=== PATIENT | female | born 1955 | race Caucasian/White ===

== ENCOUNTER 2016-06-21 11:41 | Emergency (ER) | payer OTHER ==
[~2016-06-21] VITALS: Ht 182.9 cm; Wt 86.2 kg
[~2016-06-21 11:41] MED LIST: ACHD5005 PO; DIPH50CA33 PO; FAMO40TA6 PO; HYDR1TAB66 PO; PNT40TEC PO; PRM25T PO
--- OUTSIDE RECORDS SUMMARY | 2016-06-21 11:49 | XMS REPORT ---
Author Author EASTON EASTMAN eClinical[employer] Address Unknown Phone Unavailable Care Team Providers Care Insurance Loss Control Surveyor Name Role Phone EASTON EASTMAN CP Unavailable Allergies, Adverse Reactions, Alerts Substance Reaction Event Type Sulfamethoxazole Info Not Available Drug Allergy Celebrex Info Not Available Drug Allergy Problems Problem Type Condition Code Onset Dates Condition Status Assessment Dental examination Z01.20 Active Problem Lumbosacral radiculopathy 724.4 Active Medications Medication Code System Code Instructions Start Date End Date Status Dosage Ibuprofen NDC 0 not defined Clindamycin HCl [facility] [id number] 150 MG Orally every 6 hrs Jan 12, 2016 Jan 19, 2016 2 capsules Benadryl Allergy [facility] [id number] not defined Procedures Procedure Coding System Code Date INTRAORL-PERIAPICAL 1 FILM 96157 CPT-4 D0220 Jan 12, 2016 LTD ORAL EVALUATION - PROBLEM FOCUS CPT-4 D0140 Jan 12, 2016 Vital Signs Date/Time: Jan 12, 2016 Blood Pressure Diastolic 93 mmHg Blood Pressure Systolic 131 mmHg Height 72 in Results No Known Results Summary Purpose eClinicalWorks Submission
[2016-06-21] MEDS ORDERED: HYDROcodone/APAP 5 MG/325 MG (LORTAB) TAB PO ONE (12:15)
[2016-06-21] MEDS ORDERED: HYDR-757 PO (12:17)
--- NOTE | 2016-06-21 12:17 | ED Upper Extremity ---
General Chief Complaint: Upper Extremity Stated Complaint: L WRIST INJ, FALL Source: patient Exam Limitations: no limitations History of Present Illness Time seen by provider: 12:14 Initial Comments To ER with reports of a fall at home and try to catch herself on an extended left arm. She now has deformity and swelling to the distal left forearm. She is able to move all of her fingers. No pain in the elbow and no other injuries. Onset: just prior to arrival Severity: moderate Pain/Injury Location: left forearm Method of Injury: fell Modifying Factors: Worse With Movement Allergies and Home Medications Allergies Coded Allergies: Celecoxib (Unverified Allergy, Unknown, 09/23/10) Uncoded Allergies: SULFA (Allergy, Unknown, 09/23/10) Home Medications Hydrocodone/Acetaminophen 1 Each Tablet #30 1 EACH PO Q4H PRN PRN PAIN Prescribed by: LEO ELAM on 06/21/16 1217 Constitutional: see HPI EENTM: see HPI Respiratory: no symptoms reported Cardiovascular: no symptoms reported Genitourinary: no symptoms reported Musculoskeletal: see HPI Skin: no symptoms reported Psychiatric/Neurological: No Symptoms Reported Past Boahfuh-Lqoelx-Qzcibg Hx Patient Social History Alcohol Use: Rarely Uses Recreational Drug Use: No Smoking Status: Current Everyday Smoker Recent Foreign Travel: No Contact w/Someone Who Travel: No Recent Hopitalizations: No Physical Abuse Screen: No Sexual Abuse: No Seasonal Allergies Seasonal Allergies: No Surgeries HX Surgeries: Yes Respiratory Hx Respiratory Disorders: No Cardiovascular Hx Cardiac Disorders: Yes Neurological Hx Neurological Disorders: No Reproductive System Hx Reproductive Disorders: No Genitourinary Hx Genitourinary Disorders: No Gastrointestinal Hx Gastrointestinal Disorders: No Endocrine Hx Endocrine Disorders: No HEENT HX ENT Disorders: No Psychosocial Hx Psychiatric Problems: No Blood Transfusions Hx Blood Disorders: No Physical Exam Vital Signs Vital Sign - Last 12Hours 06/21/16 12:00 Temp 97.4 Pulse 104 Resp 18 B/P 143/85 Pulse Ox 97 Capillary Refill : General Appearance: WD/WN no apparent distress HEENT: PERRL/EOMI normal ENT inspection Neck: non-tender full range of motion Respiratory: no respiratory distress no accessory muscle use Gastrointestinal: non tender soft Shoulder: normal inspection non-tender Elbow/Forearm: Left, pain, soft tissue tenderness Wrist: Yes deformity, Yes limited ROM, Yes pain, Yes soft tissue tenderness, Yes swelling Hand: normal inspection, non-tender, no evidence of injury, Left Neurologic/Psychiatric: alert normal mood/affect oriented x 3 Skin: normal color warm/dry Progress/Results/Core Measures Results/Orders My Orders Orders-LEO ELAM APRN Wrist, Left, 3 Views Or More (06/21/16 12:08) Hydrocodone/Apap 5/325 Tablet (Lortab 5 (06/21/16 12:15) Medications Given in ED Current Medications Medications Dose Ordered Sig/Zain Route Start Time Stop Time Status Last Admin Dose Admin Acetaminophen/ Hydrocodone Bitart 1 tab ONCE ONCE PO 06/21/16 12:15 06/21/16 12:16 DC 06/21/16 12:41 1 TAB Vital Signs/I&O Vital Sign - Last 12Hours 06/21/16 12:00 Temp 97.4 Pulse 104 Resp 18 B/P 143/85 Pulse Ox 97 Diagnostic Imaging Diagonstic Imaging: Xray Comments NAME: IBIS MORRELL [facility] REC#: [id number] PT STATUS: REG ER : 1955 PHYSICIAN: LEO ELAM APRN ADMIT DATE: 06/21/16/ER Draft Date of Exam:06/21/16 WRIST, LEFT, 3 VIEWS OR MORE Exam: 3 views of the left wrist. Indication: Injury. Findings: There is a mildly comminuted impacted fracture of the distal radius with the fracture line extending to the articular surface. There is satisfactory alignment of the radiocarpal joint. There is a nondisplaced transverse fracture through the base of the ulnar styloid, as well. Degenerative changes of the carpometacarpal joint at the base of the thumb is seen. No radiopaque foreign body is noted. Impression: Mildly comminuted and impacted fracture at the distal radius with a fracture line extending to the radiocarpal joint. There is also a nondisplaced fracture through the base of the ulnar styloid. Dictated on workstation # [id number] Dict: 06/21/16 1221 Trans: 06/21/16 1229 [facility] [phone] Interpreted by: ESTELLE NUNEZ MD Electronically signed by: Departure Communication Progress Notes Patient placed in an sugar tong style splint using 3 inch Ortho-Glass and provided with a sling. Impression Impression: Primary Impression: Distal radius fracture, left Qualified Code: S52.502A - Unspecified fracture of the lower end of left radius, initial encounter for closed fracture Disposition: 01 HOME, SELF-CARE Condition: Stable Departure-Patient Inst. Decision time for Depature: 12:16 Referrals: KARIE CLARKE MD [facility] (PCP/Family) Primary Care Physician MARYANNE COOPER,ANNA FOSTER,NEVILLE HERRON,ITALO SPARKS,DUONG GOODWIN,WENDY ELIAS,ABELARDO Hoover MD Patient Instructions: Wrist Fracture (DC) Add. Discharge Instructions: 1. Keep the arm in a splint at all times until you follow up with one of the orthopedic surgeons listed 2. Try to be seen by an orthopedic surgeon within 2 weeks. At that point they will likely re-x-ray this and switch your splint to a cast 4. Keep the hand elevated as much as possible today and tomorrow as this will help with swelling and throbbing. Pain medication as directed All discharge instructions reviewed with patient and/or family. Voiced understanding. Scripts Hydrocodone/Acetaminophen (Barrett 5-325 Tablet)1 Each Tablet1 Each PO Q4H PRN PAIN #30 TAB Prov:LEO ELAM APRN 06/21/16 LEO ELAM APRN Jun 21, 2016 12:17
--- NOTE | 2016-06-21 12:29 | Diagnostic Imaging Report ---
Exam: 3 views of the left wrist. Indication: Injury. Findings: There is a mildly comminuted impacted fracture of the distal radius with the fracture line extending to the articular surface. There is satisfactory alignment of the radiocarpal joint. There is a nondisplaced transverse fracture through the base of the ulnar styloid, as well. Degenerative changes of the carpometacarpal joint at the base of the thumb is seen. No radiopaque foreign body is noted. Impression: Mildly comminuted and impacted fracture at the distal radius with a fracture line extending to the radiocarpal joint. There is also a nondisplaced fracture through the base of the ulnar styloid. Dictated by: Dictated on workstation # [id number]
[2016-06-21 12:50] VITALS: BP 122/84
== END 2016-06-21 12:50 | disposition home or self-care (01) ==
LOC: EDUNIT# 11:41 → ER 11:44
DX: S52.352A Displaced comminuted fracture of shaft of radius, left arm, initial encounter for closed fracture (principal); S52.615A Nondisplaced fracture of left ulna styloid process, initial encounter for closed fracture; F17.210 Nicotine dependence, cigarettes, uncomplicated; W19.XXXA Unspecified fall, initial encounter; Y92.009 Unspecified place in unspecified non-institutional (private) residence as the place of occurrence of the external cause; Y99.8 Other external cause status
CPT/HCPCS: 29125; 73110

== ENCOUNTER 2016-11-12 09:44 | Outpatient (RCR) | payer OTHER ==
[~2016-11-12 09:44] MED LIST changes: +HYDR-757 PO
== END 2016-11-27 15:04 | disposition home or self-care (01) ==
PROVIDERS: ATTEND Orthopaedic Surgery
DX: S52.352D Displaced comminuted fracture of shaft of radius, left arm, subsequent encounter for closed fracture with routine healing (principal); S52.615D Nondisplaced fracture of left ulna styloid process, subsequent encounter for closed fracture with routine healing

== ENCOUNTER 2019-07-21 10:06 | Outpatient (CLI) | payer MEDICARE, OTHER ==
[~2019-07-21] VITALS: Ht 182.9 cm; Wt 89.8 kg
[~2019-07-21 10:06] MED LIST changes: +HYDR-4226 PO; -HYDR-757 PO
[2019-07-21] MEDS ORDERED: TRAM50TA3 PO (10:20)
[2019-07-21 10:30] VITALS: BP 149/86
[2019-07-21 11:03] LABS: BASOPHILS % (AUTO) 0 % (0-10); EOSINOPHILS # (AUTO) 0.2 10^3/uL (0.0-0.3); EOSINOPHILS % (AUTO) 3 % (0-10); HEMATOCRIT 46 % (35-52); HEMOGLOBIN 14.8 G/DL (11.5-16.0); LYMPHOCYTES # (AUTO) 2.1 X 10^3 (1.0-4.0); LYMPHOCYTES % (AUTO) 39 % (12-44); MEAN CORPUSCULAR HEMOGLOBIN 28 PG (25-34); MEAN CORPUSCULAR HGB CONC 33 G/DL (32-36); MEAN CORPUSCULAR VOLUME 87 FL (80-99); MEAN PLATELET VOLUME 9.1 FL (7.4-10.4); MONOCYTES # (AUTO) 0.5 X 10^3 (0.0-1.0); MONOCYTES % (AUTO) 9 % (0-12); NEUTROPHILS # (AUTO) 2.7 X 10^3 (1.8-7.8); NEUTROPHILS % (AUTO) 50 % (42-75); PLATELET COUNT 223 10^3/uL (130-400); RED CELL DISTRIBUTION WIDTH 13.9 % (10.0-14.5); WHITE BLOOD COUNT 5.3 10^3/uL (4.3-11.0)
[2019-07-21 11:10] LABS: BILIRUBIN,URINE NEGATIVE (NEGATIVE); CLARITY,URINE CLEAR; COLOR,URINE YELLOW; GLUCOSE, URINE (UA) NEGATIVE (NEGATIVE); KETONES,URINE NEGATIVE (NEGATIVE); LEUKOCYTE ESTERASE ,URINE NEGATIVE (NEGATIVE); NITRITE,URINE NEGATIVE (NEGATIVE); PROTEIN,URINE NEGATIVE (NEGATIVE)
[2019-07-21 11:19] LABS: INR 0.9 (0.8-1.4); PROTHROMBIN TIME PATIENT 12.5 SEC (12.2-14.7)
[2019-07-21 11:19] LABS: BACTERIA,URINE NEGATIVE /HPF; RBC,URINE RARE /HPF; SQUAMOUS EPITHELIAL CELL,UR 0-2 /HPF; WBC,URINE RARE /HPF
--- NOTE | 2019-07-21 11:19 | Diagnostic Imaging Report ---
INDICATION: Preop screening prior to knee arthroplasty. FINDINGS: The heart size, mediastinal configuration, and pulmonary vascularity are within normal limits. There is no pleural effusion, pneumothorax, or pneumonia. The osseous structures are unremarkable. IMPRESSION: No acute cardiopulmonary abnormality. Dictated by: Dictated on workstation # [id number]
[2019-07-21 11:26] LABS: ALANINE AMINOTRANSFERASE 17 U/L (0-55); ALBUMIN 4.3 GM/DL (3.2-4.5); ALKALINE PHOSPHATASE 82 U/L (40-136); BILIRUBIN,TOTAL 0.4 MG/DL (0.1-1.0); BUN/CREATININE RATIO 28; CALCIUM 9.4 MG/DL (8.5-10.1); CARBON DIOXIDE 25 MMOL/L (21-32); CHLORIDE 105 MMOL/L (98-107); CREATININE SERUM 0.65 MG/DL (0.60-1.30); GFR ESTIMATED > 60; GLUCOSE 96 MG/DL (70-105); POTASSIUM 4.1 MMOL/L (3.6-5.0); SODIUM 138 MMOL/L (135-145); TOTAL PROTEIN 7.5 GM/DL (6.4-8.2)
== END 2019-07-21 11:05 | disposition home or self-care (01) ==
LOC: PREOP 10:06
PROVIDERS: ATTEND Orthopaedic Surgery
DX: Z01.818 Encounter for other preprocedural examination (principal); M17.11 Unilateral primary osteoarthritis, right knee; R53.83 Other fatigue
CPT/HCPCS: 36415; 71046; 80053; 81000; 85025; 85610; 86850; 86900; 86901; 87081

== ENCOUNTER 2019-07-28 07:32 | Inpatient (IN) | payer MEDICARE, OTHER ==
--- NOTE | 2019-07-22 04:17 | HISTORY AND PHYSICAL ---
DATE OF SERVICE: DATE OF ADMISSION: 07/28/2019. This will be for inpatient admission on 07/28/2019 for right total knee arthroplasty. The patient will require regular inpatient admission due to pain management issues, gait abnormalities, need for physical therapy. HISTORY OF PRESENT ILLNESS: The patient is a 64-year-old female with progressively worsening right knee pain. She reports that this has progressed to the point where it is interfering with activities of daily living. She reports progressive loss of function and increasing pain. She reports pain on the medial aspect of her knee. She denies recent injuries. Due to functional impairment and failure to improve with conservative measures, the patient has elected to proceed with surgical intervention. Radiographs reveals severe medial and patellofemoral arthrosis with complete loss of joint spaces. REVIEW OF SYSTEMS: No chest pain, no shortness of breath, no dysuria. PAST MEDICAL HISTORY: Unremarkable. PAST SURGICAL HISTORY: Cholecystectomy, C5/C6 anterior cervical diskectomy and fusion, left carpal tunnel release. FAMILY HISTORY: Noncontributory. PRIMARY CARE PROVIDER: [facility]. MEDICATIONS: None. ALLERGIES: CELEBREX, SULFA, MELOXICAM. SOCIAL HISTORY: The patient is a current every day smoker and drinks alcohol socially. PHYSICAL EXAMINATION: GENERAL: The patient is well-developed, well-nourished, in no acute distress. HEENT: Normocephalic, atraumatic. Pupils are equal, round, reactive to light. Oropharynx is clear. NECK: Supple, no lymphadenopathy. LUNGS: Clear to auscultation bilaterally. HEART: Regular rate and rhythm. ABDOMEN: Soft, nontender, nondistended. EXTREMITIES: Right knee demonstrates marked tenderness along the medial joint line. She has a moderate effusion. Range of motion is 0/0/145 with no varus valgus laxity. Negative anterior and posterior drawer. She has pain with Brown. She ambulates with an antalgic gait. IMPRESSION: Right knee primary osteoarthritis. PLAN: Right total knee arthroplasty. The risks, benefits, options, ramifications and recovery were discussed at length with the patient. She understands and wishes to proceed. Job ID: [id number] DocumentID: [id number] Dictated Date: 07/14/2019 12:25:14 Button Tacker Date: 07/14/2019 13:07:06 Dictated By: ABELARDO DE LA TORRE MD
[~2019-07-28] VITALS: Ht 182.9 cm; Wt 89.8 kg
[2019-07-28] VITALS (11 sets, daily range): BP systolic 122–162; BP diastolic 76–103
[~2019-07-28 07:32] MED LIST changes: +ACETAMINOPHEN 325 MG TABLET PO PRN; +ONDANSETRON 4 MG/2 ML (SDV) Z0FRAN IVP PRN; +TRAM50TA3 PO; +diphenhydrAMINE 50 MG/ML INJ (BENADRYL) IVP PRN
[2019-07-28] MEDS ORDERED: INTRA-ARTICULAR IU ONE ×5 (07:45)
[2019-07-28] MEDS ORDERED: ONDANSETRON 4 MG/2 ML (SDV) Z0FRAN ONE (08:05)
[2019-07-28] MEDS ORDERED: proPOfol 200 MG/20 ML (DIPRIVAN) VIAL IV ONE (08:05)
[2019-07-28] MEDS ORDERED: MIDAZOLAM 2 MG/2 ML (VERSED) VIAL ONE (08:06)
[2019-07-28] MEDS ORDERED: LIDOCAINE PF 2% 5 ML (XYLOCAINE) VIAL ONE (08:06)
[2019-07-28] MEDS ORDERED: SEVOFLURANE (ULTANE) 15 ML INHAL SOLN ONE ×2 (08:06→10:35)
[2019-07-28] MEDS ORDERED: fentaNYL INJECTION 100 MCG/2 ML AMP ONE ×2 (08:06→09:48)
[2019-07-28] MEDS ORDERED: TRANEXAMIC ACID 100 MG/ML 10 ML INJECTION IV ONE (08:12)
[2019-07-28] MEDS ORDERED: BUPIVACAINE 0.5% 30 ML (SENSORCAINE) VIAL ONE (08:12)
[2019-07-28] MEDS: NS IV 1000 ML 1,000 ML IV SCH ×2 (08:15→18:19)
[2019-07-28] MEDS ORDERED: CEFUROXIME 1,500 MG/SWFI 15 ML IV PUSH IV ONE ×2 (08:30)
[2019-07-28] MEDS ORDERED: CATHETER FLUSH 10 ML SYR IV PRN (08:30)
--- NOTE | 2019-07-28 09:19 | Progress Note-Pre Operative ---
Pre-Operative Progress Note H&P Reviewed The H&P was reviewed, patient examined and no changes noted. Date Seen by Provider: Jul 28, 2019 Time Seen by Provider: 09:10 Date H&P Reviewed: Jul 28, 2019 Time H&P Reviewed: 07:12 Pre-Operative Diagnosis: right knee primary osteoarthritis ABELARDO DE LA TORRE MD Jul 28, 2019 09:19
--- NOTE | 2019-07-28 09:21 | Progress Note-Post Operative ---
Post-Operative Progess Note Surgeon (s)/Anesthesiology Tech (s) Surgeon ABELARDO DE LA TORRE MD Anesthesiology Tech: Pedrito Charles Pre-Operative Diagnosis right knee primary osteoarthritis Post-Operative Diagnosis right knee primary osteoarthitis Procedure & Operative Findings Date of Procedure 07/28/19 Procedure Performed/Findings right total knee arthroplasty Anesthesia Type GETA Estimated Blood Loss Estimated blood loss (mL): minimal Specimens/Packing Specimens Removed none Packing: none ABELARDO DE LA TORRE MD Jul 28, 2019 09:21
--- NOTE | 2019-07-28 09:23 | D/C HH Face to Face Order ---
D/C Face to Face Orders Reconcile Patient Problems Problems Reviewed?: Yes Instructions for Patient Via [facility] [place], Patient Instructions/FollowUp: three weeks Physician to follow Patient: three weeks Discharge Diet for Home: Regular Diet Patient Data-Allergies,Ht & Wt Patient Allergies: Coded Allergies: Sulfa (Sulfonamide Antibiotics) (Verified Allergy, Unknown, 07/21/19) celecoxib (Unverified Allergy, Unknown, 09/23/10) meloxicam (Verified Allergy, Unknown, stomach pain, 07/21/19) Height (Feet): 6 Height (Inches): 0 Weight (Pounds): 190 Home Health Need/Face to Face Date of Face to Face: Jul 28, 2019 Clinical Findings: Instability, Muscle weakness, Pain with ambulation, Unsteady gait I have seen Pt ycgu-zp-[id number]: Yes Discharged To: Home Diagnosis/Conditions: right total knee arthroplasty Patient is Homebound due to: Debbie fall risk due to instabilty, Muscle weakness, Pain w/ambulation Homebound Status Due to the above stated illness, injury or surgical procedure (medical condition or diagnosis) and associated clinical findings, the patient is homebound because of his/her inability to leave home except with aid of a supportive device and/or person AND leaving the home requires a considerable and taxing effort or is medically contraindicated. Pt req the following assistanc: Walker Home Health Nursing Orders Home Health Services Order: Physical Therapy-Evaluate & Treat DC right knee kalyn and apply steri strips 08/11/19 Therapy Orders Therapy Orders: Physical Therapy, PT to assess for OT Therapy Specific Orders: Eval assistive deivces, Teach enviro modifications/safety, Gait training, Increase strength/endurance, Provider maintenance therapy, Restore ROM Certify Stmt I certify that this patient is under my care and that I, a nurse practitioner or a physician; a culinary assistant working with me, had a face to face encounter that - meets the physician face to face encounter requirements with this patient as dated. ABELARDO DE LA TORRE MD Jul 28, 2019 09:23
[2019-07-28] MEDS ORDERED: GLYCOPYRROLATE 0.2 MG/ML (ROBINUL) 2 ML VIAL ONE (09:36)
[2019-07-28] MEDS ORDERED: LACTATED RINGERS 1,000 ML IV PRN (10:08)
[2019-07-28] MEDS ORDERED: LABETALOL HCL 20 MG/4 ML VIAL ONE (10:30)
[2019-07-28] MEDS ORDERED: morphine INJ 10 MG/ML 1ML (SYR OR VIAL) ONE (11:02)
[2019-07-28] MEDS ORDERED: HYDROmorphone 2 MG/ML VIAL (DILAUDID) ONE (11:12)
[2019-07-28] MEDS ORDERED: HYDROmorphone 2 MG/ML VIAL (DILAUDID) IV ONE (11:15)
[2019-07-28] MEDS ORDERED: PROMETHAZINE INJ 25 MG/ML (PHENERGAN) AMP IVP ONE (11:15)
[2019-07-28] MEDS ORDERED: MEPERIDINE (DEMEROL) INJ 50 MG/ML IVP ONE (11:15)
[2019-07-28] MEDS ORDERED: ONDANSETRON 4 MG/2 ML (SDV) Z0FRAN IVP PRN (11:15)
[2019-07-28] MEDS ORDERED: morphine INJ 10 MG/ML 1ML (SYR OR VIAL) IVP ONE (11:15)
--- NOTE | 2019-07-28 11:19 | Progress Note ---
Standard Progress Note Progress Notes/Assess & Plan Date Seen by a Provider: Jul 28, 2019 Time Seen by a Provider: 11:17 Progress/Assessment & Plan post op check no complaints radiographs--HW well positioned without fracture RLE--2 plus DP pulse with brisk cap refill, intact DF and PF of toes and ankle. Intact sensation thoroughout s/p RTKA mobilize as able ABELARDO DE LA TORRE MD Jul 28, 2019 11:19
--- NOTE | 2019-07-28 11:19 | Diagnostic Imaging Report ---
INDICATION: Right knee pain. FINDINGS: AP and lateral views of the right knee show postop changes from joint arthroplasty. The prosthetic components appear to be well seated. There is no evidence of loosening or acute fracture. IMPRESSION: Good alignment of the right knee following joint arthroplasty. Dictated by: Dictated on workstation # [id number]
--- NOTE | 2019-07-28 12:00 | NUR ---
RECEIVED FROM RECOVERY, ALERT, DRESSING DRY AND INTACT TO RIGHT KNEE, POLAR ICE PACK ON, CHANO HOSE ON, SCD'S APPLIED, IV SITE WITHOUT REDNESS OR SWELLING, CALL LIGHT WITHIN REACH, O2 ON PER NC AT 2 LITERS
[2019-07-28] MEDS ORDERED: morphine PCA 100 MG/100 ML BAG IV ONE (12:59)
[2019-07-28] MEDS: morphine PCA 100 MG/100 ML BAG IV PRN ×2 (13:23→13:24)
--- NOTE | 2019-07-28 13:23 | NUR ---
MORPHINE PC STARTED IMG EVERY 10 MINUTES WITH LOCKOUT OF 20 IN FOUR HOURS, PATIENT VERBALIZED UNDERSTANDING
--- NOTE | 2019-07-28 14:20 | Physical Therapy Evaluation ---
PT Evaluation-General Medical Diagnosis Admission Date Jul 28, 2019 at 07:32 Medical Diagnosis: Right TKA Onset Date: Jul 28, 2019 Therapy Diagnosis Therapy Diagnosis: impaired mobility, strength, endurance, ROM Height/Weight Height (Feet): 6 Height (Inches): 0 Weight (Pounds): 190 Precautions Precautions/Isolations: Standard Precautions Weight Bear Status Right Lower Extremity: Right Weight Bearing/Tolerated Referral Physician: Melvin Reason for Referral: Evaluation/Treatment Medical History Additional Medical History PAST SURGICAL HISTORY: Cholecystectomy, C5/C6 anterior cervical diskectomy and fusion, left carpal tunnel release. Current History Patient had right TKA morning of 07/28 Reviewed History: Yes Social History Home: Single Level Current Living Status: Spouse Entry Into Home: Level Entry PT Steps Into Home: 0 PT Steps Inside Home: 0 Prior Prior Level of Function SCALE: Activities may be completed with or without assistive devices. 2-Bdiucntpym-vgdojpa completes the activity by him/herself with no assistance from a helper. 5-Set-up or Clean-up Assistance-helper sets up or cleans up; patient completes activity. [place] assists only prior to or following the activity. 4-Supervision or Touching Assistance-helper provides verbal cues and/or touching/steadying and/or contact guard assistance as patient completes activity. Assistance may be provided throughout the activity or intermittently. 3-Partial/Moderate Assistance-helper does LESS THAN HALF the effort. [place] lifts, holds or supports trunk or limbs, but provides less than half the effort. 2-Substantial/Maximal Assistance-helper does MORE THAN HALF the effort. [place] lifts or holds trunk or limbs and provides more than half the effort. 8-Tdaqxncaj-oabtmr does ALL the effort. Patient does none of the effort to complete the activity. Or, the assistance of 2 or more helpers is required for the patient to complete the activity. If activity was not attempted, code reason: 7-Patient Refused. 9-Not Applicable-not attempted and the patient did not perform the activity before the current illness, exacerbation or injury. 10-Not Attempted due to Environmental Limitations-(lack of equipment, weather restraints, etc.). 88-Not Attempted due to Medical Conditions or Safety Concerns. Bed Mobility: 6 Transfers (B,C,W/C): 6 Gait: 6 Stairs: 6 Indoor Mobility (Ambulation): Independent Stairs: Independent Prior Devices Use: None PT Evaluation-Current Subjective Patient agreeable to therapy at this time. Patient reports she is ready to start moving her leg. Pain 4/10 in right knee. Pt/Family Goals to be independent at home Objective Patient Orientation: Person Attachments: SCD's, Oxygen, Polar Pack, IV ROM/Strength ROM Lower Extremities Right knee approximately 80 degrees flexion and lacking 5 degrees extension. Strength Lower Extremities Expected post surgical RLE weakness. Integumentary/Posture Integumentary See nursing notes. 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 Wheelchair Training Does the Pt Use a Wheelchair?: No Balance Sitting Static: Good Sitting Dynamic: Good Standing Static: Fair Standing Dynamic: Fair Treatment RLE exercises x 10 reps: ankle pumps, quad sets, heel slides, SLR, SAQ. AROM all exercises. Assessment/Needs Patient is extremely motivated to accomplish tasks independently, she does not want assistance with bed mobility. Patient tolerates exercises well and is steady during ambulation with cues on proper handling of walker. Patient is in bed with CPM on, set at -2/54. Rehab Potential: Good PT Trailer Technician Goals Snf Goals PT Trailer Technician Goals Time Frame: Aug 04, 2019 Roll Left & Right (QC): 6 Sit to Lying (QC): 6 Lying-Sitting on Side/Bed(QC): 6 Sit to Stand (QC): 6 Chair/Woo-ly-Iugjh Xfer(QC): 6 Toilet Transfer (QC): 6 Does the Patient Walk: Yes Walk 10 feet (QC): 6 Walk 50ft with 2 Turns (QC): 6 Does the Pt use WC or Scooter?: No PT Plan Problem List Problem List: Activity Tolerance, Functional Strength, Safety, Balance, Gait, Transfer, ROM Treatment/Plan Treatment Plan: Continue Plan of Care Treatment Plan: Education, Functional Activity Amor, Functional Strength, Gait, Safety, Therapeutic Exercise, Transfers Treatment Duration: Aug 04, 2019 Frequency: 11 times per week Estimated Hrs Per Day: .5 hour per day Patient and/or Family Agrees t: Yes Safety Risks/Education Patient Education: Gait Training, Transfer Techniques, Correct Positioning, Sa fety Issues Teaching Recipient: Patient Teaching Methods: Demonstration, Discussion Response to Teaching: Reinforcement Needed Discharge Recommendations Plan Patient will receive treatment addressing bed mobility, functional activity tolerance, functional strength, gait, safety, and transfers through strength training, therapeutic exercises, stair training, and education. Therapy Discharge Recommendati: Home & Family Time/GCodes Time In: 1322 Time Out: 1352 Total Billed Treatment Time: 30 Total Billed Treatment 1 visit VIJAYA 30' LUBA PAREKH PT Jul 28, 2019 14:20
--- NOTE | 2019-07-28 15:28 | OPERATIVE REPORT ---
DATE OF SERVICE: 07/28/2019 PREOPERATIVE DIAGNOSIS: Right knee primary osteoarthritis. POSTOPERATIVE DIAGNOSIS: Right knee primary osteoarthritis. PROCEDURE: Right total knee arthroplasty. SURGEON: Maynor Toscano MD SULFURIC [employer] PLANT OPERATOR: Pedrito Charles, who assisted throughout the procedure and closed the incision. ANESTHESIA: General endotracheal by Jad Best CRNA. TOURNIQUET TIME: Approximately 65 minutes at 300 mmHg. ESTIMATED BLOOD LOSS: Minimal. DRAINS: None. COMPLICATIONS: None. POSTOPERATIVE PLAN: Routine protocol. The patient was transferred to the recovery room awake and in stable condition. MATERIALS: MicroPort cemented to size 5 femur, cemented size 5 tibia with 10 mm insert and cemented size 32 patellar button. STATEMENT OF MEDICAL NECESSITY: The patient is a 64-year-old female with progressively worsening right knee pain, catching, locking and swelling. She had complete loss of medial patellofemoral joint spaces. She has tried treatment with injections without relief. Due to functional impairment and failure to improve with conservative measures, the patient elected to proceed with surgical intervention. DESCRIPTION OF PROCEDURE: After risks and benefits of procedure were discussed and questions were answered, informed consent was accomplished on chart, the operative site was confirmed in the preoperative holding area initialed by the surgeon. The patient was then transferred to the operating room and after adequate levels of general endotracheal anesthetic were obtained, a timeout was called, confirming the operative site. The right lower extremity was prepped and draped in the usual sterile fashion with the leg elevated and knee flexed, tourniquet was inflated to 300 mmHg. A standard anterior incision was utilized. Medial parapatellar arthrotomy was performed leaving 1 cm cuff on the patella for later reattachment. A portion of the fat pad was resected. Subperiosteal release was performed proximal medial tibia, being careful stay on the bony surface. The ACL was resected. Intramedullary guide was passed into the femur. The intramedullary guide was placed. Distal cutting block was placed parallel to the epicondylar axis and cuts were made from posterior to anterior. A subperiosteal release was then carefully performed on the posterior distal femur, being careful to stay on the bony surface. Intramedullary guide was passed into the tibia. The drop becky transected the intermalleolar axis and the cut was made. Baseplate was placed. Drop becky transected the intermalleolar axis and this was prepared with the drill and keel punch. The femoral trial was placed and the trochlear cut was made. A 10 mm insert was placed. The patella was prepared by using the freehand technique and resecting 10 mm off the undersurface. 32 button was placed. Knee was taken through range of motion. Full extension was easily obtained, 130 degrees of flexion with gravity was easily obtained. There was no anterior/posterior or medial/lateral laxity in flexion or extension. Trials were removed. Joint was irrigated with pulse lavage. Bone ends were irrigated and dried. Tibial baseplate was cemented into position. Excessive cement was removed. Superior surface was irrigated and dried and the polyethylene insert was placed. Distal femur was irrigated and dried and the femoral prosthesis was cemented in position. Excessive cement was removed. The undersurface of patella was irrigated and dried. The patellar button was cemented into position. Once the cement had cured, the knee was taken through range of motion, full extension easily obtained, 130 of flexion with gravity was easily obtained. The patella tracked well. There was no anterior/posterior or medial/lateral laxity in flexion or extension. The joint was further irrigated with pulse lavage. Arthrotomy was closed with #2 Tevdek in interrupted fashion. Knee was flexed. The repair was stable and the patella tracked well. The subcutaneous tissues were irrigated and dried using a total of 6 liters throughout the procedure. A 0 Vicryl was used to deep subcutaneous tissue, 2-0 Vicryl for the superficial subcutaneous tissue, kalyn used on the skin. A soft dressing was applied. Tourniquet was deflated. The patient was transferred to the recovery room awake and in stable condition. Job ID: [id number] DocumentID: [id number] Dictated Date: 07/28/2019 11:00:44 Tape Librarian Date: 07/28/2019 15:27:35 Dictated By: MAYNOR OTSCANO MD
[2019-07-28] MEDS: SENNA W/DOCUSATE (SENOKOT S) TABLET PO SCH ×2 (17:44→21:19)
[2019-07-28] MEDS: CEFUROXIME INJECTION 750 MG in WATER (STERILE) FOR INJECTION 10 ML IV SCH (17:45)
[2019-07-29 00:40] VITALS: BP 109/55
[2019-07-29] MEDS: CEFUROXIME INJECTION 750 MG in WATER (STERILE) FOR INJECTION 10 ML IV SCH (01:09)
[2019-07-29] MEDS: oxyCODONE/APAP 5/325MG (PERCOCET 5) TABLET PO PRN ×8 (03:40→22:50)
[2019-07-29 04:00] VITALS: BP 127/68
[2019-07-29 06:09] LABS: HEMOGLOBIN 12.1 G/DL (11.5-16.0)
[2019-07-29] MEDS: NS IV 1000 ML 1,000 ML IV SCH ×2 (07:12→17:44)
[2019-07-29] MEDS: SENNA W/DOCUSATE (SENOKOT S) TABLET PO SCH ×2 (07:17→20:44)
[2019-07-29] MEDS: MULTIVIT W/MINERALS TAB (THERAGRAN M) PO SCH (07:17)
[2019-07-29] MEDS: ENOXAPARIN 30 MG/0.3 ML (LOVENOX) SYR SC SCH ×2 (07:17→20:43)
[2019-07-29] MEDS: ASPIRIN E.C. 81 MG (ECOTRIN) TAB PO SCH (07:18)
--- NOTE | 2019-07-29 07:50 | Anesthesia-General Post-Op ---
General Patient Condition Mental Status/LOC: Same as Preop Cardiovascular: Satisfactory Nausea/Vomiting: Absent Respiratory: Satisfactory Pain: Controlled Complications: Absent Post Op Complications Complications None Follow Up Care/Instructions Patient Instructions None needed. Anesthesia/Patient Condition Patient Condition Patient is doing well, no complaints, stable vital signs, no apparent adverse anesthesia problems. No complications reported per nursing. NAM BELL CRNA Jul 29, 2019 07:50
--- NOTE | 2019-07-29 07:57 | Progress Note ---
Standard Progress Note Progress Notes/Assess & Plan Date Seen by a Provider: Jul 29, 2019 Time Seen by a Provider: 07:56 Progress/Assessment & Plan post op check no complaints radiographs--HW well positioned without fracture RLE--2 plus DP pulse with brisk cap refill, intact DF and PF of toes and ankle. Intact sensation thoroughout s/p RTKA mobilize as able Final Diagnosis no complaints Vital Signs Date Time Temp Pulse Resp B/P (MAP) Pulse Ox O2 Delivery O2 Flow Rate FiO2 07/29/19 04:00 36.8 110 22 127/68 (87) 95 Room Air 07/29/19 00:40 36.8 78 16 109/55 (73) 93 Room Air 07/28/19 21:00 Room Air 07/28/19 20:30 37.1 97 20 122/76 (91) 97 Room Air 07/28/19 17:00 Room Air 07/28/19 16:00 36.4 79 20 144/80 (101) 95 Room Air 07/28/19 12:30 100 Room Air 07/28/19 12:18 36.2 77 14 162/94 (116) 100 Nasal Cannula 2.00 07/28/19 11:50 36.1 12 146/79 (101) 100 OxyMask 2 07/28/19 11:50 Nasal Cannula 2 07/28/19 11:48 36.1 07/28/19 11:40 OxyMask 3 07/28/19 11:40 10 152/83 (106) 100 OxyMask 3 07/28/19 11:30 13 154/93 (113) 100 OxyMask 3 07/28/19 11:30 OxyMask 10 07/28/19 11:20 25 158/103 (121) 100 OxyMask 10 07/28/19 11:15 OxyMask 10 07/28/19 11:10 29 139/93 (108) 100 OxyMask 10 07/28/19 11:02 36 15 147/80 (102) 99 OxyMask 10 07/28/19 11:02 OxyMask 10 07/28/19 11:02 36 15 147/80 (102) 99 OxyMask 10 07/28/19 08:00 36.7 80 16 143/78 (99) 99 Room Air 0.00 0.00 I & O 07/29/19 07:00 Intake Total 2815 ml Output Total 100 ml Balance 2715 ml Laboratory Tests Test 07/29/19 05:58 Range/Units Hemoglobin 12.1 11.5-16.0 G/DL Hematocrit 37 35-52 % RLE--dressing intact. NVI distally. no calf tenderness s/p0- RTKA doing well continue PT/OT ABELARDO DE LA TORRE MD Jul 29, 2019 07:57
[2019-07-29 08:00] VITALS: BP 136/72
[2019-07-29 08:44] LABS: HEMOGLOBIN 11.6 G/DL (11.5-16.0); MEAN PLATELET VOLUME 8.4 FL (7.4-10.4); RED CELL DISTRIBUTION WIDTH 13.7 % (10.0-14.5); WHITE BLOOD COUNT 6.8 10^3/uL (4.3-11.0)
[2019-07-29] MEDS: ALPRAZolam 0.5 MG (XANAX) TAB PO PRN ×2 (09:36→15:24)
--- NOTE | 2019-07-29 10:53 | Physical Therapy Daily Note ---
PT Daily Note-Current Subjective Patient is very anxious about doing PT. She states she does not want to do it because it is going to hurt. Patient agrees after encouragement from PT. Pain Numeric Pain Scale: 10-Worst Possible Pain Location: Right Location Body Site: Knee Pain Description: Acute Mental Status Patient Orientation: Normal For Age Attachments: Polar Pack, IV Transfers SCALE: Activities may be completed with or without assistive devices. 1-Klqystviwy-kvvofrk completes the activity by him/herself with no assistance from a helper. 5-Set-up or Clean-up Assistance-helper sets up or cleans up; patient completes activity. [place] assists only prior to or following the activity. 4-Supervision or Touching Assistance-helper provides verbal cues and/or touch ing/steadying and/or contact guard assistance as patient completes activity. Assistance may be provided throughout the activity or intermittently. 3-Partial/Moderate Assistance-helper does LESS THAN HALF the effort. [place] lifts, holds or supports trunk or limbs, but provides less than half the effort. 2-Substantial/Maximal Assistance-helper does MORE THAN HALF the effort. [place] lifts or holds trunk or limbs and provides more than half the effort. 3-Gyjiyhcvo-vmzivv does ALL the effort. Patient does none of the effort to complete the activity. Or, the assistance of 2 or more helpers is required for the patient to complete the activity. If activity was not attempted, code reason: 7-Patient Refused. 9-Not Applicable-not attempted and the patient did not perform the activity before the current illness, exacerbation or injury. 10-Not Attempted due to Environmental Limitations-(lack of equipment, weather restraints, etc.). 88-Not Attempted due to Medical Conditions or Safety Concerns. Roll Left & Right (QC): 4 Sit to Lying (QC): 4 Lying to Sitting/Side of Bed(Q: 4 Sit to Stand (QC): 4 Weight Bearing Right Lower Extremity: Right Weight Bearing/Tolerated Gait Training Does the Patient Walk?: Yes Distance: 150' Walk 10 feet (QC): 4 Walk 50 ft with 2 Turns(QC): 4 Walk 150 ft (QC): 4 Gait Assistive Device: FWW slow, antalgic with step to gait sequence and flat foot right with skilled verbal instruction. Exercises Supine Ex: Ankle pumps, Quad Set, Heel Slides, Straight leg raise Supine Reps: 10 (AAROM) Seated Therapy Exercises: Long arc quads Seated Reps: 10 (AAROM) Treatments CPM 0-70 degrees with polar pack in place Assessment Patient continued to be anxious during treatment, however, did calm after education and with exercise and gait. PT to increase activity as tolerated by patient. PT Half-Way Goals Regional Property Manager Goals PT Half-Way Goals Time Frame: Aug 04, 2019 Roll Left & Right (QC): 6 Sit to Lying (QC): 6 Lying-Sitting on Side/Bed(QC): 6 Sit to Stand (QC): 6 Chair/Frz-za-Fmbkm Xfer(QC): 6 Toilet Transfer (QC): 6 Does the Patient Walk: Yes Walk 10 feet (QC): 6 Walk 50ft with 2 Turns (QC): 6 Does the Pt use WC or Scooter?: No PT Plan Treatment/Plan Treatment Plan: Continue Plan of Care Treatment Plan: Education, Functional Activity Amor, Functional Strength, Gait, Safety, Therapeutic Exercise, Transfers Treatment Duration: Aug 04, 2019 Frequency: 11 times per week Estimated Hrs Per Day: .5 hour per day Patient and/or Family Agrees t: Yes Time/GCodes Time In: 917 Time Out: 946 Total Billed Treatment Time: 29 Total Billed Treatment 1 visit EX 14 min GT 15 min DEANA CAMARGO PT Jul 29, 2019 10:53
[2019-07-29 12:00] VITALS: BP 150/67
--- NOTE | 2019-07-29 14:17 | Physical Therapy Daily Note ---
PT Daily Note-Current Subjective Patient is anxious and hesitant to participate in therapy but states she knows she needs to do therapy so let's get it over with. Pain Numeric Pain Scale: 10-Worst Possible Pain Location: Right Location Body Site: Knee Appearance Patient is in bed with call light and bedside table within reach. CPM on, set 0/70. Mental Status Patient Orientation: Person Transfers SCALE: Activities may be completed with or without assistive devices. 4-Pzpmhhrtjq-xmplfcl completes the activity by him/herself with no assistance from a helper. 5-Set-up or Clean-up Assistance-helper sets up or cleans up; patient completes activity. [place] assists only prior to or following the activity. 4-Supervision or Touching Assistance-helper provides verbal cues and/or touching/steadying and/or contact guard assistance as patient completes activity. Assistance may be provided throughout the activity or intermittently. 3-Partial/Moderate Assistance-helper does LESS THAN HALF the effort. [place] lifts, holds or supports trunk or limbs, but provides less than half the effort. 2-Substantial/Maximal Assistance-helper does MORE THAN HALF the effort. [place] lifts or holds trunk or limbs and provides more than half the effort. 6-Ihwqzpmhd-lsyoiz does ALL the effort. Patient does none of the effort to complete the activity. Or, the assistance of 2 or more helpers is required for the patient to complete the activity. If activity was not attempted, code reason: 7-Patient Refused. 9-Not Applicable-not attempted and the patient did not perform the activity before the current illness, exacerbation or injury. 10-Not Attempted due to Environmental Limitations-(lack of equipment, weather restraints, etc.). 88-Not Attempted due to Medical Conditions or Safety Concerns. Lying to Sitting/Side of Bed(Q: 3 Sit to Stand (QC): 4 Chair/Jft-fm-Xduzm Xfer(QC): 4 Weight Bearing Right Lower Extremity: Right Weight Bearing/Tolerated Gait Training Does the Patient Walk?: Yes Distance: 40' Walk 10 feet (QC): 4 Gait Assistive Device: FWW Patient is unwilling to put much weight through RLE and is hoping with LLE at times in order to avoid putting weight through RLE. Patient is told and informed that putting weight through her RLE will help with her pain but patient states she does not care and that she can not walk anymore. Wheelchair Training Does the Pt Use a Wheelchair?: No Exercises Supine Ex: Ankle pumps, Quad Set, Heel Slides, Short Arc Quads, Straight leg raise Supine Reps: 10 (RLE only. ) Treatments Bed mobility, transfers, RLE exercises, ambulation. Assessment During ambulation patient is unwilling to bear much weight through RLE due to pain. Even when told and encouraged to do so patient will not walk with a flat foot or bear weight on her RLE, she states she can not right now because it hurts too much. Patient is unable to actively perform exercises, she needs assistance on all of them. PT Halfway Goals [place] Goals PT Halfway Goals Time Frame: Aug 04, 2019 Roll Left & Right (QC): 6 Sit to Lying (QC): 6 Lying-Sitting on Side/Bed(QC): 6 Sit to Stand (QC): 6 Chair/Jxr-du-Wqzhk Xfer(QC): 6 Toilet Transfer (QC): 6 Does the Patient Walk: Yes Walk 10 feet (QC): 6 Walk 50ft with 2 Turns (QC): 6 Does the Pt use WC or Scooter?: No PT Plan Problem List Problem List: Activity Tolerance, Functional Strength, Safety, Balance, Gait, Transfer, Bed Mobility, ROM Treatment/Plan Treatment Plan: Continue Plan of Care Treatment Plan: Bed Mobility, Education, Functional Activity Amor, Functional Strength, Gait, Safety, Therapeutic Exercise, Transfers Treatment Duration: Aug 04, 2019 Frequency: 11 times per week Estimated Hrs Per Day: .5 hour per day Patient and/or Family Agrees t: Yes Safety Risks/Education Patient Education: Gait Training, Transfer Techniques Teaching Recipient: Patient Teaching Methods: Discussion Response to Teaching: Reinforcement Needed Time/GCodes Time In: 1300 Time Out: 1332 Total Billed Treatment Time: 32 Total Billed Treatment 1 visit GT 16 EX 16 DEANA CAMARGO PT Jul 29, 2019 14:17
--- NOTE | 2019-07-29 14:30 | NUR ---
IRF Evaluation Order received to evaluate patient for the ARU. It appears patient is ambulating (150ft, RW), transferring and performing bed mobility with supervision. According to SW, patient will be returning home with [facility] services. Thank you for this referral.
--- NOTE | 2019-07-29 14:37 | Occupational Therapy Eval ---
OT Evaluation-General/PLF Medical Diagnosis Admission Date Jul 28, 2019 at 07:32 Medical Diagnosis: Right TKA Onset Date: Jul 28, 2019 Therapy Diagnosis Therapy Diagnosis: Weakness Height/Weight Height (Feet): 6 Height (Inches): 0 Weight (Pounds): 190 Precautions Precautions/Isolations: Standard Precautions Safety Interventions: None Weight Bear Status Weight Bearing Restriction: Weight Bearing/Tolerated Referral Physician: Melvin Referral Reason: Activity Tolerance, Self Care, Evaluation/Treatment, Strengthening/ROM Medical History Additional Medical History Cholecystectomy, C5-C6 ACDF, Left CTR Current History Elective right TKR when conservative measures failed. Reviewed History: Yes Social History Home: Single Level Current Living Status: Spouse Entry Into Home: Stairs With Railing Steps Into Home: 3 Steps Inside Home: 0 ADL-Prior Level of Function SCALE: Activities may be completed with or without assistive devices. 3-Guetzhmakd-pwfswij completes the activity by him/herself with no assistance from a helper. 5-Set-up or Clean-up Assistance-helper sets up or cleans up; patient completes activity. [place] assists only prior to or following the activity. 4-Supervision or Touching Assistance-helper provides verbal cues and/or touching/steadying and/or contact guard assistance as patient completes activity. Assistance may be provided throughout the activity or intermittently. 3-Partial/Moderate Assistance-helper does LESS THAN HALF the effort. [place] lifts, holds or supports trunk or limbs, but provides less than half the effort. 2-Substantial/Maximal Assistance-helper does MORE THAN HALF the effort. [place] lifts or holds trunk or limbs and provides more than half the effort. 9-Crmliqwjv-rraski does ALL the effort. Patient does none of the effort to complete the activity. Or, the assistance of 2 or more helpers is required for the patient to complete the activity. If activity was not attempted, code reason: 7-Patient Refused. 9-Not Applicable-not attempted and the patient did not perform the activity before the current illness, exacerbation or injury. 10-Not Attempted due to Environmental Limitations-(lack of equipment, weather restraints, etc.). 88-Not Attempted due to Medical Conditions or Safety Concerns. ADL PLOF Comments Pt. was independent with daily skills. Pt. lives with spouse who takes care of daughter that lives across the street. Daughter has TBI. Self Care: Independent Functional Cognition: Independent DME/Equipment: Bath Chair, Tub/Shower DME/Equipment Comments Pt. 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 tearful. Reports 10/10 pain in right knee. Pt. on FOOD SERVICES DIRECTOR pump and has just had pain medication in pill form. Appearance Pt. in bed. Reports anxiety and pain. States that she did not sleep well. Required encouragement with tasks. Mental Status/Objective Patient Orientation: Person, Place, Time, Situation Current Upper Extremity ROM WFL ADL-Treatment Eating (QC): 6 On/Off Footwear (QC): 2 Pt. transferred supine-sit with SBA. Stood at side of bed with min assist with walker. Pt. attempts to take steps but states that she hurts too bad. Tra nsfers back to bed with CGA and increased time. Pt. reports not sleeping well. OT educated pt. on AE for LE dressing, and tub/transfer bench. Pt. would like to see a bench, and OT will educate/practice with her tomorrow if she is able and willing. OT applied SCDs and attempted to make right LE comfortable at bed level. PT coming in right after OT. All needs met. Education OT Patient Education: Correct positioning, Modified ADL techniques, Progress toward Goal/Update tx plan, Purpose of tx/functional activities, Reviewed precautions, Rehab process, Transfer techniques Teaching Recipient: Patient Teaching Methods: Demonstration, Discussion Response to Teaching: Verbalize Understanding, Return Demonstration OT Custodial Goals Custodial Goals Time Frame: Aug 05, 2019 Eating (QC): 6 Oral Hygiene (QC): 6 Toileting Hygiene (QC): 5 Shower/Bathe Self (QC): 5 Upper Body Dressing (QC): 5 Lower Body Dressing (QC): 5 On/Off Footwear (QC): 5 Additional Goals: 1-Demonstrate ADL Tasks, 2-Verbalize Understanding, 3- ImproveStrength/Amor 1=Demonstrate adherence to instructed precautions during ADL tasks. 2=Patient will verbalize/demonstrate understanding of assistive devices/modifications for ADL. 3=Patient will improve strength/tolerance for activity to enable patient to perform ADL's. OT Education/Plan Problem List/Assessment Assessment: Dependent Transfers, Impaired Bed Mobility, Impaired Funct Balance, Impaired I ADL's, Impaired Self-Care Skills Discharge Recommendations Plan/Recommendations: Continue POC Therapy Discharge Recommendati: Home & Family, Post Acute OT Equpiment Recommendations-D/C: Extended Bath Bench, Hip Kit Treatment Plan/Plan of Care Treatment,Training & Education: Yes Patient would benefit from OT for education, treatment and training to promote independence in ADL's, mobility, safety and/or upper extremity function for ADL's. Plan of Care: ADL Retraining, Functional Mobility, UE Funct Exercise/Act Treatment Duration: Aug 05, 2019 Frequency: 5 times per week Estimated Hrs Per Day: .5 hour per day Agreement: Yes Rehab Potential: Good Time/GCodes Start Time: 08:25 Stop Time: 09:15 Total Time Billed (hr/min): 50 Billed Treatment Time 1, EVH x 15minutes, ADL x 15minutes, FA x 20minutes FRANKLIN ACUÑA OT Jul 29, 2019 14:37
[2019-07-29 16:00] VITALS: BP 139/69
--- NOTE | 2019-07-29 16:50 | NUR ---
CM/SS for discharge planning. Plan: The patient will return home with home health and FWW. Home Health: The patient was provided a Patient Preference Form and stated she would like a referral to go to [facility]. CM/SS called and faxed medical information for the referral. [facility] stated they will start Friday. DME: The patient already has a front wheeled walker and does not need one. No other needs.
[2019-07-29 20:00] VITALS: BP 142/65
[2019-07-30] VITALS: BP 149/74
[2019-07-30] MEDS: oxyCODONE/APAP 5/325MG (PERCOCET 5) TABLET PO PRN ×5 (01:45→11:38)
--- NOTE | 2019-07-30 02:57 | DISCHARGE SUMMARY ---
DATE OF SERVICE: 07/30/2019 DIAGNOSIS: Right knee primary osteoarthritis. PROCEDURE: Right total knee arthroplasty. SUMMARY: The patient is a 64-year-old female who underwent a right total knee arthroplasty without complications. Postoperatively, she did very well. At time of discharge, her wound was clean and dry. She had no calf tenderness. Negative Homans sign. She was tolerating diet well and tolerating pain with oral pain medication. CONDITION AT DISCHARGE: Good. DISCHARGE DIET: Regular. FOLLOWUP: Followup is in three weeks. Home physical therapy has been arranged. DISCHARGE MEDICATIONS: Home medications, aspirin and Percocet as needed for pain. Job ID: [id number] DocumentID: [id number] Dictated Date: 07/29/2019 16:10:39 Purse Framer Date: 07/30/2019 02:56:42 Dictated By: ABELARDO DE LA TORRE MD
[2019-07-30 04:00] VITALS: BP 172/78
[2019-07-30 05:10] LABS: HEMOGLOBIN 11.9 G/DL (11.5-16.0)
[2019-07-30] MEDS: MULTIVIT W/MINERALS TAB (THERAGRAN M) PO SCH (06:07)
--- NOTE | 2019-07-30 06:29 | Progress Note ---
Standard Progress Note Progress Notes/Assess & Plan Date Seen by a Provider: Jul 30, 2019 Time Seen by a Provider: 06:28 Progress/Assessment & Plan post op check no complaints radiographs--HW well positioned without fracture RLE--2 plus DP pulse with brisk cap refill, intact DF and PF of toes and ankle. Intact sensation thoroughout s/p RTKA mobilize as able Final Diagnosis no new complaints Vital Signs Date Time Temp Pulse Resp B/P (MAP) Pulse Ox O2 Delivery O2 Flow Rate FiO2 07/30/19 06:08 20 07/30/19 04:00 36.8 84 20 172/78 (109) 96 Room Air 07/30/19 00:00 37.7 76 16 149/74 (99) 95 Room Air 07/29/19 21:00 94 Room Air 07/29/19 21:00 18 07/29/19 20:00 37.4 83 18 142/65 (90) 94 Room Air 07/29/19 16:00 37.8 84 20 139/69 (92) 95 Room Air 07/29/19 15:27 16 07/29/19 12:00 36.8 83 18 150/67 (94) 95 Room Air 07/29/19 09:00 Room Air 07/29/19 08:00 37.0 78 16 136/72 (93) 99 Room Air I & O 07/30/19 07:00 Intake Total 1260 ml Balance 1260 ml Laboratory Tests Test 07/29/19 08:35 07/30/19 04:50 Range/Units White Blood Count 6.8 4.3-11.0 10^3/uL Red Blood Count 3.97 L 4.35-5.85 10^6/uL Hemoglobin 11.6 11.9 11.5-16.0 G/DL Hematocrit 35 37 35-52 % Mean Corpuscular Volume 89 80-99 FL Mean Corpuscular Hemoglobin 29 25-34 PG Mean Corpuscular Hemoglobin Concent 33 32-36 G/DL Red Cell Distribution Width 13.7 10.0-14.5 % Platelet Count 198 130-400 10^3/uL Mean Platelet Volume 8.4 7.4-10.4 FL Creatinine 0.62 0.60-1.30 MG/DL RLE--incision clean and dry. No calf tenderness. Neg Santa's s/p RTKA patient hesitant to put weight on RLE. reinforced the need to work with PT DC later today if able ABELARDO DE LA TORRE MD Jul 30, 2019 06:29
[2019-07-30] MEDS ORDERED: morphine INJ 4 MG/ML 1 ML (VIAL/SYRINGE) IVP PRN (06:30)
--- NOTE | 2019-07-30 07:00 | NUR ---
THIS RN ALONG WITH CHETNA JACOME DC'D RIVET TESTER PUMP PER PHYSICIAN ORDERS. 45ML WERE WASTED FROM BAG AT THIS TIME.
[2019-07-30 08:00] VITALS: BP 168/91
[2019-07-30] MEDS: ENOXAPARIN 30 MG/0.3 ML (LOVENOX) SYR SC SCH (09:04)
[2019-07-30] MEDS: ASPIRIN E.C. 81 MG (ECOTRIN) TAB PO SCH (09:07)
[2019-07-30] MEDS: SENNA W/DOCUSATE (SENOKOT S) TABLET PO SCH (09:07)
[2019-07-30] MEDS ORDERED: ASPI-983 PO (09:09)
--- NOTE | 2019-07-30 09:59 | Physical Therapy Daily Note ---
PT Daily Note-Current Subjective Patient does not want to participate and therapy but she knows that she needs to do it and states "let's just get it over with". Patient moans and complains with every movement she makes. Pain Numeric Pain Scale: 10-Worst Possible Pain Location: Right Location Body Site: Knee Appearance Patient in recliner legs elevated, call light and bedside table within reach. Mental Status Patient Orientation: Person, Place, Time, Situation Transfers SCALE: Activities may be completed with or without assistive devices. 0-Ylkavrplgo-jxxrirp completes the activity by him/herself with no assistance from a helper. 5-Set-up or Clean-up Assistance-helper sets up or cleans up; patient completes activity. [place] assists only prior to or following the activity. 4-Supervision or Touching Assistance-helper provides verbal cues and/or touching/steadying and/or contact guard assistance as patient completes activity. Assistance may be provided throughout the activity or intermittently. 3-Partial/Moderate Assistance-helper does LESS THAN HALF the effort. [place] lifts, holds or supports trunk or limbs, but provides less than half the effort. 2-Substantial/Maximal Assistance-helper does MORE THAN HALF the effort. [place] lifts or holds trunk or limbs and provides more than half the effort. 5-Sjcuztlmy-kbnkva does ALL the effort. Patient does none of the effort to complete the activity. Or, the assistance of 2 or more helpers is required for the patient to complete the activity. If activity was not attempted, code reason: 7-Patient Refused. 9-Not Applicable-not attempted and the patient did not perform the activity before the current illness, exacerbation or injury. 10-Not Attempted due to Environmental Limitations-(lack of equipment, weather restraints, etc.). 88-Not Attempted due to Medical Conditions or Safety Concerns. Roll Left & Right (QC): 6 Lying to Sitting/Side of Bed(Q: 6 Sit to Stand (QC): 4 Chair/Bsi-he-Vfmfl Xfer(QC): 4 Toilet Transfer (QC): 4 Weight Bearing Right Lower Extremity: Right Weight Bearing/Tolerated Gait Training Does the Patient Walk?: Yes Distance: 150' Walk 10 feet (QC): 4 Walk 50 ft with 2 Turns(QC): 4 Walk 150 ft (QC): 5 Gait Assistive Device: FWW CGA for safety. Patient R knee externally rotated while sitting and ambulating and knee bent. Patient constantly instructed to make foot straight, straighten knee, and bear weight on RLE during ambulation. Patient walks at decreased speed and takes frequent rest breaks. Patient does not listen to cues and continues to bear minimal weight on RLE and instead walk with more of a hop. Wheelchair Training Does the Pt Use a Wheelchair?: No Exercises Seated Therapy Exercises: Long arc quads (15 RLE only, AAROM) Standing: Heel/toe raises (20 RLE), Marching (10 RLE) Treatments Ambulation, transfers, bed mobility, exercises. Assessment Current Status: Poor Progress Patient does not tolerate exercises well. She does not want to perform them actively and keeps trying to use her LLE and hands to aide. When instructed not to patient gets agitated. Patient moans in pain with any movement during exercises. Patient walk at a decreased speed with frequent rest breaks. Patient R knee externally rotated while sitting and ambulating and knee bent. Patient constantly instructed to make foot straight, straighten knee, and bear weight weight on RLE during ambulation. Patient walks at decreased speed and takes frequent rest breaks. Patient does not listen to cues and continues to bear minimal weight on RLE and instead walk with more of a hop. Minimal to no right quad activation due to pain and patient's inability to tolerate exercise program. Patient educated on HEP issued by physician in preop and to perform these 3x/day daily, however, patient becomes very emotional and makes excuses as to not perform them. Patient also report earlier this week she "fell", however, she demonstrated the exact task as the "fall". Instead of lowering herself to bed or recliner, she throws herself back to avoid flexing her knees due to pain. This was demonstrated during PT session with patient transferring to recliner after toileting. Patient educated on proper technique of lowering herself down to seated position for safety for her. Patient became highly agitated with this direction. Patient also educated on importance of improving mobility independently to have successful recovery and to prevent possible negative side effects. PT Long-Term Goals Long-Term Goals PT Tugboat Mate Goals Time Frame: Aug 04, 2019 Roll Left & Right (QC): 6 Sit to Lying (QC): 6 Lying-Sitting on Side/Bed(QC): 6 Sit to Stand (QC): 6 Chair/Luc-qt-Sunyw Xfer(QC): 6 Toilet Transfer (QC): 6 Does the Patient Walk: Yes Walk 10 feet (QC): 6 Walk 50ft with 2 Turns (QC): 6 Does the Pt use WC or Scooter?: No PT Plan Problem List Problem List: Activity Tolerance, Functional Strength, Safety, Balance, Gait, Transfer, Bed Mobility, ROM Treatment/Plan Treatment Plan: Continue Plan of Care Treatment Plan: Bed Mobility, Education, Functional Activity Amor, Functional Strength, Gait, Safety, Therapeutic Exercise, Transfers Treatment Duration: Aug 04, 2019 Frequency: 11 times per week Estimated Hrs Per Day: .5 hour per day Patient and/or Family Agrees t: Yes Safety Risks/Education Patient Education: Gait Training, Transfer Techniques Teaching Recipient: Patient Teaching Methods: Discussion Response to Teaching: Reinforcement Needed Time/GCodes Time In: 802 Time Out: 855 Total Billed Treatment Time: 53 Total Billed Treatment 1 visit GT x 2 (28) EX x 2 (25) DEANA CAMARGO PT Jul 30, 2019 09:59
--- NOTE | 2019-07-30 11:51 | NUR ---
CM/SS follow up with patient prior to discharge. CM/SS visited with the patient who stated she had a question about when the Home Health agency would be starting PT. CM/SS informed her that the orders from Dr. Toscano stated that home health can start on Friday. The patient called [facility] to make sure of the date they were coming to her home. Patient was satisfied. No other needs at this time.
--- NOTE | 2019-07-30 11:58 | Occ Therapy Progress Note ---
Therapy Progress Note Pt seen for 5 min within room. Pt sits EOB, states she is leaving today. Pt dressed with items packed on cart. Pt questioned how dressing went today, pt states she was unable to get socks on and had difficulty with pants. Pt educated on use of AE (sock aide, dressing stick, crap game box person). Pt given examples for each item and use of dressing. Pt states she is intelligent enough to look items up online. Pt left with with all needs met, call light within reach, pt on EOB with walker. VIVIANA PADRON OTR Jul 30, 2019 11:58
[2019-07-30 12:00] VITALS: BP 168/91
--- NOTE | 2019-07-30 12:00 | NUR ---
IBIS MORRELL demonstrates understanding of discharge instructions and accurately returns instructions upon questioning. Copy of Post-Discharge Instructions given to PT. IBIS MORRELL is able to manage continuing needs after discharge. Patients belongings returned to PT. Patient discharged from 431-1 on 07/30/19 at 1200. IBIS MORRELL left floor via W/C, accompanied by STAFF AND PER AUTO.
== END 2019-07-30 12:00 | disposition home health service (06) | DRG 470 ==
LOC: 4TH 07:32 → SURG 07:33 → 4TH 12:00
PROVIDERS: ADMIT Orthopaedic Surgery; ATTEND Orthopaedic Surgery
PROC: 0SRC0J9 Replacement of Right Knee Joint with Synthetic Substitute, Cemented, Open Approach (ICD-10-PCS; principal; 2019-07-28 09:47)
DX: M17.11 Unilateral primary osteoarthritis, right knee (principal); F17.210 Nicotine dependence, cigarettes, uncomplicated; Z98.1 Arthrodesis status
CPT/HCPCS: 36415; 73560; 82565; 85014; 85018; 85027; 86850; 86900; 86901; 94664

== ENCOUNTER 2019-08-04 11:53 | Inpatient (IN) | payer MEDICARE, OTHER ==
[~2019-08-04] VITALS: Ht 182.8 cm; Wt 87.3 kg
[~2019-08-04 11:53] MED LIST changes: -ACETAMINOPHEN 325 MG TABLET PO PRN; +ASPI-983 PO; -ONDANSETRON 4 MG/2 ML (SDV) Z0FRAN IVP PRN; -diphenhydrAMINE 50 MG/ML INJ (BENADRYL) IVP PRN
[2019-08-04] MEDS ORDERED: FLEET ENEMA ADULT 1 EA BTL PR PRN (12:30)
[2019-08-04] MEDS ORDERED: guaiFENesin/CODEINE (ROBITUSSIN AC) 10ML UDC PO PRN (12:30)
[2019-08-04] MEDS ORDERED: HYDROcodone/APAP 5 MG/325 MG (LORTAB) TAB PO PRN (12:30)
[2019-08-04] MEDS ORDERED: CALCIUM CARBONATE 500 MG (TUMS) TAB.CHEW PO PRN (12:30)
[2019-08-04] MEDS ORDERED: ACETAMINOPHEN 500 MG TAB (TYLENOL) PO PRN ×2 (12:30→14:00)
[2019-08-04] MEDS ORDERED: LOPERAMIDE 2 MG (IMODIUM) TABLET PO PRN (12:30)
[2019-08-04] MEDS ORDERED: LACTULOSE SYRUP 10GM/15ML (ENULOSE) 30ML UDC PO PRN (12:30)
[2019-08-04] MEDS ORDERED: DOCUSATE SODIUM 100 MG (COLACE) CAP PO PRN (12:30)
[2019-08-04] MEDS ORDERED: ONDANSETRON 4 MG (ZOFRAN) ORAL DISSOLVE TAB PO PRN (12:30)
[2019-08-04] MEDS ORDERED: BISACODYL 10 MG SUPP (DULCOLAX) PR PRN (12:30)
[2019-08-04] MEDS ORDERED: diphenhydrAMINE 25 MG TAB (BENADRYL) PO PRN (12:30)
--- NOTE | 2019-08-04 12:45 | NUR ---
Winsome Omer admitted to room 231-1, with an admitting diagnosis of Right Total Knee Repair, on 08/04/19 from Home via wheelchair, accompanied by staff and family. WINSOME OMER introduced to surroundings, call light, bed controls, phone, TV, temperature control, lights, meal times, smoking policy, visitor policy, side rail policy, bathrooms and showers. Patient Rights given to patient in the handbook. WINSOME OMER verbalizes understanding that [facility] is not responsible for the loss or damage to any personal effects or valuables that are kept in the patients possession during their hospitalization. The following Patient Care Plans were discussed with the Patient and family: Discharge Planning, Knee Replacement, Impaired Mobility, Potential for falls. WINSOME OMER verbalizes understanding of Interdisciplinary Patient Education. Patient and/or family were informed about the Rapid Response Team and its purpose. Patient received Patient Rights Booklet, which includes Privacy Act Statement and Data Collection Information Summary.
[2019-08-04 13:42] VITALS: BP 133/84
[2019-08-04 13:42] LABS: BASOPHILS % (AUTO) 0 % (0-10); EOSINOPHILS # (AUTO) 0.3 10^3/uL (0.0-0.3); EOSINOPHILS % (AUTO) 4 % (0-10); HEMATOCRIT 36 % (35-52); HEMOGLOBIN 11.8 G/DL (11.5-16.0); LYMPHOCYTES # (AUTO) 1.8 X 10^3 (1.0-4.0); LYMPHOCYTES % (AUTO) 26 % (12-44); MEAN CORPUSCULAR HEMOGLOBIN 29 PG (25-34); MEAN CORPUSCULAR HGB CONC 33 G/DL (32-36); MEAN CORPUSCULAR VOLUME 89 FL (80-99); MEAN PLATELET VOLUME 8.7 FL (7.4-10.4); MONOCYTES # (AUTO) 0.6 X 10^3 (0.0-1.0); MONOCYTES % (AUTO) 9 % (0-12); NEUTROPHILS # (AUTO) 4.1 X 10^3 (1.8-7.8); NEUTROPHILS % (AUTO) 60 % (42-75); PLATELET COUNT 353 10^3/uL (130-400); RED CELL DISTRIBUTION WIDTH 13.5 % (10.0-14.5); WHITE BLOOD COUNT 6.7 10^3/uL (4.3-11.0)
[2019-08-04 13:55] LABS: ALANINE AMINOTRANSFERASE 75 U/L (0-55); ALBUMIN 3.8 GM/DL (3.2-4.5); ALKALINE PHOSPHATASE 82 U/L (40-136); BILIRUBIN,TOTAL 0.5 MG/DL (0.1-1.0); BUN/CREATININE RATIO 37; CALCIUM 9.6 MG/DL (8.5-10.1); CARBON DIOXIDE 28 MMOL/L (21-32); CHLORIDE 104 MMOL/L (98-107); CREATININE SERUM 0.65 MG/DL (0.60-1.30); GFR ESTIMATED > 60; GLUCOSE 105 MG/DL (70-105); POTASSIUM 3.5 MMOL/L (3.6-5.0); SODIUM 142 MMOL/L (135-145); TOTAL PROTEIN 7.1 GM/DL (6.4-8.2)
--- NOTE | 2019-08-04 13:55 | PM&R Post Admission Assessment ---
PM&R HP Date of Visit: Aug 04, 2019 Time of Visit: 14:00 History of Present Illness CC: Debility following right TKA by Dr. Pelaez HPI: This is a 64yoWF clinic Pt of Dr. Wills, who left last week after undergoing an uncomplicated right total knee replacement by Dr. Pelaez. She felt like she was ready to go home, declined inpatient rehab at that point but reported to Dr. Wills today, was unable to manage at home due to being in too much pain and felt like she couldn't take care of herself. She was therefore admitted into inpatient rehab, Dr. Toscano and Dr. Wills updated. Her bowels are moving well but has required Oxycodone, two at a time to keep the pain under control. She does need a Nicotine patch for smoking cessation. Past Agmsdoo-Aptjme-Gyxmkf Hx Past Med/Social Hx: Reviewed Nursing Past Med/Soc Hx, Reviewed and Corrections made Patient Social History Marrital Status: Employed/Student: employed ([employer]) Alcohol Use: Occasionally Uses Smoking Status: Current Everyday Smoker Type Used: Cigarettes Recent Foreign Travel: No Contact w/other who traveled: No Recent Hopitalizations: No Recent Infectious Disease Expo: No Immunizations Up To Date Date of Influenza Vaccine: Mar 27, 2019 Seasonal Allergies Seasonal Allergies: Yes Past Medical History Surgeries: Orthopedic Currently Using CPAP: No Currently Using BIPAP: No Reproductive: No Musculoskeletal: Arthritis History of Blood Disorders: No Family History Alzheimer's disease 19 MOTHER FH: Crohn's disease G8 SISTER 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 PM&R Allergy/Meds/Data Review Allergies Coded Allergies: Sulfa (Sulfonamide Antibiotics) (Verified Allergy, Unknown, 07/21/19) celecoxib (Unverified Allergy, Unknown, 09/23/10) meloxicam (Verified Allergy, Unknown, stomach pain, 07/21/19) Home Medications Scheduled Aspirin (Aspirin EC), 81 MG PO DAILY Scheduled PRN Tramadol HCl (Tramadol HCl), 50 MG PO TID PRN for PAIN-MODERATE (5-7), (Reported) Current Medications Current Medications Reviewed Laboratory Data Laboratory Tests 08/04/19 13:20: White Blood Count 6.7, Red Blood Count 4.08L, Hemoglobin 11.8, Hematocrit 36, Mean Corpuscular Volume 89, Mean Corpuscular Hemoglobin 29, Mean Corpuscular Hemoglobin Concent 33, Red Cell Distribution Width 13.5, Platelet Count 353, Mean Platelet Volume 8.7, Neutrophils (%) (Auto) 60, Lymphocytes (%) (Auto) 26, Monocytes (%) (Auto) 9, Eosinophils (%) (Auto) 4, Basophils (%) (Auto) 0, Neutrophils # (Auto) 4.1, Lymphocytes # (Auto) 1.8, Monocytes # (Auto) 0.6, Eosinophils # (Auto) 0.3, Basophils # (Auto) 0.0 Review of Systems Constitutional: see HPI, malaise, weakness Musculoskeletal: joint pain Psychiatric/Neurological: Depressed Physical Exam Physical Exam Vital Signs Vital Signs - First Documented 08/04/19 13:42 Temp 36.0 Pulse 88 Resp 18 B/P (MAP) 133/84 Pulse Ox 95 O2 Delivery Room Air Capillary Refill : Height, Weight, BMI Height: 6'0" Weight: 190lbs. oz. [id number]; 26.78 BMI Method:Stated General Appearance: No Apparent Distress, WD/WN Eyes: Bilateral Eye Normal Inspection, Bilateral Eye PERRL HEENT: PERRL/EOMI, Normal ENT Inspection, Pharynx Normal Neck: Full Range of Motion, Normal Inspection, Non Tender, Supple, Carotid Bruit Respiratory: Chest Non Tender, Lungs Clear, Normal Breath Sounds, No Accessory Muscle Use, No Respiratory Distress Cardiovascular: Regular Rate, Rhythm, No Edema, No Gallop, No JVD, No Murmur, Normal Peripheral Pulses Gastrointestinal: Normal Bowel Sounds, No Organomegaly, No Pulsatile Mass, Non Tender, Soft Back: Normal Inspection, No CVA Tenderness, No Vertebral Tenderness Extremity: Normal Capillary Refill, Normal Inspection, Normal Range of Motion (except right post op lower extremity), Non Tender, No Calf Tenderness, No Pedal Edema Neurologic/Psychiatric: Alert, Oriented x3, No Motor/Sensory Deficits, Normal Mood/Affect Skin: Normal Color, Warm/Dry Lymphatic: No Adenopathy PM&R Medical Assessment & Plan REHAB/MEDICAL ASSESSMENT AND PLAN: REHAB IMPAIRMENT GROUP: Right TKA with slow recovery ETIOLOGIC DIAGNOSIS: Right TKA with slow recovery The comorbidities that impact the patients function and/or functional outcome by: depression, smoking REHAB PLAN: The patient is being admitted to our comprehensive inpatient rehabilitation facility and can tolerate the intensity of service consisting of at least: 180 minutes of therapy a day, 5 out of 7 days a week Rehab treatment will consist of: PT OT will focus on increasing confidence and fall prevention and pain management The patient/family has a good understanding of our discharge process and will benefit from an interdisciplinary inpatient rehabilitation program. The patient has potential to make improvement and is in need of at least two of the following multidisciplinary therapies including but not limited to physical, occupational, speech, and prosthetics and orthotics. Additionally the patient will need services from respiratory, nutritional services, wound care, psychology, etc. (Customize this to each patient). Given the patients complex condition and risk of further medical complications, rehabilitation services cannot be safely or effectively provided at a lower level of care such as a snf facility. BARRIERS TO DISCHARGE: Depression ESTIMATED LOS: 7 days DISPOSITION: Home with HH and RELEVANT CHANGES SINCE PREADMISSION SCREENING: I have compared the patients medical and functional status at the time of the preadmission screening and there are: no changes PROGNOSIS: Good REHABILITATION GOALS: 1. PT OT will focus on increasing confidence and fall prevention and pain management All the above goals were reviewed with the patient and he/she is in agreement. By signing this document, I acknowledge that I have personally performed a full physical examination on this patient within 24 hours of admission to this inpatient rehabilitation facility and have determined the patient to be able to tolerate the above course of treatment at an intensive level for a reasonable period of time. I will be completing a detailed individualized Plan of Care for this patient by day #4 of the patients stay based upon the Preadmission Screen, the Post-Admission Evaluation, and the therapy evaluations. Admission Dx/Comorbidities: (1) Status post total right knee replacement ICD Codes: Z96.651 - Presence of right artificial knee joint (2) Smoker ICD Codes: F17.200 - Nicotine dependence, unspecified, uncomplicated (3) Depression ICD Codes: F32.9 - Major depressive disorder, single episode, unspecified KENIA DE LUNA DO Aug 04, 2019 13:55
[2019-08-04] MEDS ORDERED: KCL 10 MEQ TAB (MICRO K) PO NR (14:15)
[2019-08-04] MEDS: oxyCODONE/APAP 5/325MG (PERCOCET 5) TABLET PO PRN ×2 (14:19→18:31)
--- NOTE | 2019-08-04 14:22 | Physical Therapy Evaluation ---
PT Evaluation-General Medical Diagnosis Admission Date Aug 04, 2019 at 13:30 Medical Diagnosis: Right TKA Onset Date: Jul 28, 2019 Therapy Diagnosis Therapy Diagnosis: Muslce weakness, loss of ROM Height/Weight Height (Feet): 6 Height (Inches): 0 Weight (Pounds): 190 Precautions Precautions/Isolations: Standard Precautions Weight Bear Status Right Lower Extremity: Right Weight Bearing/Tolerated Referral Physician: Guillermo Reason for Referral: Evaluation/Treatment Medical History Pertinent Medical History: Arthritis Current History Patient had TKA 07/28/19 Reviewed History: Yes Social History Home: Single Level Current Living Status: Spouse Entry Into Home: Stairs With Railing PT Steps Into Home: 3 Prior Prior Level of Function SCALE: Activities may be completed with or without assistive devices. 6-Lhblvqztnl-pilvere completes the activity by him/herself with no assistance from a helper. 5-Set-up or Clean-up Assistance-helper sets up or cleans up; patient completes activity. [place] assists only prior to or following the activity. 4-Supervision or Touching Assistance-helper provides verbal cues and/or touching/steadying and/or contact guard assistance as patient completes activity. Assistance may be provided throughout the activity or intermittently. 3-Partial/Moderate Assistance-helper does LESS THAN HALF the effort. [place] lifts, holds or supports trunk or limbs, but provides less than half the effort. 2-Substantial/Maximal Assistance-helper does MORE THAN HALF the effort. [place] lifts or holds trunk or limbs and provides more than half the effort. 0-[place]-rpihqy does ALL the effort. Patient does none of the effort to complete the activity. Or, the assistance of 2 or more helpers is required for the patient to complete the activity. If activity was not attempted, code reason: 7-Patient Refused. 9-Not Applicable-not attempted and the patient did not perform the activity before the current illness, exacerbation or injury. 10-Not Attempted due to Environmental Limitations-(lack of equipment, weather restraints, etc.). 88-Not Attempted due to Medical Conditions or Safety Concerns. Bed Mobility: 6 Transfers (B,C,W/C): 6 Gait: 6 Stairs: 6 Indoor Mobility (Ambulation): Independent Stairs: Independent Prior Devices Use: None PT Evaluation-Current Subjective Patient is agreeable to therapy at this time. Pain Numeric Pain Scale: 8 Location: Right Location Body Site: Knee Pt/Family Goals Get stronger and be independent. Objective Patient Orientation: Person, Place, Time, Situation ROM/Strength ROM Lower Extremities Right knee 20-80 degrees Strength Lower Extremities RLE weakness. Integumentary/Posture Integumentary See nursing notes. Sensory Vision: Wears Glasses Hearing: Functional Sensation Right Lower Extremit: Intact Sensation Left Lower Extremity: Intact Transfers Roll Left to Right (QC): 6 Sit to Lying (QC): 3 Lying to Sitting/Side of Bed(Q: 3 Sit to Stand (QC): 4 Chair/Ned-lh-Yipvv Xfer(QC): 4 Toilet Transfer: 4 Car Transfer (QC): 3 Patient performs bed mobility with independence, supine <-> sit min assist, sit <-> stand CGA, transfers CGA, car transfer min assist. Cues for hand placement and positioning. Gait Does the Patient Walk?: Yes Mode of Locomotion: Walk Anticipated Mode of Locomotion: Walk Walk 10 feet (QC): 4 Walk 50 ft with 2 Turns(QC): 4 Walk 150 ft (QC): 4 Walking 10ft/uneven surface-QC: 4 Distance: 150' Gait Assistive Device: FWW Comments/Gait Description Patient can ambulate 150' with a rolling walker with CGA (including 50' with at least 2 turns of 90 degrees and 10' over an uneven surface). Patient is steady during ambulation but fatigues quickly. Patient relies heavily on BUE for support. Poor heel strike, ambulates with flexed right knee. Wheelchair Training Does the Pt Use a Wheelchair?: No Stairs #of Steps: 1 1 Step (curb) (QC): 4 4 Steps (QC): 88 12 Steps (QC): 88 Walking Assistive Device: Walker Patient can go up and down 1 step using a rolling walker with CGA and cues for foot placement. Balance Sitting Static: Good Sitting Dynamic: Good Standing Static: Fair Standing Dynamic: Fair Picking up an Object (QC): 88 Assessment/Needs Patient has limited ROM and when patient attempted to push into further flexion she screamed in pain. Patient is stable during walking but appears to be relying heavily on her BUE for support. Patient in recliner with call light and bedside table within reach. Rehab Potential: Fair PT Short Term Goals Short Term Goals Time Frame: Aug 11, 2019 Roll Left & Right: 6 Sit to lyin Lying to sitting on side of be: 4 Sit to stand: 5 Chair/agd-nn-tejfd transfer: 5 Toilet transfer: 5 Walk 10 feet: 5 Walk 50 feet with two turns: 5 Walk 150 feet: 5 PT Associate Editor Goals Associate Editor Goals PT Fpc Goals Time Frame: Aug 25, 2019 Roll Left & Right (QC): 6 Sit to Lying (QC): 6 Lying-Sitting on Side/Bed(QC): 6 Sit to Stand (QC): 6 Chair/Kfb-do-Tlxnv Xfer(QC): 6 Toilet Transfer (QC): 6 Car Transfer (QC): 6 Does the Patient Walk: Yes Walk 10 feet (QC): 6 Walk 50ft with 2 Turns (QC): 6 Walk 150 ft (QC): 6 Walking 10ft on Uneven Surface: 6 1 Step (curb) (QC): 6 4 Steps (QC): 6 PT Plan Problem List Problem List: Activity Tolerance, Functional Strength, Safety, Balance, Gait, Transfer, Bed Mobility, ROM Treatment/Plan Treatment Plan: Continue Plan of Care Treatment Plan: Bed Mobility, Education, Functional Activity Amor, Functional Strength, Group Therapy, Gait, Safety, Therapeutic Exercise, Transfers Treatment Duration: Aug 25, 2019 Frequency: At least 5 of 7 days/Wk (IRF) Estimated Hrs Per Day: 1.5 hours per day Patient and/or Family Agrees t: Yes Safety Risks/Education Patient Education: Gait Training, Transfer Techniques, Steps, Correct Positioni ng, Safety Issues Teaching Recipient: Patient Teaching Methods: Demonstration, Discussion Response to Teaching: Reinforcement Needed Discharge Recommendations Plan Patient will perform bed mobility training, strength and endurance training, balance training, stair training, transfer training and gait training. Therapy Discharge Recommendati: Home & Family Time/GCodes Time In: 1250 Time Out: 1315 Total Billed Treatment Time: 25 Total Billed Treatment 1 visit EVL 10 FA 15 LUBA PAREKH PT Aug 04, 2019 14:22
--- NOTE | 2019-08-04 14:35 | Physical Therapy Daily Note ---
PT Daily Note-Current Subjective Pt. agrees to Rx, c/o pain in right knee at 8/10 and requests pain meds, nursing present and shares they will bring them in. Pt. shares she knows she is behind in expected rehab goals and hopes to make good progress here on ARU Pain Numeric Pain Scale: 8 Location: Right Location Body Site: Knee Pain Description: Stabbing Appearance some edema noted RLE, polar pack and CPM to be delivered soon, [place] were donned by this ACCOUNTANT ASSISTANT and OT . Co Rx for coordination of U&L balance and stability as pts pain in TRFs and gait and stance contributed to her instability as well as knee flexion in stance at gait at approx 12degrees flexion. Mental Status Patient Orientation: Normal For Age CPM and polar pack to begin Transfers SCALE: Activities may be completed with or without assistive devices. 2-Vemewhqzaz-coefspp completes the activity by him/herself with no assistance fr om a helper. 5-Set-up or Clean-up Assistance-helper sets up or cleans up; patient completes activity. [place] assists only prior to or following the activity. 4-Supervision or Touching Assistance-helper provides verbal cues and/or touching/steadying and/or contact guard assistance as patient completes activity. Assistance may be provided throughout the activity or intermittently. 3-Partial/Moderate Assistance-helper does LESS THAN HALF the effort. [place] lifts, holds or supports trunk or limbs, but provides less than half the effort. 2-Substantial/Maximal Assistance-helper does MORE THAN HALF the effort. [place] lifts or holds trunk or limbs and provides more than half the effort. 8-Ckfvjzstn-wlkzqh does ALL the effort. Patient does none of the effort to complete the activity. Or, the assistance of 2 or more helpers is required for the patient to complete the activity. If activity was not attempted, code reason: 7-Patient Refused. 9-Not Applicable-not attempted and the patient did not perform the activity before the current illness, exacerbation or injury. 10-Not Attempted due to Environmental Limitations-(lack of equipment, weather restraints, etc.). 88-Not Attempted due to Medical Conditions or Safety Concerns. Roll Left & Right (QC): 6 Sit to Lying (QC): 4 Lying to Sitting/Side of Bed(Q: 4 Sit to Stand (QC): 4 Chair/Xwi-sm-Pyiah Xfer(QC): 4 Toilet Transfer (QC): 4 pt. needs assist to lift RLE in to bed and out, seat heights raised for ease as pt. is over 6 ft tall Weight Bearing Right Lower Extremity: Right Weight Bearing/Tolerated Gait Training Does the Patient Walk?: Yes Walk 10 feet (QC): 4 Walk 50 ft with 2 Turns(QC): 4 Walk 150 ft (QC): 4 Gait Persons Needed: 1 Gait Assistive Device: FWW emphasized heel strike and knee extension during gait and more equal step length as well as safety with use of FWW. Pt. did fatigue with gait but progressed with pattern and heel strike. Exercises Supine Ex: Ankle pumps (HC stretches 45 x 20 right), Quad Set, Heel Slides (assisted), Short Arc Quads (assisted right), Straight leg raise (assisted right) Supine Reps: 20 Seated Therapy Exercises: Ankle pumps, Sit to stand, Long arc quads Seated Reps: 20 Treatments BSC over toilet with toilet TRFs practiced with greater comfort as pt is 6ft plus. cushion also applied to recliner seat for same sit to stand ease. Gait , TRFs and exercise completed. Assessment Current Status: Good Progress pt. needs encouraged that she will meet her goals if she puts forth good effort . Pt. instructed this date in "toe pointing to ceiling" for better stretch for knee extension etc. PT Orthopedic Cast Specialist Goals Prison Goals PT Orthopedic Cast Specialist Goals Time Frame: Aug 13, 2019 Roll Left & Right (QC): 6 Sit to Lying (QC): 6 Lying-Sitting on Side/Bed(QC): 6 Sit to Stand (QC): 6 Chair/Wga-ib-Swmjs Xfer(QC): 6 Toilet Transfer (QC): 6 Car Transfer (QC): 6 Does the Patient Walk: Yes Walk 10 feet (QC): 6 Walk 50ft with 2 Turns (QC): 6 Walk 150 ft (QC): 6 Walking 10ft on Uneven Surface: 6 1 Step (curb) (QC): 6 4 Steps (QC): 6 PT Plan Treatment/Plan Treatment Plan: Continue Plan of Care Treatment Plan: Bed Mobility, Education, Functional Activity Amor, Functional Strength, Group Therapy, Gait, Safety, Therapeutic Exercise, Transfers Treatment Duration: Aug 13, 2019 Frequency: At least 5 of 7 days/Wk (IRF) Estimated Hrs Per Day: 1.5 hours per day Safety Risks/Education Patient Education: Gait Training, Transfer Techniques, Correct Positioning, Disease Process, Safety Issues Teaching Recipient: Patient Teaching Methods: Demonstration, Discussion Response to Teaching: Verbalize Understanding, Return Demonstration, Reinforcement Needed Time/GCodes Time In: 1325 Time Out: 1430 Total Billed Treatment Time: 65 Total Billed Treatment 1,GT15m,EX30m,FA20m BAM RIBEIRO ACCOUNTANT ASSISTANT Aug 04, 2019 14:35
--- NOTE | 2019-08-04 15:05 | Occupational Therapy Eval ---
OT Evaluation-General/PLF Medical Diagnosis Admission Date Aug 04, 2019 at 13:30 Medical Diagnosis: Right TKA Onset Date: Jul 28, 2019 Therapy Diagnosis Therapy Diagnosis: impaired ADLs/functional mobility Height/Weight Height (Feet): 6 Height (Inches): 0 Weight (Pounds): 190 Precautions Precautions/Isolations: Standard Precautions Referral Physician: Guillermo Etienne Reason: Activity Tolerance, Self Care, Evaluation/Treatment, Strengthening/ROM Medical History Pertinent Medical History: Arthritis Additional Medical History cholecystectomy, C5/C6 anterior cervical diskectomy and fusion, L carpal tunnel release Current History Pt underwent R TKA on 07/28/2019, she was admitted on the acute floor post surgery, discharging home on 07/30/2019. She has had 1 home health visit while at home. She felt like she needed more intensive skilled therapies in order to increase independence with ADLs/functional activities at home. Reviewed History: Yes Social History Home: Single Level Current Living Status: Spouse Entry Into Home: Stairs With Railing Steps Into Home: 3 ADL-Prior Level of Function SCALE: Activities may be completed with or without assistive devices. 9-Cojgoqznrr-gfqdqbm completes the activity by him/herself with no assistance from a helper. 5-Set-up or Clean-up Assistance-helper sets up or cleans up; patient completes activity. [place] assists only prior to or following the activity. 4-Supervision or Touching Assistance-helper provides verbal cues and/or touching/steadying and/or contact guard assistance as patient completes activity. Assistance may be provided throughout the activity or intermittently. 3-Partial/Moderate Assistance-helper does LESS THAN HALF the effort. [place] lifts, holds or supports trunk or limbs, but provides less than half the effort. 2-Substantial/Maximal Assistance-helper does MORE THAN HALF the effort. [place] lifts or holds trunk or limbs and provides more than half the effort. 7-Ihrdgczhg-eptnwh does ALL the effort. Patient does none of the effort to complete the activity. Or, the assistance of 2 or more helpers is required for the patient to complete the activity. If activity was not attempted, code reason: 7-Patient Refused. 9-Not Applicable-not attempted and the patient did not perform the activity before the current illness, exacerbation or injury. 10-Not Attempted due to Environmental Limitations-(lack of equipment, weather restraints, etc.). 88-Not Attempted due to Medical Conditions or Safety Concerns. ADL PLOF Comments Pt reports being independent with bathing and dressing prior to surgery, but her had to help with cooking and cleaning due to her knee pain. She denied using AD for functional mobility but has had difficulties due to pain. Self Care: Independent Functional Cognition: Independent DME/Equipment: Bath Chair, Grab Bars, Tub/Shower Occupation: prior healthcare receptionist Leisure Interests: gardening, quilting OT Current Status Subjective Pt finishing with PT evaluation, agreeable to OT evaluation this afternoon. She requested pain medicine, nurse notified. Pain 01/16 R knee. Mental Status/Objective Patient Orientation: Person, Place, Time, Situation Current Glasses/Contacts: Yes Hearing Aids: No Dentures/Partials: No Hand Dominance: Right Upper Extremity ROM WFL. BUE shoulder flexion to approx 165 degrees, she can touch back of her head with arms. Upper Extremity Coordination WFL Upper Extremity Sensation pt reports constant tingling/numbness in R pinky and ring finger. She believes it is from using the walker incorrectly over the weekend. Upper Extremity Strength LUE 4+/5 RUE 4-/5 ADL-Treatment Eating (QC): 7 Oral Hygiene (QC): 7 Shower/Bathe Self (QC): 7 Upper Body Dressing (QC): 7 Lower Body Dressing (QC): 7 On/Off Footwear (QC): 2 (Pt able to don/doff shoes without assistance. Dependent to don compression stockings.) Toileting Hygiene (QC): 4 (BSC over toilet - CGA during clothing management standing at FWW, pt able to complete all parts of task. ) Other Treatments Pt upright in recliner at start of OT evaluation, present. Pt and provided information about PLOF and home set up. OT/PT then co-treated 13:25-14:30 secondary to increased medical complexity and pain requiring the skills of 2 disciplines which a rehab aid could not perform. OT focused on UE placement, cues for sequencing and safety, while PT focused on overall gross movements. Pt transferred to restroom with CGA and FWW, she transferred to/from a BSC over toilet with CGA. She then washed her hands at the sink, leaning towards her left side in order to take weight off of her right foot. A cushion was provided for pt's recliner due to pt being 6 foot tall. Pt transferred to the recliner stating she felt like it was a better height. Pt educated on rehab process and expectations of the rehab unit, she verbalized understanding. Pt then transferred from recliner to bed where she doffed shoes, then transferred supine for various exercises. OT educated pt on diaphragmatic breathing for pain relief. Pt completed diaphragmatic breathing with mod cues for correct technique throughout session as needed. As pt was supine, OT and SUPERANNUATION CLERK donned compression stockings for pt, with cues for diaphragmatic breathing due to increased pain. Pt sat EOB in order to don shoes. She ambulated to therapy gym with skilled cues from OT for hand placement during transfers and sequencing of tasks. OT/PT co- treat ended and OT continued with tx. Pt completed x13 mins on arm bike in order to increase functional endurance, noted slow pace with min resistance. Pt required a couple rest breaks with task. Pt then returned to her room where she asked to sit upright in recliner. Post OT session, pt seated upright, call light in reach and all needs met at this time. CPM and polar pack to begin later. Education OT Patient Education: Correct positioning, Energy conservation, Exercise program, Modified ADL techniques, Progress toward Goal/Update tx plan, Purpose of tx/functional activities, Rehab process, Transfer techniques Teaching Recipient: Patient Teaching Methods: Discussion Response to Teaching: Verbalize Understanding OT Short Term Goals Short Term Goals Time Frame: Aug 13, 2019 Shower/bathe self: 4 Lower body dressin OT Fdc Goals Information Consultant Goals Time Frame: Aug 25, 2019 Eating (QC): 6 Oral Hygiene (QC): 6 Toileting Hygiene (QC): 6 Shower/Bathe Self (QC): 6 Upper Body Dressing (QC): 6 Lower Body Dressing (QC): 6 On/Off Footwear (QC): 6 Additional Goals: 1-Demonstrate ADL Tasks, 2-Verbalize Understanding, 3-ImproveStrength/Amor 1=Demonstrate adherence to instructed precautions during ADL tasks. 2=Patient will verbalize/demonstrate understanding of assistive devices/modifications for ADL. 3=Patient will improve strength/tolerance for activity to enable patient to perform ADL's. OT Education/Plan Problem List/Assessment Assessment: Decreased Activ Tolerance, Decreased UE Strength, Impaired Bed Mobility, Impaired Funct Balance, Impaired I ADL's, Impaired Self-Care Skills Discharge Recommendations Plan/Recommendations: Continue POC Therapy Discharge Recommendati: Home & Family Treatment Plan/Plan of Care Treatment,Training & Education: Yes Patient would benefit from OT for education, treatment and training to promote independence in ADL's, mobility, safety and/or upper extremity function for ADL's. Plan of Care: ADL Retraining, Caregiver Training, Functional Mobility, Group Exercise/Act as Ind, UE Funct Exercise/Act Treatment Duration: Aug 25, 2019 Frequency: At least 5 of 7 days/Wk (IRF) Estimated Hrs Per Day: 1.5 hours per day Agreement: Yes Rehab Potential: Fair Time/GCodes Start Time: 13:15 Stop Time: 14:45 Total Time Billed (hr/min): 90 Billed Treatment Time 3641-7630 OT evaluation [id number] OT/PT co-treat [id number] OT tx. 1, EVM (10'), EX (20'), FA 4 (60') LINDA VELIZ OT Aug 04, 2019 15:05
[2019-08-04] MEDS: NICOTINE 21 MG (NICODERM) PATCH TD SCH (15:25)
[2019-08-04] MEDS: ENOXAPARIN 40 MG/0.4 ML (LOVENOX) SYR SC SCH (15:25)
[2019-08-04 18:31] VITALS: BP 131/79
[2019-08-04] MEDS: polyethylene glycoL POWDER 17 GM (MIRALAX) PACK PO SCH (20:00)
[2019-08-04] MEDS: DOCUSATE SODIUM 100 MG (COLACE) CAP PO SCH (20:02)
[2019-08-04] MEDS: SENNA W/DOCUSATE (SENOKOT S) TABLET PO SCH (20:02)
--- NOTE | 2019-08-04 22:15 | NUR ---
Patient c/o bed not being comfortable. Swapped beds. Patient states the new bed is better.
[2019-08-05] MEDS: oxyCODONE/APAP 5/325MG (PERCOCET 5) TABLET PO PRN ×6 (00:13→21:22)
[2019-08-05 05:42] LABS: BASOPHILS % (AUTO) 0 % (0-10); EOSINOPHILS # (AUTO) 0.4 10^3/uL (0.0-0.3); EOSINOPHILS % (AUTO) 6 % (0-10); HEMATOCRIT 33 % (35-52); HEMOGLOBIN 10.7 G/DL (11.5-16.0); LYMPHOCYTES # (AUTO) 1.7 X 10^3 (1.0-4.0); LYMPHOCYTES % (AUTO) 30 % (12-44); MEAN CORPUSCULAR HEMOGLOBIN 29 PG (25-34); MEAN CORPUSCULAR HGB CONC 33 G/DL (32-36); MEAN CORPUSCULAR VOLUME 89 FL (80-99); MEAN PLATELET VOLUME 8.7 FL (7.4-10.4); MONOCYTES # (AUTO) 0.6 X 10^3 (0.0-1.0); MONOCYTES % (AUTO) 10 % (0-12); NEUTROPHILS # (AUTO) 3.1 X 10^3 (1.8-7.8); NEUTROPHILS % (AUTO) 53 % (42-75); PLATELET COUNT 319 10^3/uL (130-400); RED CELL DISTRIBUTION WIDTH 13.3 % (10.0-14.5); WHITE BLOOD COUNT 5.8 10^3/uL (4.3-11.0)
[2019-08-05 05:59] LABS: ALANINE AMINOTRANSFERASE 55 U/L (0-55); ALBUMIN 3.4 GM/DL (3.2-4.5); ALKALINE PHOSPHATASE 70 U/L (40-136); BILIRUBIN,TOTAL 0.6 MG/DL (0.1-1.0); BUN/CREATININE RATIO 31; CALCIUM 8.7 MG/DL (8.5-10.1); CARBON DIOXIDE 28 MMOL/L (21-32); CHLORIDE 104 MMOL/L (98-107); CREATININE SERUM 0.59 MG/DL (0.60-1.30); GFR ESTIMATED > 60; GLUCOSE 105 MG/DL (70-105); POTASSIUM 3.8 MMOL/L (3.6-5.0); SODIUM 138 MMOL/L (135-145); TOTAL PROTEIN 6.1 GM/DL (6.4-8.2)
[2019-08-05 06:11] VITALS: BP 151/82
[2019-08-05] MEDS: KCL 10 MEQ TAB (MICRO K) PO SCH (06:41)
--- NOTE | 2019-08-05 08:03 | Progress Note ---
Standard Progress Note Progress Notes/Assess & Plan Date Seen by a Provider: Aug 05, 2019 Time Seen by a Provider: 08:02 Progress/Assessment & Plan no complaints RLE-incision clean and dry. SLR with assistance. No calf tenderness s/p RTKA mobilize had a discussion with patient re expectations and need for cooperation and that we are all here to help her get better ABELARDO DE LA TORRE MD Aug 05, 2019 08:03
--- NOTE | 2019-08-05 09:08 | Occupational Ther Daily Note ---
OT Current Status-Daily Note Subjective Pt reports she did not sleep well last night, and she felt like her knee was pretty stiff this AM. She agreed to OT tx with focus on ADLs. Pain Numeric Pain Scale: 7 Location: Right Location Body Site: Knee Mental Status/Objective Attachments: Polar Pack ADL-Treatment Therapy Code Descriptions/Definitions Functional [place] Measure: 0=Not Assessed/NA 4=Minimal Assistance 1=Total Assistance 5=Supervision or Setup 2=Maximal Assistance 6=Modified [place] 3=Moderate Assistance 7=Complete IndependenceSCALE: Activities may be completed with or without assistive devices. 3-Niqbsticaj-scrfeul completes the activity by him/herself with no assistance from a helper. 5-Set-up or Clean-up Assistance-helper sets up or cleans up; patient completes activity. [place] assists only prior to or following the activity. 4-Supervision or Touching Assistance-helper provides verbal cues and/or touching/steadying and/or contact guard assistance as patient completes activity. Assistance may be provided throughout the activity or intermittently. 3-Partial/Moderate Assistance-helper does LESS THAN HALF the effort. [place] lifts, holds or supports trunk or limbs, but provides less than half the effort. 2-Substantial/Maximal Assistance-helper does MORE THAN HALF the effort. [place] lifts or holds trunk or limbs and provides more than half the effort. 9-Yfegpuqrr-ceibwl does ALL the effort. Patient does none of the effort to complete the activity. Or, the assistance of 2 or more helpers is required for the patient to complete the activity. If activity was not attempted, code reason: 7-Patient Refused. 9-Not Applicable-not attempted and the patient did not perform the activity before the current illness, exacerbation or injury. 10-Not Attempted due to Environmental Limitations-(lack of equipment, weather restraints, etc.). 88-Not Attempted due to Medical Conditions or Safety Concerns. Eating (QC): 6 (per pt report, pt was able to open all containers with breakfast and able to eat without assistance.) Oral Hygiene (QC): 4 (CGA standing at sink with FWW.) Shower/Bathe Self (QC): 4 (CGA while standing at GB, she was able to wash all parts) Upper Body Dressing (QC): 5 (set up assist) Lower Body Dressing (QC): 4 (CGA during stand at FWW. Pt able to thread BLEs into pants/underwear and manage pants up.) On/Off Footwear: 3 (Pt able to doff BLE socks, and RLE TEDhose, required assistance dofing LLE TEDhose. She required assistance donning BLE TEDhose, but was able to don gripper socks.) Toileting Hygiene (QC): 7 Toilet Transfer (QC): 7 Other Treatment Pt laying in bed at start of session, OT gathered supplies for ADL session. Pt transferred supine to sit EOB with SBA, then transferred to shower chair with CGA using FWW. She completed showering and dressing, then used FWW to stand at sink for oral hygiene. Pt transferred to recliner with FWW and CGA. Pt brushed her hair while seated. Pt then stated she was uncomfortable in the chair and would like to return to bed. Pt transferred to bed with CGA, then sit to supine with SBA. She was able to bring RLE into the bed using her LLE to assist. She reported she felt better laying down. Nursing present to give pt meds and change pt's dressing. OT then dependently donned TEDhose for pt. Pt transferred supine to sit, then donned pants. She again transferred sit to supine with SBA. OT educated pt on rehab process and her schedule for the day, pt verbalized understanding. Post OT session, pt laying in bed, call light in reach and all needs met. Education OT Patient Education: Energy conservation, Modified ADL techniques, Progress toward Goal/Update tx plan, Purpose of tx/functional activities, Transfer techniques Teaching Recipient: Patient Teaching Methods: Discussion Response to Teaching: Verbalize Understanding OT Short Term Goals Short Term Goals Time Frame: Aug 13, 2019 Shower/bathe self: 4 Lower body dressin OT Fpc Goals Fpc Goals Time Frame: Aug 25, 2019 Eating (QC): 6 Oral Hygiene (QC): 6 Toileting Hygiene (QC): 6 Shower/Bathe Self (QC): 6 Upper Body Dressing (QC): 6 Lower Body Dressing (QC): 6 On/Off Footwear (QC): 6 Additional Goals: 1-Demonstrate ADL Tasks, 2-Verbalize Understanding, 3- ImproveStrength/Amor 1=Demonstrate adherence to instructed precautions during ADL tasks. 2=Patient will verbalize/demonstrate understanding of assistive devices/modifications for ADL. 3=Patient will improve strength/tolerance for activity to enable patient to perform ADL's. OT Education/Plan Problem List/Assessment Assessment: Decreased Activ Tolerance, Decreased UE Strength, Impaired I ADL's, Impaired Self-Care Skills Discharge Recommendations Plan/Recommendations: Continue POC Treatment Plan/Plan of Care Treatment,Training & Education: Yes Patient would benefit from OT for education, treatment and training to promote independence in ADL's, mobility, safety and/or upper extremity function for ADL's. Plan of Care: ADL Retraining, Caregiver Training, Functional Mobility, Group Exercise/Act as Ind, UE Funct Exercise/Act Treatment Duration: Aug 25, 2019 Frequency: At least 5 of 7 days/Wk (IRF) Estimated Hrs Per Day: 1.5 hours per day Agreement: Yes Rehab Potential: Fair Time/GCodes Start Time: 08:00 Stop Time: 09:30 Total Time Billed (hr/min): 90 Billed Treatment Time 1, ADL 6 LINDA VELIZ OT Aug 05, 2019 09:08
[2019-08-05] MEDS: DOCUSATE SODIUM 100 MG (COLACE) CAP PO SCH ×2 (09:10→21:22)
[2019-08-05] MEDS: SENNA W/DOCUSATE (SENOKOT S) TABLET PO SCH ×2 (09:12→21:22)
[2019-08-05] MEDS: NICOTINE 21 MG (NICODERM) PATCH TD SCH (09:12)
[2019-08-05] MEDS: NICOTINE PATCH REMOVAL TP SCH (09:20)
[2019-08-05] MEDS: polyethylene glycoL POWDER 17 GM (MIRALAX) PACK PO SCH ×2 (09:25→21:32)
[2019-08-05] MEDS ORDERED: OXYC1TAB87 PO (11:00)
[2019-08-05] MEDS ORDERED: IBUP-2473 PO (11:00)
[2019-08-05] MEDS ORDERED: DIPH25TA65 PO (11:00)
[2019-08-05] MEDS ORDERED: ACET325T38 PO (11:00)
--- NOTE | 2019-08-05 11:01 | ST Cognitive Linguistic Eval ---
Speech Evaluation-General Medical Diagnosis Right TKA Onset Date: Jul 28, 2019 Therapy Diagnosis Therapy Diagnosis: Cognitive-communication Referral Referring Physician: Dr. Li Reason for Referral: Evaluation/Treatment Medical History Pertinent Medical History: Arthritis Reviewed History: Yes Social History Current Living Status: Spouse Speech PLF-Current Status Prior Level of Function Patient independently handles all finances, medication, and scheduling. Subjective Patient was alert, pleasant, and cooperative for all evaluation tasks. Patient reported that she was feeling very well today. Patient sat upright in her bed for the duration of the evaluation. Language Eval: Auditory Comprehends Simple Yes/No Ques: Functional Indent/Objects Multiple [place]: Functional Ident/Pics in [place]: Functional Follows 1-Step Commands: Functional Follows Complex Directions: Functional Follows General Conversations: Functional Language Eval: Verbal Language Completes Spontaneous Greeting: Functional Produces Auto, Serial Info: Functional Imitates Simple Words/Phrases: Functional Word Finding: Functional Requests Basic Needs: Functional States Basic Personal Info: Functional Expresses Complex Ideas: Functional Objective Cognitive Domain Attention: WNL Memory: WNL Problem Solving: Functional Executive Functions: WNL Visuospatial Skills: WNL Composite Severity Rating: WNL Clock Drawing Severity Rating: WNL Objective Formal/Standardized Tests [facility] Mental Status (UMS) Examination was administered. Results The patient was administered the SLUMS and scored 29/30 which falls within normal limits of cognitive function. Oral Motor/Speech Production Within functional limits Impression The patient is a 64-year-old woman who was admitted to the SDU s/p knee surgery. Patient was administered the SLUMS and scored 29/30 which falls within normal limits of cognitive functions. Patient does not require skilled ST therapy at this time. Speech Patient Assess Expression of Ideas/Wants: Expression (4) Understanding Verbal Content: Understands (4) Brief Interview-Mental Status: Yes Repetition of Three Words: Three (3) Temporal Orientation: Year: Correct (3) Temporal Orientation: Month: Accurate within 5 days(2) Temporal Orientation: Day: Correct (1) Recall : Wear to say "Sock": Yes, no cue required (2) Recall : Color: Yes, no cue required (2) Recall : Bed: Yes,after cueing (1) Memory/Recall Ability: Current season, Location of own room, That he or she is in a hsp/hsp unit Speech-Plan Patient/Family Goals Patient/Family Goals: Patient reported that she wishes to return home to prior level of independence and mobility. Treatment Plan Speech Therapy Treatment Plan: Discontinue ST Treatment Duration: Aug 05, 2019 Frequency: 1 time per week Estimated Hrs Per Day: .25 hour per day Rehab Potential: Good Barriers to Learning: None identified Pt/Family Agrees to Plan: Yes Safety Risks/Education Teaching Recipient: Patient Teaching Methods: Demonstration, Discussion Response to Teaching: Verbalize Understanding Education Topics Provided: Evaluation tasks and areas of cognition tested Time Speech Therapy Time In: 09:30 Speech Therapy Time Out: 09:45 Total Billed Time: 15 Billed Treatment Time 1, [place] Mondragon Aug 05, 2019 11:01
[2019-08-05] MEDS ORDERED: MULT1TAB69 PO (11:11)
--- NOTE | 2019-08-05 11:19 | NUR ---
SPOKE WITH THE PT WELL GOING THRU THE EXT MED HISTORY AND CALLING [facility] AND [facility] TO COMPLETE THE MED REC. PT STATES SHE HAS ONLY BEEN ON THE TRAMADOL AND PERCOCET SHORT TERM AND ITS DUE TO HER SURGERY. IT WAS LEFT ON THE MED REC IF IT NEEDS TO BE CONTINUED AFTER HER STAY. 07-13-2019 TRAMADOL 50MG #42/14DS 07-30-2019 PERCOCET 5/325 #40/6DS 08-03-2019 PERCOCET 5/325 #30/5 DS OTC MEDS: TYLENOL IBUPROFEN BENADRYL [employer]
--- NOTE | 2019-08-05 11:49 | Individualized Plan of Care ---
Individualized Plan of Care Rehab Nursing IPOC Order Admission Date Aug 04, 2019 at 13:30 Current Orders Orders Admission Order(Inpt,Obs,Sdc) (08/04/19 12:21) Vital Signs: Per Unit Policy ( 08,16,00 (08/04/19 12:21) Line Driver-Inpt Rehab Con (08/04/19 12:21) Rehab Nursing Orders-Ipoc (08/04/19 12:21) Physical Therapy Rehab Orders (08/04/19 12:21) Occupational Therapy Rehab Ord (08/04/19 12:21) Speech Therapy Rehab Orders (08/04/19 12:21) Cbc With Automated Diff (08/05/19 06:00) Comprehensive Metabolic Panel (08/05/19 06:00) General/Regular (08/04/19 Dinner) Intake & Output 06,14,22 (08/04/19 12:21) Precautions (Aru) (08/04/19 12:21) Weekly Weight WEEK (08/04/19 12:21) Rehab-Intensity Of Therapy (08/04/19 12:21) Initiate Admission Nursing Pro .admission (08/04/19 12:21) Acetaminophen Tablet (Tylenol Tablet) (08/04/19 12:30) Alprazolam Tablet (Xanax Tablet) (08/04/19 12:30) Calcium Carbonate Chew Tablet (Antacid C (08/04/19 12:30) Diphenhydramine Tablet (Benadryl Tablet) (08/04/19 12:30) Docusate Sodium Capsule (Colace Capsule) (08/04/19 21:00) Docusate Sodium Capsule (Colace Capsule) (08/04/19 12:30) Bisacodyl Suppository (Dulcolax Supposit (08/04/19 12:30) Lactulose Oral Solution (Enulose Oral So (08/04/19 12:30) Na Phos/Na Biphos Enema (Fleet Enema Jai (08/04/19 12:30) Guaifenesin/Codeine Syrup (Robitussin Ac (08/04/19 12:30) Hydrocodone/Apap 5/325 Tablet (Lortab 5 (08/04/19 12:30) Loperamide Tablet (Imodium Tablet) (08/04/19 12:30) Enoxaparin Injection (Lovenox Injection) (08/04/19 14:00) Melatonin Tablet (Melatonin Tablet) (08/04/19 12:30) Polyethylene Glycol Powder Pkt (Miralax (08/04/19 21:00) Ondansetron Oral Dissolve Tab (Zofran (08/04/19 12:30) Senna S Tablet (Senokot S Tablet) (08/04/19 21:00) Initiate Admission Nursing Pro .admission (08/04/19 12:21) Cbc With Automated Diff (08/04/19 14:00) Comprehensive Metabolic Panel (08/04/19 14:00) Iron Test (Fe) (08/04/19 14:00) Request Pt Additional Orders (08/04/19 13:39) Acetaminophen Tablet (Tylenol Tablet) (08/04/19 14:00) Oxycodone/Apap 5/325mg Tablet (Percocet (08/04/19 14:00) Tramadol Tablet (Ultram Tablet) (08/04/19 14:00) Nicotine Patch (Nicoderm Patch) (08/04/19 14:00) Potassium Chloride (Tablet) (Klor Con Ta (08/04/19 14:15) Potassium Chloride (Tablet) (Klor Con Ta (08/05/19 07:00) Patch Removal (Patch Removal) (08/05/19 08:59) Patient Visit (08/04/19 ) Pt Eval Low Complexity (08/04/19 ) Functional Activities, Ea 15 (08/04/19 ) Patient Visit (08/04/19 ) Exercise Therap, Ea 15 Min (08/04/19 ) Gait Training, Ea 15 Min (08/04/19 ) Functional Activities, Ea 15 (08/04/19 ) Patient Visit (08/04/19 ) Cpm: Initial Session (08/04/19 ) Cpm Pads (08/04/19 ) Patient Visit (08/05/19 ) Speech Sound Lang Comp (08/05/19 ) Patient Visit (08/05/19 ) Gait Training, Ea 15 Min (08/05/19 ) Exercise Therap, Ea 15 Min (08/05/19 ) Rehab Nursing Orders: Ongoing Assess. of Cognitive Status, Ongoing Assess. of Function Status, Bladder Management, Bladder Scan, Bladder Training, Bowel Management, Bowel Training, Disease Management & Educaiton, DVT Prophylaxis, Fall Prevention, Fluid/Electrolyte/Nutrition Mgmt, Infection Prevention, Medication Management & Education, Management of Risks & Complications, Management of Skin Intergrity, Nutrition Management, Pain Management, Patient/Family Support, Safety Management Intensity of Therapy to be met Patient to be seen: Min.3h per day/5 of 7d PT IPOC Problem List: Activity Tolerance, Functional Strength, Safety, Balance, Gait, Transfer, Bed Mobility, ROM Treatment Plan: Continue Plan of Care Bed Mobility, Education, Functional Activity Amor, Functional Strength, Group Therapy, Gait, Safety, Therapeutic Exercise, Transfers Treatment Duration: Aug 25, 2019 Frequency: At least 5 of 7 days/Wk (IRF) Estimated Hrs Per Day: 1.5 hours per day OT IPOC Problems: Decreased Activ Tolerance, Decreased UE Strength, Impaired I ADL's, Impaired Self-Care Skills OT Treatment, Training and Edu: Yes Plan of Care: ADL Retraining, Caregiver Training, Functional Mobility, Group Exercise/Act as Ind, UE Funct Exercise/Act Treatment Duration: Aug 25, 2019 Frequency: At least 5 of 7 days/Wk (IRF) Estimated Hrs Per Day: 1.[address] IPOC Speech Therapy Treatment Plan: Discontinue ST Treatment Duration: Aug 05, 2019 Frequency: 1 time per week Estimated Hrs Per Day: .25 hour per day Line Driver/Case Mgmt Line Driver/Case Managemen: Discharge Planning Dietitian/Client Partner Dietitian/Client Partner to monitor nutritional status and make changes and/or recommendations as needed and work with speech pathology on dietary upgrades as the occur. Physician IPOC Medical Issues being managed closely and that require the 24 hour availability of a physician: Recent surgery with slow recovery and recent smoking cessation high risk for decompensation Medical Issues: Bowel/Bladder Function, DVT Prophylaxis, Falls Precautions, Fluid/Electrolyte/Nutrition Balance, Infection Protection, Pain Management Brief Synthesis of Preadmission Screen, Post-Admission Evaluation, and Therapy Evaluations: PT OT will focus on ambulation and manage pain to safely return home. Medical Prognosis: Good Anticipated Length of Stay: 7 days KENIA DE LUNA DO Aug 05, 2019 11:49
--- NOTE | 2019-08-05 11:49 | PM&R Progress Note ---
Subjective HPI/CC On Admission Date Seen by Provider: Aug 05, 2019 Time Seen by Provider: 10:30 Subjective/Events-last exam Pt had a BM Tramadol and Percocet working well for her Dr. Toscano saw her Ice is being helpful with the pain Smoking cessation counseled Conferred with RN Reviewed therapy notes Checked meds and labs Review of Systems General: Fatigue Musculoskeletal: leg pain Objective Exam Vital Signs Vital Signs Date Time Temp Pulse Resp B/P (MAP) Pulse Ox O2 Delivery O2 Flow Rate FiO2 08/05/19 18:00 36.4 81 20 134/70 (91) 99 Room Air Capillary Refill : Less Than 3 Seconds General Appearance: No Apparent Distress, WD/WN HEENT: PERRL/EOMI, Normal ENT Inspection, Pharynx Normal Neck: Full Range of Motion, Normal Inspection, Non Tender, Supple, Carotid Bruit Respiratory: Chest Non Tender, Lungs Clear, Normal Breath Sounds, No Accessory Muscle Use, No Respiratory Distress Cardiovascular: Regular Rate, Rhythm, No Edema, No Gallop, No JVD, No Murmur, Normal Peripheral Pulses Gastrointestinal: Normal Bowel Sounds, No Organomegaly, No Pulsatile Mass, Non Tender, Soft Back: Normal Inspection, No CVA Tenderness, No Vertebral Tenderness Extremity: Normal Capillary Refill, Normal Inspection, Normal Range of Motion (except right post op lower extremity), Non Tender, No Calf Tenderness, No Pedal Edema Neurologic/Psychiatric: Alert, Oriented x3, No Motor/Sensory Deficits, Normal Mood/Affect Skin: Normal Color, Warm/Dry Lymphatic: No Adenopathy Results/Procedures Lab Laboratory Tests 08/05/19 05:30 Patient resulted labs reviewed. FIM Transfers Therapy Code Descriptions/Definitions Functional [place] Measure: 0=Not Assessed/NA 4=Minimal Assistance 1=Total Assistance 5=Supervision or Setup 2=Maximal Assistance 6=Modified [place] 3=Moderate Assistance 7=Complete IndependenceSCALE: Activities may be completed with or without assistive devices. 4-Juiumrqiku-zfqridx completes the activity by him/herself with no assistance from a helper. 5-Set-up or Clean-up Assistance-helper sets up or cleans up; patient completes activity. [place] assists only prior to or following the activity. 4-Supervision or Touching Assistance-helper provides verbal cues and/or touching/steadying and/or contact guard assistance as patient completes activity. Assistance may be provided throughout the activity or intermittently. 3-Partial/Moderate Assistance-helper does LESS THAN HALF the effort. [place] lifts, holds or supports trunk or limbs, but provides less than half the effort. 2-Substantial/Maximal Assistance-helper does MORE THAN HALF the effort. [place] lifts or holds trunk or limbs and provides more than half the effort. 1-Vcwbpiqzw-awgoue does ALL the effort. Patient does none of the effort to complete the activity. Or, the assistance of 2 or more helpers is required for the patient to complete the activity. If activity was not attempted, code reason: 7-Patient Refused. 9-Not Applicable-not attempted and the patient did not perform the activity before the current illness, exacerbation or injury. 10-Not Attempted due to Environmental Limitations-(lack of equipment, weather restraints, etc.). 88-Not Attempted due to Medical Conditions or Safety Concerns. Roll Left to Right (QC): 6 Sit to Lying (QC): 4 Sit to Stand (QC): 4 Chair/Rtm-su-Bqgtc Xfer(QC): 4 Car Transfer (QC): 3 Gait Training Does the Patient Walk?: Yes Walk 10 feet (QC): 4 Walk 50 ft with 2 Turns(QC): 4 Walk 150 ft (QC): 4 Walking 10ft/uneven surface-QC: 4 Gait Persons Needed: 1 Gait Assistive Device: FWW Wheelchair Training Does the Pt Use a Wheelchair?: No Stair Training #of Steps: 1 1 Step (curb) (QC): 4 4 Steps (QC): 88 12 Steps (QC): 88 Balance Picking up an Object (QC): 88 ADL-Treatment Eating (QC): 6 (per pt report, pt was able to open all containers with breakfast and able to eat without assistance.) Oral Hygiene (QC): 4 (CGA standing at sink with FWW.) Shower/Bathe Self (QC): 4 (CGA while standing at GB, she was able to wash all parts) Upper Body Dressing (QC): 5 (set up assist) Lower Body Dressing (QC): 4 (CGA during stand at FWW. Pt able to thread BLEs into pants/underwear and manage pants up.) On/Off Footwear (QC): 3 (Pt able to doff BLE socks, and RLE TEDhose, required assistance dofing LLE TEDhose. She required assistance donning BLE TEDhose, but was able to don gripper socks.) Toileting Hygiene (QC): 7 Toilet Transfer (QC): 7 Assessment/Plan Assessment and Plan Assess & Plan/Chief Complaint Assessment: Right TKA Smoker Anemia Plan: Pain control IRF (1) Status post total right knee replacement (2) Smoker (3) Depression KENIA DE LUNA DO Aug 05, 2019 11:49
--- NOTE | 2019-08-05 11:58 | Physical Therapy Daily Note ---
PT Daily Note-Current Subjective Patient in bed pre tx, agrees to PT, has 8/10 pain in right knee with activity. Appearance Patient in bed post tx with nurse call, phone, tray, [facility] on. Mental Status Patient Orientation: Normal For Age Transfers SCALE: Activities may be completed with or without assistive devices. 9-Zgchjvvgqz-drfcsre completes the activity by him/herself with no assistance from a helper. 5-Set-up or Clean-up Assistance-helper sets up or cleans up; patient completes activity. [place] assists only prior to or following the activity. 4-Supervision or Touching Assistance-helper provides verbal cues and/or touchin g/steadying and/or contact guard assistance as patient completes activity. Assistance may be provided throughout the activity or intermittently. 3-Partial/Moderate Assistance-helper does LESS THAN HALF the effort. [place] lifts, holds or supports trunk or limbs, but provides less than half the effort. 2-Substantial/Maximal Assistance-helper does MORE THAN HALF the effort. [place] lifts or holds trunk or limbs and provides more than half the effort. 7-Qsfrlqdpa-lgmutj does ALL the effort. Patient does none of the effort to complete the activity. Or, the assistance of 2 or more helpers is required for the patient to complete the activity. If activity was not attempted, code reason: 7-Patient Refused. 9-Not Applicable-not attempted and the patient did not perform the activity before the current illness, exacerbation or injury. 10-Not Attempted due to Environmental Limitations-(lack of equipment, weather restraints, etc.). 88-Not Attempted due to Medical Conditions or Safety Concerns. Roll Left & Right (QC): 6 Sit to Lying (QC): 6 Lying to Sitting/Side of Bed(Q: 6 Sit to Stand (QC): 4 Chair/Keh-ub-Zormy Xfer(QC): 4 Occasional cues for hand positioning and safety during transfers. Weight Bearing Right Lower Extremity: Right Weight Bearing/Tolerated Gait Training Distance: 150', 120' Walk 10 feet (QC): 4 Walk 50 ft with 2 Turns(QC): 4 Walk 150 ft (QC): 4 Gait Assistive Device: FWW Slow, poor step through on left side, flexed right knee, antalgic Exercises Supine Ex: Ankle pumps, Quad Set, Heel Slides, Short Arc Quads, Straight leg raise Supine Reps: 20 LAQ right side for 5 min NuStep Minutes: 10 NuStep Workload: 3 Treatments bed mobility and transfers, ambulation, ROM, functional strengthening Assessment Current Status: Fair Progress improved ambulation but needs to improve step through PT Short Term Goals Short Term Goals Time Frame: Aug 11, 2019 Roll Left & Right: 6 Sit to lyin Lying to sitting on side of be: 4 Sit to stand: 5 Chair/jlp-cd-lxcnt transfer: 5 Toilet transfer: 5 Walk 10 feet: 5 Walk 50 feet with two turns: 5 Walk 150 feet: 5 PT Hot Roller Goals Hot Roller Goals PT Hot Roller Goals Time Frame: Aug 25, 2019 Roll Left & Right (QC): 6 Sit to Lying (QC): 6 Lying-Sitting on Side/Bed(QC): 6 Sit to Stand (QC): 6 Chair/Eqn-cx-Eqynn Xfer(QC): 6 Toilet Transfer (QC): 6 Car Transfer (QC): 6 Does the Patient Walk: Yes Walk 10 feet (QC): 6 Walk 50ft with 2 Turns (QC): 6 Walk 150 ft (QC): 6 Walking 10ft on Uneven Surface: 6 1 Step (curb) (QC): 6 4 Steps (QC): 6 PT Plan Problem List Problem List: Activity Tolerance, Functional Strength, Safety, Balance, Gait, Transfer, Bed Mobility, ROM Treatment/Plan Treatment Plan: Continue Plan of Care Treatment Plan: Bed Mobility, Education, Functional Activity Amor, Functional Strength, Group Therapy, Gait, Safety, Therapeutic Exercise, Transfers Treatment Duration: Aug 25, 2019 Frequency: At least 5 of 7 days/Wk (IRF) Estimated Hrs Per Day: 1.5 hours per day Patient and/or Family Agrees t: Yes Safety Risks/Education Patient Education: Gait Training, Transfer Techniques, Correct Positioning, Safety Issues Teaching Recipient: Patient Teaching Methods: Demonstration, Discussion Response to Teaching: Reinforcement Needed Time/GCodes Time In: 1100 Time Out: 1200 Total Billed Treatment Time: 60 Total Billed Treatment 1 visit GT 15' EX 45' LUBA PAREKH PT Aug 05, 2019 11:58
--- NOTE | 2019-08-05 13:04 | NUR ---
CM/SS ADMISSION Patient was admitted to ARU 08/04/19 from home status post Right TKR. She had been inpatient with [facility] 07/28-07/30/19 and declined ARU transition, instead going home with [facility]. Patient indicates she had difficulty with pain management and ability to perform all recommended exercises, she is pleased to have been accepted to our program. Prior to the knee surgery patient was IADL, at home with her spouse of 40 years, Daniel Omer. She will return home when discharged. 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 DME: Has FWW and bath tub bench. Monitor for therapy team recommendations for alternate DME. PCP: PIERO Wills MD, [place] INSURANCE: Medicare, [employer] PH[facility]ACY: [facility] CONTACTS: In addition to her spouse, patient has 3 daughters, she has provided contact information for one of them: Daniel Omer, spouse [phone] Carmen Nobles, Daughter [phone] [place] [address] Patient verbalized understanding of the process and purpose of the weekly team conference. Her ELOS is 7 days, she understands this is subject to her progress and overall LOF as it pertains to qualification for continued stay.
--- NOTE | 2019-08-05 14:59 | Physical Therapy Daily Note ---
PT Daily Note-Current Subjective Patient sitting EOB pre tx, agrees to PT, has 7/10 pain in right knee. Appearance Patient in bed post tx with nurse call, phone, tray,all needs met, [facility] on. Mental Status Patient Orientation: Normal For Age Attachments: [facility] Transfers SCALE: Activities may be completed with or without assistive devices. 1-Iklvabhsfa-rxyiobn completes the activity by him/herself with no assistance from a helper. 5-Set-up or Clean-up Assistance-helper sets up or cleans up; patient completes activity. [place] assists only prior to or following the activity. 4-Supervision or Touching Assistance-helper provides verbal cues and/or touching/steadying and/or contact guard assistance as patient completes activity. Assistance may be provided throughout the activity or intermittently. 3-Partial/Moderate Assistance-helper does LESS THAN HALF the effort. [place] lifts, holds or supports trunk or limbs, but provides less than half the effort. 2-Substantial/Maximal Assistance-helper does MORE THAN HALF the effort. [place] lifts or holds trunk or limbs and provides more than half the effort. 2-Bmiygwgfo-wvzgfw does ALL the effort. Patient does none of the effort to complete the activity. Or, the assistance of 2 or more helpers is required for the patient to complete the activity. If activity was not attempted, code reason: 7-Patient Refused. 9-Not Applicable-not attempted and the patient did not perform the activity before the current illness, exacerbation or injury. 10-Not Attempted due to Environmental Limitations-(lack of equipment, weather restraints, etc.). 88-Not Attempted due to Medical Conditions or Safety Concerns. Roll Left & Right (QC): 6 Sit to Lying (QC): 6 Lying to Sitting/Side of Bed(Q: 6 Sit to Stand (QC): 4 Chair/Mlt-sa-Letre Xfer(QC): 4 Weight Bearing Right Lower Extremity: Right Weight Bearing/Tolerated Gait Training Distance: 150'x2 Walk 10 feet (QC): 4 Walk 50 ft with 2 Turns(QC): 4 Walk 150 ft (QC): 4 Gait Assistive Device: FWW slow, antalgic, better step through with direction Exercises Standing: Hip Abduction, Hamstring curls, Heel/toe raises, Mini squats Standing Reps: 20 Treatments bed mobility and transfers, ambulation, functional strengthening and ROM Assessment Current Status: Fair Progress frequent rest breaks due to pain and fatigue PT Short Term Goals Short Term Goals Time Frame: Aug 11, 2019 Roll Left & Right: 6 Sit to lyin Lying to sitting on side of be: 4 Sit to stand: 5 Chair/sgl-rw-zurkj transfer: 5 Toilet transfer: 5 Walk 10 feet: 5 Walk 50 feet with two turns: 5 Walk 150 feet: 5 PT Hair Salon Manager Goals Intermediate Goals PT Hair Salon Manager Goals Time Frame: Aug 25, 2019 Roll Left & Right (QC): 6 Sit to Lying (QC): 6 Lying-Sitting on Side/Bed(QC): 6 Sit to Stand (QC): 6 Chair/Yci-mk-Jgtqz Xfer(QC): 6 Toilet Transfer (QC): 6 Car Transfer (QC): 6 Does the Patient Walk: Yes Walk 10 feet (QC): 6 Walk 50ft with 2 Turns (QC): 6 Walk 150 ft (QC): 6 Walking 10ft on Uneven Surface: 6 1 Step (curb) (QC): 6 4 Steps (QC): 6 PT Plan Problem List Problem List: Activity Tolerance, Functional Strength, Safety, Balance, Gait, Transfer, Bed Mobility, ROM Treatment/Plan Treatment Plan: Continue Plan of Care Treatment Plan: Bed Mobility, Education, Functional Activity Amor, Functional Strength, Group Therapy, Gait, Safety, Therapeutic Exercise, Transfers Treatment Duration: Aug 25, 2019 Frequency: At least 5 of 7 days/Wk (IRF) Estimated Hrs Per Day: 1.5 hours per day Patient and/or Family Agrees t: Yes Safety Risks/Education Patient Education: Gait Training, Transfer Techniques, Correct Positioning, Safety Issues Teaching Recipient: Patient Teaching Methods: Demonstration, Discussion Response to Teaching: Reinforcement Needed Time/GCodes Time In: 1430 Time Out: 1500 Total Billed Treatment Time: 30 Total Billed Treatment 1 visit EX 20' GT 10' LUBA PAREKH PT Aug 05, 2019 14:59
[2019-08-05] MEDS: ENOXAPARIN 40 MG/0.4 ML (LOVENOX) SYR SC SCH (15:10)
[2019-08-05 18:00] VITALS: BP 134/70
[2019-08-06] MEDS: oxyCODONE/APAP 5/325MG (PERCOCET 5) TABLET PO PRN ×5 (02:47→20:49)
[2019-08-06 06:02] VITALS: BP 153/80
[2019-08-06] MEDS: KCL 10 MEQ TAB (MICRO K) PO SCH (06:48)
--- NOTE | 2019-08-06 06:53 | Progress Note ---
Standard Progress Note Progress Notes/Assess & Plan Date Seen by a Provider: Aug 06, 2019 Time Seen by a Provider: 06:53 Progress/Assessment & Plan no complaints RLE-incision clean and dry. SLR with assistance. No calf tenderness s/p RTKA mobilize had a discussion with patient re expectations and need for cooperation and that we are all here to help her get better Final Diagnosis feeling better R LE dressing intact. No calf tenderness s/p RTKA continue PT/OT ABELARDO DE LA TORRE MD Aug 06, 2019 06:53
[2019-08-06] MEDS: NICOTINE PATCH REMOVAL TP SCH (08:12)
[2019-08-06] MEDS: SENNA W/DOCUSATE (SENOKOT S) TABLET PO SCH ×2 (08:13→20:54)
[2019-08-06] MEDS: DOCUSATE SODIUM 100 MG (COLACE) CAP PO SCH ×2 (08:13→20:54)
[2019-08-06] MEDS: NICOTINE 21 MG (NICODERM) PATCH TD SCH (08:14)
[2019-08-06] MEDS: polyethylene glycoL POWDER 17 GM (MIRALAX) PACK PO SCH ×2 (09:00→20:54)
--- NOTE | 2019-08-06 10:06 | Occupational Ther Daily Note ---
OT Current Status-Daily Note Subjective Pt alert and in bed upon therapist arrival. Pain Numeric Pain Scale: 5-Moderate Pain Location: Right Location Body Site: Knee Pain Description: Pressure, Stabbing, Throbbing, Burning ADL-Treatment Therapy Code Descriptions/Definitions Functional [place] Measure: 0=Not Assessed/NA 4=Minimal Assistance 1=Total Assistance 5=Supervision or Setup 2=Maximal Assistance 6=Modified [place] 3=Moderate Assistance 7=Complete IndependenceSCALE: Activities may be completed with or without assistive devices. 5-Gnpxzdvyco-gdyxbkq completes the activity by him/herself with no assistance f rom a helper. 5-Set-up or Clean-up Assistance-helper sets up or cleans up; patient completes activity. [place] assists only prior to or following the activity. 4-Supervision or Touching Assistance-helper provides verbal cues and/or touching/steadying and/or contact guard assistance as patient completes activity. Assistance may be provided throughout the activity or intermittently. 3-Partial/Moderate Assistance-helper does LESS THAN HALF the effort. [place] lifts, holds or supports trunk or limbs, but provides less than half the effort. 2-Substantial/Maximal Assistance-helper does MORE THAN HALF the effort. [place] lifts or holds trunk or limbs and provides more than half the effort. 7-Ppmbmhqea-lpvoml does ALL the effort. Patient does none of the effort to complete the activity. Or, the assistance of 2 or more helpers is required for the patient to complete the activity. If activity was not attempted, code reason: 7-Patient Refused. 9-Not Applicable-not attempted and the patient did not perform the activity before the current illness, exacerbation or injury. 10-Not Attempted due to Environmental Limitations-(lack of equipment, weather restraints, etc.). 88-Not Attempted due to Medical Conditions or Safety Concerns. Oral Hygiene (QC): 5 (SBA while standing at sink with FWW. ) Shower/Bathe Self (QC): 5 (SBA for bathing tasks. ) Upper Body Dressing (QC): 5 (SBA) Lower Body Dressing (QC): 5 (SBA) On/Off Footwear: 3 (Bladimir to nita compression hose. ) Toileting Hygiene (QC): 5 (SBA) Toilet Transfer (QC): 5 (SBA) Pt required SBA for ambulation throughout her bedroom/bathroom with use of FWW. OT Short Term Goals Short Term Goals Time Frame: Aug 13, 2019 Shower/bathe self: 4 Lower body dressin OT Halfway Goals Halfway Goals Time Frame: Aug 25, 2019 Eating (QC): 6 Oral Hygiene (QC): 6 Toileting Hygiene (QC): 6 Shower/Bathe Self (QC): 6 Upper Body Dressing (QC): 6 Lower Body Dressing (QC): 6 On/Off Footwear (QC): 6 Additional Goals: 1-Demonstrate ADL Tasks, 2-Verbalize Understanding, 3- ImproveStrength/Amor 1=Demonstrate adherence to instructed precautions during ADL tasks. 2=Patient will verbalize/demonstrate understanding of assistive devices/modifications for ADL. 3=Patient will improve strength/tolerance for activity to enable patient to perform ADL's. OT Education/Plan Discharge Recommendations Plan/Recommendations: Continue POC Treatment Plan/Plan of Care Patient would benefit from OT for education, treatment and training to promote independence in ADL's, mobility, safety and/or upper extremity function for ADL's. Plan of Care: ADL Retraining, Caregiver Training, Functional Mobility, Group Exercise/Act as Ind, UE Funct Exercise/Act Treatment Duration: Aug 25, 2019 Frequency: At least 5 of 7 days/Wk (IRF) Estimated Hrs Per Day: 1.5 hours per day Agreement: Yes Rehab Potential: Good Time/GCodes Start Time: 09:00 Stop Time: 10:00 Total Time Billed (hr/min): 60 Billed Treatment Time 1, ADL4 DAMIÁN CAMPBELL OT Aug 06, 2019 10:06
--- NOTE | 2019-08-06 12:10 | PM&R Progress Note ---
Subjective HPI/CC On Admission Date Seen by Provider: Aug 06, 2019 Time Seen by Provider: 06:00 Subjective/Events-last exam Pt had a BM every day since admit Tramadol and Percocet working well for her Dr. Toscano seeing her Ice is being helpful with the pain Smoking cessation counseled Continuous discussion about pain issues Very difficulty coping it appears Conferred with RN Reviewed therapy notes Checked meds and labs Review of Systems General: Fatigue Musculoskeletal: leg pain Objective Exam Vital Signs Vital Signs Date Time Temp Pulse Resp B/P (MAP) Pulse Ox O2 Delivery O2 Flow Rate FiO2 08/06/19 09:00 Room Air 08/06/19 06:02 37.0 74 22 153/80 (104) 96 Capillary Refill : Less Than 3 Seconds General Appearance: No Apparent Distress, WD/WN HEENT: PERRL/EOMI, Normal ENT Inspection, Pharynx Normal Neck: Full Range of Motion, Normal Inspection, Non Tender, Supple, Carotid Bruit Respiratory: Chest Non Tender, Lungs Clear, Normal Breath Sounds, No Accessory Muscle Use, No Respiratory Distress Cardiovascular: Regular Rate, Rhythm, No Edema, No Gallop, No JVD, No Murmur, Normal Peripheral Pulses Gastrointestinal: Normal Bowel Sounds, No Organomegaly, No Pulsatile Mass, Non Tender, Soft Back: Normal Inspection, No CVA Tenderness, No Vertebral Tenderness Extremity: Normal Capillary Refill, Normal Inspection, Normal Range of Motion (except right post op lower extremity), Non Tender, No Calf Tenderness, No Pedal Edema Neurologic/Psychiatric: Alert, Oriented x3, No Motor/Sensory Deficits, Normal Mood/Affect Skin: Normal Color, Warm/Dry Lymphatic: No Adenopathy Results/Procedures Lab Patient resulted labs reviewed. FIM Transfers Therapy Code Descriptions/Definitions Functional [facility] Measure: 0=Not Assessed/NA 4=Minimal Assistance 1=Total Assistance 5=Supervision or Setup 2=Maximal Assistance 6=Modified [facility] 3=Moderate Assistance 7=Complete IndependenceSCALE: Activities may be completed with or without assistive devices. 4-Gmfdlwonzy-cqxolxe completes the activity by him/herself with no assistance from a helper. 5-Set-up or Clean-up Assistance-helper sets up or cleans up; patient completes activity. [place] assists only prior to or following the activity. 4-Supervision or Touching Assistance-helper provides verbal cues and/or touching/steadying and/or contact guard assistance as patient completes activity. Assistance may be provided throughout the activity or intermittently. 3-Partial/Moderate Assistance-helper does LESS THAN HALF the effort. [place] lifts, holds or supports trunk or limbs, but provides less than half the effort. 2-Substantial/Maximal Assistance-helper does MORE THAN HALF the effort. [place] lifts or holds trunk or limbs and provides more than half the effort. 4-Hundzgkgu-bskmny does ALL the effort. Patient does none of the effort to complete the activity. Or, the assistance of 2 or more helpers is required for the patient to complete the activity. If activity was not attempted, code reason: 7-Patient Refused. 9-Not Applicable-not attempted and the patient did not perform the activity before the current illness, exacerbation or injury. 10-Not Attempted due to Environmental Limitations-(lack of equipment, weather restraints, etc.). 88-Not Attempted due to Medical Conditions or Safety Concerns. Roll Left to Right (QC): 6 Sit to Lying (QC): 6 Sit to Stand (QC): 4 Chair/Awz-iy-Fdtye Xfer(QC): 4 Car Transfer (QC): 3 Gait Training Does the Patient Walk?: Yes Distance: 150'x2 Walk 10 feet (QC): 4 Walk 50 ft with 2 Turns(QC): 4 Walk 150 ft (QC): 4 Walking 10ft/uneven surface-QC: 4 Gait Persons Needed: 1 Gait Assistive Device: FWW Wheelchair Training Does the Pt Use a Wheelchair?: No Stair Training #of Steps: 1 1 Step (curb) (QC): 4 4 Steps (QC): 88 12 Steps (QC): 88 Balance Picking up an Object (QC): 88 ADL-Treatment Eating (QC): 6 (per pt report, pt was able to open all containers with breakfast and able to eat without assistance.) Oral Hygiene (QC): 5 (SBA while standing at sink with FWW. ) Shower/Bathe Self (QC): 5 (SBA for bathing tasks. ) Upper Body Dressing (QC): 5 (SBA) Lower Body Dressing (QC): 5 (SBA) On/Off Footwear (QC): 3 (Bladimir to nita compression hose. ) Toileting Hygiene (QC): 5 (SBA) Toilet Transfer (QC): 5 (SBA) Assessment/Plan Assessment and Plan Assess & Plan/Chief Complaint Assessment: Right TKA Smoker Anemia Plan: Pain control IRF Pain management (1) Status post total right knee replacement (2) Smoker (3) Depression KENIA DE LUNA DO Aug 06, 2019 12:09
--- NOTE | 2019-08-06 12:11 | Physical Therapy Daily Note ---
PT Daily Note-Current Subjective Reluctantly agrees to Rx, states she is in pain marco with movement and touch. 6/10 right knee. Pain Numeric Pain Scale: 6 Location: Right Location Body Site: Knee Pain Description: Stabbing Mental Status Patient Orientation: Normal For Age pt. speaks negatively of her life and this knee and all things related today ie, her insurance, the food here, the "meds are a joke" etc etc. Transfers SCALE: Activities may be completed with or without assistive devices. 6-Etcdaatdrn-fslssla completes the activity by him/herself with no assistance from a helper. 5-Set-up or Clean-up Assistance-helper sets up or cleans up; patient completes activity. [place] assists only prior to or following the activity. 4-Supervision or Touching Assistance-helper provides verbal cues and/or touching/steadying and/or contact guard assistance as patient completes activity. Assistance may be provided throughout the activity or intermittently. 3-Partial/Moderate Assistance-helper does LESS THAN HALF the effort. [place] lifts, holds or supports trunk or limbs, but provides less than half the effort. 2-Substantial/Maximal Assistance-helper does MORE THAN HALF the effort. [place] lifts or holds trunk or limbs and provides more than half the effort. 2-Tdurhqqvx-nqszmo does ALL the effort. Patient does none of the effort to complete the activity. Or, the assistance of 2 or more helpers is required for the patient to complete the activity. If activity was not attempted, code reason: 7-Patient Refused. 9-Not Applicable-not attempted and the patient did not perform the activity before the current illness, exacerbation or injury. 10-Not Attempted due to Environmental Limitations-(lack of equipment, weather restraints, etc.). 88-Not Attempted due to Medical Conditions or Safety Concerns. Roll Left & Right (QC): 6 Sit to Lying (QC): 6 Lying to Sitting/Side of Bed(Q: 6 Sit to Stand (QC): 5 Chair/Qnp-kt-Ubjiq Xfer(QC): 5 Weight Bearing Right Lower Extremity: Right Weight Bearing/Tolerated Gait Training Does the Patient Walk?: Yes Walk 10 feet (QC): 5 Walk 50 ft with 2 Turns(QC): 5 Walk 150 ft (QC): 5 Gait Persons Needed: 1 Gait Assistive Device: FWW much work on and emphasis on extension of right knee, equal step length, smoother gait , sequence etc Exercises Supine Ex: Ankle pumps, Quad Set, Heel Slides, Short Arc Quads, Scooting, Straight leg raise (x5 indep with lag right) Supine Reps: 20 Seated Therapy Exercises: Ankle pumps, Sit to stand, Long arc quads Seated Reps: 20 NuStep Minutes: 10 NuStep Workload: 3 Treatments nustep utilized so pt. can control flexion stretch R TKR and extension was emp hasized as well with 3 sec hold. seat moved closer to increase knee flexion after she had stretched a bit Assessment Current Status: Good Progress needs near constant encouragement to think positive and concentrate on task and give full effort. educated in pointing toe straight up in supine to reduce pt. rolling out in to hip knee flexion . instructed pt. to put roll nest to lateral part of knee with bed rail for support and extend knee as far as possible and hold as long as possible watching clock in room to improve ext PT Short Term Goals Short Term Goals Time Frame: Aug 11, 2019 Roll Left & Right: 6 Sit to lyin Lying to sitting on side of be: 4 Sit to stand: 5 Chair/fuy-zm-xzmig transfer: 5 Toilet transfer: 5 Walk 10 feet: 5 Walk 50 feet with two turns: 5 Walk 150 feet: 5 PT Detention Goals Detention Goals PT Flame Brazing Machine Operator Goals Time Frame: Aug 25, 2019 Roll Left & Right (QC): 6 Sit to Lying (QC): 6 Lying-Sitting on Side/Bed(QC): 6 Sit to Stand (QC): 6 Chair/Cwg-va-Agwnp Xfer(QC): 6 Toilet Transfer (QC): 6 Car Transfer (QC): 6 Does the Patient Walk: Yes Walk 10 feet (QC): 6 Walk 50ft with 2 Turns (QC): 6 Walk 150 ft (QC): 6 Walking 10ft on Uneven Surface: 6 1 Step (curb) (QC): 6 4 Steps (QC): 6 PT Plan Treatment/Plan Treatment Plan: Continue Plan of Care Treatment Plan: Bed Mobility, Education, Functional Activity Amor, Functional Strength, Group Therapy, Gait, Safety, Therapeutic Exercise, Transfers Treatment Duration: Aug 25, 2019 Frequency: At least 5 of 7 days/Wk (IRF) Estimated Hrs Per Day: 1.5 hours per day Patient and/or Family Agrees t: Yes Safety Risks/Education Patient Education: Gait Training, Transfer Techniques, Correct Positioning, Disease Process, Safety Issues Teaching Recipient: Patient Teaching Methods: Demonstration, Discussion Response to Teaching: Verbalize Understanding, Return Demonstration, Reinforcement Needed Time/GCodes Time In: 1100 Time Out: 1200 Total Billed Treatment Time: 60 Total Billed Treatment 1,EX30m,GT30m BAM RIBEIRO ATTACHER Aug 06, 2019 12:11
[2019-08-06] MEDS: ENOXAPARIN 40 MG/0.4 ML (LOVENOX) SYR SC SCH (14:34)
--- NOTE | 2019-08-06 14:37 | Therapy Group Daily Note ---
Therapy Daily Group Note Patient Education Topic Home Safety (and exercises), Exercises, Other List Below (wasy to exercise creatively at home) Exercises LE Seated Exercise, UE Exercise Session Ratio (pt:therapist): 4:1 Goal of Session: Education on ARU Expectations, UE/LE Strengthing, Other (list) (safety and exercise at home) Goal Met for this Session: Yes Pt Benefit of Group: F/U Use of Strategies @Home, Increased Functional Strength, Socialization Other/Notes Pt. participated in group PT OT session. Pt. came and went ambulating with FWW and assist. Pt. was social, introducing herself and sharing a bit about her career. Pts were educated in ARU practices and expectations . Pts all participated in seated U&L extremity exercises using for instance a can of vegetables, a rubber band and sponges for resistance. Standing Exercise at counter top was demonstrated as well. Pt to room after Rx with assist to bed , lujan at hand. Start Time: 13:00 Stop Time: 14:10 Total Billed Treatment Time: 70 Total Billed Treatment 1,GRP BAM RIBEIRO SENIOR CYTOTECHNOLOGIST Aug 06, 2019 14:37
[2019-08-06 17:47] VITALS: BP 136/72
[2019-08-06 18:00] VITALS: BP 143/75
[2019-08-06] MEDS: MELATONIN 3 MG TABLET PO PRN (20:49)
[2019-08-07] MEDS: oxyCODONE/APAP 5/325MG (PERCOCET 5) TABLET PO PRN ×4 (03:59→21:14)
[2019-08-07] MEDS: KCL 10 MEQ TAB (MICRO K) PO SCH (06:05)
[2019-08-07 06:14] VITALS: BP 158/82
[2019-08-07] MEDS: polyethylene glycoL POWDER 17 GM (MIRALAX) PACK PO SCH ×2 (08:09→21:14)
[2019-08-07] MEDS: NICOTINE PATCH REMOVAL TP SCH (08:09)
[2019-08-07] MEDS: SENNA W/DOCUSATE (SENOKOT S) TABLET PO SCH ×2 (08:10→21:14)
[2019-08-07] MEDS: NICOTINE 21 MG (NICODERM) PATCH TD SCH (08:10)
[2019-08-07] MEDS: DOCUSATE SODIUM 100 MG (COLACE) CAP PO SCH ×2 (08:10→21:14)
[2019-08-07] MEDS: ALPRAZolam 0.25 MG (XANAX) TAB PO PRN ×2 (10:52→23:12)
--- NOTE | 2019-08-07 12:12 | Physical Therapy Daily Note ---
PT Daily Note-Current Subjective Agreeable to PT. Post treatment, reports she felt her knee was feeling better. Pt did not rate knee pain at onset of treatment. Mental Status Patient Orientation: Person, Place, Time, Situation Transfers SCALE: Activities may be completed with or without assistive devices. 5-Ewzoklarkn-wthomdu completes the activity by him/herself with no assistance from a helper. 5-Set-up or Clean-up Assistance-helper sets up or cleans up; patient completes activity. [place] assists only prior to or following the activity. 4-Supervision or Touching Assistance-helper provides verbal cues and/or touching/steadying and/or contact guard assistance as patient completes activity. Assistance may be provided throughout the activity or intermittently. 3-Partial/Moderate Assistance-helper does LESS THAN HALF the effort. [place] lifts, holds or supports trunk or limbs, but provides less than half the effort. 2-Substantial/Maximal Assistance-helper does MORE THAN HALF the effort. [place] lifts or holds trunk or limbs and provides more than half the effort. 5-Dvcemyjlf-byntex does ALL the effort. Patient does none of the effort to complete the activity. Or, the assistance of 2 or more helpers is required for the patient to complete the activity. If activity was not attempted, code reason: 7-Patient Refused. 9-Not Applicable-not attempted and the patient did not perform the activity before the current illness, exacerbation or injury. 10-Not Attempted due to Environmental Limitations-(lack of equipment, weather restraints, etc.). 88-Not Attempted due to Medical Conditions or Safety Concerns. Lying to Sitting/Side of Bed(Q: 6 Sit to Stand (QC): 4 (SBA for safety) Weight Bearing Right Lower Extremity: Right Weight Bearing/Tolerated Gait Training Does the Patient Walk?: Yes Walk 150 ft (QC): 4 Gait Assistive Device: FWW Functional gait training with focus on heel strike and toe off with knee flexion during swing; in addition, step through gait. Pt ambulated >200 ft x 3 reps. SBA with gait with skilled cues for sequencing. Exercises NuStep Minutes: 15 (To enhance ROM and to decrease stiffness in knee, pt completed with good results.) Assessment Current Status: Good Progress Progressing. Pt tends to focus on gait pattern and actually focusing too much makes it awkward, when told to walk "normal" her pattern improves. Pt is compliant and follows cues. Gait pattern and ROM improved post treatment. PT Short Term Goals Short Term Goals Time Frame: Aug 11, 2019 Roll Left & Right: 6 Sit to lyin Lying to sitting on side of be: 4 Sit to stand: 5 Chair/hil-ej-qewkx transfer: 5 Toilet transfer: 5 Walk 10 feet: 5 Walk 50 feet with two turns: 5 Walk 150 feet: 5 PT Ultimate Hoops Trainer Goals Ultimate Hoops Trainer Goals PT Intermediate Goals Time Frame: Aug 25, 2019 Roll Left & Right (QC): 6 Sit to Lying (QC): 6 Lying-Sitting on Side/Bed(QC): 6 Sit to Stand (QC): 6 Chair/Wuf-tr-Levyz Xfer(QC): 6 Toilet Transfer (QC): 6 Car Transfer (QC): 6 Does the Patient Walk: Yes Walk 10 feet (QC): 6 Walk 50ft with 2 Turns (QC): 6 Walk 150 ft (QC): 6 Walking 10ft on Uneven Surface: 6 1 Step (curb) (QC): 6 4 Steps (QC): 6 PT Plan Problem List Problem List: Activity Tolerance, Functional Strength, Safety, Balance, Gait, Transfer, Bed Mobility, ROM Treatment/Plan Treatment Plan: Continue Plan of Care Treatment Plan: Bed Mobility, Education, Functional Activity Amor, Functional Strength, Group Therapy, Gait, Safety, Therapeutic Exercise, Transfers Treatment Duration: Aug 25, 2019 Frequency: At least 5 of 7 days/Wk (IRF) Estimated Hrs Per Day: 1.5 hours per day Patient and/or Family Agrees t: Yes Safety Risks/Education Patient Education: Gait Training Teaching Recipient: Patient Teaching Methods: Demonstration, Discussion Response to Teaching: Return Demonstration, Reinforcement Needed Time/GCodes Time In: 1050 Time Out: 1128 Total Billed Treatment Time: 38 Total Billed Treatment visit EX 15 GT 23 LINA GRIMM PT Aug 07, 2019 12:11
--- NOTE | 2019-08-07 14:05 | PM&R Progress Note ---
Subjective HPI/CC On Admission Date Seen by Provider: Aug 07, 2019 Time Seen by Provider: 06:00 Subjective/Events-last exam No constipation issues Tramadol and Percocet working well for her Dr. Toscano will approve or refuse ibuprofen to be restarted since she is asking and I want him to make that decision Ice is being helpful with the pain Smoking cessation counseled Continuous discussion about pain issues and she appears to not cope with changes well and trying to be supportive Conferred with RN Reviewed therapy notes Checked meds and labs Review of Systems General: Fatigue Musculoskeletal: leg pain Objective Exam Vital Signs Vital Signs Date Time Temp Pulse Resp B/P (MAP) Pulse Ox O2 Delivery O2 Flow Rate FiO2 08/07/19 08:15 Room Air 08/07/19 06:14 36.6 73 20 158/82 (107) 97 Capillary Refill : Less Than 3 Seconds General Appearance: No Apparent Distress, WD/WN HEENT: PERRL/EOMI, Normal ENT Inspection, Pharynx Normal Neck: Full Range of Motion, Normal Inspection, Non Tender, Supple, Carotid Bruit Respiratory: Chest Non Tender, Lungs Clear, Normal Breath Sounds, No Accessory Muscle Use, No Respiratory Distress Cardiovascular: Regular Rate, Rhythm, No Edema, No Gallop, No JVD, No Murmur, Normal Peripheral Pulses Gastrointestinal: Normal Bowel Sounds, No Organomegaly, No Pulsatile Mass, Non Tender, Soft Back: Normal Inspection, No CVA Tenderness, No Vertebral Tenderness Extremity: Normal Capillary Refill, Normal Inspection, Normal Range of Motion (except right post op lower extremity), Non Tender, No Calf Tenderness, No Pedal Edema Neurologic/Psychiatric: Alert, Oriented x3, No Motor/Sensory Deficits, Normal Mood/Affect Skin: Normal Color, Warm/Dry Lymphatic: No Adenopathy Results/Procedures Lab Patient resulted labs reviewed. FIM Transfers Therapy Code Descriptions/Definitions Functional [place] Measure: 0=Not Assessed/NA 4=Minimal Assistance 1=Total Assistance 5=Supervision or Setup 2=Maximal Assistance 6=Modified [place] 3=Moderate Assistance 7=Complete IndependenceSCALE: Activities may be completed with or without assistive devices. 4-Vnykpykxby-fcyjphn completes the activity by him/herself with no assistance from a helper. 5-Set-up or Clean-up Assistance-helper sets up or cleans up; patient completes activity. [place] assists only prior to or following the activity. 4-Supervision or Touching Assistance-helper provides verbal cues and/or touching/steadying and/or contact guard assistance as patient completes activity. Assistance may be provided throughout the activity or intermittently. 3-Partial/Moderate Assistance-helper does LESS THAN HALF the effort. [place] lifts, holds or supports trunk or limbs, but provides less than half the effort. 2-Substantial/Maximal Assistance-helper does MORE THAN HALF the effort. [place] lifts or holds trunk or limbs and provides more than half the effort. 9-Oflhrsncy-awkklv does ALL the effort. Patient does none of the effort to complete the activity. Or, the assistance of 2 or more helpers is required for the patient to complete the activity. If activity was not attempted, code reason: 7-Patient Refused. 9-Not Applicable-not attempted and the patient did not perform the activity before the current illness, exacerbation or injury. 10-Not Attempted due to Environmental Limitations-(lack of equipment, weather restraints, etc.). 88-Not Attempted due to Medical Conditions or Safety Concerns. Roll Left to Right (QC): 6 Sit to Lying (QC): 6 Sit to Stand (QC): 4 (SBA for safety) Chair/Pmd-ie-Xnnol Xfer(QC): 5 Car Transfer (QC): 3 Gait Training Does the Patient Walk?: Yes Distance: 150'x2 Walk 10 feet (QC): 5 Walk 50 ft with 2 Turns(QC): 5 Walk 150 ft (QC): 4 Walking 10ft/uneven surface-QC: 4 Gait Persons Needed: 1 Gait Assistive Device: FWW Wheelchair Training Does the Pt Use a Wheelchair?: No Stair Training #of Steps: 1 1 Step (curb) (QC): 4 4 Steps (QC): 88 12 Steps (QC): 88 Balance Picking up an Object (QC): 88 ADL-Treatment Eating (QC): 6 (per pt report, pt was able to open all containers with breakfast and able to eat without assistance.) Oral Hygiene (QC): 5 (SBA while standing at sink with FWW. ) Shower/Bathe Self (QC): 5 (SBA for bathing tasks. ) Upper Body Dressing (QC): 5 (SBA) Lower Body Dressing (QC): 5 (SBA) On/Off Footwear (QC): 3 (Bladimir to nita compression hose. ) Toileting Hygiene (QC): 5 (SBA) Toilet Transfer (QC): 5 (SBA) Assessment/Plan Assessment and Plan Assess & Plan/Chief Complaint Assessment: Right TKA Smoker Anemia Slow recovery Difficulty coping Plan: Pain control IRF Pain management Ibuprofen decision per Dr Toscano (1) Status post total right knee replacement (2) Smoker (3) Depression KENIA DE LUNA DO Aug 07, 2019 14:05
[2019-08-07] MEDS: ENOXAPARIN 40 MG/0.4 ML (LOVENOX) SYR SC SCH (14:36)
[2019-08-07 17:00] VITALS: BP 127/68
[2019-08-08] MEDS: oxyCODONE/APAP 5/325MG (PERCOCET 5) TABLET PO PRN ×4 (02:41→21:52)
[2019-08-08] MEDS: KCL 10 MEQ TAB (MICRO K) PO SCH (06:02)
[2019-08-08 06:17] VITALS: BP 138/85
[2019-08-08] MEDS: NICOTINE 21 MG (NICODERM) PATCH TD SCH (08:22)
[2019-08-08] MEDS: SENNA W/DOCUSATE (SENOKOT S) TABLET PO SCH ×2 (08:23→20:10)
[2019-08-08] MEDS: NICOTINE PATCH REMOVAL TP SCH (08:24)
[2019-08-08] MEDS: polyethylene glycoL POWDER 17 GM (MIRALAX) PACK PO SCH ×2 (08:24→20:10)
[2019-08-08] MEDS: DOCUSATE SODIUM 100 MG (COLACE) CAP PO SCH ×2 (08:24→20:10)
[2019-08-08] MEDS: ENOXAPARIN 40 MG/0.4 ML (LOVENOX) SYR SC SCH (14:13)
[2019-08-08 18:40] VITALS: BP 135/78
--- NOTE | 2019-08-08 18:59 | PM&R Progress Note ---
Subjective HPI/CC On Admission Date Seen by Provider: Aug 08, 2019 Time Seen by Provider: 12:30 Subjective/Events-last exam BM+ Patient still very concerned about things that are not usually concerning like her potassium level and how she will have to take potassium at DC when likely the check tomorrow will allow me to DC it altogether and talking about very vague issues on her right knee and leg and feels like she is not making progress Continuous discussion about pain issues and she appears to not cope with changes well and trying to be supportive Patient appears to have some OCD tendencies that are not based on organic dysfunction so will check lab levels and continue close monitoring Conferred with RN Reviewed therapy notes Checked meds and labs Review of Systems Musculoskeletal: leg pain Objective Exam Vital Signs Vital Signs Date Time Temp Pulse Resp B/P (MAP) Pulse Ox O2 Delivery O2 Flow Rate FiO2 08/08/19 18:40 36.8 72 18 135/78 (97) 97 Room Air Capillary Refill : Less Than 3 Seconds General Appearance: No Apparent Distress, WD/WN HEENT: PERRL/EOMI, Normal ENT Inspection, Pharynx Normal Neck: Full Range of Motion, Normal Inspection, Non Tender, Supple, Carotid Bruit Respiratory: Chest Non Tender, Lungs Clear, Normal Breath Sounds, No Accessory Muscle Use, No Respiratory Distress Cardiovascular: Regular Rate, Rhythm, No Edema, No Gallop, No JVD, No Murmur, Normal Peripheral Pulses Gastrointestinal: Normal Bowel Sounds, No Organomegaly, No Pulsatile Mass, Non Tender, Soft Back: Normal Inspection, No CVA Tenderness, No Vertebral Tenderness Extremity: Normal Capillary Refill, Normal Inspection, Normal Range of Motion (except right post op lower extremity), Non Tender, No Calf Tenderness, No Pedal Edema Neurologic/Psychiatric: Alert, Oriented x3, No Motor/Sensory Deficits, Normal Mood/Affect Skin: Normal Color, Warm/Dry Lymphatic: No Adenopathy Results/Procedures Lab Patient resulted labs reviewed. FIM Transfers Therapy Code Descriptions/Definitions Functional [place] Measure: 0=Not Assessed/NA 4=Minimal Assistance 1=Total Assistance 5=Supervision or Setup 2=Maximal Assistance 6=Modified [place] 3=Moderate Assistance 7=Complete IndependenceSCALE: Activities may be completed with or without assistive devices. 3-Uojvfagupg-jqhxgou completes the activity by him/herself with no assistance from a helper. 5-Set-up or Clean-up Assistance-helper sets up or cleans up; patient completes activity. [place] assists only prior to or following the activity. 4-Supervision or Touching Assistance-helper provides verbal cues and/or touching/steadying and/or contact guard assistance as patient completes activity. Assistance may be provided throughout the activity or intermittently. 3-Partial/Moderate Assistance-helper does LESS THAN HALF the effort. [place] lifts, holds or supports trunk or limbs, but provides less than half the effort. 2-Substantial/Maximal Assistance-helper does MORE THAN HALF the effort. [place] lifts or holds trunk or limbs and provides more than half the effort. 5-Luvmuwddq-jbwebn does ALL the effort. Patient does none of the effort to compl ete the activity. Or, the assistance of 2 or more helpers is required for the patient to complete the activity. If activity was not attempted, code reason: 7-Patient Refused. 9-Not Applicable-not attempted and the patient did not perform the activity before the current illness, exacerbation or injury. 10-Not Attempted due to Environmental Limitations-(lack of equipment, weather restraints, etc.). 88-Not Attempted due to Medical Conditions or Safety Concerns. Roll Left to Right (QC): 6 Sit to Lying (QC): 6 Sit to Stand (QC): 4 (SBA for safety) Chair/Klr-kf-Znrfd Xfer(QC): 5 Car Transfer (QC): 3 Gait Training Does the Patient Walk?: Yes Distance: 150'x2 Walk 10 feet (QC): 5 Walk 50 ft with 2 Turns(QC): 5 Walk 150 ft (QC): 4 Walking 10ft/uneven surface-QC: 4 Gait Persons Needed: 1 Gait Assistive Device: FWW Wheelchair Training Does the Pt Use a Wheelchair?: No Stair Training #of Steps: 1 1 Step (curb) (QC): 4 4 Steps (QC): 88 12 Steps (QC): 88 Balance Picking up an Object (QC): 88 ADL-Treatment Eating (QC): 6 (per pt report, pt was able to open all containers with breakfast and able to eat without assistance.) Oral Hygiene (QC): 5 (SBA while standing at sink with FWW. ) Shower/Bathe Self (QC): 5 (SBA for bathing tasks. ) Upper Body Dressing (QC): 5 (SBA) Lower Body Dressing (QC): 5 (SBA) On/Off Footwear (QC): 3 (Bladimir to nita compression hose. ) Toileting Hygiene (QC): 5 (SBA) Toilet Transfer (QC): 5 (SBA) Assessment/Plan Assessment and Plan Assess & Plan/Chief Complaint Assessment: Right TKA Smoker Anemia Slow recovery Difficulty coping Somatic complaints OCD tendencies Plan: Pain control IRF Pain management Patient may benefit from psych treatment (1) Status post total right knee replacement (2) Smoker (3) Depression KENIA DE LUNA DO Aug 08, 2019 18:59
[2019-08-09] MEDS: MELATONIN 3 MG TABLET PO PRN (00:52)
[2019-08-09] MEDS: oxyCODONE/APAP 5/325MG (PERCOCET 5) TABLET PO PRN ×4 (03:21→20:20)
[2019-08-09] MEDS: KCL 10 MEQ TAB (MICRO K) PO SCH (04:59)
[2019-08-09 05:28] VITALS: BP 145/76
[2019-08-09 05:43] LABS: BASOPHILS % (AUTO) 0 % (0-10); EOSINOPHILS # (AUTO) 0.3 10^3/uL (0.0-0.3); EOSINOPHILS % (AUTO) 5 % (0-10); HEMATOCRIT 36 % (35-52); HEMOGLOBIN 11.7 G/DL (11.5-16.0); LYMPHOCYTES # (AUTO) 1.6 X 10^3 (1.0-4.0); LYMPHOCYTES % (AUTO) 28 % (12-44); MEAN CORPUSCULAR HEMOGLOBIN 29 PG (25-34); MEAN CORPUSCULAR HGB CONC 32 G/DL (32-36); MEAN CORPUSCULAR VOLUME 89 FL (80-99); MEAN PLATELET VOLUME 8.9 FL (7.4-10.4); MONOCYTES # (AUTO) 0.6 X 10^3 (0.0-1.0); MONOCYTES % (AUTO) 10 % (0-12); NEUTROPHILS # (AUTO) 3.2 X 10^3 (1.8-7.8); NEUTROPHILS % (AUTO) 56 % (42-75); PLATELET COUNT 405 10^3/uL (130-400); RED CELL DISTRIBUTION WIDTH 13.1 % (10.0-14.5); WHITE BLOOD COUNT 5.7 10^3/uL (4.3-11.0)
[2019-08-09 06:08] LABS: ALANINE AMINOTRANSFERASE 96 U/L (0-55); ALBUMIN 3.6 GM/DL (3.2-4.5); ALKALINE PHOSPHATASE 83 U/L (40-136); BILIRUBIN,TOTAL 0.4 MG/DL (0.1-1.0); BUN/CREATININE RATIO 26; CALCIUM 9.4 MG/DL (8.5-10.1); CARBON DIOXIDE 28 MMOL/L (21-32); CHLORIDE 103 MMOL/L (98-107); CREATININE SERUM 0.69 MG/DL (0.60-1.30); GFR ESTIMATED > 60; GLUCOSE 105 MG/DL (70-105); POTASSIUM 4.4 MMOL/L (3.6-5.0); SODIUM 139 MMOL/L (135-145); TOTAL PROTEIN 6.8 GM/DL (6.4-8.2)
[2019-08-09] MEDS: NICOTINE PATCH REMOVAL TP SCH (09:05)
[2019-08-09] MEDS: DOCUSATE SODIUM 100 MG (COLACE) CAP PO SCH ×2 (09:07→20:20)
[2019-08-09] MEDS: NICOTINE 21 MG (NICODERM) PATCH TD SCH (09:08)
[2019-08-09] MEDS: polyethylene glycoL POWDER 17 GM (MIRALAX) PACK PO SCH ×2 (09:08→20:21)
[2019-08-09] MEDS: SENNA W/DOCUSATE (SENOKOT S) TABLET PO SCH ×2 (09:08→20:20)
--- NOTE | 2019-08-09 09:16 | Occupational Ther Daily Note ---
OT Current Status-Daily Note Subjective Pt laying in bed at start of session, agreeable to OT tx with focus on ADLs. She declined a shower at this time stating she just had one yesterday. Pain Numeric Pain Scale: 6 Location: Right Location Body Site: Knee Mental Status/Objective Attachments: Polar Pack ADL-Treatment Therapy Code Descriptions/Definitions Functional [place] Measure: 0=Not Assessed/NA 4=Minimal Assistance 1=Total Assistance 5=Supervision or Setup 2=Maximal Assistance 6=Modified [place] 3=Moderate Assistance 7=Complete IndependenceSCALE: Activities may be completed with or without assistive devices. 3-Olrkjoonmh-bcsvnwj completes the activity by him/herself with no assistance from a helper. 5-Set-up or Clean-up Assistance-helper sets up or cleans up; patient completes activity. [place] assists only prior to or following the activity. 4-Supervision or Touching Assistance-helper provides verbal cues and/or touching/steadying and/or contact guard assistance as patient completes activity. Assistance may be provided throughout the activity or intermittently. 3-Partial/Moderate Assistance-helper does LESS THAN HALF the effort. [place] lifts, holds or supports trunk or limbs, but provides less than half the effort. 2-Substantial/Maximal Assistance-helper does MORE THAN HALF the effort. [place] lifts or holds trunk or limbs and provides more than half the effort. 4-[place] does ALL the effort. Patient does none of the effort to complete the activity. Or, the assistance of 2 or more helpers is required for the patient to complete the activity. If activity was not attempted, code reason: 7-Patient Refused. 9-Not Applicable-not attempted and the patient did not perform the activity before the current illness, exacerbation or injury. 10-Not Attempted due to Environmental Limitations-(lack of equipment, weather restraints, etc.). 88-Not Attempted due to Medical Conditions or Safety Concerns. Eating (QC): 6 (Pt independent with eating fruit, opening/eating banana, and opening milk container) Oral Hygiene (QC): 4 (SBA standing at sink with FWW) Upper Body Dressing (QC): 5 (set up assist) Lower Body Dressing (QC): 4 (SBA during stand at FWW for doffing/donning pants.) On/Off Footwear: 3 (Pt able to don/doff BLE socks. She required assistance donning TEDhose. OT educated pt on using small plastic bag over her foot in order to pull stockings on easier, pt verbalized understanding stating she would have to try this next time.) Toileting Hygiene (QC): 4 (SBA during stand at FWW/GBs. Pt completed task with BSC over toilet.) Toilet Transfer (QC): 4 (SBA on/off of toilet.) Other Treatment Pt laying in bed at start of session, stating she did not sleep well last night and had quite a bit of pain in her knee. Pt expressed concerns about being anxious to stand on her right leg due to the pain she had last night. Pt transferred supine to sit EOB with SBA, she then unhooked polar pack, and ambulated to bathroom using FWW with SBA. She completed toileting, then stood at sink to wash her hands, wash her face, and brush her teeth with SBA. Pt then went to recliner where she was requesting her nurse before she would do anything else. OT attempted to find pt's nurse but nurse was in with another pt. OT told pt that her nurse was currently with someone, pt then proceeded with session, completing dressing at recliner with SBA during stands. OT asked pt if she would like to return to bed or stay in recliner, pt stated she would like to stay where she was. She started taking her socks off in order to don TEDhose, asking to be educated on the plastic bag trick she had heard about. OT obtained a bag then returned to room. Pt stated she could not stand to be in the recliner any longer, OT told pt she needed to have a non-skid surface on her feet during transfer, asking if she would like to put chano hose and socks on prior to transfer, pt refused, and donned her socks again in order to transfer to EOB with FWW and SBA. Pt then doffed socks, OT educated pt on how to don CHANO hose using plastic bag. Pt verbalized understanding, stating she would like to try this technique by herself next time. Nurse present to give pt meds at this time. At end of session, pt laying in bed, call light in reach and all needs met. nurse present. Education OT Patient Education: Correct positioning, Energy conservation, Exercise program, Modified ADL techniques, Progress toward Goal/Update tx plan, Purpose of tx/functional activities, Safety issues, Transfer techniques Teaching Recipient: Patient Teaching Methods: Discussion Response to Teaching: Verbalize Understanding OT Short Term Goals Short Term Goals Time Frame: Aug 13, 2019 Shower/bathe self: 4 Lower body dressin OT Senior Ui Software Engineer Goals Jail Goals Time Frame: Aug 25, 2019 Eating (QC): 6 Oral Hygiene (QC): 6 Toileting Hygiene (QC): 6 Shower/Bathe Self (QC): 6 Upper Body Dressing (QC): 6 Lower Body Dressing (QC): 6 On/Off Footwear (QC): 6 Additional Goals: 1-Demonstrate ADL Tasks, 2-Verbalize Understanding, 3- ImproveStrength/Amor 1=Demonstrate adherence to instructed precautions during ADL tasks. 2=Patient will verbalize/demonstrate understanding of assistive devices/modifications for ADL. 3=Patient will improve strength/tolerance for activity to enable patient to perform ADL's. OT Education/Plan Problem List/Assessment Assessment: Decreased Activ Tolerance, Decreased UE Strength, Impaired I ADL's, Impaired Self-Care Skills Discharge Recommendations Plan/Recommendations: Continue POC Treatment Plan/Plan of Care Patient would benefit from OT for education, treatment and training to promote independence in ADL's, mobility, safety and/or upper extremity function for ADL's. Plan of Care: ADL Retraining, Caregiver Training, Functional Mobility, Group Exercise/Act as Ind, UE Funct Exercise/Act Treatment Duration: Aug 25, 2019 Frequency: At least 5 of 7 days/Wk (IRF) Estimated Hrs Per Day: 1.5 hours per day Agreement: Yes Rehab Potential: Good Time/GCodes Start Time: 08:10 Stop Time: 09:10 Total Time Billed (hr/min): 60 Billed Treatment Time 1, ADL 4 LINDA VELIZ OT Aug 09, 2019 09:16
--- NOTE | 2019-08-09 09:35 | PM&R Progress Note ---
Subjective HPI/CC On Admission Date Seen by Provider: Aug 09, 2019 Time Seen by Provider: 09:15 Subjective/Events-last exam Pt doesn't think she is doing well but there is nothing to suggest that she is not on a regular timeline for her replacement of the right knee. Pt exhibiting symptoms of psychiatric issues. We discontinued the potassium since her potassium is 4.4 today. Overall doing very well, bowels are moving. Conferred with RN Reviewed therapy notes Checked meds and labs Review of Systems Musculoskeletal: leg pain Objective Exam Vital Signs Vital Signs Date Time Temp Pulse Resp B/P (MAP) Pulse Ox O2 Delivery O2 Flow Rate FiO2 08/09/19 16:00 36.9 87 16 100/68 (79) 98 Room Air Capillary Refill : Less Than 3 Seconds General Appearance: No Apparent Distress, WD/WN HEENT: PERRL/EOMI, Normal ENT Inspection, Pharynx Normal Neck: Full Range of Motion, Normal Inspection, Non Tender, Supple, Carotid Bruit Respiratory: Chest Non Tender, Lungs Clear, Normal Breath Sounds, No Accessory Muscle Use, No Respiratory Distress Cardiovascular: Regular Rate, Rhythm, No Edema, No Gallop, No JVD, No Murmur, Normal Peripheral Pulses Gastrointestinal: Normal Bowel Sounds, No Organomegaly, No Pulsatile Mass, Non Tender, Soft Back: Normal Inspection, No CVA Tenderness, No Vertebral Tenderness Extremity: Normal Capillary Refill, Normal Inspection, Normal Range of Motion (except right post op lower extremity), Non Tender, No Calf Tenderness, No Pedal Edema Neurologic/Psychiatric: Alert, Oriented x3, No Motor/Sensory Deficits, Normal Mood/Affect Skin: Normal Color, Warm/Dry Lymphatic: No Adenopathy Results/Procedures Lab Laboratory Tests 08/09/19 04:50 Patient resulted labs reviewed. FIM Transfers Therapy Code Descriptions/Definitions Functional [place] Measure: 0=Not Assessed/NA 4=Minimal Assistance 1=Total Assistance 5=Supervision or Setup 2=Maximal Assistance 6=Modified [place] 3=Moderate Assistance 7=Complete IndependenceSCALE: Activities may be completed with or without assistive devices. 9-Gznsedlpmx-fpsjacg completes the activity by him/herself with no assistance from a helper. 5-Set-up or Clean-up Assistance-helper sets up or cleans up; patient completes activity. [place] assists only prior to or following the activity. 4-Supervision or Touching Assistance-helper provides verbal cues and/or touching/steadying and/or contact guard assistance as patient completes a ctivity. Assistance may be provided throughout the activity or intermittently. 3-Partial/Moderate Assistance-helper does LESS THAN HALF the effort. [place] lifts, holds or supports trunk or limbs, but provides less than half the effort. 2-Substantial/Maximal Assistance-helper does MORE THAN HALF the effort. [place] lifts or holds trunk or limbs and provides more than half the effort. 9-Ukeqemkiw-lpfxbn does ALL the effort. Patient does none of the effort to complete the activity. Or, the assistance of 2 or more helpers is required for the patient to complete the activity. If activity was not attempted, code reason: 7-Patient Refused. 9-Not Applicable-not attempted and the patient did not perform the activity before the current illness, exacerbation or injury. 10-Not Attempted due to Environmental Limitations-(lack of equipment, weather restraints, etc.). 88-Not Attempted due to Medical Conditions or Safety Concerns. Roll Left to Right (QC): 6 Sit to Lying (QC): 6 Sit to Stand (QC): 4 (SBA for safety) Chair/Hwz-ox-Etayw Xfer(QC): 5 Car Transfer (QC): 3 Gait Training Does the Patient Walk?: Yes Distance: 150'x2 Walk 10 feet (QC): 5 Walk 50 ft with 2 Turns(QC): 5 Walk 150 ft (QC): 4 Walking 10ft/uneven surface-QC: 4 Gait Persons Needed: 1 Gait Assistive Device: FWW Wheelchair Training Does the Pt Use a Wheelchair?: No Stair Training #of Steps: 1 1 Step (curb) (QC): 4 4 Steps (QC): 88 12 Steps (QC): 88 Balance Picking up an Object (QC): 88 ADL-Treatment Eating (QC): 6 (Pt independent with eating fruit, opening/eating banana, and opening milk container) Oral Hygiene (QC): 4 (SBA standing at sink with FWW) Shower/Bathe Self (QC): 5 (SBA for bathing tasks. ) Upper Body Dressing (QC): 5 (set up assist) Lower Body Dressing (QC): 4 (SBA during stand at FWW for doffing/donning pant s.) On/Off Footwear (QC): 3 (Pt able to don/doff BLE socks. She required assistance donning TEDhose. OT educated pt on using small plastic bag over her foot in order to pull stockings on easier, pt verbalized understanding stating she would have to try this next time.) Toileting Hygiene (QC): 4 (SBA during stand at FWW/GBs. Pt completed task with BSC over toilet.) Toilet Transfer (QC): 4 (SBA on/off of toilet.) Assessment/Plan Assessment and Plan Assess & Plan/Chief Complaint Assessment: Right TKA Smoker Anemia Slow recovery Difficulty coping Somatic complaints OCD tendencies Plan: Pain control IRF Pain management Patient may benefit from psych treatment (1) Status post total right knee replacement (2) Smoker (3) Depression KENIA DE LUNA DO Aug 09, 2019 09:35
--- NOTE | 2019-08-09 11:10 | Progress Note ---
MARYANNE VARGAS,MED STUDENT 08/09/19 1110: Progress Note Patient woke up last night with sharp pain in her knee, and has been anxious about it since. States she feels like the oxycodone and Tramadol are working some because she notices when they wear off, but they are not completely controlling her pain. She continues to work with PT and OT and is able to eat on her own, but still requires at least SBA with ADL's such as dressing, donning socks and shoes, and getting up and out of bed, and requires a FWW with ambulating. She would benefit from 2-3 more days of PT and OT for ambulating and dressing herself. Her potassium is 4.4 today so she will no longer need supplementation. Plan for her to work with home health after DC, and she will need a walker at home to ambulate. NABILA DE LUNA DO 08/09/192111: Supervisory-Addendum Brief Verification & Attestation Participated in pt care: history, MDM, physical Personally performed: exam, history, MDM, supervision of care Care discussed with: Medical Student Procedures: n/a Results interpretation: Verified all documentation Verification and Attestation of Medical Student E/M Service A medical student performed and documented this service in my presence. I reviewed and verified all information documented by the medical student and made modifications to such information, when appropriate. I personally performed the physical exam and medical decision making. Nabila De Luna, Aug 09, 2019,21:12 MARYANNE VARGAS,MED STUDENT Aug 09, 2019 11:10 NABILA DE LUNA DO Aug 09, 2019 21:12
--- NOTE | 2019-08-09 11:59 | Physical Therapy Daily Note ---
PT Daily Note-Current Subjective Pt. states she had pain in the night and worried she had done something to her knee but it feels better now. Discussed at length again that pt. could improve extension by keeping toe pointed to ceiling and no pillow under knee, with bed flat. This INSTRUMENT MECHANIC noted that foot of bed was up very far and pillow was under pts k narciso. Pain Numeric Pain Scale: 4 Location: Right Location Body Site: Knee Pain Description: Ache Mental Status Patient Orientation: Normal For Age Transfers SCALE: Activities may be completed with or without assistive devices. 2-Kbyhkhkdvt-kqvfgfb completes the activity by him/herself with no assistance from a helper. 5-Set-up or Clean-up Assistance-helper sets up or cleans up; patient completes activity. [place] assists only prior to or following the activity. 4-Supervision or Touching Assistance-helper provides verbal cues and/or touching/steadying and/or contact guard assistance as patient completes activity. Assistance may be provided throughout the activity or intermittently. 3-Partial/Moderate Assistance-helper does LESS THAN HALF the effort. [place] lifts, holds or supports trunk or limbs, but provides less than half the effort. 2-Substantial/Maximal Assistance-helper does MORE THAN HALF the effort. [place] lifts or holds trunk or limbs and provides more than half the effort. 8-Xbolctrkz-oyizzy does ALL the effort. Patient does none of the effort to complete the activity. Or, the assistance of 2 or more helpers is required for the patient to complete the activity. If activity was not attempted, code reason: 7-Patient Refused. 9-Not Applicable-not attempted and the patient did not perform the activity b efore the current illness, exacerbation or injury. 10-Not Attempted due to Environmental Limitations-(lack of equipment, weather restraints, etc.). 88-Not Attempted due to Medical Conditions or Safety Concerns. Roll Left & Right (QC): 6 Sit to Lying (QC): 6 Lying to Sitting/Side of Bed(Q: 6 Sit to Stand (QC): 6 Chair/Ivr-fs-Scmqa Xfer(QC): 6 Toilet Transfer (QC): 6 Weight Bearing Right Lower Extremity: Right Weight Bearing/Tolerated Gait Training Does the Patient Walk?: Yes Walk 10 feet (QC): 5 Walk 50 ft with 2 Turns(QC): 5 Walk 150 ft (QC): 5 Gait Persons Needed: 1 Gait Assistive Device: FWW much work and emphasis on equal step length and heel strike on right with extended knee on right, this improved by end of RX with better pattern noted Exercises Supine Ex: Ankle pumps, Quad Set, Rolling, Glut sets, Heel Slides, Short Arc Quads, Scooting, Straight leg raise (indep x 5) Supine Reps: 15 Seated Therapy Exercises: Ankle pumps, Sit to stand, Long arc quads, Hip flexion Seated Reps: 12 NuStep Minutes: 10 NuStep Workload: 3 Neuromuscular emphasis on knee extension and flexion using hands/arms to push herself Treatments gait, exercise TKR, and instructed in use of gait belt to stretch HC and HS indep in room as well as reminders for position of right knee/foot for extension Assessment Current Status: Good Progress AROM 0-15-70 PT Short Term Goals Short Term Goals Time Frame: Aug 11, 2019 Roll Left & Right: 6 Sit to lyin Lying to sitting on side of be: 4 Sit to stand: 5 Chair/qez-tj-qvwvg transfer: 5 Toilet transfer: 5 Walk 10 feet: 5 Walk 50 feet with two turns: 5 Walk 150 feet: 5 PT Research Biostatistician Goals Research Biostatistician Goals PT Research Biostatistician Goals Time Frame: Aug 25, 2019 Roll Left & Right (QC): 6 Sit to Lying (QC): 6 Lying-Sitting on Side/Bed(QC): 6 Sit to Stand (QC): 6 Chair/Ctg-tn-Mzqsm Xfer(QC): 6 Toilet Transfer (QC): 6 Car Transfer (QC): 6 Does the Patient Walk: Yes Walk 10 feet (QC): 6 Walk 50ft with 2 Turns (QC): 6 Walk 150 ft (QC): 6 Walking 10ft on Uneven Surface: 6 1 Step (curb) (QC): 6 4 Steps (QC): 6 PT Plan Treatment/Plan Treatment Plan: Continue Plan of Care Treatment Plan: Bed Mobility, Education, Functional Activity Amor, Functional Strength, Group Therapy, Gait, Safety, Therapeutic Exercise, Transfers Treatment Duration: Aug 25, 2019 Frequency: At least 5 of 7 days/Wk (IRF) Estimated Hrs Per Day: 1.5 hours per day Patient and/or Family Agrees t: Yes Safety Risks/Education Patient Education: Gait Training, Transfer Techniques, Correct Positioning, Disease Process, Safety Issues Teaching Recipient: Patient Teaching Methods: Demonstration, Discussion Response to Teaching: Verbalize Understanding, Return Demonstration, Reinforcement Needed Time/GCodes Time In: 1100 Time Out: 1200 Total Billed Treatment Time: 60 Total Billed Treatment 1,GT25m,EX35m BAM RIBEIRO INSTRUMENT MECHANIC Aug 09, 2019 11:59
--- NOTE | 2019-08-09 14:42 | Therapy Group Daily Note ---
Therapy Daily Group Note Patient Education Topic Other List Below (memory, cognition, strategies to maintain and boost, nutrition etc) Exercises LE Seated Exercise Session Ratio (pt:therapist): 4:1 Goal of Session: Memory Strategies, Other (list) (increaed knowledge regarding memory and cognition, ways to maintain and boost, grounding techniques) Goal Met for this Session: Yes Pt Benefit of Group: F/U Use of Strategies @Home, Increased Functional Safety, Improved Cognition, Socialization Other/Notes Pt. participated in group PT OT session this date. Pt. ambulated to and from group with FWW. Pts. were interactive and social and shared their favorite memory. Pts. were educated in the importance of memory and maintaining it as we age as well as strategies to boost memory through nutrition and exercise and use of games and cognitive challenges. Pts participated in memory challenge game by matching images as well as a recall game from last Friday group time. Seated breathing exercises, grounding techniques and LE exercises were completed. Pt. to room after group with assist, lujan at hand, CPM and polar pack insitu as well as call lujan Start Time: 13:00 Stop Time: 14:15 Total Billed Treatment Time: 75 Total Billed Treatment 1,GRP BAM RIBEIRO ADMISSIONS DEAN Aug 09, 2019 14:42
[2019-08-09] MEDS: ENOXAPARIN 40 MG/0.4 ML (LOVENOX) SYR SC SCH (14:46)
--- NOTE | 2019-08-09 15:22 | NUR ---
"RD ASSESSMENT PMHx: no sig PMHx; s/p R TKA PT INTERACTION: Pt was awake and pleasant during nutrition assessment. Pt states current appetite is okay. Note avg PO intake of 73% x5d, per chart review. Pt states following a regular diet but avoids processed foods and fried foods, and has no issues with chewing/swallowing food. Pt states no recent issues with n/v/c/d. Note last BM was 08/07 and pt currently on bowel regimen of colace BID; senna BID; and miralax BID, per chart review. Pt states recent wt gain, but unsure of amount/timeframe. Note unable to determine recent wt hx, per chart review. ABNORMAL NUTRITION-RELATED LAB VALUES LOW: HIGH: AST 53; ALT 96 Est. kcal needs: 5758-3193 kcal | 20-25 kcal/kg Est. Pro needs: 90-108 g Pro | 1.0-1.2 g Pro/kg PES STATEMENT: Given PO intake, no nutrition diagnosis at this time (NO-1.1) INTERVENTION: Continue with current diet order of Regular diet. Pt may benefit from nutrition supplementation if PO intake declines. Will continue to follow and reassess as pt needs, intake, and status change. MONITOR/EVALUATE: PO Intake; Plan of Care; Hydration Status; Weight Status; Lab Values Pa Ahn, MS, RD, LD"
[2019-08-09 16:00] VITALS: BP 100/68
[2019-08-10] MEDS: oxyCODONE/APAP 5/325MG (PERCOCET 5) TABLET PO PRN ×6 (00:20→21:08)
[2019-08-10 05:14] VITALS: BP 128/79
[2019-08-10] MEDS: DOCUSATE SODIUM 100 MG (COLACE) CAP PO SCH ×2 (08:51→21:10)
[2019-08-10] MEDS: polyethylene glycoL POWDER 17 GM (MIRALAX) PACK PO SCH ×2 (08:51→21:12)
[2019-08-10] MEDS: SENNA W/DOCUSATE (SENOKOT S) TABLET PO SCH ×2 (08:51→21:10)
[2019-08-10] MEDS: NICOTINE PATCH REMOVAL TP SCH (08:52)
[2019-08-10] MEDS: NICOTINE 21 MG (NICODERM) PATCH TD SCH (08:52)
--- NOTE | 2019-08-10 09:17 | PM&R Progress Note ---
Subjective HPI/CC On Admission Date Seen by Provider: Aug 10, 2019 Time Seen by Provider: 09:00 Subjective/Events-last exam Pt doing very well No major issues Needs to have a BM so multiple meds were given Wondering why she still has pain but a total knee replacement takes months to recover from Slept pretty well last night Conferred with RN Reviewed therapy notes Checked meds and labs Review of Systems General: Fatigue Musculoskeletal: leg pain Objective Exam Vital Signs Vital Signs Date Time Temp Pulse Resp B/P (MAP) Pulse Ox O2 Delivery O2 Flow Rate FiO2 08/10/19 16:41 36.4 90 16 121/74 (90) 96 Room Air Capillary Refill : Less Than 3 Seconds General Appearance: No Apparent Distress, WD/WN HEENT: PERRL/EOMI, Normal ENT Inspection, Pharynx Normal Neck: Full Range of Motion, Normal Inspection, Non Tender, Supple, Carotid Bruit Respiratory: Chest Non Tender, Lungs Clear, Normal Breath Sounds, No Accessory Muscle Use, No Respiratory Distress Cardiovascular: Regular Rate, Rhythm, No Edema, No Gallop, No JVD, No Murmur, Normal Peripheral Pulses Gastrointestinal: Normal Bowel Sounds, No Organomegaly, No Pulsatile Mass, Non Tender, Soft Back: Normal Inspection, No CVA Tenderness, No Vertebral Tenderness Extremity: Normal Capillary Refill, Normal Inspection, Normal Range of Motion (except right post op lower extremity), Non Tender, No Calf Tenderness, No Pedal Edema Neurologic/Psychiatric: Alert, Oriented x3, No Motor/Sensory Deficits, Normal Mood/Affect Skin: Normal Color, Warm/Dry Lymphatic: No Adenopathy Results/Procedures Lab Patient resulted labs reviewed. FIM Transfers Therapy Code Descriptions/Definitions Functional [place] Measure: 0=Not Assessed/NA 4=Minimal Assistance 1=Total Assistance 5=Supervision or Setup 2=Maximal Assistance 6=Modified [place] 3=Moderate Assistance 7=Complete IndependenceSCALE: Activities may be completed with or without assistive devices. 6-Syhfnenciu-xaajkeo completes the activity by him/herself with no assistance from a helper. 5-Set-up or Clean-up Assistance-helper sets up or cleans up; patient completes activity. [place] assists only prior to or following the activity. 4-Supervision or Touching Assistance-helper provides verbal cues and/or touching/steadying and/or contact guard assistance as patient completes activity. Assistance may be provided throughout the activity or intermittently. 3-Partial/Moderate Assistance-helper does LESS THAN HALF the effort. [place] lifts, holds or supports trunk or limbs, but provides less than half the effort. 2-Substantial/Maximal Assistance-helper does MORE THAN HALF the effort. [place] lifts or holds trunk or limbs and provides more than half the effort. 4-Rjihxcuys-ohtpqy does ALL the effort. Patient does none of the effort to complete the activity. Or, the assistance of 2 or more helpers is required for the patient to complete the activity. If activity was not attempted, code reason: 7-Patient Refused. 9-Not Applicable-not attempted and the patient did not perform the activity before the current illness, exacerbation or injury. 10-Not Attempted due to Environmental Limitations-(lack of equipment, weather restraints, etc.). 88-Not Attempted due to Medical Conditions or Safety Concerns. Roll Left to Right (QC): 6 Sit to Lying (QC): 6 Sit to Stand (QC): 6 Chair/Hyx-yy-Tjdfg Xfer(QC): 6 Car Transfer (QC): 3 Gait Training Does the Patient Walk?: Yes Distance: 150'x2 Walk 10 feet (QC): 5 Walk 50 ft with 2 Turns(QC): 5 Walk 150 ft (QC): 5 Walking 10ft/uneven surface-QC: 4 Gait Persons Needed: 1 Gait Assistive Device: FWW Wheelchair Training Does the Pt Use a Wheelchair?: No Stair Training #of Steps: 1 1 Step (curb) (QC): 4 4 Steps (QC): 88 12 Steps (QC): 88 Balance Picking up an Object (QC): 88 ADL-Treatment Eating (QC): 6 (Pt independent with eating fruit, opening/eating banana, and opening milk container) Oral Hygiene (QC): 4 (SBA standing at sink with FWW) Shower/Bathe Self (QC): 5 (SBA for bathing tasks. ) Upper Body Dressing (QC): 5 (set up assist) Lower Body Dressing (QC): 4 (SBA during stand at FWW for doffing/donning pants.) On/Off Footwear (QC): 3 (Pt able to don/doff BLE socks. She required assistance donning TEDhose. OT educated pt on using small plastic bag over her foot in order to pull stockings on easier, pt verbalized understanding stating she would have to try this next time.) Toileting Hygiene (QC): 4 (SBA during stand at FWW/GBs. Pt completed task with BSC over toilet.) Toilet Transfer (QC): 4 (SBA on/off of toilet.) Assessment/Plan Assessment and Plan Assess & Plan/Chief Complaint Assessment: Right TKA Smoker Anemia Slow recovery Difficulty coping Somatic complaints OCD tendencies Plan: Pain control IRF Pain management Patient may benefit from psych treatment (1) Status post total right knee replacement (2) Smoker (3) Depression KENIA DE LUNA DO Aug 10, 2019 09:17
--- NOTE | 2019-08-10 09:58 | Physical Therapy Daily Note ---
PT Daily Note-Current Subjective Patient in bed pre tx, agrees to PT, has 5/10 pain in right knee. Appearance Patient BTB post tx with nurse call, phone, tray, all needs met, polar care on. Mental Status Patient Orientation: Person, Place, Situation Transfers SCALE: Activities may be completed with or without assistive devices. 3-Ecfviaehpr-ywhhrcq completes the activity by him/herself with no assistance from a helper. 5-Set-up or Clean-up Assistance-helper sets up or cleans up; patient completes activity. [place] assists only prior to or following the activity. 4-Supervision or Touching Assistance-helper provides verbal cues and/or touching/steadying and/or contact guard assistance as patient completes activity. Assistance may be provided throughout the activity or intermittently. 3-Partial/Moderate Assistance-helper does LESS THAN HALF the effort. [place] lifts, holds or supports trunk or limbs, but provides less than half the effort. 2-Substantial/Maximal Assistance-helper does MORE THAN HALF the effort. [place] lifts or holds trunk or limbs and provides more than half the effort. 5-Bwlvyugyz-miukjy does ALL the effort. Patient does none of the effort to complete the activity. Or, the assistance of 2 or more helpers is required for the patient to complete the activity. If activity was not attempted, code reason: 7-Patient Refused. 9-Not Applicable-not attempted and the patient did not perform the activity before the current illness, exacerbation or injury. 10-Not Attempted due to Environmental Limitations-(lack of equipment, weather restraints, etc.). 88-Not Attempted due to Medical Conditions or Safety Concerns. Roll Left & Right (QC): 6 Sit to Lying (QC): 6 Lying to Sitting/Side of Bed(Q: 6 Sit to Stand (QC): 4 Chair/Rtg-kf-Qpnvz Xfer(QC): 4 Weight Bearing Right Lower Extremity: Right Weight Bearing/Tolerated Gait Training Distance: 150'x2 Walk 10 feet (QC): 4 Walk 50 ft with 2 Turns(QC): 4 Walk 150 ft (QC): 4 Gait Assistive Device: FWW SBA, antalgic, flexed right knee, better step through Exercises Supine Ex: Ankle pumps, Quad Set, Glut sets, Heel Slides, Straight leg raise Supine Reps: 20 LAQ right side for 5 min NuStep Minutes: 15 NuStep Workload: 1 (for ROM) Treatments ROM/stretching, LE TKA exercises, bed mobility and transfers, ambulation Assessment Current Status: Fair Progress improving ambulation but patient is abnormally anxious PT Short Term Goals Short Term Goals Time Frame: Aug 11, 2019 Roll Left & Right: 6 Sit to lyin Lying to sitting on side of be: 4 Sit to stand: 5 Chair/qsj-ge-bistv transfer: 5 Toilet transfer: 5 Walk 10 feet: 5 Walk 50 feet with two turns: 5 Walk 150 feet: 5 PT Production Floater Goals Production Floater Goals PT Skilled Nursing Goals Time Frame: Aug 25, 2019 Roll Left & Right (QC): 6 Sit to Lying (QC): 6 Lying-Sitting on Side/Bed(QC): 6 Sit to Stand (QC): 6 Chair/Ubr-fn-Qqihp Xfer(QC): 6 Toilet Transfer (QC): 6 Car Transfer (QC): 6 Does the Patient Walk: Yes Walk 10 feet (QC): 6 Walk 50ft with 2 Turns (QC): 6 Walk 150 ft (QC): 6 Walking 10ft on Uneven Surface: 6 1 Step (curb) (QC): 6 4 Steps (QC): 6 PT Plan Problem List Problem List: Activity Tolerance, Functional Strength, Safety, Balance, Gait, Transfer Treatment/Plan Treatment Plan: Continue Plan of Care Treatment Plan: Bed Mobility, Education, Functional Activity Amor, Functional Strength, Group Therapy, Gait, Safety, Therapeutic Exercise, Transfers Treatment Duration: Aug 25, 2019 Frequency: At least 5 of 7 days/Wk (IRF) Estimated Hrs Per Day: 1.5 hours per day Patient and/or Family Agrees t: Yes Safety Risks/Education Patient Education: Gait Training, Transfer Techniques, Correct Positioning, Safety Issues Teaching Recipient: Patient Teaching Methods: Demonstration, Discussion Response to Teaching: Reinforcement Needed Time/GCodes Time In: 0900 Time Out: 1000 Total Billed Treatment Time: 60 Total Billed Treatment 1 visit GT 20' EX 40' LUBA PAREKH PT Aug 10, 2019 09:58
--- NOTE | 2019-08-10 10:15 | NUR ---
Pastoral care visit.
--- NOTE | 2019-08-10 11:02 | Occupational Ther Daily Note ---
OT Current Status-Daily Note Subjective GARNER/L took over care from OTR/L. Pt alert, sitting on toilet. Pt states that she only wants to help her with transfers, that she only trusts him due to her 200lb wt. GARNER educated pt on OT role and ability to assist pt safely, pt continues to refuse. Did allow GARNER to observe to be able to assess how pt is progressing. Pt does not want a BSC over toilet when she is having a BM, stating that she needs her knees higher up than the higher surface will allow. BSC was taken off toilet for pt then replaced. Pt then went on to explain that she is 64 years old and if she does not want something she has the right to refuse. Mental Status/Objective Patient Orientation: Person, Place, Time, Situation ADL-Treatment Pt transferred onto/off of toilet using FWW and grabbar by self. Pt complete own toilet hygiene and clothing manipulation by self using grabbar and FWW. Pt stood at sink to wash hands and don bra by self. GARNER alerted pt that there was food on pt's shorts. Pt ambulated back to EOB retrieved more shorts and was able to don/doff mod I. After session, pt sitting EOB with call light/phone in reach. All needs met in room. Therapy Code Descriptions/Definitions Functional [place] Measure: 0=Not Assessed/NA 4=Minimal Assistance 1=Total Assistance 5=Supervision or Setup 2=Maximal Assistance 6=Modified [place] 3=Moderate Assistance 7=Complete IndependenceSCALE: Activities may be completed with or without assistive devices. 8-Joaaoyzrch-kcwjcqp completes the activity by him/herself with no assistance from a helper. 5-Set-up or Clean-up Assistance-helper sets up or cleans up; patient completes activity. [place] assists only prior to or following the activity. 4-Supervision or Touching Assistance-helper provides verbal cues and/or touching/steadying and/or contact guard assistance as patient completes activity. Assistance may be provided throughout the activity or intermittently. 3-Partial/Moderate Assistance-helper does LESS THAN HALF the effort. [place] lifts, holds or supports trunk or limbs, but provides less than half the effort. 2-Substantial/Maximal Assistance-helper does MORE THAN HALF the effort. [place] lifts or holds trunk or limbs and provides more than half the effort. 3-Pcpucusyr-zqzetj does ALL the effort. Patient does none of the effort to complete the activity. Or, the assistance of 2 or more helpers is required for the patient to complete the activity. If activity was not attempted, code reason: 7-Patient Refused. 9-Not Applicable-not attempted and the patient did not perform the activity before the current illness, exacerbation or injury. 10-Not Attempted due to Environmental Limitations-(lack of equipment, weather restraints, etc.). 88-Not Attempted due to Medical Conditions or Safety Concerns. Lower Body Dressing (QC): 6 Toileting Hygiene (QC): 6 Toilet Transfer (QC): 6 OT Short Term Goals Short Term Goals Time Frame: Aug 13, 2019 Shower/bathe self: 4 Lower body dressin OT Electron Beam Welder Setter Goals Nursing Home Goals Time Frame: Aug 25, 2019 Eating (QC): 6 Oral Hygiene (QC): 6 Toileting Hygiene (QC): 6 Shower/Bathe Self (QC): 6 Upper Body Dressing (QC): 6 Lower Body Dressing (QC): 6 On/Off Footwear (QC): 6 Additional Goals: 1-Demonstrate ADL Tasks, 2-Verbalize Understanding, 3- ImproveStrength/Amor 1=Demonstrate adherence to instructed precautions during ADL tasks. 2=Patient will verbalize/demonstrate understanding of assistive devices/modifications for ADL. 3=Patient will improve strength/tolerance for activity to enable patient to perform ADL's. OT Education/Plan Discharge Recommendations Plan/Recommendations: Continue POC Treatment Plan/Plan of Care Patient would benefit from OT for education, treatment and training to promote independence in ADL's, mobility, safety and/or upper extremity function for ADL's. Plan of Care: ADL Retraining, Caregiver Training, Functional Mobility, Group E xercise/Act as Ind, UE Funct Exercise/Act Treatment Duration: Aug 25, 2019 Frequency: At least 5 of 7 days/Wk (IRF) Estimated Hrs Per Day: 1.5 hours per day Agreement: Yes Rehab Potential: Good Time/GCodes Start Time: 08:45 Stop Time: 09:15 Total Time Billed (hr/min): 15 Billed Treatment Time 1 visit-ADL 1 (15 min) LINA MORRIS Aug 10, 2019 11:02
--- NOTE | 2019-08-10 13:18 | Occupational Ther Daily Note ---
OT Current Status-Daily Note Subjective Pt laying in bed at start of session, agreeable to ADL session this AM. She did not verbalize pain rating during tx. Mental Status/Objective Attachments: [place] ADL-Treatment Therapy Code Descriptions/Definitions Functional [place] Measure: 0=Not Assessed/NA 4=Minimal Assistance 1=Total Assistance 5=Supervision or Setup 2=Maximal Assistance 6=Modified [place] 3=Moderate Assistance 7=Complete IndependenceSCALE: Activities may be completed with or without assistive devices. 1-Ljstzykxky-rtcgrjh completes the activity by him/herself with no assistance from a helper. 5-Set-up or Clean-up Assistance-helper sets up or cleans up; patient completes activity. [place] assists only prior to or following the activity. 4-Supervision or Touching Assistance-helper provides verbal cues and/or touching/steadying and/or contact guard assistance as patient completes activity. Assistance may be provided throughout the activity or intermittently. 3-Partial/Moderate Assistance-helper does LESS THAN HALF the effort. [place] lifts, holds or supports trunk or limbs, but provides less than half the effort. 2-Substantial/Maximal Assistance-helper does MORE THAN HALF the effort. [place] lifts or holds trunk or limbs and provides more than half the effort. 7-Nsfficgmm-[place] does ALL the effort. Patient does none of the effort to complete the activity. Or, the assistance of 2 or more helpers is required for the patient to complete the activity. If activity was not attempted, code reason: 7-Patient Refused. 9-Not Applicable-not attempted and the patient did not perform the activity before the current illness, exacerbation or injury. 10-Not Attempted due to Environmental Limitations-(lack of equipment, weather restraints, etc.). 88-Not Attempted due to Medical Conditions or Safety Concerns. Oral Hygiene (QC): 6 (mod I at sink with FWW. Noted pt put most of her weight through her LLE during task.) Shower/Bathe Self (QC): 7 (Pt agreeable to showering, when OT told pt that nurse wanted the dressing covered while showering, pt refused to take shower. Pt stated she did not need to cover her dressing any longer and it is fine to get wet. OT educated pt on nurse's request to cover, pt adamently refused to cover in order to shower. ) Upper Body Dressing (QC): 4 (SBA as pt ambulated with FWW. Pt able to use walker to gather clothes from closet, then doffed/donned shirt seated EOB) Lower Body Dressing (QC): 4 (SBA during stand/ambulation at FWW. Pt able to gather clothes out of closet using FWW. She then donned/doffed clothes seated EOB, SBA during stand at FWW during clothing management.) On/Off Footwear: 3 (Pt able to doff slipper socks. She then donned TEDhose on left foot using plastic bag technique she was educated on in previous session. Pt declined attempting to put TEDhose on right leg, stating she feels like it would hurt too much. OT dependently donned valerie hose on RLE. Pt then able to don shoes on both feet.) Other Treatment Pt laying in bed at start of session, agreeable to ADL session. OT informed pt of nurse's request to cover dressing on her knee during shower. Pt then refused showering because she did not want to cover her dressing, stating she is now allowed to get her dressing wet. Pt used FWW with SBA to gather her clothes out of the closet, then changed her clothes seated EOB. Pt them ambulated to the restroom where she brushed her teeth at the sink. Pt requested to go to the bathroom, but wanted to get on standard toilet in hopes to have a BM easier. OT removed BSC from over toilet. Pt then requested help from to get on the toilet. OT educated pt that OT could help her as part of the session, but pt refused OT assistance stating she did not feel like OT could safely get her on/off the lower toilet. Pt's assisted pt with lowering to the toilet as OT observed for safety. Post OT session, pt seated on toilet, present. Pt instructed to pull red cord when she was finished with toileting in order for staff to come in to assist her. Education OT Patient Education: Correct positioning, Energy conservation, Modified ADL techniques, Progress toward Goal/Update tx plan, Purpose of tx/functional activities, Safety issues, Transfer techniques, Use of adapted equipment Teaching Recipient: Patient Teaching Methods: Demonstration, Discussion Response to Teaching: Verbalize Understanding, Return Demonstration OT Short Term Goals Short Term Goals Time Frame: Aug 13, 2019 Shower/bathe self: 4 Lower body dressin OT Curing Bin Operator Goals Half-Way Goals Time Frame: Aug 25, 2019 Eating (QC): 6 Oral Hygiene (QC): 6 Toileting Hygiene (QC): 6 Shower/Bathe Self (QC): 6 Upper Body Dressing (QC): 6 Lower Body Dressing (QC): 6 On/Off Footwear (QC): 6 Additional Goals: 1-Demonstrate ADL Tasks, 2-Verbalize Understanding, 3- ImproveStrength/Amor 1=Demonstrate adherence to instructed precautions during ADL tasks. 2=Patient will verbalize/demonstrate understanding of assistive devices/modifications for ADL. 3=Patient will improve strength/tolerance for activity to enable patient to perform ADL's. OT Education/Plan Problem List/Assessment Assessment: Decreased Activ Tolerance, Impaired I ADL's, Impaired Self-Care S kills Discharge Recommendations Plan/Recommendations: Continue POC Treatment Plan/Plan of Care Patient would benefit from OT for education, treatment and training to promote independence in ADL's, mobility, safety and/or upper extremity function for ADL's. Plan of Care: ADL Retraining, Caregiver Training, Functional Mobility, Group Exercise/Act as Ind, UE Funct Exercise/Act Treatment Duration: Aug 25, 2019 Frequency: At least 5 of 7 days/Wk (IRF) Estimated Hrs Per Day: 1.5 hours per day Agreement: Yes Rehab Potential: Good Time/GCodes Start Time: 08:00 Stop Time: 08:40 Total Time Billed (hr/min): 40 Billed Treatment Time 1, ADL LINDA VELIZ OT Aug 10, 2019 13:17
--- NOTE | 2019-08-10 13:55 | Occupational Ther Daily Note ---
OT Current Status-Daily Note Subjective Pt alert, sitting EOB. Pt agrees to therapy. No c/o pain sitting EOB, pain with movement. Mental Status/Objective Patient Orientation: Person, Place, Time, Situation ADL-Treatment Therapy Code Descriptions/Definitions Functional [place] Measure: 0=Not Assessed/NA 4=Minimal Assistance 1=Total Assistance 5=Supervision or Setup 2=Maximal Assistance 6=Modified [place] 3=Moderate Assistance 7=Complete IndependenceSCALE: Activities may be completed with or without assistive devices. 6-Zyelbhsabu-llqsvxc completes the activity by him/herself with no assistance from a helper. 5-Set-up or Clean-up Assistance-helper sets up or cleans up; patient completes activity. [place] assists only prior to or following the activity. 4-Supervision or Touching Assistance-helper provides verbal cues and/or touching/steadying and/or contact guard assistance as patient completes activity. Assistance may be provided throughout the activity or intermittently. 3-Partial/Moderate Assistance-helper does LESS THAN HALF the effort. [place] lifts, holds or supports trunk or limbs, but provides less than half the effort. 2-Substantial/Maximal Assistance-helper does MORE THAN HALF the effort. [place] lifts or holds trunk or limbs and provides more than half the effort. 9-Xuhdjcviq-osmaxn does ALL the effort. Patient does none of the effort to complete the activity. Or, the assistance of 2 or more helpers is required for the patient to complete the activity. If activity was not attempted, code reason: 7-Patient Refused. 9-Not Applicable-not attempted and the patient did not perform the activity before the current illness, exacerbation or injury. 10-Not Attempted due to Environmental Limitations-(lack of equipment, weather restraints, etc.). 88-Not Attempted due to Medical Conditions or Safety Concerns. Other Treatment Pt educated on kitchen mobility with and without FWW. Pt able to open/close and retrieved items from refrigerator with SBA using FWW. Pt then used counter to stabilize while reaching, grasping and retrieving alvarez bags out of doors/drawers in kitchen area with SBA. Pt was able to make coffee with SBA. FWW basket placed on FWW for use while in hospital. After session, pt lying in bed with call light/phone in reach. OT Short Term Goals Short Term Goals Time Frame: Aug 13, 2019 Shower/bathe self: 4 Lower body dressin OT Cut Out And Marking Machine Operator Goals [facility] Goals Time Frame: Aug 25, 2019 Eating (QC): 6 Oral Hygiene (QC): 6 Toileting Hygiene (QC): 6 Shower/Bathe Self (QC): 6 Upper Body Dressing (QC): 6 Lower Body Dressing (QC): 6 On/Off Footwear (QC): 6 Additional Goals: 1-Demonstrate ADL Tasks, 2-Verbalize Understanding, 3- ImproveStrength/Amor 1=Demonstrate adherence to instructed precautions during ADL tasks. 2=Patient will verbalize/demonstrate understanding of assistive devices/modifications for ADL. 3=Patient will improve strength/tolerance for activity to enable patient to perform ADL's. OT Education/Plan Discharge Recommendations Plan/Recommendations: Continue POC Treatment Plan/Plan of Care Patient would benefit from OT for education, treatment and training to promote independence in ADL's, mobility, safety and/or upper extremity function for ADL's. Plan of Care: ADL Retraining, Caregiver Training, Functional Mobility, Group Exercise/Act as Ind, UE Funct Exercise/Act Treatment Duration: Aug 25, 2019 Frequency: At least 5 of 7 days/Wk (IRF) Estimated Hrs Per Day: 1.5 hours per day Agreement: Yes Rehab Potential: Good Time/GCodes Start Time: 12:55 Stop Time: 13:30 Total Time Billed (hr/min): 35 Billed Treatment Time 1 visit-FA 2 (35 min) LINA MORRIS Aug 10, 2019 13:55
[2019-08-10] MEDS: ENOXAPARIN 40 MG/0.4 ML (LOVENOX) SYR SC SCH (14:05)
--- NOTE | 2019-08-10 14:27 | Physical Therapy Daily Note ---
PT Daily Note-Current Subjective Patient sitting EOB pre tx, agrees to PT, has 5/10 pain in right knee. Appearance Patient in bed post tx with nurse call, phone, tray, all needs met. [place] care on. Mental Status Patient Orientation: Person, Place, Situation Transfers SCALE: Activities may be completed with or without assistive devices. 1-Dambyilqbd-dejidcn completes the activity by him/herself with no assistance from a helper. 5-Set-up or Clean-up Assistance-helper sets up or cleans up; patient completes activity. [place] assists only prior to or following the activity. 4-Supervision or Touching Assistance-helper provides verbal cues and/or touching/steadying and/or contact guard assistance as patient completes activity. Assistance may be provided throughout the activity or intermittently. 3-Partial/Moderate Assistance-helper does LESS THAN HALF the effort. [place] lifts, holds or supports trunk or limbs, but provides less than half the effort. 2-Substantial/Maximal Assistance-helper does MORE THAN HALF the effort. [place] lifts or holds trunk or limbs and provides more than half the effort. 7-Ndaqhlmto-ptjatg does ALL the effort. Patient does none of the effort to complete the activity. Or, the assistance of 2 or more helpers is required for the patient to complete the activity. If activity was not attempted, code reason: 7-Patient Refused. 9-Not Applicable-not attempted and the patient did not perform the activity before the current illness, exacerbation or injury. 10-Not Attempted due to Environmental Limitations-(lack of equipment, weather restraints, etc.). 88-Not Attempted due to Medical Conditions or Safety Concerns. Roll Left & Right (QC): 6 Sit to Lying (QC): 6 Sit to Stand (QC): 4 Chair/Wkb-jq-Vexwm Xfer(QC): 4 Weight Bearing Right Lower Extremity: Right Weight Bearing/Tolerated Gait Training Distance: 150'x2 Walk 10 feet (QC): 4 Walk 50 ft with 2 Turns(QC): 4 Walk 150 ft (QC): 4 Gait Persons Needed: 1 Gait Assistive Device: FWW SBA, more brisk ambulation, flexed right knee, good step through Stair Training Stair Training: Handrails/: 1 handrail #of Steps: 4 1 Step (curb) (QC): 4 4 Steps (QC): 4 Stairs: Pattern: Step to Patient went up and down 4 steps using 1 handrail (used same side as at home) with CGA, cues for step placement and safety Treatments bed mobility and transfers, ambulation, stair training Assessment Current Status: Fair Progress improving ambulation and stairs PT Short Term Goals Short Term Goals Time Frame: Aug 11, 2019 Roll Left & Right: 6 Sit to lyin Lying to sitting on side of be: 4 Sit to stand: 5 Chair/xlp-az-enimd transfer: 5 Toilet transfer: 5 Walk 10 feet: 5 Walk 50 feet with two turns: 5 Walk 150 feet: 5 PT Industrial Security Analyst Goals Alf Goals PT Industrial Security Analyst Goals Time Frame: Aug 25, 2019 Roll Left & Right (QC): 6 Sit to Lying (QC): 6 Lying-Sitting on Side/Bed(QC): 6 Sit to Stand (QC): 6 Chair/Ziy-pr-Jpuwu Xfer(QC): 6 Toilet Transfer (QC): 6 Car Transfer (QC): 6 Does the Patient Walk: Yes Walk 10 feet (QC): 6 Walk 50ft with 2 Turns (QC): 6 Walk 150 ft (QC): 6 Walking 10ft on Uneven Surface: 6 1 Step (curb) (QC): 6 4 Steps (QC): 6 PT Plan Problem List Problem List: Activity Tolerance, Functional Strength, Safety, Balance, Gait, Transfer, ROM Treatment/Plan Treatment Plan: Continue Plan of Care Treatment Plan: Bed Mobility, Education, Functional Activity Amor, Functional Strength, Group Therapy, Gait, Safety, Therapeutic Exercise, Transfers Treatment Duration: Aug 25, 2019 Frequency: At least 5 of 7 days/Wk (IRF) Estimated Hrs Per Day: 1.5 hours per day Patient and/or Family Agrees t: Yes Safety Risks/Education Patient Education: Gait Training, Transfer Techniques, Steps, Correct Positioning, Safety Issues Teaching Recipient: Patient Teaching Methods: Demonstration, Discussion Response to Teaching: Reinforcement Needed Time/GCodes Time In: 1400 Time Out: 1430 Total Billed Treatment Time: 30 Total Billed Treatment 1 visit GT 30' LUBA PAREKH PT Aug 10, 2019 14:27
--- NOTE | 2019-08-10 15:13 | NUR ---
CM/SS DISCHARGE PLANNING Met with patient to review her perspective of her progress as it relates to returning home with her spouse. Patient continues to verbalize anxiety about not being at full capacity, encouraged patient that she will have a healing/recuperation time period of several weeks and will not be at prior level of functioning when leaving our unit. Patient was pleased to practice in the kitchen area today with OT using FWW while accessing refrigerator. She identified wanting to practice steps because of those at her home, stating this would help her stress level about being home alone periodically and knowing she had a strategy to leave the home safely in case of emergency. Patient and her spouse have their daughter living across the street from them, she has multiple comorbidities and requires their ongoing and lifelong support and assistance. Spouse is able to provide for daughter, patient wishes to be as independent as possible to reduce caregiver burden once home. HHC: Patient desires [facility] [facility] upon discharge, recommend PT and OT, RN if medical needs appropriate. Patient would like to graduate eventually to OP therapy at [facility], her PCP is Dr. Wills at [facility] and could arrange when ready. DME: Patient has FWW and bath tub bench. Patient is comfortable with discharge as long as therapy approves, potentially or Friday. Assist with post hospital care as appropriate. Addendum: 08/10/19 at 1529 by DAVID HATCH Patient and spouse remodeled their bathroom a few years ago when their daughter resided with them. It is fully handicap accessible, higher toilet, grab bars, tub/shower.
[2019-08-10 16:41] VITALS: BP 121/74
--- NOTE | 2019-08-10 21:12 | NUR ---
/patient refuse miralax c/o stomach cramps with medication. rates pain 7/10 in right knee. denies any other c/o or needs. cont to monitor.
[2019-08-11] MEDS: oxyCODONE/APAP 5/325MG (PERCOCET 5) TABLET PO PRN ×5 (01:56→21:10)
[2019-08-11 06:00] VITALS: BP 129/82
--- NOTE | 2019-08-11 08:14 | PM&R Progress Note ---
Subjective HPI/CC On Admission Date Seen by Provider: Aug 11, 2019 Time Seen by Provider: 08:30 Subjective/Events-last exam Pt doing pretty well but has multiple somatic issues. Flexeril 5 Mg TID will be given. Bowels are moving. Overall dong pretty well but she doesn't think she is. Wants to stay a full two week but her target discharge day is Friday, so we will initiate home health and set that up for Friday discharge, will update Pt. Conferred with RN Reviewed therapy notes Checked meds and labs Review of Systems General: Fatigue Musculoskeletal: leg pain Objective Exam Vital Signs Vital Signs Date Time Temp Pulse Resp B/P (MAP) Pulse Ox O2 Delivery O2 Flow Rate FiO2 08/11/19 20:20 Room Air 08/11/19 16:00 37.4 80 14 118/76 (90) 99 Capillary Refill : Less Than 3 SecondsLess Than 3 Seconds General Appearance: No Apparent Distress, WD/WN HEENT: PERRL/EOMI, Normal ENT Inspection, Pharynx Normal Neck: Full Range of Motion, Normal Inspection, Non Tender, Supple, Carotid Bruit Respiratory: Chest Non Tender, Lungs Clear, Normal Breath Sounds, No Accessory Muscle Use, No Respiratory Distress Cardiovascular: Regular Rate, Rhythm, No Edema, No Gallop, No JVD, No Murmur, Normal Peripheral Pulses Gastrointestinal: Normal Bowel Sounds, No Organomegaly, No Pulsatile Mass, Non Tender, Soft Back: Normal Inspection, No CVA Tenderness, No Vertebral Tenderness Extremity: Normal Capillary Refill, Normal Inspection, Normal Range of Motion (except right post op lower extremity), Non Tender, No Calf Tenderness, No Pedal Edema Neurologic/Psychiatric: Alert, Oriented x3, No Motor/Sensory Deficits, Normal Mood/Affect Skin: Normal Color, Warm/Dry Lymphatic: No Adenopathy Results/Procedures Lab Patient resulted labs reviewed. FIM Transfers Therapy Code Descriptions/Definitions Functional [place] Measure: 0=Not Assessed/NA 4=Minimal Assistance 1=Total Assistance 5=Supervision or Setup 2=Maximal Assistance 6=Modified [place] 3=Moderate Assistance 7=Complete IndependenceSCALE: Activities may be completed with or without assistive devices. 6-Rcimqcywkf-iaoaouj completes the activity by him/herself with no assistance from a helper. 5-Set-up or Clean-up Assistance-helper sets up or cleans up; patient completes activity. [place] assists only prior to or following the activity. 4-Supervision or Touching Assistance-helper provides verbal cues and/or touching/steadying and/or contact guard assistance as patient completes ac tivity. Assistance may be provided throughout the activity or intermittently. 3-Partial/Moderate Assistance-helper does LESS THAN HALF the effort. [place] lifts, holds or supports trunk or limbs, but provides less than half the effort. 2-Substantial/Maximal Assistance-helper does MORE THAN HALF the effort. [place] lifts or holds trunk or limbs and provides more than half the effort. 6-Aorkmazov-dhuhrm does ALL the effort. Patient does none of the effort to complete the activity. Or, the assistance of 2 or more helpers is required for the patient to complete the activity. If activity was not attempted, code reason: 7-Patient Refused. 9-Not Applicable-not attempted and the patient did not perform the activity before the current illness, exacerbation or injury. 10-Not Attempted due to Environmental Limitations-(lack of equipment, weather restraints, etc.). 88-Not Attempted due to Medical Conditions or Safety Concerns. Roll Left to Right (QC): 6 Sit to Lying (QC): 6 Sit to Stand (QC): 4 Chair/Jjx-jn-Mknue Xfer(QC): 4 Car Transfer (QC): 3 Gait Training Does the Patient Walk?: Yes Distance: 150'x2 Walk 10 feet (QC): 4 Walk 50 ft with 2 Turns(QC): 4 Walk 150 ft (QC): 4 Walking 10ft/uneven surface-QC: 4 Gait Persons Needed: 1 Gait Assistive Device: FWW Wheelchair Training Does the Pt Use a Wheelchair?: No Stair Training Stair Training: Handrails/: 1 handrail #of Steps: 4 1 Step (curb) (QC): 4 4 Steps (QC): 4 12 Steps (QC): 88 Stairs: Pattern: Step to Balance Picking up an Object (QC): 88 ADL-Treatment Eating (QC): 6 (Pt independent with eating fruit, opening/eating banana, and opening milk container) Oral Hygiene (QC): 6 (mod I at sink with FWW. Noted pt put most of her weight through her LLE during task.) Shower/Bathe Self (QC): 7 (Pt agreeable to showering, when OT told pt that nurse wanted the dressing covered while showering, pt refused to take shower. Pt stated she did not need to cover her dressing any longer and it is fine to get wet. OT educated pt on nurse's request to cover, pt adamently refused to cover in order to shower. ) Upper Body Dressing (QC): 4 (SBA as pt ambulated with FWW. Pt able to use walker to gather clothes from closet, then doffed/donned shirt seated EOB) Lower Body Dressing (QC): 4 (SBA during stand/ambulation at FWW. Pt able to gather clothes out of closet using FWW. She then donned/doffed clothes seated EOB, SBA during stand at FWW during clothing management.) On/Off Footwear (QC): 3 (Pt able to doff slipper socks. She then donned TEDhose on left foot using plastic bag technique she was educated on in previous session. Pt declined attempting to put TEDhose on right leg, stating she feels like it would hurt too much. OT dependently donned valerie hose on RLE. Pt then able to don shoes on both feet.) Toileting Hygiene (QC): 6 Toilet Transfer (QC): 6 Assessment/Plan Assessment and Plan Assess & Plan/Chief Complaint Assessment: Right TKA Smoker Anemia Slow recovery Difficulty coping Somatic complaints OCD tendencies Plan: Pain control IRF Pain management Patient may benefit from psych treatment DC Sat on HH (1) Status post total right knee replacement (2) Smoker (3) Depression KENIA DE LUNA DO Aug 11, 2019 08:14
[2019-08-11] MEDS: SENNA W/DOCUSATE (SENOKOT S) TABLET PO SCH ×2 (08:39→20:44)
[2019-08-11] MEDS: NICOTINE PATCH REMOVAL TP SCH (08:39)
[2019-08-11] MEDS: NICOTINE 21 MG (NICODERM) PATCH TD SCH (08:39)
[2019-08-11] MEDS: DOCUSATE SODIUM 100 MG (COLACE) CAP PO SCH ×2 (08:39→20:44)
--- NOTE | 2019-08-11 08:41 | Occupational Ther Daily Note ---
OT Current Status-Daily Note Subjective Pt alert, sitting EOB. Pt agrees to therapy. Pt c/o pain in R knee and up to buttocks (5/10 pain), nrsg brought pain meds. Mental Status/Objective Patient Orientation: Person, Place, Time, Situation ADL-Treatment Pt agrees to shower. Pt retrieved clothing from closet with FWW and brought to bathroom using walker basket. Pt has demonstrated ability to complete toilet transfer and hygiene with mod I using FWW and grabbars. Pt states that she has grabbars, elevated toilet, tub transfer bench for home use. Pt transferred into shower using FWW, shower bench and grabbars mod I. Mod I for bathing. Mod I for upper/lower body dressing. Set up for footwear due to assist donning/doffing CHANO hose. Pt stood at sink to complete oral hygiene and grooming using counter to stabilize, independent. Pt complete tub transfer after education, mod I. Pt then demonstrated ability to open and retrieve items from bottom countersinker refrigerator. Pt then ambulated back to room and sat in chair after session. Call light/phone in reach. Nrsg present in room. Therapy Code Descriptions/Definitions Functional [place] Measure: 0=Not Assessed/NA 4=Minimal Assistance 1=Total Assistance 5=Supervision or Setup 2=Maximal Assistance 6=Modified [place] 3=Moderate Assistance 7=Complete IndependenceSCALE: Activities may be completed with or without assistive devices. 6-Ybobttkmuh-tortprl completes the activity by him/herself with no assistance from a helper. 5-Set-up or Clean-up Assistance-helper sets up or cleans up; patient completes activity. [place] assists only prior to or following the activity. 4-Supervision or Touching Assistance-helper provides verbal cues and/or allison solitario/steadying and/or contact guard assistance as patient completes activity. Assistance may be provided throughout the activity or intermittently. 3-Partial/Moderate Assistance-helper does LESS THAN HALF the effort. [place] lifts, holds or supports trunk or limbs, but provides less than half the effort. 2-Substantial/Maximal Assistance-helper does MORE THAN HALF the effort. [place] lifts or holds trunk or limbs and provides more than half the effort. 8-Dbayqiiuv-gglcnn does ALL the effort. Patient does none of the effort to complete the activity. Or, the assistance of 2 or more helpers is required for the patient to complete the activity. If activity was not attempted, code reason: 7-Patient Refused. 9-Not Applicable-not attempted and the patient did not perform the activity before the current illness, exacerbation or injury. 10-Not Attempted due to Environmental Limitations-(lack of equipment, weather restraints, etc.). 88-Not Attempted due to Medical Conditions or Safety Concerns. Eating (QC): 6 (Pt demonstrates ability to complete own meal set up and use regular utensils to eat.) Oral Hygiene (QC): 6 Shower/Bathe Self (QC): 6 Upper Body Dressing (QC): 6 Lower Body Dressing (QC): 6 On/Off Footwear: 5 Toileting Hygiene (QC): 6 Toilet Transfer (QC): 6 Pt states concerns about kitchen mobility, side stepping back and forth sta bilizing with counter. Education OT Patient Education: Transfer techniques Teaching Recipient: Patient Teaching Methods: Demonstration, Discussion Response to Teaching: Verbalize Understanding, Return Demonstration OT Short Term Goals Short Term Goals Time Frame: Aug 13, 2019 Shower/bathe self: 4 Lower body dressin OT Skilled Nursing Goals Cold Storage Supervisor Goals Time Frame: Aug 25, 2019 Eating (QC): 6 (met) Oral Hygiene (QC): 6 (met) Toileting Hygiene (QC): 6 (met) Shower/Bathe Self (QC): 6 (met) Upper Body Dressing (QC): 6 (met) Lower Body Dressing (QC): 6 (met) On/Off Footwear (QC): 6 Additional Goals: 1-Demonstrate ADL Tasks, 2-Verbalize Understanding, 3- ImproveStrength/Amor 1=Demonstrate adherence to instructed precautions during ADL tasks. 2=Patient will verbalize/demonstrate understanding of assistive devices/modifications for ADL. 3=Patient will improve strength/tolerance for activity to enable patient to perform ADL's. OT Education/Plan Discharge Recommendations Plan/Recommendations: Continue POC Treatment Plan/Plan of Care Patient would benefit from OT for education, treatment and training to promote independence in ADL's, mobility, safety and/or upper extremity function for ADL's. Plan of Care: ADL Retraining, Caregiver Training, Functional Mobility, Group Exercise/Act as Ind, UE Funct Exercise/Act Treatment Duration: Aug 25, 2019 Frequency: At least 5 of 7 days/Wk (IRF) Estimated Hrs Per Day: 1.5 hours per day Agreement: Yes Rehab Potential: Good Time/GCodes Start Time: 07:15 Stop Time: 08:45 Total Time Billed (hr/min): 90 Billed Treatment Time 1 visit-ADL 5 (70 min) FA 1 (20 min) LINA MORRIS Aug 11, 2019 08:41
--- NOTE | 2019-08-11 08:54 | Physician Query Clarification ---
PQ-Intro New Diagnosis Admission/Discharge Admission Date: Aug 04, 2019 at 13:30 Discharge Date: The medical record reflects the following clinical scenario: History/Risk Factors: S/P RT TKR Clinical Findings: S/P RT TKR Treatment: REHAB Question: What condition best reflects the above clinical scenario? Please document a response in the Progress Noter or Discharge Summary. 1. Osteoarthritis rt. knee 2. s/p rt TKR causitive condition unknown 3. Other, with explanation of the clinical findings. 4. Clinically undetermined, no explanation for the clinical findings. PHYSICIAN RESPONSE What condition reflects above: 1 Please remember a lack of response to the above will prompt a phone page by CDI/Coding staff. In responding to this query, please exercise your independent professional judgment. The purpose of this communication is to more accurately reflect the complexity of your patients condition. The fact that a question is asked does not imply that any particular answer is desired or expected. Thank you for your timely response to this clarification. Requestors name: Rl THIS PHYSICIAN QUERY FORM IS A PERMANENT PART OF THE MEDICAL RECORD RL RODRIGES Aug 11, 2019 08:54 KENIA DE LUNA DO Aug 11, 2019 10:57
[2019-08-11] MEDS: polyethylene glycoL POWDER 17 GM (MIRALAX) PACK PO SCH ×2 (09:00→20:46)
--- NOTE | 2019-08-11 10:01 | Physical Therapy Daily Note ---
PT Daily Note-Current Subjective Pt. agrees to Rx. States she had trouble with narcotics and hopes to be switched to flexoril for pain. This BIOLOGIST shared with pt. she was being "QCd " today and when she anticipated DC and pt. adamantly states she is "not leaving until I have been here 2 weeks like I was told" Pain Numeric Pain Scale: 4 Location: Right Location Body Site: Knee Pain Description: Pressure Mental Status Patient Orientation: Normal For Age Attachments: Polar Pack, Other-See Comments (CPM after Rx) Transfers SCALE: Activities may be completed with or without assistive devices. 0-Crihrgiwed-xnbmrxi completes the activity by him/herself with no assistance from a helper. 5-Set-up or Clean-up Assistance-helper sets up or cleans up; patient completes activity. [place] assists only prior to or following the activity. 4-Supervision or Touching Assistance-helper provides verbal cues and/or touching/steadying and/or contact guard assistance as patient completes activity. Assistance may be provided throughout the activity or intermittently. 3-Partial/Moderate Assistance-helper does LESS THAN HALF the effort. [place] lifts, holds or supports trunk or limbs, but provides less than half the effort. 2-Substantial/Maximal Assistance-helper does MORE THAN HALF the effort. [place] lifts or holds trunk or limbs and provides more than half the effort. 7-Klzusfiwi-xctpfr does ALL the effort. Patient does none of the effort to complete the activity. Or, the assistance of 2 or more helpers is required for the patient to complete the activity. If activity was not attempted, code reason: 7-Patient Refused. 9-Not Applicable-not attempted and the patient did not perform the activity before the current illness, exacerbation or injury. 10-Not Attempted due to Environmental Limitations-(lack of equipment, weather restraints, etc.). 88-Not Attempted due to Medical Conditions or Safety Concerns. Roll Left & Right (QC): 6 Sit to Lying (QC): 6 Lying to Sitting/Side of Bed(Q: 6 Sit to Stand (QC): 6 Chair/Ehy-vc-Ielvw Xfer(QC): 6 Toilet Transfer (QC): 6 Car Transfer (QC): 6 Weight Bearing Right Lower Extremity: Right Weight Bearing/Tolerated Gait Training Does the Patient Walk?: Yes Walk 10 feet (QC): 5 Walk 50 ft with 2 Turns(QC): 5 Walk 150 ft (QC): 5 Walking 10ft/uneven surface-QC: 5 Gait Persons Needed: 1 Gait Assistive Device: FWW pt. explains her terrain in out of house is rough, Stair Training Stair Training: Handrails/: 1 handrail #of Steps: 12 1 Step (curb) (QC): 5 4 Steps (QC): 5 12 Steps (QC): 5 Stairs: Pattern: Step to needs reminded of sequence, but states she feels much more confident about stairs after this session Balance Picking up an Object (QC): 5 Special Test Comments opened washer and dryer and moved clothing from one to another, also reached to bottom drawer of [facility] to retrieve her cheese all SBA Exercises Supine Ex: Ankle pumps, Quad Set, Rolling, Heel Slides, Short Arc Quads, Straight leg raise (indep x 10), Hip abd/add Supine Reps: 15 Seated Therapy Exercises: Ankle pumps, Sit to stand, Long arc quads, Hip flexion Seated Reps: 15 NuStep Minutes: 10 NuStep Workload: 4 Treatments concentrated on gait with equal step length and pattern Assessment Current Status: Good Progress AROM 0-8-74 PT Short Term Goals Short Term Goals Time Frame: Aug 11, 2019 Roll Left & Right: 6 Sit to lyin Lying to sitting on side of be: 4 Sit to stand: 5 Chair/jtf-jw-nuxcl transfer: 5 Toilet transfer: 5 Walk 10 feet: 5 Walk 50 feet with two turns: 5 Walk 150 feet: 5 PT Evaluator Goals Evaluator Goals PT Fpc Goals Time Frame: Aug 25, 2019 Roll Left & Right (QC): 6 Sit to Lying (QC): 6 Lying-Sitting on Side/Bed(QC): 6 Sit to Stand (QC): 6 Chair/Chd-ke-Aanig Xfer(QC): 6 Toilet Transfer (QC): 6 Car Transfer (QC): 6 Does the Patient Walk: Yes Walk 10 feet (QC): 6 Walk 50ft with 2 Turns (QC): 6 Walk 150 ft (QC): 6 Walking 10ft on Uneven Surface: 6 1 Step (curb) (QC): 6 4 Steps (QC): 6 PT Plan Treatment/Plan Treatment Plan: Continue Plan of Care Treatment Plan: Bed Mobility, Education, Functional Activity Amor, Functional Strength, Group Therapy, Gait, Safety, Therapeutic Exercise, Transfers Treatment Duration: Aug 25, 2019 Frequency: At least 5 of 7 days/Wk (IRF) Estimated Hrs Per Day: 1.5 hours per day Patient and/or Family Agrees t: Yes Safety Risks/Education Patient Education: Gait Training, Transfer Techniques, Steps, Correct Positioning, Disease Process, Safety Issues Teaching Recipient: Patient Teaching Methods: Demonstration, Discussion Response to Teaching: Verbalize Understanding, Return Demonstration, Reinforcement Needed Time/GCodes Time In: 900 Time Out: 1000 Total Billed Treatment Time: 60 Total Billed Treatment 1,GT25m,FA20m,EX15m BAM RIBEIRO PTA Aug 11, 2019 10:01
[2019-08-11] MEDS: CYCLOBENZAPRINE 10 MG (FLEXERIL) TAB PO PRN (11:30)
--- NOTE | 2019-08-11 12:23 | Progress Note ---
Standard Progress Note Progress Notes/Assess & Plan Date Seen by a Provider: Aug 11, 2019 Time Seen by a Provider: 12:22 Progress/Assessment & Plan no complaints RLE-incision clean and dry. SLR with assistance. No calf tenderness s/p RTKA mobilize had a discussion with patient re expectations and need for cooperation and that we are all here to help her get better Final Diagnosis feeling better R knee incision clean and dry. no calf tenderness s/p RTKA DC kalyn FU with me in three weeks ABELARDO DE LA TORRE MD Aug 11, 2019 12:23
[2019-08-11] MEDS ORDERED: TRAM50TA3 PO (13:48)
[2019-08-11] MEDS ORDERED: SENN-20 PO (13:48)
[2019-08-11] MEDS ORDERED: NICO1PAT34 TD (13:48)
[2019-08-11] MEDS ORDERED: CYCL10TA9 PO (13:48)
[2019-08-11] MEDS ORDERED: OXYC1TAB87 PO (13:48)
--- NOTE | 2019-08-11 13:51 | D/C HH Face to Face Order ---
D/C Face to Face Orders Reconcile Patient Problems Problems Reviewed?: Yes Instructions for Patient [facility] Patient Instructions/FollowUp: [facility] [address] Elma Toscano Physician to follow Patient: [facility] Discharge Diet for Home: No Restrictions Patient Problems: Right knee replacement Patient Data-Allergies,Ht & Wt Patient Allergies: Coded Allergies: Sulfa (Sulfonamide Antibiotics) (Verified Allergy, Unknown, 07/21/19) celecoxib (Unverified Allergy, Unknown, 09/23/10) meloxicam (Verified Allergy, Unknown, stomach pain, 07/21/19) Height (Feet): 6 Height (Inches): 0 Weight (Pounds): 190 Home Health Need/Face to Face Date of Face to Face: Aug 14, 2019 Clinical Findings: Generalized weakness and fatigue, Immune-compromised, Instability, Muscle weakness, Pain with ambulation, Unsteady gait I have seen Pt dxob-oq-lkgo: Yes Discharged To: Home Diagnosis/Conditions: right knee replacement Patient is Homebound due to: CognItive deficits, Muscle weakness, Pain w/ambulation Homebound Status Due to the above stated illness, injury or surgical procedure (medical condition or diagnosis) and associated clinical findings, the patient is homebound because of his/her inability to leave home except with aid of a supportive device and/or person AND leaving the home requires a considerable and taxing effort or is medically contraindicated. Pt req the following assistanc: Walker Home Health Nursing Orders Home Health Services Order: Nursing Services, Fire Captain Marine-Evaluate & Treat, Physical Therapy-Evaluate & Treat Certify Stmt I certify that this patient is under my care and that I, a nurse practitioner or a physician; a fitness assistant working with me, had a face to face encounter that - meets the physician face to face encounter requirements with this patient as dated. KENIA DE LUNA DO Aug 11, 2019 13:50
[2019-08-11] MEDS: ENOXAPARIN 40 MG/0.4 ML (LOVENOX) SYR SC SCH (14:32)
--- NOTE | 2019-08-11 14:37 | Therapy Group Daily Note ---
Therapy Daily Group Note Patient Education Topic Exercises, Other List Below (handwashing, ARU description) Exercises LE Seated Exercise, UE Exercise Session Ratio (pt:therapist): 4:1 Goal of Session: Education on ARU Expectations, UE/LE Strengthing Goal Met for this Session: Yes Pt Benefit of Group: Contributions to Others, Increased Functional Strength, Improved Cognition, Recognition of Peers, Socialization Other/Notes Pt ambulated to [facility] area for OT/PT group. Group consisted of introductions (name, place living, what did you want to grow up to be), socialization, pt lead UE/LE seated exercises, education on benefits of exercise and handwashing. Pt introduced self appropriately and actively listened to peers. Pt able to lead one exercise for group and tolerated completing other exercises. Pt acknowledge understanding of exercises by verbalizing understanding and given own personal strategies to complete. After session, pt lying in bed with call light/phone in reach. All needs met in room. Start Time: 13:00 Stop Time: 14:00 Total Billed Treatment Time: 60 Total Billed Treatment 1-GRP LINA MORRIS Aug 11, 2019 14:37
--- NOTE | 2019-08-11 14:53 | NUR ---
Kalyn to Right Knee removed per order. Area cleansed , steri strips applied. No redness, warmth, or swelling noted. Patient very jumpy, even to touch of tool to skin, with guidance of procedure. Patient encouraged to try to hold knee still as she was jumping and creating larger staple exit sites. Distraction technique provided. Patient calmer during removal of last half of removal. Addendum: 08/11/19 at 1457 by NIKKIE WIN RN 21 kalyn removed.
--- NOTE | 2019-08-11 15:24 | NUR ---
CM/SS REHAB TEAM CONFERENCE SUMMARY and DISCHARGE PLANNING Patient personally read Summary and engaged in discussion about discharge and post hospital care plan. Patient verbalized her agreement to proposed discharge Friday, August 14, 2019, with continued stay and therapy until then. HHC: Patient has made clear her preference for [facility], RN and PT will be ordered, Medicare Compare [facility] information provided. DME: FWW will be needed during recuperation; however, patient has a walker at home she will have her spouse bring for therapy to assess. If her current walker is not appropriate or safe, we will order a FWW covered by her Medicare benefits. Patient is looking forward to returning home. She indicates her spouse said she should stay as long as she could here because he does not feel he has the time to assist her. Encouraged patient to stay the course on her weeks of recuperation, to remember that she continues to heal over an extended period and will slowly return to independence. Described ARU as a bridge to the next level, home with [facility] in-home supports. Finalize for Friday when orders available.
[2019-08-11 16:00] VITALS: BP 118/76
[2019-08-12] MEDS: oxyCODONE/APAP 5/325MG (PERCOCET 5) TABLET PO PRN ×4 (01:47→18:43)
[2019-08-12 06:00] VITALS: BP 127/75
--- NOTE | 2019-08-12 08:07 | Occupational Ther Daily Note ---
OT Current Status-Daily Note Subjective Pt alert, lying in bed eating breakfast. Pt agrees to therapy. No c/o pain at this time. Mental Status/Objective Patient Orientation: Person, Place, Time, Situation ADL-Treatment Pt declined shower, agrees to sponge bath. Pt retrieved clothing using FWW and basket then transported to bathroom. Pt completed sponge bath and oral care standing at sink, mod I. Pt transferred to toilet and completed toileting, mod I. Medical student in to make rounds. Pt donned upper/lower body clothing, mod I. Pt c/o pain with R knee, introduced sock aide and long handle sponge. Pt able to use sock aide to don socks and CHANO hose. Pt doffed socks by self. Therapy Code Descriptions/Definitions Functional [place] Measure: 0=Not Assessed/NA 4=Minimal Assistance 1=Total Assistance 5=Supervision or Setup 2=Maximal Assistance 6=Modified [place] 3=Moderate Assistance 7=Complete IndependenceSCALE: Activities may be completed with or without assistive devices. 8-Wagrbtxxju-kfzevgn completes the activity by him/herself with no assistance from a helper. 5-Set-up or Clean-up Assistance-helper sets up or cleans up; patient completes activity. [place] assists only prior to or following the activity. 4-Supervision or Touching Assistance-helper provides verbal cues and/or touching/steadying and/or contact guard assistance as patient completes activity. Assistance may be provided throughout the activity or intermittently. 3-Partial/Moderate Assistance-helper does LESS THAN HALF the effort. [place] lifts, holds or supports trunk or limbs, but provides less than half the effort. 2-Substantial/Maximal Assistance-helper does MORE THAN HALF the effort. [place] lifts or holds trunk or limbs and provides more than half the effort. 3-Znvbxdiac-myfawa does ALL the effort. Patient does none of the effort to complete the activity. Or, the assistance of 2 or more helpers is required for the patient to complete the activity. If activity was not attempted, code reason: 7-Patient Refused. 9-Not Applicable-not attempted and the patient did not perform the activity before the current illness, exacerbation or injury. 10-Not Attempted due to Environmental Limitations-(lack of equipment, weather restraints, etc.). 88-Not Attempted due to Medical Conditions or Safety Concerns. Eating (QC): 6 (Pt able to set self up and use regular utensils.) Oral Hygiene (QC): 6 Shower/Bathe Self (QC): 6 Upper Body Dressing (QC): 6 Lower Body Dressing (QC): 6 On/Off Footwear: 5 Toileting Hygiene (QC): 6 Toilet Transfer (QC): 6 Other Treatment Pt worked on tub transfer with transfer bench, mod I. Pt worked on side stepping and kitchen mobility in the [facility] kitchen area, mod I. Pt ambulated using FWW around [facility] commons area then back to room. Pt completed own bed m obility and donning ice on knee. After session, pt lying in bed with call light/phone in reach. All needs met in room. OT Short Term Goals Short Term Goals Time Frame: Aug 13, 2019 Shower/bathe self: 4 Lower body dressin OT [facility] Goals Dumpling Machine Operator Goals Time Frame: Aug 25, 2019 Eating (QC): 6 (met) Oral Hygiene (QC): 6 (met) Toileting Hygiene (QC): 6 (met) Shower/Bathe Self (QC): 6 (met) Upper Body Dressing (QC): 6 (met) Lower Body Dressing (QC): 6 (met) On/Off Footwear (QC): 6 Additional Goals: 1-Demonstrate ADL Tasks, 2-Verbalize Understanding, 3- ImproveStrength/Amor 1=Demonstrate adherence to instructed precautions during ADL tasks. 2=Patient will verbalize/demonstrate understanding of assistive devices/modifications for ADL. 3=Patient will improve strength/tolerance for activity to enable patient to perform ADL's. OT Education/Plan Problem List/Assessment Assessment: Decreased Activ Tolerance, Decreased UE Strength, Impaired Self- Care Skills Discharge Recommendations Plan/Recommendations: Continue POC Treatment Plan/Plan of Care Patient would benefit from OT for education, treatment and training to promote independence in ADL's, mobility, safety and/or upper extremity function for ADL's. Plan of Care: ADL Retraining, Caregiver Training, Functional Mobility, Group Exercise/Act as Ind, UE Funct Exercise/Act Treatment Duration: Aug 25, 2019 Frequency: At least 5 of 7 days/Wk (IRF) Estimated Hrs Per Day: 1.5 hours per day Agreement: Yes Rehab Potential: Good Time/GCodes Start Time: 07:15 Stop Time: 08:45 Total Time Billed (hr/min): 90 Billed Treatment Time 1 visit-ADL 5 (70 min) FA 1 (20 min) LINA MORRIS Aug 12, 2019 08:07
[2019-08-12] MEDS: NICOTINE 21 MG (NICODERM) PATCH TD SCH (08:40)
[2019-08-12] MEDS: SENNA W/DOCUSATE (SENOKOT S) TABLET PO SCH ×2 (08:41→20:42)
[2019-08-12] MEDS: CYCLOBENZAPRINE 10 MG (FLEXERIL) TAB PO PRN (08:41)
[2019-08-12] MEDS: DOCUSATE SODIUM 100 MG (COLACE) CAP PO SCH ×2 (08:41→20:42)
--- NOTE | 2019-08-12 09:04 | PM&R Progress Note ---
Subjective HPI/CC On Admission Date Seen by Provider: Aug 12, 2019 Time Seen by Provider: 09:00 Subjective/Events-last exam Feels really good about going home on Friday [facility] will be maintained Initiated Ibuprofen since Dr. Toscano approved it so will do 400mg with meals Narcotic and Flexeril and Tramadol are required for her pain Denies any significant other issues Conferred with RN Reviewed therapy notes Checked meds and labs Review of Systems General: Fatigue Musculoskeletal: leg pain Objective Exam Vital Signs Vital Signs Date Time Temp Pulse Resp B/P (MAP) Pulse Ox O2 Delivery O2 Flow Rate FiO2 08/13/19 17:18 36.4 74 20 142/86 (104) 98 Room Air Capillary Refill : Less Than 3 SecondsLess Than 3 Seconds General Appearance: No Apparent Distress, WD/WN HEENT: PERRL/EOMI, Normal ENT Inspection, Pharynx Normal Neck: Full Range of Motion, Normal Inspection, Non Tender, Supple, Carotid Bruit Respiratory: Chest Non Tender, Lungs Clear, Normal Breath Sounds, No Accessory Muscle Use, No Respiratory Distress Cardiovascular: Regular Rate, Rhythm, No Edema, No Gallop, No JVD, No Murmur, Normal Peripheral Pulses Gastrointestinal: Normal Bowel Sounds, No Organomegaly, No Pulsatile Mass, Non Tender, Soft Back: Normal Inspection, No CVA Tenderness, No Vertebral Tenderness Extremity: Normal Capillary Refill, Normal Inspection, Normal Range of Motion (except right post op lower extremity), Non Tender, No Calf Tenderness, No Pedal Edema Neurologic/Psychiatric: Alert, Oriented x3, No Motor/Sensory Deficits, Normal Mood/Affect Skin: Normal Color, Warm/Dry Lymphatic: No Adenopathy Results/Procedures Lab Patient resulted labs reviewed. FIM Transfers Therapy Code Descriptions/Definitions Functional [place] Measure: 0=Not Assessed/NA 4=Minimal Assistance 1=Total Assistance 5=Supervision or Setup 2=Maximal Assistance 6=Modified [place] 3=Moderate Assistance 7=Complete IndependenceSCALE: Activities may be completed with or without assistive devices. 5-Znfwljmfwi-kxcgeak completes the activity by him/herself with no assistance from a helper. 5-Set-up or Clean-up Assistance-helper sets up or cleans up; patient completes activity. [place] assists only prior to or following the activity. 4-Supervision or Touching Assistance-helper provides verbal cues and/or touching/steadying and/or contact guard assistance as patient completes activity. Assistance may be provided throughout the activity or intermittently. 3-Partial/Moderate Assistance-helper does LESS THAN HALF the effort. [place] lifts, holds or supports trunk or limbs, but provides less than half the effort. 2-Substantial/Maximal Assistance-helper does MORE THAN HALF the effort. [place] lifts or holds trunk or limbs and provides more than half the effort. 1-Otythuqpg-tiskjj does ALL the effort. Patient does none of the effort to co mplete the activity. Or, the assistance of 2 or more helpers is required for the patient to complete the activity. If activity was not attempted, code reason: 7-Patient Refused. 9-Not Applicable-not attempted and the patient did not perform the activity before the current illness, exacerbation or injury. 10-Not Attempted due to Environmental Limitations-(lack of equipment, weather restraints, etc.). 88-Not Attempted due to Medical Conditions or Safety Concerns. Roll Left to Right (QC): 6 Sit to Lying (QC): 6 Sit to Stand (QC): 6 Chair/Nbh-eq-Kbqze Xfer(QC): 6 Car Transfer (QC): 6 Gait Training Does the Patient Walk?: Yes Distance: 150'x2 Walk 10 feet (QC): 5 Walk 50 ft with 2 Turns(QC): 5 Walk 150 ft (QC): 5 Walking 10ft/uneven surface-QC: 5 Gait Persons Needed: 1 Gait Assistive Device: FWW Wheelchair Training Does the Pt Use a Wheelchair?: No Stair Training Stair Training: Handrails/: 1 handrail #of Steps: 12 1 Step (curb) (QC): 5 4 Steps (QC): 5 12 Steps (QC): 5 Stairs: Pattern: Step to Balance Picking up an Object (QC): 5 ADL-Treatment Eating (QC): 6 (Pt able to set self up and use regular utensils.) Oral Hygiene (QC): 6 Shower/Bathe Self (QC): 6 Upper Body Dressing (QC): 6 Lower Body Dressing (QC): 6 On/Off Footwear (QC): 5 Toileting Hygiene (QC): 6 Toilet Transfer (QC): 6 Assessment/Plan Assessment and Plan Assess & Plan/Chief Complaint Assessment: Right TKA Smoker Anemia Slow recovery Difficulty coping Somatic complaints OCD tendencies Plan: Pain control IRF Pain management Patient may benefit from psych treatment DC Sat on Ibuprofen per Dr Toscano (1) Status post total right knee replacement (2) Smoker (3) Depression KENIA DE LUNA DO Aug 12, 2019 09:04
[2019-08-12] MEDS: NICOTINE PATCH REMOVAL TP SCH (09:25)
[2019-08-12] MEDS: polyethylene glycoL POWDER 17 GM (MIRALAX) PACK PO SCH ×2 (09:25→21:20)
--- NOTE | 2019-08-12 09:56 | Physical Therapy Daily Note ---
PT Daily Note-Current Subjective Patient in bed pre tx, agrees to PT, has 5/10 pain in right knee. Appearance Patient BTB post tx with nurse call, phone, tray, all needs met. Mental Status Patient Orientation: Normal For Age Transfers SCALE: Activities may be completed with or without assistive devices. 6-Yjntqgaiuy-uzcdsry completes the activity by him/herself with no assistance from a helper. 5-Set-up or Clean-up Assistance-helper sets up or cleans up; patient completes activity. [place] assists only prior to or following the activity. 4-Supervision or Touching Assistance-helper provides verbal cues and/or touching/steadying and/or contact guard assistance as patient completes activity. Assistance may be provided throughout the activity or intermittently. 3-Partial/Moderate Assistance-helper does LESS THAN HALF the effort. [place] lifts, holds or supports trunk or limbs, but provides less than half the effort. 2-Substantial/Maximal Assistance-helper does MORE THAN HALF the effort. [place] lifts or holds trunk or limbs and provides more than half the effort. 2-Jrzrwlzzl-eurxay does ALL the effort. Patient does none of the effort to complete the activity. Or, the assistance of 2 or more helpers is required for the patient to complete the activity. If activity was not attempted, code reason: 7-Patient Refused. 9-Not Applicable-not attempted and the patient did not perform the activity before the current illness, exacerbation or injury. 10-Not Attempted due to Environmental Limitations-(lack of equipment, weather restraints, etc.). 88-Not Attempted due to Medical Conditions or Safety Concerns. Roll Left & Right (QC): 6 Sit to Lying (QC): 6 Lying to Sitting/Side of Bed(Q: 6 Sit to Stand (QC): 6 Chair/Deb-qx-Fgreo Xfer(QC): 5 Weight Bearing Right Lower Extremity: Right Weight Bearing/Tolerated Gait Training Distance: 200'x2 Walk 10 feet (QC): 5 Walk 50 ft with 2 Turns(QC): 5 Walk 150 ft (QC): 5 Gait Persons Needed: 1 Gait Assistive Device: FWW Patient has slow, antalgic ambulation, flexed right knee, good step through though. Exercises Standing: Heel/toe raises, Mini squats Standing Reps: 20 seated knee flexion stretch 30 sec x2, QS 2 sets of 20 NuStep Minutes: 15 NuStep Workload: 4 Treatments bed mobility and transfers, ambulation, ROM/stretching, functional strengthening Assessment Current Status: Fair Progress patient has poor knee extension PT Short Term Goals Short Term Goals Time Frame: Aug 11, 2019 Roll Left & Right: 6 Sit to lyin Lying to sitting on side of be: 4 Sit to stand: 5 Chair/xwj-lo-eafwe transfer: 5 Toilet transfer: 5 Walk 10 feet: 5 Walk 50 feet with two turns: 5 Walk 150 feet: 5 PT Manager Beauty Goals Intermediate Goals PT Manager Beauty Goals Time Frame: Aug 25, 2019 Roll Left & Right (QC): 6 Sit to Lying (QC): 6 Lying-Sitting on Side/Bed(QC): 6 Sit to Stand (QC): 6 Chair/Xwj-ts-Qdeyd Xfer(QC): 6 Toilet Transfer (QC): 6 Car Transfer (QC): 6 Does the Patient Walk: Yes Walk 10 feet (QC): 6 Walk 50ft with 2 Turns (QC): 6 Walk 150 ft (QC): 6 Walking 10ft on Uneven Surface: 6 1 Step (curb) (QC): 6 4 Steps (QC): 6 PT Plan Problem List Problem List: Activity Tolerance, Functional Strength, Safety, Balance, Gait, Transfer, ROM Treatment/Plan Treatment Plan: Continue Plan of Care Treatment Plan: Bed Mobility, Education, Functional Activity Amor, Functional Strength, Group Therapy, Gait, Safety, Therapeutic Exercise, Transfers Treatment Duration: Aug 25, 2019 Frequency: At least 5 of 7 days/Wk (IRF) Estimated Hrs Per Day: 1.5 hours per day Patient and/or Family Agrees t: Yes Safety Risks/Education Patient Education: Gait Training, Transfer Techniques, Correct Positioning, Safety Issues Teaching Recipient: Patient Teaching Methods: Demonstration, Discussion Response to Teaching: Reinforcement Needed Time/GCodes Time In: 0900 Time Out: 1000 Total Billed Treatment Time: 60 Total Billed Treatment 1 visit GT 20' EX 40' LUBA PAREKH PT Aug 12, 2019 09:56
[2019-08-12] MEDS: ENOXAPARIN 40 MG/0.4 ML (LOVENOX) SYR SC SCH (13:09)
[2019-08-12] MEDS: IBUPROFEN TABLET 200 MG TAB PO PRN (13:09)
--- NOTE | 2019-08-12 14:06 | Physical Therapy Daily Note ---
PT Daily Note-Current Subjective Pt agreeable to PT session. States the NuStep helps her a lot Pain Numeric Pain Scale: 0-No Pain Comment: constant numbness/ache R knee at rest Appearance Upon arrival, pt in bed awake and alert. At end of session, pt in bed, call light, phone, bedside table within reach, polar pack on R knee Mental Status Patient Orientation: Person, Place, Time, Eyes Open, Situation Attachments: Polar Pack Transfers SCALE: Activities may be completed with or without assistive devices. 1-Hcvjlqsjck-paowxkd completes the activity by him/herself with no assistance from a helper. 5-Set-up or Clean-up Assistance-helper sets up or cleans up; patient completes activity. Hollis assists only prior to or following the activity. 4-Supervision or Touching Assistance-helper provides verbal cues and/or touching/steadying and/or contact guard assistance as patient completes activity. Assistance may be provided throughout the activity or intermittently. 3-Partial/Moderate Assistance-helper does LESS THAN HALF the effort. Hollis lif ts, holds or supports trunk or limbs, but provides less than half the effort. 2-Substantial/Maximal Assistance-helper does MORE THAN HALF the effort. Hollis lifts or holds trunk or limbs and provides more than half the effort. 5-Hjkmgfvgc-gadjdu does ALL the effort. Patient does none of the effort to complete the activity. Or, the assistance of 2 or more helpers is required for the patient to complete the activity. If activity was not attempted, code reason: 7-Patient Refused. 9-Not Applicable-not attempted and the patient did not perform the activity before the current illness, exacerbation or injury. 10-Not Attempted due to Environmental Limitations-(lack of equipment, weather restraints, etc.). 88-Not Attempted due to Medical Conditions or Safety Concerns. Roll Left & Right (QC): 6 Sit to Lying (QC): 6 Lying to Sitting/Side of Bed(Q: 6 Sit to Stand (QC): 6 pt demo safe techniques Weight Bearing Right Lower Extremity: Right Weight Bearing/Tolerated Gait Training Does the Patient Walk?: Yes Distance: 150 x2 Walk 10 feet (QC): 4 Walk 50 ft with 2 Turns(QC): 4 Walk 150 ft (QC): 4 Gait Persons Needed: 1 Gait Assistive Device: FWW slow antalgic gait, decreased WB RLE, maintained R knee flexion, limited extension, beginning with step to pattern improving with distance to step through, able to follow instruction to increase WB RLE and decrease UE support on walker Stair Training Stair Training: Handrails/: 1 handrail (R ascending, L descending as it will be at home) #of Steps: 8 4 Steps (QC): 4 Stairs: Pattern: Step to skilled verb inst for sequencing and technique Exercises Standing: Mini squats (x15 light to no UE support) Standing Reps: 3 (laps up and down in // bars without UE support, occasional light fingertip for balance) Treatments education, safety, bed mobility, transfers, gait, strength, balance, stairs, functional mobility, activity tolerance Assessment Current Status: Good Progress PT Short Term Goals Short Term Goals Time Frame: Aug 11, 2019 Roll Left & Right: 6 Sit to lyin Lying to sitting on side of be: 4 Sit to stand: 5 Chair/xrr-jh-qmwub transfer: 5 Toilet transfer: 5 Walk 10 feet: 5 Walk 50 feet with two turns: 5 Walk 150 feet: 5 PT Hoisting Engineer Pile Driving Goals Senior Care Goals PT Hoisting Engineer Pile Driving Goals Time Frame: Aug 25, 2019 Roll Left & Right (QC): 6 Sit to Lying (QC): 6 Lying-Sitting on Side/Bed(QC): 6 Sit to Stand (QC): 6 Chair/Zov-ix-Rqowr Xfer(QC): 6 Toilet Transfer (QC): 6 Car Transfer (QC): 6 Does the Patient Walk: Yes Walk 10 feet (QC): 6 Walk 50ft with 2 Turns (QC): 6 Walk 150 ft (QC): 6 Walking 10ft on Uneven Surface: 6 1 Step (curb) (QC): 6 4 Steps (QC): 6 PT Plan Treatment/Plan Treatment Plan: Continue Plan of Care Treatment Plan: Bed Mobility, Education, Functional Activity Amor, Functional Strength, Group Therapy, Gait, Safety, Therapeutic Exercise, Transfers Treatment Duration: Aug 25, 2019 Frequency: At least 5 of 7 days/Wk (IRF) Estimated Hrs Per Day: 1.5 hours per day Patient and/or Family Agrees t: Yes Safety Risks/Education Patient Education: Gait Training, Transfer Techniques, Safety Issues Teaching Recipient: Patient Teaching Methods: Demonstration, Discussion Response to Teaching: Verbalize Understanding, Return Demonstration Time/GCodes Time In: 1400 Time Out: 1430 Total Billed Treatment Time: 30 Total Billed Treatment 1 visit, GT x30 min ARMIN ORTIZ PTA Aug 12, 2019 14:06
[2019-08-12 18:00] VITALS: BP 120/68
[2019-08-13] MEDS: oxyCODONE/APAP 5/325MG (PERCOCET 5) TABLET PO PRN ×4 (00:05→20:32)
[2019-08-13 06:24] VITALS: BP 154/82
--- NOTE | 2019-08-13 08:28 | Occupational Ther Daily Note ---
OT Current Status-Daily Note Subjective Pt alert, lying in bed. Pt agrees to therapy. No c/o pain at this time. Mental Status/Objective Patient Orientation: Person, Place, Time, Situation ADL-Treatment Pt agrees to shower. Pt retrieves own clothing and transports using FWW and basket. Therapy Code Descriptions/Definitions Functional [place] Measure: 0=Not Assessed/NA 4=Minimal Assistance 1=Total Assistance 5=Supervision or Setup 2=Maximal Assistance 6=Modified [place] 3=Moderate Assistance 7=Complete IndependenceSCALE: Activities may be completed with or without assistive devices. 6-Jbxyhjhbdz-swdolob completes the activity by him/herself with no assistance from a helper. 5-Set-up or Clean-up Assistance-helper sets up or cleans up; patient completes activity. Success assists only prior to or following the activity. 4-Supervision or Touching Assistance-helper provides verbal cues and/or touching/steadying and/or contact guard assistance as patient completes activity. Assistance may be provided throughout the activity or intermittently. 3-Partial/Moderate Assistance-helper does LESS THAN HALF the effort. Success lifts, holds or supports trunk or limbs, but provides less than half the effort. 2-Substantial/Maximal Assistance-helper does MORE THAN HALF the effort. Success lifts or holds trunk or limbs and provides more than half the effort. 1-Ccqdinpyw-euyhwq does ALL the effort. Patient does none of the effort to complete the activity. Or, the assistance of 2 or more helpers is required for the patient to complete the activity. If activity was not attempted, code reason: 7-Patient Refused. 9-Not Applicable-not attempted and the patient did not perform the activity before the current illness, exacerbation or injury. 10-Not Attempted due to Environmental Limitations-(lack of equipment, weather restraints, etc.). 88-Not Attempted due to Medical Conditions or Safety Concerns. Eating (QC): 6 (Completes own meal set up and uses regular utensils.) Oral Hygiene (QC): 6 (Stands at sink to stabilize self and completes i ndependently.) Shower/Bathe Self (QC): 6 (Using grabbars, hand held shower and shower bench pt completes by self.) Upper Body Dressing (QC): 6 (Retrieves clothing and dresses self.) Lower Body Dressing (QC): 6 (Retrieves clothing and dresses self.) On/Off Footwear: 6 (Pt has demonstrated ability to don/doff footwear without AE though has been educated and has demonstrated proficiency if pt wants AE.) Toileting Hygiene (QC): 6 (Completes mod I. Is ordering grabbars for home use.) Toilet Transfer (QC): 6 (Completes mod I. Is ordering grabbars for home use.) Pt has ordered grabbars and walker basket for home use. Pt has tub transfer bench and walker at home. Other Treatment Pt given medium resistance theraband and HEP. Pt also given HEP for hand weights. Pt demonstrated understanding of each exercises with the different items. After session, pt lying in bed with call light/phone in reach. All needs met in room. Education OT Patient Education: Home exercise program Teaching Recipient: Patient Teaching Methods: Demonstration, Handout, Discussion Response to Teaching: Verbalize Understanding, Return Demonstration OT Short Term Goals Short Term Goals Time Frame: Aug 13, 2019 Shower/bathe self: 4 Lower body dressin OT Pharmacy Care Coordinator Goals [facility] Goals Time Frame: Aug 25, 2019 Eating (QC): 6 (met) Oral Hygiene (QC): 6 (met) Toileting Hygiene (QC): 6 (met) Shower/Bathe Self (QC): 6 (met) Upper Body Dressing (QC): 6 (met) Lower Body Dressing (QC): 6 (met) On/Off Footwear (QC): 6 (met) Additional Goals: 1-Demonstrate ADL Tasks, 2-Verbalize Understanding, 3- ImproveStrength/Amor 1=Demonstrate adherence to instructed precautions during ADL tasks. 2=Patient will verbalize/demonstrate understanding of assistive device s/modifications for ADL. 3=Patient will improve strength/tolerance for activity to enable patient to perform ADL's. OT Education/Plan Discharge Recommendations Plan/Recommendations: Continue POC Treatment Plan/Plan of Care Patient would benefit from OT for education, treatment and training to promote independence in ADL's, mobility, safety and/or upper extremity function for ADL's. Plan of Care: ADL Retraining, Caregiver Training, Functional Mobility, Group Exercise/Act as Ind, UE Funct Exercise/Act Treatment Duration: Aug 25, 2019 Frequency: At least 5 of 7 days/Wk (IRF) Estimated Hrs Per Day: 1.5 hours per day Agreement: Yes Rehab Potential: Good Time/GCodes Start Time: 07:30 Stop Time: 09:00 Total Time Billed (hr/min): 90 Billed Treatment Time 1 visit-ADL 5 (75 min) EX 1 (15 min) LINA MORRIS Aug 13, 2019 08:09
[2019-08-13] MEDS: SENNA W/DOCUSATE (SENOKOT S) TABLET PO SCH ×2 (08:37→20:32)
[2019-08-13] MEDS: NICOTINE 21 MG (NICODERM) PATCH TD SCH (08:37)
[2019-08-13] MEDS: IBUPROFEN TABLET 200 MG TAB PO PRN ×2 (08:38→16:49)
[2019-08-13] MEDS: DOCUSATE SODIUM 100 MG (COLACE) CAP PO SCH ×2 (08:38→20:32)
[2019-08-13] MEDS: NICOTINE PATCH REMOVAL TP SCH (09:00)
[2019-08-13] MEDS: polyethylene glycoL POWDER 17 GM (MIRALAX) PACK PO SCH ×2 (09:00→20:33)
--- NOTE | 2019-08-13 09:53 | PM&R Progress Note ---
Subjective HPI/CC On Admission Date Seen by Provider: Aug 13, 2019 Time Seen by Provider: 10:00 Subjective/Events-last exam Patient had made a dramatic improvement since ibuprofen started Wants to go home tomorrow and looking forward to it Bowels are moving No pain is reported otherwise Conferred with RN Reviewed therapy notes Checked meds and labs Review of Systems General: Fatigue Musculoskeletal: leg pain Objective Exam Vital Signs Vital Signs Date Time Temp Pulse Resp B/P (MAP) Pulse Ox O2 Delivery O2 Flow Rate FiO2 08/13/19 17:18 36.4 74 20 142/86 (104) 98 Room Air Capillary Refill : Less Than 3 SecondsLess Than 3 Seconds General Appearance: No Apparent Distress, WD/WN HEENT: PERRL/EOMI, Normal ENT Inspection, Pharynx Normal Neck: Full Range of Motion, Normal Inspection, Non Tender, Supple, Carotid Bruit Respiratory: Chest Non Tender, Lungs Clear, Normal Breath Sounds, No Accessory Muscle Use, No Respiratory Distress Cardiovascular: Regular Rate, Rhythm, No Edema, No Gallop, No JVD, No Murmur, Normal Peripheral Pulses Gastrointestinal: Normal Bowel Sounds, No Organomegaly, No Pulsatile Mass, Non Tender, Soft Back: Normal Inspection, No CVA Tenderness, No Vertebral Tenderness Extremity: Normal Capillary Refill, Normal Inspection, Normal Range of Motion (except right post op lower extremity), Non Tender, No Calf Tenderness, No Pedal Edema Neurologic/Psychiatric: Alert, Oriented x3, No Motor/Sensory Deficits, Normal Mood/Affect Skin: Normal Color, Warm/Dry Lymphatic: No Adenopathy Results/Procedures Lab Patient resulted labs reviewed. FIM Transfers Therapy Code Descriptions/Definitions Functional [place] Measure: 0=Not Assessed/NA 4=Minimal Assistance 1=Total Assistance 5=Supervision or Setup 2=Maximal Assistance 6=Modified [place] 3=Moderate Assistance 7=Complete IndependenceSCALE: Activities may be completed with or without assistive devices. 9-Nchdojulke-aiuftou completes the activity by him/herself with no assistance from a helper. 5-Set-up or Clean-up Assistance-helper sets up or cleans up; patient completes activity. Dickens assists only prior to or following the activity. 4-Supervision or Touching Assistance-helper provides verbal cues and/or touching/steadying and/or contact guard assistance as patient completes activity. Assistance may be provided throughout the activity or intermittently. 3-Partial/Moderate Assistance-helper does LESS THAN HALF the effort. Dickens lifts, holds or supports trunk or limbs, but provides less than half the effort. 2-Substantial/Maximal Assistance-helper does MORE THAN HALF the effort. Dickens lifts or holds trunk or limbs and provides more than half the effort. 1-Bmzxmtwux-iryjik does ALL the effort. Patient does none of the effort to complete the activity. Or, the assistance of 2 or more helpers is required for the patient to complete the activity. If activity was not attempted, code reason: 7-Patient Refused. 9-Not Applicable-not attempted and the patient did not perform the activity before the current illness, exacerbation or injury. 10-Not Attempted due to Environmental Limitations-(lack of equipment, weather restraints, etc.). 88-Not Attempted due to Medical Conditions or Safety Concerns. Roll Left to Right (QC): 6 Sit to Lying (QC): 6 Sit to Stand (QC): 6 Chair/Mcr-iu-Ytijb Xfer(QC): 5 Car Transfer (QC): 6 Gait Training Does the Patient Walk?: Yes Distance: 150 x2 Walk 10 feet (QC): 4 Walk 50 ft with 2 Turns(QC): 4 Walk 150 ft (QC): 4 Walking 10ft/uneven surface-QC: 5 Gait Persons Needed: 1 Gait Assistive Device: FWW Wheelchair Training Does the Pt Use a Wheelchair?: No Stair Training Stair Training: Handrails/: 1 handrail (R ascending, L descending as it will be at home) #of Steps: 8 1 Step (curb) (QC): 5 4 Steps (QC): 4 12 Steps (QC): 5 Stairs: Pattern: Step to Balance Picking up an Object (QC): 5 ADL-Treatment Eating (QC): 6 (Completes own meal set up and uses regular utensils.) Oral Hygiene (QC): 6 (Stands at sink to stabilize self and completes independently.) Shower/Bathe Self (QC): 6 (Using grabbars, hand held shower and shower bench pt completes by self.) Upper Body Dressing (QC): 6 (Retrieves clothing and dresses self.) Lower Body Dressing (QC): 6 (Retrieves clothing and dresses self.) On/Off Footwear (QC): 6 (Pt has demonstrated ability to don/doff footwear without AE though has been educated and has demonstrated proficiency if pt wants AE.) Toileting Hygiene (QC): 6 (Completes mod I. Is ordering grabbars for home use.) Toilet Transfer (QC): 6 (Completes mod I. Is ordering grabbars for home use.) Assessment/Plan Assessment and Plan Assess & Plan/Chief Complaint Assessment: Right TKA Smoker Anemia Slow recovery Difficulty coping Somatic complaints OCD tendencies Plan: Pain control IRF Pain management Patient may benefit from psych treatment DC Sat on DC home (1) Status post total right knee replacement (2) Smoker (3) Depression KENIA DE LUNA DO Aug 13, 2019 09:53
--- NOTE | 2019-08-13 10:07 | Physical Therapy Daily Note ---
PT Daily Note-Current Subjective Pt agreeable to both PT sessions. States she will be ready to go home tomorrow and have HH physical therapy. Pain Numeric Pain Scale: 3 Comment: mild but constant, had meds earlier Appearance upon arrival both sessions, pt in bed awake and alert. At end of session, pt in bed with call light, phone and bedside table within reach. Mental Status Patient Orientation: Person, Place, Time, Eyes Open, Situation Transfers SCALE: Activities may be completed with or without assistive devices. 5-Oustrakkzi-feqkhsu completes the activity by him/herself with no assistance from a helper. 5-Set-up or Clean-up Assistance-helper sets up or cleans up; patient completes activity. Alfred assists only prior to or following the activity. 4-Supervision or Touching Assistance-helper provides verbal cues and/or touching/steadying and/or contact guard assistance as patient completes activity. Assistance may be provided throughout the activity or intermittently. 3-Partial/Moderate Assistance-helper does LESS THAN HALF the effort. Alfred lifts, holds or supports trunk or limbs, but provides less than half the effort. 2-Substantial/Maximal Assistance-helper does MORE THAN HALF the effort. Alfred lifts or holds trunk or limbs and provides more than half the effort. 8-Psqhadfkd-kthxlt does ALL the effort. Patient does none of the effort to complete the activity. Or, the assistance of 2 or more helpers is required for the patient to complete the activity. If activity was not attempted, code reason: 7-Patient Refused. 9-Not Applicable-not attempted and the patient did not perform the activity before the current illness, exacerbation or injury. 10-Not Attempted due to Environmental Limitations-(lack of equipment, weather restraints, etc.). 88-Not Attempted due to Medical Conditions or Safety Concerns. Roll Left & Right (QC): 6 (bedrail) Sit to Lying (QC): 6 Lying to Sitting/Side of Bed(Q: 6 Sit to Stand (QC): 6 Chair/Zth-ui-Dtaij Xfer(QC): 6 Toilet Transfer (QC): 6 (grab bars) Car Transfer (QC): 6 Pt demo safe techniques with all transitions Weight Bearing Right Lower Extremity: Right Weight Bearing/Tolerated Gait Training Does the Patient Walk?: Yes Distance: >350, 150, 120 x2 Walk 10 feet (QC): 6 Walk 50 ft with 2 Turns(QC): 6 Walk 150 ft (QC): 6 Walking 10ft/uneven surface-QC: 6 Gait Persons Needed: 0 Gait Assistive Device: FWW antalgic gait pattern with decreased WB RLE, able to correct with inst, no LOB or unsteadiness Wheelchair Training Does the Pt Use a Wheelchair?: No Stair Training Stair Training: Handrails/: 1 handrail #of Steps: 12 1 Step (curb) (QC): 6 4 Steps (QC): 6 12 Steps (QC): 6 Stairs: Pattern: Step to No LOB Balance Picking up an Object (QC): 6 Exercises Supine Reps: 3 (knee ext stretch with 3 sec holds) Seated Reps: 3 (R knee flex stretch wtih 30 sec holds) Pt provided with and reviewed TKR handouts for HEP NuStep Minutes: 15 NuStep Workload: 4 (seat and arms 12) Treatments R knee: flex AROM 88 deg, ext -9 deg. R Knee: flex PROM 93 deg, ext -5 deg. Education, safety, bed mobility, toileting, transfers, balance, gait, stairs, activity tolerance, ROM, strength, functional mobility Assessment Current Status: Good Progress Pt is ready for discharge home with family tomorrow and physical therapy PT Short Term Goals Short Term Goals Time Frame: Aug 11, 2019 Roll Left & Right: 6 Sit to lyin Lying to sitting on side of be: 4 Sit to stand: 5 Chair/ndf-fu-xxasp transfer: 5 Toilet transfer: 5 Walk 10 feet: 5 Walk 50 feet with two turns: 5 Walk 150 feet: 5 PT Dietitian Teaching Goals Dietitian Teaching Goals PT Mcfp Goals Time Frame: Aug 25, 2019 Roll Left & Right (QC): 6 Sit to Lying (QC): 6 Lying-Sitting on Side/Bed(QC): 6 Sit to Stand (QC): 6 Chair/Ism-in-Vxsmd Xfer(QC): 6 Toilet Transfer (QC): 6 Car Transfer (QC): 6 Does the Patient Walk: Yes Walk 10 feet (QC): 6 Walk 50ft with 2 Turns (QC): 6 Walk 150 ft (QC): 6 Walking 10ft on Uneven Surface: 6 1 Step (curb) (QC): 6 4 Steps (QC): 6 PT Plan Treatment/Plan Treatment Plan: Continue Plan of Care, Discontinue PT, goals met Treatment Plan: Bed Mobility, Education, Functional Activity Amor, Functional Strength, Group Therapy, Gait, Safety, Therapeutic Exercise, Transfers Treatment Duration: Aug 25, 2019 Frequency: At least 5 of 7 days/Wk (IRF) Estimated Hrs Per Day: 1.5 hours per day Patient and/or Family Agrees t: Yes Safety Risks/Education Patient Education: Gait Training, Transfer Techniques, Issued Written HEP (Phase 1 TKR), Reviewed Use of Ice, Safety Issues Teaching Recipient: Patient Teaching Methods: Discussion Response to Teaching: Verbalize Understanding Discharge Recommendations Therapy Discharge Recommendati: Home & Family (HH physical therapy) Time/GCodes Time In: 1000 (2nd session: 1330) Time Out: 1100 (2nd session: 1400) Total Billed Treatment Time: 60 (2nd session: 30) Total Billed Treatment 1 visit, GT x35 min, Ex x10 min, FA x15 min. 2nd session: 1 visit, EX x20 min, GT x10 min ARMIN ORTIZ PTA Aug 13, 2019 10:06
[2019-08-13] MEDS ORDERED: IBUP-2473 PO (10:23)
--- NOTE | 2019-08-13 12:33 | NUR ---
CM/SS DISCHARGE Patient will discharge home 08/14/19, as planned. IMM2 and Message both presented, signed, charted. Discharge has been planned over several days, no intention to appeal verbalized. Patient stated she is ready and excited to return home. HH: Coordinated with patient choice agency, [facility]. Confirmed referral receipt with agency staff, they will have initial visit Friday. Patient updated. DME: Patient does not need any new DME. Her spouse brought in the FWW she has, patient indicates therapy assessed it and approved. Appears like new without notable use/wear. She has requested to leave early a.m. tomorrow, contract technical writer updated Unit RN to pass forward in report to oncoming RN.
[2019-08-13] MEDS: ENOXAPARIN 40 MG/0.4 ML (LOVENOX) SYR SC SCH (13:10)
[2019-08-13 17:18] VITALS: BP 142/86
[2019-08-13] MEDS: MELATONIN 3 MG TABLET PO PRN (21:07)
[2019-08-14] MEDS: oxyCODONE/APAP 5/325MG (PERCOCET 5) TABLET PO PRN ×2 (00:59→05:00)
[2019-08-14] MEDS: NICOTINE PATCH REMOVAL TP SCH (05:00)
--- NOTE | 2019-08-14 05:27 | NUR ---
THIS RN DISCUSSED D/C PAPERWORK WITH PT. PT SIGNED D/C PAPERWORK AT THIS TIME. PT WAITING FOR SPOUSE TO ARRIVE FOR PICKUP.
[2019-08-14 06:00] VITALS: BP 150/77
[2019-08-14 06:35] VITALS: BP 150/77
--- NOTE | 2019-08-14 06:40 | NUR ---
IBIS MORRELL demonstrates understanding of discharge instructions and accurately returns instructions upon questioning. Copy of Post-Discharge Instructions given to . IBIS MORRELL is able to manage continuing needs after discharge. Patients belongings returned to PT AND PT'S . Patient discharged from 231[facility] on 08/14/19 at 0640. IBIS MORRELL left floor via WHEELCHAIR, accompanied by PT'S AND THIS RN.
--- NOTE | 2019-08-14 11:22 | Discharge Summary ---
Diagnosis/Chief Complaint Date of Admission Aug 04, 2019 at 13:30 Date of Discharge Aug 14, 2019 at 06:40 Discharge Date: Aug 14, 2019 Discharge Diagnosis Assessment: Right TKA Smoker Anemia Slow recovery Difficulty coping Somatic complaints OCD tendencies Plan: Pain control IRF Pain management Patient may benefit from psych treatment DC Sat on HH DC home (1) Status post total right knee replacement (2) Smoker (3) Depression Discharge Summary Discharge Physical Examination Allergies: Coded Allergies: Sulfa (Sulfonamide Antibiotics) (Verified Allergy, Unknown, 07/21/19) celecoxib (Unverified Allergy, Unknown, 09/23/10) meloxicam (Verified Allergy, Unknown, stomach pain, 07/21/19) Vitals & I&Os Vital Signs Date Time Temp Pulse Resp B/P (MAP) Pulse Ox O2 Delivery O2 Flow Rate FiO2 08/14/19 06:35 36.6 62 18 150/77 99 Room Air General Appearance: Alert, Oriented X3, Cooperative Respiratory: Clear to Auscultation Cardiovascular: Regular Rate Neuro: Normal Gait Hospital Course Was the Problem List Reviewed?: Yes Patient had an uncomplicated 10 days course in IRF following a right total knee replacement but had slow recovery and failed at home with HH. Patient did very well in rehab and participated in all therapies. Pain control was difficult and Dr Toscano provided reassurance. Ibuprofen maintained the last 3 days and that was the most helpful. Bowel regimen maintained and patient overall had a good result from rehab and was DC home on HH. Labs (last 24 hrs) Laboratory Tests 08/04/19 13:20: White Blood Count 6.7, Red Blood Count 4.08L, Hemoglobin 11.8, Hematocrit 36, Mean Corpuscular Volume 89, Mean Corpuscular Hemoglobin 29, Mean Corpuscular Hemoglobin Concent 33, Red Cell Distribution Width 13.5, Platelet Count 353, Mean Platelet Volume 8.7, Neutrophils (%) (Auto) 60, Lymphocytes (%) (Auto) 26, Monocytes (%) (Auto) 9, Eosinophils (%) (Auto) 4, Basophils (%) (Auto) 0, Neutrophils # (Auto) 4.1, Lymphocytes # (Auto) 1.8, Monocytes # (Auto) 0.6, Eosinophils # (Auto) 0.3, Basophils # (Auto) 0.0, Sodium Level 142, Potassium Level 3.5L, Chloride Level 104, Carbon Dioxide Level 28, Anion Gap 10, Blood Urea Nitrogen 24H, Creatinine 0.65, Estimat Glomerular Filtration Rate > 60, BUN/Creatinine Ratio 37, Glucose Level 105, Calcium Level 9.6, Corrected Calcium 9.8, Iron Level 32L, Total Bilirubin 0.5, Aspartate Amino Transf (AST/SGOT) 44H, Alanine Aminotransferase (ALT/SGPT) 75H, Alkaline Phosphatase 82, Total Protein 7.1, Albumin 3.8 08/05/19 05:30: White Blood Count 5.8, Red Blood Count 3.69L, Hemoglobin 10.7L, Hematocrit 33L, Mean Corpuscular Volume 89, Mean Corpuscular Hemoglobin 29, Mean Corpuscular Hemoglobin Concent 33, Red Cell Distribution Width 13.3, Platelet Count 319, Mean Platelet Volume 8.7, Neutrophils (%) (Auto) 53, Lymphocytes (%) (Auto) 30, Monocytes (%) (Auto) 10, Eosinophils (%) (Auto) 6, Basophils (%) (Auto) 0, Neutrophils # (Auto) 3.1, Lymphocytes # (Auto) 1.7, Monocytes # (Auto) 0.6, Eosinophils # (Auto) 0.4H, Basophils # (Auto) 0.0, Sodium Level 138, Potassium Level 3.8, Chloride Level 104, Carbon Dioxide Level 28, Anion Gap 6, Blood Urea Nitrogen 18, Creatinine 0.59L, Estimat Glomerular Filtration Rate > 60, BUN/Creatinine Ratio 31, Glucose Level 105, Calcium Level 8.7, Corrected Calcium 9.2, Total Bilirubin 0.6, Aspartate Amino Transf (AST/SGOT) 33, Alanine Aminotransferase (ALT/SGPT) 55, Alkaline Phosphatase 70, Total Protein 6.1L, Albumin 3.4 08/09/19 04:50: White Blood Count 5.7, Red Blood Count 4.11L, Hemoglobin 11.7, Hematocrit 36, Mean Corpuscular Volume 89, Mean Corpuscular Hemoglobin 29, Mean Corpuscular Hemoglobin Concent 32, Red Cell Distribution Width 13.1, Platelet Count 405H, Mean Platelet Volume 8.9, Neutrophils (%) (Auto) 56, Lymphocytes (%) (Auto) 28, Monocytes (%) (Auto) 10, Eosinophils (%) (Auto) 5, Basophils (%) (Auto) 0, Neutrophils # (Auto) 3.2, Lymphocytes # (Auto) 1.6, Monocytes # (Auto) 0.6, Eosinophils # (Auto) 0.3, Basophils # (Auto) 0.0, Sodium Level 139, Potassium Level 4.4, Chloride Level 103, Carbon Dioxide Level 28, Anion Gap 8, Blood Urea Nitrogen 18, Creatinine 0.69, Estimat Glomerular Filtration Rate > 60, BUN/Creatinine Ratio 26, Glucose Level 105, Calcium Level 9.4, Corrected Calcium 9.7, Total Bilirubin 0.4, Aspartate Amino Transf (AST/SGOT) 53H, Alanine Aminotransferase (ALT/SGPT) 96H, Alkaline Phosphatase 83, Total Protein 6.8, Albumin 3.6 Pending Labs Laboratory Tests 08/04/19 13:20: White Blood Count 6.7, Red Blood Count 4.08, Hemoglobin 11.8, Hematocrit 36, Mean Corpuscular Volume 89, Mean Corpuscular Hemoglobin 29, Mean Corpuscular Hemoglobin Concent 33, Red Cell Distribution Width 13.5, Platelet Count 353, Mean Platelet Volume 8.7, Neutrophils (%) (Auto) 60, Lymphocytes (%) (Auto) 26, Monocytes (%) (Auto) 9, Eosinophils (%) (Auto) 4, Basophils (%) (Auto) 0, Neutrophils # (Auto) 4.1, Lymphocytes # (Auto) 1.8, Monocytes # (Auto) 0.6, Eosinophils # (Auto) 0.3, Basophils # (Auto) 0.0, Sodium Level 142, Potassium Level 3.5, Chloride Level 104, Carbon Dioxide Level 28, Anion Gap 10, Blood Urea Nitrogen 24, Creatinine 0.65, Estimat Glomerular Filtration Rate > 60, BUN/Creatinine Ratio 37, Glucose Level 105, Calcium Level 9.6, Corrected Calcium 9.8, Iron Level 32, Total Bilirubin 0.5, Aspartate Amino Transf (AST/SGOT) 44, Alanine Aminotransferase (ALT/SGPT) 75, Alkaline Phosphatase 82, Total Protein 7.1, Albumin 3.8 08/05/19 05:30: White Blood Count 5.8, Red Blood Count 3.69, Hemoglobin 10.7, Hematocrit 33, Mean Corpuscular Volume 89, Mean Corpuscular Hemoglobin 29, Mean Corpuscular Hemoglobin Concent 33, Red Cell Distribution Width 13.3, Platelet Count 319, Mean Platelet Volume 8.7, Neutrophils (%) (Auto) 53, Lymphocytes (%) (Auto) 30, Monocytes (%) (Auto) 10, Eosinophils (%) (Auto) 6, Basophils (%) (Auto) 0, Neutrophils # (Auto) 3.1, Lymphocytes # (Auto) 1.7, Monocytes # (Auto) 0.6, Eosinophils # (Auto) 0.4, Basophils # (Auto) 0.0, Sodium Level 138, Potassium Level 3.8, Chloride Level 104, Carbon Dioxide Level 28, Anion Gap 6, Blood Urea Nitrogen 18, Creatinine 0.59, Estimat Glomerular Filtration Rate > 60, BUN/Creatinine Ratio 31, Glucose Level 105, Calcium Level 8.7, Corrected Calcium 9.2, Total Bilirubin 0.6, Aspartate Amino Transf (AST/SGOT) 33, Alanine Aminotransferase (ALT/SGPT) 55, Alkaline Phosphatase 70, Total Protein 6.1, Albumin 3.4 08/09/19 04:50: White Blood Count 5.7, Red Blood Count 4.11, Hemoglobin 11.7, Hematocrit 36, Mean Corpuscular Volume 89, Mean Corpuscular Hemoglobin 29, Mean Corpuscular Hemoglobin Concent 32, Red Cell Distribution Width 13.1, Platelet Count 405, Mean Platelet Volume 8.9, Neutrophils (%) (Auto) 56, Lymphocytes (%) (Auto) 28, Monocytes (%) (Auto) 10, Eosinophils (%) (Auto) 5, Basophils (%) (Auto) 0, Neutrophils # (Auto) 3.2, Lymphocytes # (Auto) 1.6, Monocytes # (Auto) 0.6, Eosinophils # (Auto) 0.3, Basophils # (Auto) 0.0, Sodium Level 139, Potassium Level 4.4, Chloride Level 103, Carbon Dioxide Level 28, Anion Gap 8, Blood Urea Nitrogen 18, Creatinine 0.69, Estimat Glomerular Filtration Rate > 60, BUN/Creatinine Ratio 26, Glucose Level 105, Calcium Level 9.4, Corrected Calcium 9.7, Total Bilirubin 0.4, Aspartate Amino Transf (AST/SGOT) 53, Alanine Aminotransferase (ALT/SGPT) 96, Alkaline Phosphatase 83, Total Protein 6.8, Albumin 3.6 Discharge Home Medications: Active Scripts Active Ibuprofen 200 Mg Tablet 400 Mg PO TIDWM PRN Senna-Time S Tablet (Sennosides/Docusate Sodium) 1 Each Tablet 1 Ea PO BID Percocet 5-325 mg Tablet (Oxycodone HCl/Acetaminophen) 1 Each Tablet 2 Tab PO Q4H PRN Nicoderm Cq (Nicotine) 1 Each Patch.td24 21 Mg TD DAILY@0900 Cyclobenzaprine HCl 10 Mg Tablet 5 Mg PO TID PRN Tramadol HCl 50 Mg Tablet 50 Mg PO TID PRN Aspirin EC (Aspirin) 81 Mg Tablet.dr 81 Mg PO DAILY 30 Days Reported Multivitamins (Multivitamin) 1 Each Tablet 1 Each PO TIDWM Benadryl Allergy (Diphenhydramine HCl) 25 Mg Tablet 25 Mg PO Q4 -6H PRN Tylenol (Acetaminophen) 325 Mg Tablet 650 Mg PO Q8H PRN Instructions to patient/family Please see electronic discharge instructions given to patient. Diagnosis/Problems Diagnosis/Problems (1) Status post total right knee replacement (2) Smoker (3) Depression KENIA DE LUNA DO Aug 14, 2019 11:22
--- NOTE | 2019-08-16 09:07 | Therapy Team Discharge Summary ---
Therapy Discharge Summary Discharge Recommendations Date of Discharge Aug 14, 2019 at 06:40 Occupational Therapy At admission to ARU, pt was independent with eating, required SBA with oral hy giene, SBA shower, set up UBD, SBA LBD, max assist footwear, and SBA with toileting/toilet transfers. OT treatments focused on increasing pt's independence and safety with ADLs/functional mobility and education on AE. At discharge, pt was independent with all ADLs. Pt owns a tub transfer bench and a walker, and she has ordered grab bars and a walker basket, no further AE recommended at this time. Pt discharged home, discharge from OT at this time. Decreased Activ Tolerance, Decreased UE Strength, Impaired Self-Care Skills PT Snap Attacher Goals Snap Attacher Goals PT Detention Goals Time Frame: Aug 25, 2019 Roll Left to Right (QC): 6 Sit to Lying (QC): 6 Lying-Sitting on Side/Bed(QC): 6 Sit to Stand (QC): 6 Chair/Hle-oi-Hnhbk Xfer(QC): 6 Car Transfer (QC): 6 Does the Patient Walk: Yes Walk 10 feet (QC): 6 Walk 10ft-Uneven Surface(QC): 6 Walk 50ft with 2 Turns (QC): 6 Walk 150 ft (QC): 6 1 Step (curb) (QC): 6 4 Steps (QC): 6 OT Snap Attacher Goals Snap Attacher Goals Time Frame: Aug 25, 2019 Eating (QC): 6 (met) Oral Hygiene (QC): 6 (met) Shower/Bathe Self (QC): 6 (met) Upper Body Dressing (QC): 6 (met) Lower Body Dressing (QC): 6 (met) On/Off Footwear (QC): 6 (met) Toileting Hygiene (QC): 6 (met) Toilet/Commode Transfer (QC): 6 (met) Additional Goals: 1-Demonstrate ADL Tasks, 2-Verbalize Understanding, 3- ImproveStrength/Amor 1=Demonstrate adherence to instructed precautions during ADL tasks. 2=Patient will verbalize/demonstrate understanding of assistive devices/ modifications for ADL. 3=Patient will improve strength/tolerance for activity to enable patient to perform ADL's. LINDA VELIZ OT Aug 16, 2019 09:07
--- NOTE | 2019-08-16 09:43 | Therapy Team Discharge Summary ---
Therapy Discharge Summary Discharge Recommendations Date of Discharge Aug 14, 2019 at 06:40 Therapy D/C Recommendations: Physical Therapy Home Care Physical Therapy This patient admitted to ARU from home after her [facility] nurse and physician reporting inability to manage at home post elective TKR. Upon admission to ARU, pt required min assist (gnerally) with bed mobility and transfers, CGA with gait with heavy cues for gait pattern and sequencing and up/down a step with assist. Treatment focused on functional strength and ROM to normalize her ability to transfer / bed mobility as well as gait progression. Ther ex performed to increase ROM and quad strength. In addition, training on safety and gait was provided. At last visit, pt was mod indep with bed mobility and transfers and able to walk within the facility at a mod indep level. She was also able to go up/down steps. She did make functional progress and has achieved all goals set at evaluation. Pt to discharge to home. Recommend F/U PT for continued strength, ROM and normalized mobility in a home and community setting. Occupational Therapy Decreased Activ Tolerance, Decreased UE Strength, Impaired Self-Care Skills PT Rod Piler Goals Rod Piler Goals PT Rod Piler Goals Time Frame: Aug 25, 2019 Roll Left to Right (QC): 6 (met) Sit to Lying (QC): 6 (met) Lying-Sitting on Side/Bed(QC): 6 (met) Sit to Stand (QC): 6 (met) Chair/Vhp-cd-Iksup Xfer(QC): 6 (met) Car Transfer (QC): 6 (metmet) Does the Patient Walk: Yes Walk 10 feet (QC): 6 (met) Walk 10ft-Uneven Surface(QC): 6 (met) Walk 50ft with 2 Turns (QC): 6 (met) Walk 150 ft (QC): 6 (met) 1 Step (curb) (QC): 6 (met) 4 Steps (QC): 6 (met) OT [facility] Goals [facility] Goals Time Frame: Aug 25, 2019 Eating (QC): 6 (met) Oral Hygiene (QC): 6 (met) Shower/Bathe Self (QC): 6 (met) Upper Body Dressing (QC): 6 (met) Lower Body Dressing (QC): 6 (met) On/Off Footwear (QC): 6 (met) Toileting Hygiene (QC): 6 (met) Toilet/Commode Transfer (QC): 6 (met) Additional Goals: 1-Demonstrate ADL Tasks, 2-Verbalize Understanding, 3- ImproveStrength/Amor 1=Demonstrate adherence to instructed precautions during ADL tasks. 2=Patient will verbalize/demonstrate understanding of assistive devices/modifications for ADL. 3=Patient will improve strength/tolerance for activity to enable patient to perform ADL's. LINA GRIMM PT Aug 16, 2019 09:43
== END 2019-08-14 06:40 | disposition home health service (06) | DRG 561 ==
PROVIDERS: ADMIT Internal Medicine; ATTEND Internal Medicine
DX: Z47.1 Aftercare following joint replacement surgery (principal); Z96.651 Presence of right artificial knee joint; M19.91 Primary osteoarthritis, unspecified site; D64.9 Anemia, unspecified; F32.9 Major depressive disorder, single episode, unspecified; F42.9 Obsessive-compulsive disorder, unspecified; F45.9 Somatoform disorder, unspecified; F17.210 Nicotine dependence, cigarettes, uncomplicated
CPT/HCPCS: 36415; 80053; 83540; 85025

== ENCOUNTER → 2019-09-02 | Outpatient (CLI) | payer MEDICARE, OTHER ==
[~2019-09-02] MED LIST changes: +ACET325T38 PO; +CYCL10TA9 PO; +DIPH25TA65 PO; +IBUP-2473 PO; +MULT1TAB69 PO; +NICO1PAT34 TD; +OXYC1TAB87 PO; +SENN-20 PO
--- NOTE | 2019-09-02 10:52 | Diagnostic Imaging Report ---
INDICATION: Neck pain. TIME OF EXAM: 10:36 AM 3 views of the cervical spine were obtained. FINDINGS: There is some straightening of the normal cervical lordotic curvature. Minimal retrolisthesis of C3 on C4 is noted. There is minimal anterolisthesis of C4 on C5. Multilevel degenerative disc disease is seen with variable disc space narrowing and marginal spurring, most severe at the C5-C6 level where there is significant disc space narrowing and marginal osteophyte formation. There is multilevel facet arthropathy. Odontoid is intact. Prevertebral tissues are normal. IMPRESSION: Cervical spondylosis. No acute bony abnormality is detected. Dictated by: Dictated on workstation # [id number]
--- NOTE | 2019-09-02 10:52 | Diagnostic Imaging Report ---
INDICATION: Neck pain and low back pain. TIME OF EXAM: 10:39 AM Frontal and lateral views of the lumbar spine was obtained. Curvature and alignment is normal. Vertebral body heights are maintained. No acute compression fracture is seen. Generalized lumbar spondylosis is noted with variable disc space narrowing and marginal spurring. There is multilevel facet arthropathy. Aorta is partially calcified. IMPRESSION: Lumbar spondylosis. No acute bony abnormality is detected. Dictated by: Dictated on workstation # [id number]
== END ==
LOC: RAD 10:19
PROVIDERS: ATTEND Chiropractor
DX: M47.816 Spondylosis without myelopathy or radiculopathy, lumbar region (principal); M47.812 Spondylosis without myelopathy or radiculopathy, cervical region
CPT/HCPCS: 72040; 72100

== ENCOUNTER 2021-05-24 19:10 | Inpatient (IN) | payer MEDICARE, OTHER ==
[~2021-05-24] VITALS: Ht 182.9 cm; Wt 89.8 kg
[~2021-05-24 19:10] MED LIST changes: +ASPI-1238 PO; -ASPI-983 PO; +CYCL10TA25 PO; -CYCL10TA9 PO; +MULT-567 PO; -MULT1TAB69 PO
--- NOTE | 2021-05-24 19:23 | ED Lower Extremity ---
General Stated Complaint: FALL/LEFT KNEE PAIN Source: patient Exam Limitations: no limitations History of Present Illness Date Seen by Provider: May 24, 2021 Time Seen by Provider: 19:20 Initial Comments To ER with reports of a fall. She got some new bifocals today and was walking up an incline this evening landing on her left knee and right elbow. She has an abrasion to the dorsal right elbow. Did not hit her head. Has pain and deformity to the left knee. EMS started an IV and gave 50 mcg of fentanyl in route. Tdap is up to date. Onset: just prior to arrival Severity: moderate Pain/Injury Location: left knee Method of Injury: fell Modifying Factors: Worse With Movement Allergies and Home Medications Allergies Coded Allergies: Sulfa (Sulfonamide Antibiotics) (Verified Allergy, Unknown, 07/21/19) celecoxib (Unverified Allergy, Unknown, 09/23/10) meloxicam (Verified Allergy, Unknown, stomach pain, 07/21/19) Patient Home Medication List Home Medication List Reviewed: Yes Acetaminophen (Tylenol) 325 Mg Tablet, 650 MG PO Q8H PRN for PAIN-MILD (1-4), (Reported) Entered as Reported by: HARRY PACK on 08/05/19 1100 Aspirin (Aspirin EC) 81 Mg Tablet.dr, 81 MG PO DAILY Prescribed by: MEREDITH GARCIA on 07/30/19 0909 Cyclobenzaprine HCl (Cyclobenzaprine HCl) 10 Mg Tablet, 5 MG PO TID PRN for MUSCLE SPASMS Prescribed by: KENIA DE LUNA on 08/11/19 1348 Diphenhydramine HCl (Benadryl Allergy) 25 Mg Tablet, 25 MG PO Q4 -6H PRN for ALLERFY SYMPTOMS, (Reported) Entered as Reported by: HARRY PACK on 08/05/19 1100 Ibuprofen (Ibuprofen) 200 Mg Tablet, 400 MG PO TIDWM PRN for PAIN-MILD (1-4) Prescribed by: KENIA DE LUNA on 08/13/19 1023 Multivitamin (Multivitamins) 1 Each Tablet, 1 EACH PO TIDWM, (Reported) Entered as Reported by: HARRY PACK on 08/05/19 1111 Nicotine (Nicoderm Cq) 1 Each Patch.td24, 21 MG TD DAILY@0900 Prescribed by: KENIA DE LUNA on 08/11/19 1348 Oxycodone HCl/Acetaminophen (Percocet 5-325 mg Tablet) 1 Each Tablet, 2 TAB PO Q4H PRN for PAIN-SEVERE (8-10) Prescribed by: KENIA DE LUNA on 08/11/19 1348 Sennosides/Docusate Sodium (Senna-Time S Tablet) 1 Each Tablet, 1 EA PO BID Prescribed by: KENIA DE LUNA on 08/11/19 1348 Tramadol HCl (Tramadol HCl) 50 Mg Tablet, 50 MG PO TID PRN for PAIN-MODERATE (5- 7) Prescribed by: KENIA DE LUNA on 08/11/19 1348 Review of Systems Constitutional: see HPI EENTM: see HPI Respiratory: no symptoms reported Cardiovascular: no symptoms reported Genitourinary: no symptoms reported Musculoskeletal: see HPI Skin: no symptoms reported Psychiatric/Neurological: No Symptoms Reported Past Eychjlq-Brlknp-Ugehxw Hx Immunizations Up To Date PED Vaccines UTD: Yes Seasonal Allergies Seasonal Allergies: Yes Past Medical History Surgeries: Yes Orthopedic Respiratory: No Currently Using CPAP: No Currently Using BIPAP: No Cardiac: No Neurological: No Reproductive Disorders: No Genitourinary: No Gastrointestinal: No Musculoskeletal: No Arthritis Endocrine: No HEENT: No Cancer: No Psychosocial: No Integumentary: No Blood Disorders: No Family Medical History Alzheimer's disease 19 MOTHER FH: Crohn's disease G8 SISTER Physical Exam Vital Signs Vital Signs - First Documented 05/24/21 19:15 Temp 35.9 Pulse 90 Resp 18 B/P (MAP) 166/92 (116) Pulse Ox 97 O2 Delivery Room Air Capillary Refill : Height, Weight, BMI Height: 6'0" Weight: 190lbs. oz. 86.704366ej; 26.78 BMI Method:Stated General Appearance: WD/WN, no apparent distress Neck: non-tender, full range of motion Respiratory: no respiratory distress, no accessory muscle use Hips: bilateral hip non-tender, bilateral hip normal inspection, bilateral hip normal range of motion Legs: bilateral leg non-tender, bilateral leg normal inspection, bilateral leg normal range of motion Knees: right knee non-tender, right knee normal inspection, right knee normal range of motion; left knee deformity, left knee pain, left knee soft tissue ten derness, left knee swelling Ankles: bilateral ankle non-tender, bilateral ankle normal inspection, bilater al ankle normal range of motion Feet: bilateral foot non-tender, bilateral foot normal inspection, bilateral foot normal range of motion Neurologic/Psychiatric: alert, normal mood/affect, oriented x 3 Skin: normal color, warm/dry 1 cm laceration posterior right elbow. She has full supination and pronation of the right forearm, full flexion and extension of the arm at the elbow without significant pain. Progress/Results/Core Measures Results/Orders Lab Results My Orders Orders - LEO ELAM APRN Knee, Left, 3 Views (05/24/21 19:17) Tibia/Fibula, Left, 2 Views (05/24/21 19:17) Cbc With Automated Diff (05/24/21 19:17) Comprehensive Metabolic Panel (05/24/21 19:17) Protime With Inr (05/24/21 19:17) Ed Iv/Invasive Line Start (05/24/21 19:17) Hydromorphone Injection (Dilaudid Inject (05/24/21 19:30) Medications Given in ED Current Medications Medications Dose Ordered Sig/Zain Route Start Time Stop Time Status Last Admin Dose Admin Hydromorphone HCl 0.5 mg ONCE ONCE IV 05/24/21 19:30 05/24/21 19:31 DC 05/24/21 19:40 0.5 MG Vital Signs/I&O 05/24/21 19:15 Temp 35.9 Pulse 90 Resp 18 B/P (MAP) 166/92 (116) Pulse Ox 97 O2 Delivery Room Air Departure Communication (Admissions) 2037-I spoke with Dr. Toscano, will place her in a knee immobilizer, nothing by mouth after midnight, pain control nausea control, consult primary care, plan for surgery tomorrow. Impression Primary Impression: Fracture of distal end of femur Disposition: ADMITTED INPATIENT Condition: Stable Admissions Decision to Admit Reason: Admit from ER (Trauma) Decision to Admit/Date: May 24, 2021 Time/Decision to Admit Time: 20:38 Departure-Patient Inst. Referrals: [facility] (PCP/Family) Primary Care Physician LEO ELAM APRN May 24, 2021 19:23
[2021-05-24] MEDS ORDERED: HYDROmorphone 2 MG/ML VIAL (DILAUDID) IV ONE ×3 (19:30→22:15)
--- NOTE | 2021-05-24 19:56 | Diagnostic Imaging Report ---
INDICATION: Fall with left leg pain. AP and lateral views of the left tibia and fibula are obtained. No fracture or acute bony abnormality is seen. IMPRESSION: Negative left tibia and fibula. Dictated by: Dictated on workstation # [id number]
--- NOTE | 2021-05-24 19:56 | Diagnostic Imaging Report ---
INDICATION: Fall with left leg pain. AP, oblique, lateral views of the left knee are obtained. There is acute fracture of the distal femur involving the superior condylar region, with apparent extension into the intercondylar notch. There is a joint effusion present. There is no apparent fractures of the patella or proximal tibia and fibula. IMPRESSION: Acute fracture of distal femur from the supracondylar region extending down through the intercondylar notch, with evidence of joint effusion. Dictated by: Dictated on workstation # [id number]
[2021-05-24 20:57] LABS: BASOPHILS % (AUTO) 0 % (0-10); EOSINOPHILS # (AUTO) 0.1 10^3/uL (0.0-0.3); EOSINOPHILS % (AUTO) 2 % (0-10); HEMATOCRIT 46 % (35-52); LYMPHOCYTES # (AUTO) 1.6 10^3/uL (1.0-4.0); LYMPHOCYTES % (AUTO) 27 % (12-44); MEAN CORPUSCULAR HEMOGLOBIN 29 pg (25-34); MEAN CORPUSCULAR HGB CONC 33 g/dL (32-36); MEAN CORPUSCULAR VOLUME 90 fL (80-99); MEAN PLATELET VOLUME 8.9 fL (9.0-12.2); MONOCYTES # (AUTO) 0.4 10^3/uL (0.0-1.0); MONOCYTES % (AUTO) 7 % (0-12); NEUTROPHILS # (AUTO) 3.7 10^3/uL (1.8-7.8); NEUTROPHILS % (AUTO) 64 % (42-75); PLATELET COUNT 230 10^3/uL (130-400); WHITE BLOOD COUNT 5.8 10^3/uL (4.3-11.0)
[2021-05-24 21:14] LABS: ALBUMIN 3.9 GM/DL (3.2-4.5); BILIRUBIN,TOTAL 0.3 MG/DL (0.1-1.0); CALCIUM 8.8 MG/DL (8.5-10.1); CREATININE SERUM 0.67 MG/DL (0.60-1.30); POTASSIUM 3.9 MMOL/L (3.6-5.0); TOTAL PROTEIN 7.1 GM/DL (6.4-8.2)
--- NOTE | 2021-05-24 21:43 | Diagnostic Imaging Report ---
Indication: Right elbow pain post fall. AP, oblique, and lateral views of the right elbow are obtained. No fracture or acute bony abnormality seen. There is mild separation of the humeral epicondyles. Impression: Mild chronic changes with no acute abnormality of the right elbow. Dictated by: Dictated on workstation # [id number]
[2021-05-24] MEDS ORDERED: HYDROmorphone 2 MG/ML VIAL (DILAUDID) IV PRN (22:00)
[2021-05-24] MEDS ORDERED: ONDANSETRON 4 MG/2 ML (SDV) Z0FRAN IV PRN (22:00)
[2021-05-24 22:25] VITALS: BP 149/88
[2021-05-24] MEDS: LACTATED RINGERS 1,000 ML IV SCH (23:33)
[2021-05-25] VITALS (14 sets, daily range): BP systolic 118–180; BP diastolic 68–99
[2021-05-25] MEDS: HYDROmorphone 2 MG/ML VIAL (DILAUDID) IV PRN ×6 (02:58→12:26)
--- NOTE | 2021-05-25 06:09 | HISTORY AND PHYSICAL ---
DATE OF SERVICE: REASON FOR ADMISSION: Left femur intraarticular lateral condyle fracture, closed, displaced. HISTORY OF PRESENT ILLNESS: The patient is a 66-year-old female who fell last evening while walking up an incline. She landed on her left knee and was found to have a displaced left distal femur lateral condyle fracture. She was admitted for pain management with plan for operative intervention today. REVIEW OF SYSTEMS: No recent chest pain, shortness of breath or dysuria. ALLERGIES: SULFA, CELEBREX, MELOXICAM. HOME MEDICATIONS: Acetaminophen, aspirin, cyclobenzaprine, diphenhydramine, ibuprofen, multivitamin, Nicoderm, tramadol. PAST SURGICAL HISTORY: Right total knee arthroplasty. PAST MEDICAL HISTORY: Significant for arthrosis, seasonal rhinitis. FAMILY HISTORY: Significant for Crohn's disease and Alzheimer disease. PHYSICAL EXAMINATION: GENERAL: The patient is well-developed, well-nourished, in no acute distress. HEENT: Normocephalic, atraumatic. Pupils are equal, round and reactive to light. Oropharynx is clear. NECK: Supple, with no lymphadenopathy. LUNGS: Clear to auscultation bilaterally. HEART: Regular rate and rhythm. ABDOMEN: Soft, nontender, nondistended. EXTREMITIES: The left knee demonstrates a valgus alignment. She is tender over the distal femur. There is moderate edema noted. She has intact dorsiflexion and plantarflexion of the toes with symmetric pulses and intact sensation throughout distally. IMPRESSION: Closed displaced left femur intraarticular lateral femoral condyle fracture. PLAN: Open reduction and internal fixation of the left distal femur. The risks, benefits, options, ramifications and recovery were discussed at length with the patient. She understands and wishes to proceed. Job ID: [id number] DocumentID: [id number] Dictated Date: 05/25/2021 05:33:02 Quality Assurance Supervisor Trim Date: 05/25/2021 06:08:23 Dictated By: ABELARDO DE LA TORRE MD
[2021-05-25] MEDS: LACTATED RINGERS 1,000 ML IV SCH ×3 (07:23→23:50)
--- NOTE | 2021-05-25 09:58 | Consultation ---
HPI History of Present Illness: Yesterday thought she saw something funny and went to look, has a sloping driveway and fell down, just got new bifocals and thinks her vision was off related to that. She thought she was on the edge of the driveway and wasn't quite and fell. She called a neighbor and they helped her get onto her rear, because her leg hurt so badly, she didn't even feel the scrape on her elbow due to leg pain. She has no history of problems with falls, and denies chest pain, palpitations, dizziness or syncope. History mildly limited as she recently had dilaudid for pain. Source: patient Date seen by provider: May 25, 2021 Time Seen by Provider: 10:00 Attending Physician Maynor Toscano MD [facility] [place],[facility] Consult Date of Admission May 24, 2021 at 20:00 Home Medications Home Medications Reviewed patient Home Medication Reconciliation performed by pharmacy medication reconciliations aircraft maintenance technician and/or nursing. Patients Allergies have been reviewed. Allergies Coded Allergies: Sulfa (Sulfonamide Antibiotics) (Verified Allergy, Unknown, 07/21/19) celecoxib (Unverified Allergy, Unknown, 09/23/10) meloxicam (Verified Allergy, Unknown, stomach pain, 07/21/19) YRJ-Mfbocx-Aqchwj Hx Patient Social History Smoking Status: Current Everyday Smoker (10 cigarettes per day, trying to quit) Recent Hopitalizations: Yes (TKR0) Alcohol Use?: No Tobacco type used: Cigarettes Have you traveled recently?: No Immunizations Up To Date Influenza Vaccine Up-to-Date: Yes; Up-to-Date First/Initial COVID19 Vaccinat: yes Second COVID19 Vaccination [place]: yes Third COVID19 Vaccination Date: yes COVID19 Vaccine Cook Helper Pastry: Moderna Past Medical History PMHx: Chronic low back pain SurgHx: Cholecystectomy Right knee replacement Cervical spine surgery for DJD Bilateral cataract surgery Family Medical History Family History: Alzheimer's disease 19 MOTHER FH: Crohn's disease G8 SISTER Review of Systems ([facility]) Constitutional: No fever EENTM: No nose congestion, No throat pain Respiratory: No cough, No short of breath Cardiovascular: No chest pain Gastrointestinal: No abdominal pain, No constipation; diarrhea (intermittent since GB removed); No nausea, No vomiting Genitourinary: No dysuria Musculoskeletal: joint pain, muscle pain Skin: No rash Reviewed Test Results Reviewed Test Results Lab Laboratory Tests Test 05/24/21 20:47 Range/Units White Blood Count 5.8 4.3-11.0 10^3/uL Red Blood Count 5.13 H 3.80-5.11 10^6/uL Hemoglobin 15.0 11.5-16.0 g/dL Hematocrit 46 35-52 % Mean Corpuscular Volume 90 80-99 fL Mean Corpuscular Hemoglobin 29 25-34 pg Mean Corpuscular Hemoglobin Concent 33 32-36 g/dL Red Cell Distribution Width 13.5 10.0-14.5 % Platelet Count 230 130-400 10^3/uL Mean Platelet Volume 8.9 L 9.0-12.2 fL Immature Granulocyte % (Auto) 0 % Neutrophils (%) (Auto) 64 42-75 % Lymphocytes (%) (Auto) 27 12-44 % Monocytes (%) (Auto) 7 0-12 % Eosinophils (%) (Auto) 2 0-10 % Basophils (%) (Auto) 0 0-10 % Neutrophils # (Auto) 3.7 1.8-7.8 10^3/uL Lymphocytes # (Auto) 1.6 1.0-4.0 10^3/uL Monocytes # (Auto) 0.4 0.0-1.0 10^3/uL Eosinophils # (Auto) 0.1 0.0-0.3 10^3/uL Basophils # (Auto) 0.0 0.0-0.1 10^3/uL Immature Granulocyte # (Auto) 0.0 0.0-0.1 10^3/uL Sodium Level 138 135-145 MMOL/L Potassium Level 3.9 3.6-5.0 MMOL/L Chloride Level 103 98-107 MMOL/L Carbon Dioxide Level 20 L 21-32 MMOL/L Anion Gap 15 H 5-14 MMOL/L Blood Urea Nitrogen 18 7-18 MG/DL Creatinine 0.67 0.60-1.30 MG/DL Estimat Glomerular Filtration Rate 88 BUN/Creatinine Ratio 27 Glucose Level 94 70-105 MG/DL Calcium Level 8.8 8.5-10.1 MG/DL Corrected Calcium 8.9 8.5-10.1 MG/DL Total Bilirubin 0.3 0.1-1.0 MG/DL Aspartate Amino Transf (AST/SGOT) 20 5-34 U/L Alanine Aminotransferase (ALT/SGPT) 20 0-55 U/L Alkaline Phosphatase 78 40-136 U/L Total Protein 7.1 6.4-8.2 GM/DL Albumin 3.9 3.2-4.5 GM/DL Radiology Left knee x-ray 05/25/21 IMPRESSION: Acute fracture of distal femur from the supracondylar region extending down through the intercondylar notch, with evidence of joint effusion. Physical Exam-([facility]) Physical Exam Vital Signs VS - Last 72 Hours, by Label 05/24/21 05/24/21 05/24/21 05/25/21 19:15 22:25 22:30 03:35 Temp 35.9 36.1 36.0 Pulse 90 88 92 Resp 18 21 B/P (MAP) 166/92 (116) 149/88 (108) 159/95 (116) Pulse Ox 97 95 95 95 O2 Delivery Room Air Room Air Room Air Room Air 05/25/21 05/25/21 08:00 12:00 Temp 36.6 36.8 Pulse 84 95 Resp 20 20 B/P (MAP) 167/92 (117) 158/94 (115) Pulse Ox 95 98 O2 Delivery Room Air Room Air Capillary Refill : Less Than 3 Seconds General Appearance: WD/WN, no apparent distress Respiratory: lungs clear, normal breath sounds Cardiovascular: regular rate, rhythm, no murmur Gastrointestinal: normal bowel sounds, non tender, soft Extremities: no pedal edema Neurologic/Psychiatric: alert, normal mood/affect Skin: normal color, warm/dry Assessment/Plan Assessment/Plan (1) Fracture of distal end of femur Status: Acute Assessment & Plan: Management per Orthopedic Surgery. BP elevated but suspect due to pain, monitor closely post-op. Qualifiers: (2) Vitamin D deficiency Status: Chronic Assessment & Plan: Pt notes she asked to have check recently due to history of deficiency but hasn't heard back. Reviewed clinic chart, checked on 05/10, was 21, will restart vitamin D supplementation. JEFFREY SARABIA MD May 25, 2021 09:58
[2021-05-25] MEDS ORDERED: ZINC220T3 PO (11:06)
[2021-05-25] MEDS ORDERED: ARNICARE PO (11:06)
[2021-05-25] MEDS ORDERED: IBUP-2185 PO (11:06)
[2021-05-25] MEDS ORDERED: SEVOFLURANE (ULTANE) 15 ML INHAL SOLN ONE ×2 (12:34→14:46)
[2021-05-25] MEDS ORDERED: MIDAZOLAM 2 MG/2 ML (VERSED) VIAL ONE (12:34)
[2021-05-25] MEDS ORDERED: fentaNYL INJ 100 MCG/2 ML AMP ONE (12:34)
[2021-05-25] MEDS ORDERED: proPOfol 200 MG/20 ML (DIPRIVAN) VIAL IV ONE (12:34)
[2021-05-25] MEDS ORDERED: LIDOCAINE PF 2% 5 ML (XYLOCAINE) VIAL ONE (12:34)
--- NOTE | 2021-05-25 12:48 | Progress Note-Pre Operative ---
Pre-Operative Progress Note H&P Reviewed The H&P was reviewed, patient examined and no changes noted. Date Seen by Provider: May 25, 2021 Time Seen by Provider: 12:47 Date H&P Reviewed: May 25, 2021 Time H&P Reviewed: 07:00 Pre-Operative Diagnosis: left distal femur fracture closed, displaced ABELARDO DE LA TORRE MD May 25, 2021 12:48
--- NOTE | 2021-05-25 12:49 | Progress Note-Post Operative ---
Post-Operative Progess Note Surgeon (s)/Tax Staff Accountant (s) Surgeon ABELARDO DE LA TORRE MD Tax Staff Accountant: Pedrito Charles Pre-Operative Diagnosis left distal femur fracture closed, displaced Post-Operative Diagnosis left distal femur fracture closed, displaced Procedure & Operative Findings Date of Procedure 05/25/21 Procedure Performed/Findings ORIF left distal femur Anesthesia Type GETA Estimated Blood Loss Estimated blood loss (mL): 100ml Specimens/Packing Specimens Removed none Packing: none ABELARDO DE LA TORRE MD May 25, 2021 12:49
[2021-05-25] MEDS ORDERED: HYDROmorphone 2 MG/ML VIAL (DILAUDID) IV PRN (13:00)
[2021-05-25] MEDS ORDERED: NALOXONE 0.4 MG/ML 1 ML (NARCAN) VIAL IV PRN (13:00)
[2021-05-25] MEDS ORDERED: ONDANSETRON 4 MG/2 ML (SDV) Z0FRAN IVP PRN ×2 (13:00→15:00)
[2021-05-25] MEDS ORDERED: LACTATED RINGERS 1,000 ML IV PRN (13:30)
[2021-05-25] MEDS ORDERED: BUPIVACAINE 0.5% 30 ML (SENSORCAINE) VIAL ONE (13:50)
[2021-05-25] MEDS ORDERED: ONDANSETRON 4 MG/2 ML (SDV) Z0FRAN ONE (13:55)
[2021-05-25] MEDS ORDERED: ROPIVACAINE 5MG/ML 30ML VIAL ONE (14:28)
--- NOTE | 2021-05-25 14:36 | Diagnostic Imaging Report ---
INDICATION: Proximal tibial fracture. COMPARISON: 05/24/2021 TOTAL FLUOROSCOPY TIME: 22 seconds TOTAL NUMBER OF FLUOROSCOPIC IMAGES SAVED: 4 FINDINGS: Multiple intraoperative images with 5 views of the left knee were obtained during ORIF. Images provided show placement of orthopedic side plate and screws about the distal femur. Fracture fragments appear appropriately aligned. Please note, interpreting radiologist was not present during the procedure. IMPRESSION: 1. Fluoroscopic guidance provided during ORIF. Dictated by: Dictated on workstation # [id number]
[2021-05-25] MEDS ORDERED: diphenhydrAMINE 25 MG TAB (BENADRYL) PO PRN (14:45)
[2021-05-25] MEDS ORDERED: ceFAZolin 2 GM IV Premixed 50 ML IV NR (14:45)
--- NOTE | 2021-05-25 14:50 | Anesthesia-General Post-Op ---
General Patient Condition Mental Status/LOC: Same as Preop Cardiovascular: Satisfactory Nausea/Vomiting: Absent Respiratory: Satisfactory Pain: Controlled Complications: Absent Post Op Complications Complications None Follow Up Care/Instructions Patient Instructions None needed. Anesthesia/Patient Condition Patient Condition Patient is doing well, no complaints, stable vital signs, no apparent adverse anesthesia problems. No complications reported per nursing. NAM BELL CRNA May 25, 2021 14:50
[2021-05-25] MEDS ORDERED: MEPERIDINE (DEMEROL) INJ 50 MG/ML IVP ONE (15:00)
[2021-05-25] MEDS ORDERED: morphine INJ 10 MG/ML 1ML (SYR OR VIAL) IVP ONE (15:00)
--- NOTE | 2021-05-25 19:42 | OPERATIVE REPORT ---
DATE OF SERVICE: 05/25/2021 PREOPERATIVE DIAGNOSIS: Closed displaced left distal femur fracture (intra-articular). POSTOPERATIVE DIAGNOSIS: Closed displaced left distal femur fracture (intra-articular). PROCEDURE: Open reduction and internal fixation of the left distal femur. SURGEON: Maynor De La Torre MD ENERGY TECHNICIAN: Pedrito Charles, who assisted throughout the procedure and closed the incision. ANESTHESIA: General endotracheal by Fan Emerson CRNA. TOURNIQUET TIME: 43 minutes at 300 mmHg. ESTIMATED BLOOD LOSS: 100 mL. DRAINS: None. COMPLICATIONS: None. POSTOPERATIVE PLAN: Toe touch weightbearing with 0 to 90 degrees range of motion. MATERIALS: Synthes periarticular femur plate. STATEMENT OF MEDICAL NECESSITY: The patient is a 66-year-old female who fell last evening and was found to have a closed displaced left distal femur fracture, which extended intraarticularly. This involved the lateral femoral condyle and extended to the metaphysis. Due to the displaced nature of the fracture, it was recommended that the patient undergo operative fixation. DESCRIPTION OF PROCEDURE: After risks and benefits of procedure were discussed and questions were answered, an informed consent was signed and placed on the chart. The operative site was confirmed in the preoperative holding area and initialed by the surgeon. The patient was then transported to the operating room and after adequate levels of general endotracheal anesthetic were obtained, a timeout was called confirming the operative site. Left lower extremity was prepped and draped in the usual sterile fashion with the leg elevated, tourniquet was inflated to 300 mmHg. A lateral approach was utilized. The iliotibial band was incised in line with the incision to the distal femur. The vastus lateralis was elevated off of the lateral aspect of the femur exposing the fracture site. The fracture was reduced anatomically and a Synthes distal femur plate was placed, 5 locking screws were placed distally, all with excellent purchase, proximal to the fracture four 4.5 screws were placed, all with good purchase. Fluoroscopy in AP, lateral and oblique planes revealed anatomic reduction of the fracture with well-placed hardware. The knee was taken through range of motion with full motion noted. No varus or valgus laxity was noted. The wound was copiously irrigated. The iliotibial band was closed in a running fashion with #1 Vicryl. The wound was further irrigated, 0 Vicryl was used for the deep subcutaneous tissue, 2-0 Vicryl for the superficial subcutaneous tissue, kalyn used on the skin. The tourniquet was deflated. A soft dressing was applied after infiltrating the incision with plain Marcaine and after dressing application and brace application, the patient was transferred to the recovery room awake and in stable condition. Job ID: [id number] DocumentID: [id number] Dictated Date: 05/25/2021 14:24:16 [employer] Professional Date: 05/25/2021 19:41:39 Dictated By: MAYNOR DE LA TORRE MD
[2021-05-25] MEDS: ceFAZolin 2 GM IV Premixed 50 ML IV SCH (21:16)
[2021-05-25] MEDS: oxyCODONE/APAP 5/325MG (PERCOCET 5) TABLET PO PRN (21:16)
[2021-05-26] MEDS: oxyCODONE/APAP 5/325MG (PERCOCET 5) TABLET PO PRN ×6 (04:36→23:39)
[2021-05-26 04:43] VITALS: BP 160/89
[2021-05-26] MEDS: ceFAZolin 2 GM IV Premixed 50 ML IV SCH (05:44)
[2021-05-26 06:21] LABS: HEMOGLOBIN 13.3 g/dL (11.5-16.0)
[2021-05-26] MEDS: VITAMIN D3 10 MCG (400 UNITS) TABLET PO SCH (07:55)
[2021-05-26 08:00] VITALS: BP 149/65
[2021-05-26] MEDS: MULTIVIT W/MINERALS TAB (THERAGRAN M) PO SCH (08:02)
[2021-05-26] MEDS: ZINC SULFATE 220 MG CAPSULE PO SCH (08:02)
[2021-05-26] MEDS: LACTATED RINGERS 1,000 ML IV SCH (08:02)
--- NOTE | 2021-05-26 09:15 | Physical Therapy Evaluation ---
PT Evaluation-General Medical Diagnosis Admission Date May 24, 2021 at 20:00 Medical Diagnosis: Left distal femur fracture Onset Date: May 24, 2021 Therapy Diagnosis Therapy Diagnosis: Gait deficit, strength deficit Height/Weight Height (Feet): 6 Height (Inches): 0 Weight (Pounds): 190 Precautions Precautions/Isolations: Fall Prevention, Standard Precautions Weight Bear Status Right Lower Extremity: Right Full Weight Bearing Left Lower Extremity: Left Touch Toe Bearing Referral Physician: Dr. Toscano Reason for Referral: Evaluation/Treatment Medical History Pertinent Medical History: Arthritis Social History Home: Single Level Current Living Status: Spouse Entry Into Home: Ramp Prior Prior Level of Function SCALE: Activities may be completed with or without assistive devices. 6-Kjgslpyijb-fcgeinr completes the activity by him/herself with no assistance from a helper. 5-Set-up or Clean-up Assistance-helper sets up or cleans up; patient completes activity. [place] assists only prior to or following the activity. 4-Supervision or Touching Assistance-helper provides verbal cues and/or touching/steadying and/or contact guard assistance as patient completes activity. Assistance may be provided throughout the activity or intermittently. 3-Partial/Moderate Assistance-helper does LESS THAN HALF the effort. [place] lifts, holds or supports trunk or limbs, but provides less than half the effort. 2-Substantial/Maximal Assistance-helper does MORE THAN HALF the effort. [place] lifts or holds trunk or limbs and provides more than half the effort. 0-Byuclgmow-ktdmfw does ALL the effort. Patient does none of the effort to complete the activity. Or, the assistance of 2 or more helpers is required for the patient to complete the activity. If activity was not attempted, code reason: 7-Patient Refused. 9-Not Applicable-not attempted and the patient did not perform the activity before the current illness, exacerbation or injury. 10-Not Attempted due to Environmental Limitations-(lack of equipment, weather restraints, etc.). 88-Not Attempted due to Medical Conditions or Safety Concerns. Bed Mobility: 6 Transfers (B,C,W/C): 6 Gait: 6 Stairs: 6 Indoor Mobility (Ambulation): Independent Stairs: Independent Patient reports she has a FWW, Crutches and w/c at home and is having her look for them. PT Evaluation-Current Subjective Patient rates pain at 5-6/10 currently. Reports she is very anxious and upset about getting up. States "I don't even have any clothes, they had to cut them off of me when I came in." Objective Patient Orientation: Person, Place, Time, Situation Attachments: Knee Immobilizer, Koch Catheter, IV ROM/Strength ROM Lower Extremities Left LE N/A due to pain and surgery. Right LE WFLs all available planes Strength Lower Extremities Left LE N/A due to pain and surgery. Right LE 5/5 all available planes Sensory Vision: Functional Hearing: Functional Sensation Right Lower Extremit: Intact Sensation Left Lower Extremity: Intact Transfers Roll Left to Right (QC): 3 Sit to Lying (QC): 3 Lying to Sitting/Side of Bed(Q: 3 Sit to Stand (QC): 2 Chair/Qed-gu-Trvuc Xfer(QC): 3 Gait Does the Patient Walk?: Yes Mode of Locomotion: Walk Anticipated Mode of Locomotion: Walk Walk 10 feet (QC): 88 Distance: 3 feet Gait Assistive Device: FWW Balance Sitting Static: Fair Sitting Dynamic: Fair Standing Static: Poor Standing Dynamic: Poor Assessment/Needs Patient lying supine in bed upon PT arrival, agreeable to treatment but notes she is very afraid and doesn't know how to move her left LE. Patient was educated on the use of her right LE to lift up her left LE to assist with its motion. Patient became very excited that she was able to move her left LE now. Patient performs all observed bed mobility and transfers with mod/max A. Patient required extra assistance and extra time to lower left LE to the ground. Patient was educated on TTWB left LE and verbalized understanding. Patient was able to ambulate to the chair with mod A, with FWW, with hop to gait on right LE. She required mod A for stand to sit to the chair. Patient in chair post treatment with all needs met, nursing notified, call light in reach. Rehab Potential: Fair PT Short Term Goals Short Term Goals Time Frame: Jun 02, 2021 Roll Left & Right: 4 Sit to lyin Lying to sitting on side of be: 4 Sit to stand: 4 Chair/qdd-eh-jippb transfer: 4 Toilet transfer: 4 Walk 10 feet: 4 Walk 50 feet with two turns: 4 Walk 150 feet: 3 PT Nursing Home Goals Nursing Home Goals PT Nursing Home Goals Time Frame: Jun 08, 2021 Roll Left & Right (QC): 6 Sit to Lying (QC): 6 Lying-Sitting on Side/Bed(QC): 6 Sit to Stand (QC): 6 Chair/Vjl-jm-Axpoc Xfer(QC): 6 Toilet Transfer (QC): 6 Car Transfer (QC): 6 Does the Patient Walk: Yes Walk 10 feet (QC): 5 Walk 50ft with 2 Turns (QC): 5 Walk 150 ft (QC): 5 PT Plan Problem List Problem List: Activity Tolerance, Functional Strength, Safety, Balance, Gait, Transfer, Bed Mobility, ROM Treatment/Plan Treatment Plan: Continue Plan of Care Treatment Plan: Bed Mobility, Education, Functional Activity Amor, Functional Strength, Group Therapy, Gait, Safety, Therapeutic Exercise, Transfers Treatment Duration: Jul 07, 2021 Frequency: 11 times per week Estimated Hrs Per Day: .25 hour per day Patient and/or Family Agrees t: Yes Safety Risks/Education Patient Education: Gait Training, Reviewed Precautions, Safety Issues Teaching Recipient: Patient Teaching Methods: Demonstration, Discussion Response to Teaching: Verbalize Understanding, Return Demonstration Discharge Recommendations Target Placement Post acute placement recommended Time/GCodes Time In: 830 Time Out: 912 Total Billed Treatment Time: 42 Total Billed Treatment Visit, [facility] [place] (2) DUONG TRINIDAD PT May 26, 2021 09:15
[2021-05-26] MEDS: ENOXAPARIN 30 MG/0.3 ML (LOVENOX) SYR SC SCH ×2 (09:36→19:56)
--- NOTE | 2021-05-26 10:42 | Progress Note ---
Standard Progress Note Progress Notes/Assess & Plan Date Seen by a Provider: May 26, 2021 Time Seen by a Provider: 10:40 Progress/Assessment & Plan complaints of sleep being interupted and of having to sit in chair Vital Signs Date Time Temp Pulse Resp B/P (MAP) Pulse Ox O2 Delivery O2 Flow Rate FiO2 05/26/21 09:54 Room Air 05/26/21 08:07 Room Air 05/26/21 08:00 37.2 109 20 149/65 (93) 97 Room Air 05/26/21 04:43 36.6 97 18 160/89 (112) 93 Room Air 05/25/21 23:50 36.2 97 18 118/68 (85) 93 Room Air 05/25/21 21:46 35.8 05/25/21 21:20 97 Nasal Cannula 2.00 05/25/21 21:10 35.8 102 20 157/84 (108) 96 Nasal Cannula 2.00 05/25/21 20:00 35.8 102 20 157/84 (108) 96 Nasal Cannula 2.00 05/25/21 16:52 36.4 102 22 175/83 (113) 97 Nasal Cannula 2.00 05/25/21 15:35 Nasal Cannula 2 05/25/21 15:24 36.7 12 180/95 (123) 94 Nasal Cannula 2 05/25/21 15:20 16 173/96 (121) 95 Room Air 05/25/21 15:10 14 171/97 (121) 97 OxyMask 10 05/25/21 15:05 OxyMask 10 05/25/21 15:00 14 167/94 (118) 98 OxyMask 10 05/25/21 14:50 14 174/99 (124) 98 OxyMask 10 05/25/21 14:41 16 173/96 (121) 99 OxyMask 10 05/25/21 14:36 OxyMask 10 05/25/21 14:36 36.4 16 135/80 (98) 99 OxyMask 10 05/25/21 12:00 36.8 95 20 158/94 (115) 98 Room Air I & O 05/26/21 07:00 Intake Total 1558 ml Output Total 3375 ml Balance -1817 ml Laboratory Tests Test 05/26/21 05:39 Range/Units Hemoglobin 13.3 11.5-16.0 g/dL Hematocrit 40 35-52 % LLE--In tact df and PF of toes and ankle. Sensation intact throughout LLE 2 plus DP pulse with brisk cap refill s/p ORIF L femur TTWB ?IRU answered patients questions for the third time re prognosis, surgery, type of fracture and time to healing ABELARDO DE LA TORRE MD May 26, 2021 10:42
[2021-05-26 12:00] VITALS: BP 124/81
[2021-05-26 16:14] VITALS: BP 152/91
[2021-05-26] MEDS: MUPIROCIN 2% OINT 22 GM (BACTROBAN) TUBE NSEACH SCH (19:57)
[2021-05-26 20:18] VITALS: BP 159/89
[2021-05-26] MEDS: ZOLPIDEM 5 MG (AMBIEN) TAB PO PRN (21:21)
[2021-05-27 00:53] VITALS: BP 161/90
[2021-05-27] MEDS: oxyCODONE/APAP 5/325MG (PERCOCET 5) TABLET PO PRN ×8 (02:17→21:44)
[2021-05-27 04:29] VITALS: BP 164/105
[2021-05-27 06:06] LABS: HEMOGLOBIN 13.2 g/dL (11.5-16.0)
[2021-05-27 08:00] VITALS: BP 162/97
[2021-05-27] MEDS: VITAMIN D3 10 MCG (400 UNITS) TABLET PO SCH (08:23)
[2021-05-27] MEDS: ZINC SULFATE 220 MG CAPSULE PO SCH (08:25)
[2021-05-27] MEDS: MUPIROCIN 2% OINT 22 GM (BACTROBAN) TUBE NSEACH SCH ×2 (08:26→21:45)
[2021-05-27] MEDS: ENOXAPARIN 30 MG/0.3 ML (LOVENOX) SYR SC SCH ×2 (08:26→21:44)
[2021-05-27] MEDS: MULTIVIT W/MINERALS TAB (THERAGRAN M) PO SCH (08:26)
--- NOTE | 2021-05-27 08:32 | Physical Therapy Daily Note ---
PT Daily Note-Current Subjective Patient reports 5/10 pain currently. Reports she was only in the chair for an hour or so yesterday as "It felt good to be up at first, but then I really hurt." Mental Status Patient Orientation: Person, Place, Time, Situation Attachments: Knee Immobilizer, IV Transfers SCALE: Activities may be completed with or without assistive devices. 8-Xeqfzwqvqq-rnbryfi completes the activity by him/herself with no assistance from a helper. 5-Set-up or Clean-up Assistance-helper sets up or cleans up; patient completes activity. [place] assists only prior to or following the activity. 4-Supervision or Touching Assistance-helper provides verbal cues and/or touching/steadying and/or contact guard assistance as patient completes activity. Assistance may be provided throughout the activity or intermittently. 3-Partial/Moderate Assistance-helper does LESS THAN HALF the effort. [place] lifts, holds or supports trunk or limbs, but provides less than half the effort. 2-Substantial/Maximal Assistance-helper does MORE THAN HALF the effort. [place] lifts or holds trunk or limbs and provides more than half the effort. 6-Coanoanfw-kjklct does ALL the effort. Patient does none of the effort to complete the activity. Or, the assistance of 2 or more helpers is required for the patient to complete the activity. If activity was not attempted, code reason: 7-Patient Refused. 9-Not Applicable-not attempted and the patient did not perform the activity before the current illness, exacerbation or injury. 10-Not Attempted due to Environmental Limitations-(lack of equipment, weather restraints, etc.). 88-Not Attempted due to Medical Conditions or Safety Concerns. Roll Left & Right (QC): 4 Sit to Lying (QC): 4 Lying to Sitting/Side of Bed(Q: 3 Sit to Stand (QC): 3 Chair/Hco-pj-Nungo Xfer(QC): 3 Weight Bearing Right Lower Extremity: Right Full Weight Bearing Left Lower Extremity: Left Touch Toe Bearing Gait Training Does the Patient Walk?: Yes Distance: 15 Walk 10 feet (QC): 3 Gait Assistive Device: FWW Patient is able to perform Hop to gait pattern with TTWB on left LE. She moves slowly and reports increased pain with each step, but maintains TTWB Left LE well and balance well. Exercises Supine Ex: Ankle pumps, Quad Set, Glut sets, Straight leg raise, Hip abd/add Supine Reps: 20 Quad set performed on right LE only. Hip abd/adduction and SLR performed on left LE with immobilizer donned, two handed support under the knee and heel and AAROM only with motion being much more passive than Active. Assessment Current Status: Good Progress Patient tolerated treatment well. Patient performs LE therapeutic exercise as listed above. Quad set performed on right LE only. Hip abd/adduction and SLR performed on left LE with immobilizer donned, two handed support under the knee and heel and AAROM only with motion being much more passive than Active. Requires SBA for bed mobility and min A for all transfers. She ambulates 15 f eet around the bed with FWW, with min a and verbal cues for safety, posture and control. Patient is able to perform Hop to gait pattern with TTWB on left LE. She moves slowly and reports increased pain with each step, but maintains TTWB Left LE well and balance well. Patient in chair post treatment with all needs met, nursing notified and educated on need for extra assistance to mobilize left LE, call light in reach. Patient dispensed written HEP of Ankle pumps, quad sets, heel slides and glut sets, with specific instructions written to do quad sets and heel slides only on the right LE. Patient educated on this and dispensed written HEP with copy of the written HEP placed in patients paper chart. PT Short Term Goals Short Term Goals Time Frame: Jun 02, 2021 Roll Left & Right: 4 Sit to lyin Lying to sitting on side of be: 4 Sit to stand: 4 Chair/pjy-ax-hjlbf transfer: 4 Toilet transfer: 4 Walk 10 feet: 4 Walk 50 feet with two turns: 4 Walk 150 feet: 3 PT Shelter Goals Substitute Bus Driver Goals PT Shelter Goals Time Frame: Jun 08, 2021 Roll Left & Right (QC): 6 Sit to Lying (QC): 6 Lying-Sitting on Side/Bed(QC): 6 Sit to Stand (QC): 6 Chair/Kpq-pw-Zwqmm Xfer(QC): 6 Toilet Transfer (QC): 6 Car Transfer (QC): 6 Does the Patient Walk: Yes Walk 10 feet (QC): 5 Walk 50ft with 2 Turns (QC): 5 Walk 150 ft (QC): 5 PT Plan Treatment/Plan Treatment Plan: Continue Plan of Care Treatment Plan: Bed Mobility, Education, Functional Activity Amor, Functional Strength, Group Therapy, Gait, Safety, Therapeutic Exercise, Transfers Treatment Duration: Jul 07, 2021 Frequency: 11 times per week Estimated Hrs Per Day: .25 hour per day Patient and/or Family Agrees t: Yes Safety Risks/Education Patient Education: Gait Training, Transfer Techniques, Issued Written HEP, Reviewed Precautions, Safety Issues Teaching Recipient: Patient, Family Teaching Methods: Demonstration, Handout, Discussion Response to Teaching: Verbalize Understanding, Return Demonstration Time/GCodes Time In: 740 Time Out: 825 Total Billed Treatment Time: 45 Total Billed Treatment Visit, Ex, [facility], DUONG Galvan PT May 27, 2021 08:32
--- NOTE | 2021-05-27 10:23 | Progress Note ---
Subjective Subjective/Events-last exam Pt states she has a lot of pain, can barely get up, but she also says she doesn't understand why the pain medicine is ordered so frequently. She is concerned about the discharge plan and says no one has talked to her about it, although there is documentation concerning this. Objective Exam Last Set of Vital Signs Vital Signs Date Time Temp Pulse Resp B/P (MAP) Pulse Ox O2 Delivery O2 Flow Rate FiO2 05/27/21 08:00 37.0 101 20 162/97 (118) 95 Room Air 05/25/21 21:20 2.00 Capillary Refill : Less Than 3 SecondsLess Than 3 Seconds I&O Intake and Output 05/27/21 00:00 Intake Total 1160 ml Output Total 1200 ml Balance -40 ml Intake Oral 1160 ml Output Urine Total 1200 ml # Voids 3 General: Alert, No Acute Distress Lungs: Clear to Auscultation, Normal Air Movement Heart: Regular Rate, No Murmurs Psych/Mental Status: Mood NL Results/Procedures Lab Laboratory Tests 05/27/21 05:57: Hemoglobin 13.2, Hematocrit 39 Microbiology 05/25/21 MRSA Screen - Final, Complete Radiology Left knee x-ray 05/25/21 IMPRESSION: Acute fracture of distal femur from the supracondylar region extending down through the intercondylar notch, with evidence of joint effusion. Assessment/Plan Assessment/Plan (1) Fracture of distal end of femur Status: Acute Assessment & Plan: Management per Orthopedic Surgery. PT, discussed with her IRF vs SNF and that timing of recovery is individual. Qualifiers: (2) Vitamin D deficiency Status: Chronic Assessment & Plan: Pt notes she asked to have check recently due to history of deficiency but hasn't heard back. Reviewed clinic chart, checked on 05/10, was 21, will restart vitamin D supplementation. (3) Hypertension Status: Acute Assessment & Plan: Outpatient clinic chart has dx of HTN, but she has not been requiring medication, start low dose hydrochlorothiazide for now and monitor. JEFFREY SARABIA MD May 27, 2021 10:23
--- NOTE | 2021-05-27 11:50 | Progress Note ---
Standard Progress Note Progress Notes/Assess & Plan Date Seen by a Provider: May 27, 2021 Time Seen by a Provider: 11:49 Progress/Assessment & Plan complaints of sleep being interupted and of having to sit in chair Vital Signs Date Time Temp Pulse Resp B/P (MAP) Pulse Ox O2 Delivery O2 Flow Rate FiO2 05/26/21 09:54 Room Air 05/26/21 08:07 Room Air 05/26/21 08:00 37.2 109 20 149/65 (93) 97 Room Air 05/26/21 04:43 36.6 97 18 160/89 (112) 93 Room Air 05/25/21 23:50 36.2 97 18 118/68 (85) 93 Room Air 05/25/21 21:46 35.8 05/25/21 21:20 97 Nasal Cannula 2.00 05/25/21 21:10 35.8 102 20 157/84 (108) 96 Nasal Cannula 2.00 05/25/21 20:00 35.8 102 20 157/84 (108) 96 Nasal Cannula 2.00 05/25/21 16:52 36.4 102 22 175/83 (113) 97 Nasal Cannula 2.00 05/25/21 15:35 Nasal Cannula 2 05/25/21 15:24 36.7 12 180/95 (123) 94 Nasal Cannula 2 05/25/21 15:20 16 173/96 (121) 95 Room Air 05/25/21 15:10 14 171/97 (121) 97 OxyMask 10 05/25/21 15:05 OxyMask 10 05/25/21 15:00 14 167/94 (118) 98 OxyMask 10 05/25/21 14:50 14 174/99 (124) 98 OxyMask 10 05/25/21 14:41 16 173/96 (121) 99 OxyMask 10 05/25/21 14:36 OxyMask 10 05/25/21 14:36 36.4 16 135/80 (98) 99 OxyMask 10 05/25/21 12:00 36.8 95 20 158/94 (115) 98 Room Air I & O 05/26/21 07:00 Intake Total 1558 ml Output Total 3375 ml Balance -1817 ml Laboratory Tests Test 05/26/21 05:39 Range/Units Hemoglobin 13.3 11.5-16.0 g/dL Hematocrit 40 35-52 % LLE--In tact df and PF of toes and ankle. Sensation intact throughout LLE 2 plus DP pulse with brisk cap refill s/p ORIF L femur TTWB ?IRU answered patients questions for the third time re prognosis, surgery, type of fracture and time to healing Final Diagnosis Feeling much better today Vital Signs Date Time Temp Pulse Resp B/P (MAP) Pulse Ox O2 Delivery O2 Flow Rate FiO2 05/27/21 08:00 Room Air 05/27/21 08:00 37.0 101 20 162/97 (118) 95 Room Air 05/27/21 04:29 37.0 89 18 164/105 (124) 95 Room Air 05/27/21 02:47 37.5 05/27/21 00:53 37.5 101 18 161/90 (113) 95 Room Air 05/27/21 00:09 37.5 05/26/21 20:41 37.4 05/26/21 20:18 37.4 93 18 159/89 (112) 96 Room Air 05/26/21 20:10 96 Room Air 05/26/21 16:14 37.2 99 18 152/91 (111) 95 Room Air 05/26/21 12:00 37.1 105 20 124/81 (95) 93 Room Air I & O 05/27/21 06:59 Intake Total 1160 ml Output Total 700 ml Balance 460 ml Laboratory Tests Test 05/27/21 05:57 Range/Units Hemoglobin 13.2 11.5-16.0 g/dL Hematocrit 39 35-52 % LLE--incision clean and dry. No calf tenderness. Neg Jose's s/p L femur ORIF patient will likely require IRU await eval continue PT/OT ABELARDO DE LA TORRE MD May 27, 2021 11:50
[2021-05-27 12:00] VITALS: BP 143/91
[2021-05-27 15:30] VITALS: BP 154/90
[2021-05-27 19:42] VITALS: BP 126/75
[2021-05-27] MEDS: ZOLPIDEM 5 MG (AMBIEN) TAB PO PRN (21:44)
[2021-05-28] VITALS: BP 132/87
[2021-05-28] MEDS: oxyCODONE/APAP 5/325MG (PERCOCET 5) TABLET PO PRN ×4 (01:35→10:24)
[2021-05-28 04:00] VITALS: BP 158/88
[2021-05-28 06:27] LABS: CALCIUM 8.7 MG/DL (8.5-10.1); CREATININE SERUM 0.59 MG/DL (0.60-1.30); POTASSIUM 3.5 MMOL/L (3.6-5.0)
[2021-05-28] MEDS: VITAMIN D3 10 MCG (400 UNITS) TABLET PO SCH (06:43)
[2021-05-28 06:53] LABS: INR 0.9 (0.8-1.4); PROTHROMBIN TIME PATIENT 12.8 SEC (12.2-14.7)
[2021-05-28 07:42] VITALS: BP 142/77
--- NOTE | 2021-05-28 08:08 | Progress Note ---
Standard Progress Note Progress Notes/Assess & Plan Date Seen by a Provider: May 28, 2021 Time Seen by a Provider: 08:07 Progress/Assessment & Plan complaints of sleep being interupted and of having to sit in chair Vital Signs Date Time Temp Pulse Resp B/P (MAP) Pulse Ox O2 Delivery O2 Flow Rate FiO2 05/26/21 09:54 Room Air 05/26/21 08:07 Room Air 05/26/21 08:00 37.2 109 20 149/65 (93) 97 Room Air 05/26/21 04:43 36.6 97 18 160/89 (112) 93 Room Air 05/25/21 23:50 36.2 97 18 118/68 (85) 93 Room Air 05/25/21 21:46 35.8 05/25/21 21:20 97 Nasal Cannula 2.00 05/25/21 21:10 35.8 102 20 157/84 (108) 96 Nasal Cannula 2.00 05/25/21 20:00 35.8 102 20 157/84 (108) 96 Nasal Cannula 2.00 05/25/21 16:52 36.4 102 22 175/83 (113) 97 Nasal Cannula 2.00 05/25/21 15:35 Nasal Cannula 2 05/25/21 15:24 36.7 12 180/95 (123) 94 Nasal Cannula 2 05/25/21 15:20 16 173/96 (121) 95 Room Air 05/25/21 15:10 14 171/97 (121) 97 OxyMask 10 05/25/21 15:05 OxyMask 10 05/25/21 15:00 14 167/94 (118) 98 OxyMask 10 05/25/21 14:50 14 174/99 (124) 98 OxyMask 10 05/25/21 14:41 16 173/96 (121) 99 OxyMask 10 05/25/21 14:36 OxyMask 10 05/25/21 14:36 36.4 16 135/80 (98) 99 OxyMask 10 05/25/21 12:00 36.8 95 20 158/94 (115) 98 Room Air I & O 05/26/21 07:00 Intake Total 1558 ml Output Total 3375 ml Balance -1817 ml Laboratory Tests Test 05/26/21 05:39 Range/Units Hemoglobin 13.3 11.5-16.0 g/dL Hematocrit 40 35-52 % LLE--In tact df and PF of toes and ankle. Sensation intact throughout LLE 2 plus DP pulse with brisk cap refill s/p ORIF L femur TTWB ?IRU answered patients questions for the third time re prognosis, surgery, type of fracture and time to healing Final Diagnosis no complaints Vital Signs Date Time Temp Pulse Resp B/P (MAP) Pulse Ox O2 Delivery O2 Flow Rate FiO2 05/28/21 07:42 35.8 97 18 142/77 (98) 92 Room Air 05/28/21 04:00 35.8 96 15 158/88 (111) 95 Room Air 05/28/21 00:00 36.7 101 17 132/87 (102) 93 Room Air 05/27/21 20:00 Room Air 05/27/21 19:42 36.8 101 18 126/75 (92) 94 Room Air 05/27/21 15:30 36.8 95 18 154/90 (111) 95 Room Air 05/27/21 12:00 36.8 102 20 143/91 (108) 92 Room Air I & O 05/28/21 07:00 Intake Total 920 ml Output Total 650 ml Balance 270 ml Laboratory Tests Test 05/28/21 05:36 Range/Units Prothrombin Time 12.8 12.2-14.7 SEC INR Comment 0.9 0.8-1.4 Sodium Level 137 135-145 MMOL/L Potassium Level 3.5 L 3.6-5.0 MMOL/L Chloride Level 100 98-107 MMOL/L Carbon Dioxide Level 23 21-32 MMOL/L Anion Gap 14 5-14 MMOL/L Blood Urea Nitrogen 15 7-18 MG/DL Creatinine 0.59 L 0.60-1.30 MG/DL Estimat Glomerular Filtration Rate 102 BUN/Creatinine Ratio 25 Glucose Level 108 H 70-105 MG/DL Calcium Level 8.7 8.5-10.1 MG/DL LLE--dressing intact. no calf tenderness. Neg Santa's s/[p L femur ORIF PT/OT Polar care to left knee IRU when available ABELARDO DE LA TORRE MD May 28, 2021 08:08
[2021-05-28] MEDS: ZINC SULFATE 220 MG CAPSULE PO SCH (08:16)
[2021-05-28] MEDS: MULTIVIT W/MINERALS TAB (THERAGRAN M) PO SCH (08:16)
[2021-05-28] MEDS: ENOXAPARIN 30 MG/0.3 ML (LOVENOX) SYR SC SCH (08:16)
--- NOTE | 2021-05-28 08:48 | Physical Therapy Daily Note ---
PT Daily Note-Current Subjective Patient in bed pre tx, agrees to PT, has 5/10 pain in left leg. Appearance Patient in recliner post tx with nurse call, phone, tray, all needs met. Mental Status Patient Orientation: Person, Place, Situation left leg brace Transfers SCALE: Activities may be completed with or without assistive devices. 8-Kuimpuipby-fqoijzc completes the activity by him/herself with no assistance from a helper. 5-Set-up or Clean-up Assistance-helper sets up or cleans up; patient completes activity. Glynn assists only prior to or following the activity. 4-Supervision or Touching Assistance-helper provides verbal cues and/or touching/steadying and/or contact guard assistance as patient completes activity. Assistance may be provided throughout the activity or intermittently. 3-Partial/Moderate Assistance-helper does LESS THAN HALF the effort. Glynn lifts, holds or supports trunk or limbs, but provides less than half the effort. 2-Substantial/Maximal Assistance-helper does MORE THAN HALF the effort. Glynn lifts or holds trunk or limbs and provides more than half the effort. 5-Dgdhltnyu-styfxh does ALL the effort. Patient does none of the effort to complete the activity. Or, the assistance of 2 or more helpers is required for the patient to complete the activity. If activity was not attempted, code reason: 7-Patient Refused. 9-Not Applicable-not attempted and the patient did not perform the activity before the current illness, exacerbation or injury. 10-Not Attempted due to Environmental Limitations-(lack of equipment, weather restraints, etc.). 88-Not Attempted due to Medical Conditions or Safety Concerns. Roll Left & Right (QC): 6 Lying to Sitting/Side of Bed(Q: 3 Sit to Stand (QC): 4 Chair/Ihw-qd-Cucbp Xfer(QC): 4 cues for TTWB on the left leg Weight Bearing Right Lower Extremity: Right Full Weight Bearing Left Lower Extremity: Left Touch Toe Bearing Gait Training Distance: 5' Gait Persons Needed: 1 Gait Assistive Device: FWW patient is compliant with TTWB on the left leg Exercises Supine Ex: Quad Set Supine Reps: 10 (done in recliner with legs elevated) Seated Therapy Exercises: Ankle pumps, Long arc quads Seated Reps: 10 Treatments bed mobility and transfers, ambulation, LE strengthening Assessment Current Status: Fair Progress patient has a lot of pain with activity PT Short Term Goals Short Term Goals Time Frame: Jun 02, 2021 Roll Left & Right: 4 Sit to lyin Lying to sitting on side of be: 4 Sit to stand: 4 Chair/jfu-ic-ykgbi transfer: 4 Toilet transfer: 4 Walk 10 feet: 4 Walk 50 feet with two turns: 4 Walk 150 feet: 3 PT Senior Living Goals Senior Living Goals PT Senior Living Goals Time Frame: Jun 08, 2021 Roll Left & Right (QC): 6 Sit to Lying (QC): 6 Lying-Sitting on Side/Bed(QC): 6 Sit to Stand (QC): 6 Chair/Osk-md-Loemq Xfer(QC): 6 Toilet Transfer (QC): 6 Car Transfer (QC): 6 Does the Patient Walk: Yes Walk 10 feet (QC): 5 Walk 50ft with 2 Turns (QC): 5 Walk 150 ft (QC): 5 PT Plan Problem List Problem List: Activity Tolerance, Functional Strength, Safety, Balance, Gait, Transfer, Bed Mobility, ROM Treatment/Plan Treatment Plan: Continue Plan of Care Treatment Plan: Bed Mobility, Education, Functional Activity Amor, Functional Strength, Group Therapy, Gait, Safety, Therapeutic Exercise, Transfers Treatment Duration: Jul 07, 2021 Frequency: 11 times per week Estimated Hrs Per Day: .25 hour per day Patient and/or Family Agrees t: Yes Safety Risks/Education Patient Education: Gait Training, Transfer Techniques, Reviewed Precautions, Correct Positioning, Safety Issues Teaching Recipient: Patient Teaching Methods: Demonstration, Discussion Response to Teaching: Reinforcement Needed Time/GCodes Time In: 813 Time Out: 827 Total Billed Treatment Time: 14 Total Billed Treatment 1 visit FA LUBA MCKAY PT May 28, 2021 08:48
[2021-05-28 09:13] LABS: BASOPHILS % (AUTO) 0 % (0-10); EOSINOPHILS # (AUTO) 0.2 10^3/uL (0.0-0.3); EOSINOPHILS % (AUTO) 3 % (0-10); HEMATOCRIT 40 % (35-52); HEMOGLOBIN 13.2 g/dL (11.5-16.0); LYMPHOCYTES # (AUTO) 1.9 10^3/uL (1.0-4.0); LYMPHOCYTES % (AUTO) 24 % (12-44); MEAN CORPUSCULAR HEMOGLOBIN 30 pg (25-34); MEAN CORPUSCULAR HGB CONC 33 g/dL (32-36); MEAN CORPUSCULAR VOLUME 90 fL (80-99); MEAN PLATELET VOLUME 9.3 fL (9.0-12.2); MONOCYTES # (AUTO) 0.6 10^3/uL (0.0-1.0); MONOCYTES % (AUTO) 8 % (0-12); NEUTROPHILS # (AUTO) 5.3 10^3/uL (1.8-7.8); NEUTROPHILS % (AUTO) 65 % (42-75); PLATELET COUNT 206 10^3/uL (130-400); WHITE BLOOD COUNT 8.1 10^3/uL (4.3-11.0)
[2021-05-28] MEDS: MUPIROCIN 2% OINT 22 GM (BACTROBAN) TUBE NSEACH SCH (09:43)
[2021-05-28 09:48] LABS: ALBUMIN 3.4 GM/DL (3.2-4.5); BILIRUBIN,TOTAL 0.6 MG/DL (0.1-1.0); TOTAL PROTEIN 6.6 GM/DL (6.4-8.2)
--- NOTE | 2021-05-28 10:00 | Discharge Summary ---
Diagnosis/Chief Complaint Date of Admission May 24, 2021 at 20:00 Date of Discharge Discharge Date: May 28, 2021 Discharge Diagnosis Left distal femur fracture Smoker Discharge Summary Discharge Physical Examination Allergies: Coded Allergies: Sulfa (Sulfonamide Antibiotics) (Verified Allergy, Unknown, 07/21/19) celecoxib (Unverified Allergy, Unknown, 09/23/10) meloxicam (Verified Allergy, Unknown, stomach pain, 07/21/19) Vitals & I&Os Vital Signs Date Time Temp Pulse Resp B/P (MAP) Pulse Ox O2 Delivery O2 Flow Rate FiO2 05/28/21 08:00 Room Air 05/28/21 07:42 35.8 97 18 142/77 (98) 92 05/25/21 21:20 2.00 Hospital Course Was the Problem List Reviewed?: Yes Mrs. Omer is a 66yo female that presented to the ER on 05/24 due to having a fall and L knee pain. On workup in the ER she was found to have a L distal femur fracture. She was admitted to [facility] under Dr. Toscano and underwent Open reduction with internal fixation procedure the next day. She received pain management and PT/OT until her discharge on 05/28. She did not have any major events during her stay. She was discharged to [facility] inpatient rehab. Labs (last 24 hrs) Laboratory Tests 05/24/21 20:47: White Blood Count 5.8, Red Blood Count 5.13H, Hemoglobin 15.0, Hematocrit 46, Me an Corpuscular Volume 90, Mean Corpuscular Hemoglobin 29, Mean Corpuscular Hemoglobin Concent 33, Red Cell Distribution Width 13.5, Platelet Count 230, Mean Platelet Volume 8.9L, Immature Granulocyte % (Auto) 0, Neutrophils (%) (Auto) 64, Lymphocytes (%) (Auto) 27, Monocytes (%) (Auto) 7, Eosinophils (%) (Auto) 2, Basophils (%) (Auto) 0, Neutrophils # (Auto) 3.7, Lymphocytes # (Auto) 1.6, Monocytes # (Auto) 0.4, Eosinophils # (Auto) 0.1, Basophils # (Auto) 0.0, Immature Granulocyte # (Auto) 0.0, Sodium Level 138, Potassium Level 3.9, Chloride Level 103, Carbon Dioxide Level 20L, Anion Gap 15H, Blood Urea Nitrogen 18, Creatinine 0.67, Estimat Glomerular Filtration Rate 88, BUN/Creatinine Ratio 27, Glucose Level 94, Calcium Level 8.8, Corrected Calcium 8.9, Total Bilirubin 0.3, Aspartate Amino Transf (AST/SGOT) 20, Alanine Aminotransferase (ALT/SGPT) 20, Alkaline Phosphatase 78, Total Protein 7.1, Albumin 3.9 05/26/21 05:39: Hemoglobin 13.3, Hematocrit 40 05/27/21 05:57: Hemoglobin 13.2, Hematocrit 39 05/28/21 05:36: White Blood Count 8.1, Red Blood Count 4.41, Hemoglobin 13.2, Hematocrit 40, Mean Corpuscular Volume 90, Mean Corpuscular Hemoglobin 30, Mean Corpuscular Hemoglobin Concent 33, Red Cell Distribution Width 13.1, Platelet Count 206, Mean Platelet Volume 9.3, Immature Granulocyte % (Auto) 0, Neutrophils (%) (Auto) 65, Lymphocytes (%) (Auto) 24, Monocytes (%) (Auto) 8, Eosinophils (%) (Auto) 3, Basophils (%) (Auto) 0, Neutrophils # (Auto) 5.3, Lymphocytes # (Auto) 1.9, Monocytes # (Auto) 0.6, Eosinophils # (Auto) 0.2, Basophils # (Auto) 0.0, Immature Granulocyte # (Auto) 0.0, Sodium Level 137, Potassium Level 3.5L, Chloride Level 100, Carbon Dioxide Level 23, Anion Gap 14, Blood Urea Nitrogen 15, Creatinine 0.59L, Estimat Glomerular Filtration Rate 102, BUN/Creatinine Ratio 25, Glucose Level 108H, Calcium Level 8.7, Corrected Calcium 9.2, Total Bilirubin 0.6, Aspartate Amino Transf (AST/SGOT) 20, Alanine Aminotransferase (ALT/SGPT) 17, Alkaline Phosphatase 74, Total Protein 6.6, Albumin 3.4, Prothrombin Time 12.8, INR Comment 0.9 Microbiology 05/25/21 MRSA Screen - Final, Complete Pending Labs Microbiology Date/Time Source Procedure Growth Status 05/25/21 07:00 Nasal MRSA Screen - Final Complete Laboratory Tests 05/24/21 20:47: White Blood Count 5.8, Red Blood Count 5.13, Hemoglobin 15.0, Hematocrit 46, Mean Corpuscular Volume 90, Mean Corpuscular Hemoglobin 29, Mean Corpuscular Hemoglobin Concent 33, Red Cell Distribution Width 13.5, Platelet Count 230, Mean Platelet Volume 8.9, Immature Granulocyte % (Auto) 0, Neutrophils (%) (Auto) 64, Lymphocytes (%) (Auto) 27, Monocytes (%) (Auto) 7, Eosinophils (%) (Auto) 2, Basophils (%) (Auto) 0, Neutrophils # (Auto) 3.7, Lymphocytes # (Auto) 1.6, Monocytes # (Auto) 0.4, Eosinophils # (Auto) 0.1, Basophils # (Auto) 0.0, Immature Granulocyte # (Auto) 0.0, Sodium Level 138, Potassium Level 3.9, Chloride Level 103, Carbon Dioxide Level 20, Anion Gap 15, Blood Urea Nitrogen 18, Creatinine 0.67, Estimat Glomerular Filtration Rate 88, BUN/Creatinine Ratio 27, Glucose Level 94, Calcium Level 8.8, Corrected Calcium 8.9, Total Bilirubin 0.3, Aspartate Amino Transf (AST/SGOT) 20, Alanine Aminotransferase (ALT/SGPT) 20, Alkaline Phosphatase 78, Total Protein 7.1, Albumin 3.9 05/26/21 05:39: Hemoglobin 13.3, Hematocrit 40 05/27/21 05:57: Hemoglobin 13.2, Hematocrit 39 05/28/21 05:36: White Blood Count 8.1, Red Blood Count 4.41, Hemoglobin 13.2, Hematocrit 40, Mean Corpuscular Volume 90, Mean Corpuscular Hemoglobin 30, Mean Corpuscular Hemoglobin Concent 33, Red Cell Distribution Width 13.1, Platelet Count 206, Mean Platelet Volume 9.3, Immature Granulocyte % (Auto) 0, Neutrophils (%) (Auto) 65, Lymphocytes (%) (Auto) 24, Monocytes (%) (Auto) 8, Eosinophils (%) (Auto) 3, Basophils (%) (Auto) 0, Neutrophils # (Auto) 5.3, Lymphocytes # (Auto) 1.9, Monocytes # (Auto) 0.6, Eosinophils # (Auto) 0.2, Basophils # (Auto) 0.0, Immature Granulocyte # (Auto) 0.0, Sodium Level 137, Potassium Level 3.5, Chloride Level 100, Carbon Dioxide Level 23, Anion Gap 14, Blood Urea Nitrogen 15, Creatinine 0.59, Estimat Glomerular Filtration Rate 102, BUN/Creatinine Ratio 25, Glucose Level 108, Calcium Level 8.7, Corrected Calcium 9.2, Total Bilirubin 0.6, Aspartate Amino Transf (AST/SGOT) 20, Alanine Aminotransferase (ALT/SGPT) 17, Alkaline Phosphatase 74, Total Protein 6.6, Albumin 3.4, Prothrombin Time 12.8, INR Comment 0.9 Discharge Home Medications: Active Scripts Active Reported [Arnicare] Tab 1-2 Ea PO Q6H PRN Zinc (Zinc Sulfate) 50 Mg Tablet 50 Mg PO DAILY Ibuprofen 200 Mg Capsule 400 Mg PO Q8H PRN Multivitamins (Multivitamin) 1 Each Tablet 1 Each PO DAILY Benadryl Allergy (Diphenhydramine HCl) 25 Mg Tablet 25 Mg PO Q4 -6H PRN Tylenol (Acetaminophen) 325 Mg Tablet 650 Mg PO Q8H PRN Instructions to patient/family Please see electronic discharge instructions given to patient. KENIA DE LUNA DO May 28, 2021 10:00
--- NOTE | 2021-05-28 11:02 | Progress Note ---
REBECCA ROSEN MED STUDENT 05/28/21 1102: Progress Note Mrs. Omer is a 66yo female that presented to the ER on 05/24 due to having a fall and L knee pain. On workup in the ER she was found to have a L distal femur fracture. She was admitted to [facility] under Dr. Toscano and underwent Open reduction with internal fixation procedure the next day. She received pain management and PT/OT until her discharge on 05/28. She did not have any major events during her stay. She was discharged to [facility] inpatient rehab. Supervisory-Addendum Brief Verification & Attestation Participated in pt care: history, physical Personally performed: exam Care discussed with: Medical Student Procedures: n/a n/a NABILA DE LUNA DO 05/29/21 0532: Supervisory-Addendum Brief Verification & Attestation Participated in pt care: history, MDM, physical Personally performed: exam, history, MDM, supervision of care Care discussed with: Medical Student Procedures: n/a Results interpretation: Verified all documentation Verification and Attestation of Medical Student E/M Service A medical student performed and documented this service in my presence. I reviewed and verified all information documented by the medical student and made modifications to such information, when appropriate. I personally performed the physical exam and medical decision making. Nabila De Luna, May 29, 2021,05:32 REBECCA ROSEN MED STUDENT May 28, 2021 11:02 NABILA DE LUNA DO May 29, 2021 05:32
--- NOTE | 2021-05-29 02:12 | DISCHARGE SUMMARY ---
DATE OF SERVICE: DIAGNOSES: 1. Left distal femur fracture. 2. Seasonal rhinitis. PROCEDURE: Open reduction and internal fixation of left femur. SUMMARY: The patient is a 66-year-old female who underwent a left femoral open reduction and internal fixation the day following admission. She fell and presented to the Emergency Department where she was found to have an intraarticular displaced left distal femur fracture. Postoperatively, she did well. At time of discharge, her wound was clean and dry. She had no calf tenderness. Negative Homans sign. She was progressing well with physical therapy. CONDITION AT DISCHARGE: Good. DISCHARGE DIET: Regular. DISPOSITION: Transfer to the inpatient rehabilitation unit for continued physical and occupational therapy. Job ID: [id number] DocumentID: [id number] Dictated Date: 05/28/2021 08:09:57 Wash Operator Date: 05/29/2021 02:11:43 Dictated By: ABELARDO DE LA TORRE MD
[2021-05-30] MEDS ORDERED: DOCU100C37 PO (12:06)
[2021-05-30] MEDS ORDERED: NF-VITD400 PO (12:06)
[2021-05-30] MEDS ORDERED: OXYC1TAB87 PO (12:06)
[2021-05-30] MEDS ORDERED: ENOX40DI13 SQ (12:06)
== END 2021-05-28 10:49 | DRG 482 ==
LOC: EDUNIT# 19:10 → ER 19:11 → 4TH 20:00
PROVIDERS: ADMIT Orthopaedic Surgery; ATTEND Orthopaedic Surgery
PROC: 0QSC04Z Reposition Left Lower Femur with Internal Fixation Device, Open Approach (ICD-10-PCS; principal; 2021-05-25 13:07)
DX: S72.422A Displaced fracture of lateral condyle of left femur, initial encounter for closed fracture (principal); W18.30XA Fall on same level, unspecified, initial encounter; M19.90 Unspecified osteoarthritis, unspecified site; Z96.651 Presence of right artificial knee joint; G89.29 Other chronic pain; M54.50 Low back pain, unspecified; F17.210 Nicotine dependence, cigarettes, uncomplicated; E55.9 Vitamin D deficiency, unspecified; I10 Essential (primary) hypertension; J30.2 Other seasonal allergic rhinitis; Z79.82 Long term (current) use of aspirin; Z79.899 Other long term (current) drug therapy; Z88.2 Allergy status to sulfonamides
CPT/HCPCS: 36415; 73080; 73562; 73590; 76000; 80053; 85014; 85018; 85025; 85610; 87081; 94664

== ENCOUNTER 2021-05-28 09:53 | Inpatient (IN) | payer MEDICARE, OTHER ==
[~2021-05-28] VITALS: Ht 182.8 cm; Wt 91.5 kg
[~2021-05-28 09:53] MED LIST changes: +ARNICARE PO; +IBUP-2185 PO; +ZINC220T3 PO
[2021-05-28] MEDS ORDERED: ONDANSETRON 4 MG (ZOFRAN) ORAL DISSOLVE TAB PO PRN (10:15)
[2021-05-28] MEDS ORDERED: MELATONIN 3 MG TABLET PO PRN (10:15)
[2021-05-28] MEDS ORDERED: DOCUSATE SODIUM 100 MG (COLACE) CAP PO PRN (10:15)
[2021-05-28] MEDS ORDERED: FLEET ENEMA ADULT 1 EA BTL PR PRN (10:15)
[2021-05-28] MEDS ORDERED: BISACODYL 10 MG SUPP (DULCOLAX) PR PRN (10:15)
[2021-05-28] MEDS ORDERED: diphenhydrAMINE 25 MG TAB (BENADRYL) PO PRN (10:15)
[2021-05-28] MEDS ORDERED: ALPRAZolam 0.25 MG (XANAX) TAB PO PRN (10:15)
[2021-05-28] MEDS ORDERED: ONDANSETRON 4 MG/2 ML (SDV) Z0FRAN IV PRN (10:15)
[2021-05-28] MEDS ORDERED: LOPERAMIDE 2 MG (IMODIUM) TABLET PO PRN (10:15)
[2021-05-28] MEDS ORDERED: guaiFENesin/CODEINE (ROBITUSSIN AC) 10ML UDC PO PRN (10:15)
[2021-05-28] MEDS ORDERED: ACETAMINOPHEN 325 MG TABLET PO PRN (10:15)
[2021-05-28] MEDS ORDERED: CALCIUM CARBONATE 500 MG (TUMS) TAB.CHEW PO PRN (10:15)
[2021-05-28] MEDS ORDERED: ENOXAPARIN 40 MG/0.4 ML (LOVENOX) SYR SC SCH (10:15)
[2021-05-28] MEDS ORDERED: LACTULOSE SYRUP 10GM/15ML (ENULOSE) 30ML UDC PO PRN (10:15)
[2021-05-28 11:19] VITALS: BP 135/80
--- NOTE | 2021-05-28 11:19 | PM&R Post Admission Assessment ---
PM&R Date of Visit: May 28, 2021 Time of Visit: 15:00 History of Present Illness CC: Debility from left distal femur fracture HPI: This is a 66yoWM clinic Pt of [facility] who had been in inpatient rehab about a year and a half ago after a right knee replacement. She presents with a left distal femur fracture. She is in an immobilizer. DVT Prophylaxis was continued along with pain medication. Oxygen will be weaned and Pt is in the midst of smoking cessation. Patient will require aggressive rehabilitation with the use of assistive device in order to return back home to independent living. Oxygen status will be monitored closely. Past Bnamvdm-Ofiixy-Vfmnqr Hx Past Med/Social Hx: Reviewed Nursing Past Med/Soc Hx, Reviewed and Corrections made Patient Social History Marrital Status: single Employed/Student: retired Alcohol Use: Rarely Uses Alcohol Beverage of Choice: Wine Smoking Status: Current Everyday Smoker Former Smoker, Quit: Jul 28, 2019 Type Used: Cigarettes Recent Hopitalizations: Yes (TKR0) Immunizations Up To Date Pediatric: Yes Date of Influenza Vaccine: Mar 27, 2019 Seasonal Allergies Seasonal Allergies: Yes Past Medical History Surgeries: Orthopedic Respiratory: COPD Currently Using CPAP: No Currently Using BIPAP: No Reproductive: No Musculoskeletal: Arthritis History of Blood Disorders: No Family History Alzheimer's disease 19 MOTHER FH: Crohn's disease G8 SISTER Occupation: prior daycare director PM&R Allergy/Meds/Data Review Allergies Coded Allergies: Sulfa (Sulfonamide Antibiotics) (Verified Allergy, Unknown, 07/21/19) celecoxib (Unverified Allergy, Unknown, 09/23/10) meloxicam (Verified Allergy, Unknown, stomach pain, 07/21/19) Home Medications Scheduled Multivitamin (Multivitamins), 1 EACH PO DAILY, (Reported) Zinc Sulfate (Zinc), 50 MG PO DAILY, (Reported) Scheduled PRN Acetaminophen (Tylenol), 650 MG PO Q8H PRN for PAIN-MILD (1-4), (Reported) Diphenhydramine HCl (Benadryl Allergy), 25 MG PO Q4 -6H PRN for ALLERGY SYMPTOMS, (Reported) Ibuprofen (Ibuprofen), 400 MG PO Q8H PRN for PAIN-MILD (1-4), (Reported) [Arnicare], 1-2 EA PO Q6H PRN for PAIN-BREAKTHROUGH, (Reported) Discontinued Medications Aspirin (Aspirin EC), 81 MG PO DAILY Cyclobenzaprine HCl (Cyclobenzaprine HCl), 5 MG PO TID PRN for MUSCLE SPASMS Ibuprofen (Ibuprofen), 400 MG PO TIDWM PRN for PAIN-MILD (1-4) Discontinued Reason: Duplicate Order Nicotine (Nicoderm Cq), 21 MG TD DAILY@0900 Discontinued Reason: No Longer Taking Oxycodone HCl/Acetaminophen (Percocet 5-325 mg Tablet), 2 TAB PO Q4H PRN for PAIN-SEVERE (8-10) Sennosides/Docusate Sodium (Senna-Time S Tablet), 1 EA PO BID Tramadol HCl (Tramadol HCl), 50 MG PO TID PRN for PAIN-MODERATE (5-7) Current Medications Current Medications Reviewed Review of Systems Constitutional: see HPI EENTM: no symptoms reported Respiratory: dyspnea on exertion Cardiovascular: no symptoms reported Gastrointestinal: no symptoms reported Genitourinary: no symptoms reported Musculoskeletal: back pain, joint pain Skin: no symptoms reported Psychiatric/Neurological: Anxiety, Depressed All Other Systems Reviewed Negative Unless Noted: Yes Physical Exam Physical Exam Vital Signs Capillary Refill : Height, Weight, BMI Height: 6'0" Weight: 190lbs. oz. [id number]; 26.84 BMI Method:Stated General Appearance: No Apparent Distress, WD/WN, Chronically ill Eyes: Bilateral Eye Normal Inspection, Bilateral Eye PERRL HEENT: PERRL/EOMI, Normal ENT Inspection, Pharynx Normal Neck: Full Range of Motion, Normal Inspection, Non Tender, Supple, Carotid Bruit Respiratory: Chest Non Tender, Lungs Clear, No Accessory Muscle Use, No Respiratory Distress, Decreased Breath Sounds Cardiovascular: Regular Rate, Rhythm, No Edema, No Gallop, No JVD, No Murmur, Normal Peripheral Pulses Gastrointestinal: Normal Bowel Sounds, No Organomegaly, No Pulsatile Mass, Non Tender, Soft Back: Normal Inspection, No CVA Tenderness, No Vertebral Tenderness Extremity: Normal Capillary Refill, Normal Inspection, Normal Range of Motion (Except left leg), Non Tender, No Calf Tenderness, No Pedal Edema Neurologic/Psychiatric: Alert, Oriented x3, No Motor/Sensory Deficits, Normal Mood/Affect Skin: Normal Color, Warm/Dry Lymphatic: No Adenopathy PM&R Medical Assessment & Plan REHAB/MEDICAL ASSESSMENT AND PLAN: REHAB IMPAIRMENT GROUP: Left distal femur fracture ETIOLOGIC DIAGNOSIS: Left distal femur fracture The comorbidities that impact the patients function and/or functional outcome by: Smoking cessation, overall debility REHAB PLAN: The patient is being admitted to our comprehensive inpatient rehabilitation facility and can tolerate the intensity of service consisting of at least: 180 minutes of therapy a day, 5 out of 7 days a week Rehab treatment will consist of: PT and OT will focus on regaining function with immobilizer with use of assistive devices in order to return back home to independent living The patient/family has a good understanding of our discharge process and will benefit from an interdisciplinary inpatient rehabilitation program. The patient has potential to make improvement and is in need of at least two of the following multidisciplinary therapies including but not limited to physical, occupational, speech, and prosthetics and orthotics. Additionally the patient will need services from respiratory, nutritional services, wound care, psychology, etc. (Customize this to each patient). Given the patients complex condition and risk of further medical complications, rehabilitation services cannot be safely or effectively provided at a lower level of care such as a prison facility. BARRIERS TO DISCHARGE: Immobilizer ESTIMATED LOS: 7 days DISPOSITION: Home RELEVANT CHANGES SINCE PREADMISSION SCREENING: I have compared the patients medical and functional status at the time of the preadmission screening and there are: No changes PROGNOSIS: Good REHABILITATION GOALS: 1. PT and OT will focus on regaining function with immobilizer with use of assistive devices in order to return back home to independent living All the above goals were reviewed with the patient and he/she is in agreement. By signing this document, I acknowledge that I have personally performed a full physical examination on this patient within 24 hours of admission to this inpatient rehabilitation facility and have determined the patient to be able to tolerate the above course of treatment at an intensive level for a reasonable period of time. I will be completing a detailed individualized Plan of Care for this patient by day #4 of the patients stay based upon the Preadmission Screen, the Post-Admission Evaluation, and the therapy evaluations. Admission Dx/Comorbidities: (1) Fracture of distal end of femur Status: Acute ICD Codes: S72.409A - Unspecified fracture of lower end of unspecified femur, initial encounter for closed fracture (2) Depression ICD Codes: F32.9 - Major depressive disorder, single episode, unspecified (3) Smoker ICD Codes: F17.200 - Nicotine dependence, unspecified, uncomplicated KENIA DE LUNA DO May 28, 2021 11:19
[2021-05-28] MEDS ORDERED: NALOXONE 0.4 MG/ML 1 ML (NARCAN) VIAL IV PRN (11:30)
[2021-05-28] MEDS ORDERED: ONDANSETRON 4 MG/2 ML (SDV) Z0FRAN IVP PRN (11:30)
[2021-05-28] MEDS ORDERED: HYDROmorphone 2 MG/ML VIAL (DILAUDID) IV PRN (11:30)
[2021-05-28] MEDS ORDERED: ZOLPIDEM 5 MG (AMBIEN) TAB PO PRN (11:30)
--- NOTE | 2021-05-28 12:04 | Occupational Therapy Eval ---
OT Evaluation-General/PLF Medical Diagnosis Admission Date May 28, 2021 at 10:45 Medical Diagnosis: L distal femur fx Onset Date: May 24, 2021 Therapy Diagnosis Therapy Diagnosis: impaired ADLs/functional mobility Height/Weight Height (Feet): 6 Height (Inches): 0 Weight (Pounds): 190 Precautions Precautions/Isolations: Fall Prevention, Standard Precautions Weight Bear Status Weight Bearing Restriction: Touch Toe Bearing Location Restriction: L LE TTWB LLE Knee immobolizer on at all times Referral Physician: Guillermo Referral Reason: Evaluation/Treatment Medical History Pertinent Medical History: Arthritis Additional Medical History cholecystectomy, C5/C6 anterior cervical diskectomy and fusion, L carpal tunnel release Current History S/p ORIF L distal femur. Pt reports falling while walking outdoors. Prior to fall, she was indep with all adls and iadls. No AD utilized. Reviewed History: Yes Social History Home: Single Level Current Living Status: Spouse Entry Into Home: Ramp ADL-Prior Level of Function SCALE: Activities may be completed with or without assistive devices. 5-Tudjabnfkw-neiolsh completes the activity by him/herself with no assistance from a helper. 5-Set-up or Clean-up Assistance-helper sets up or cleans up; patient completes activity. Hudson assists only prior to or following the activity. 4-Supervision or Touching Assistance-helper provides verbal cues and/or touching/steadying and/or contact guard assistance as patient completes activity. Assistance may be provided throughout the activity or intermittently. 3-Partial/Moderate Assistance-helper does LESS THAN HALF the effort. Hudson lifts, holds or supports trunk or limbs, but provides less than half the effort. 2-Substantial/Maximal Assistance-helper does MORE THAN HALF the effort. Hudson lifts or holds trunk or limbs and provides more than half the effort. 5-Urintlhus-vsgicn does ALL the effort. Patient does none of the effort to complete the activity. Or, the assistance of 2 or more helpers is required for the patient to complete the activity. If activity was not attempted, code reason: 7-Patient Refused. 9-Not Applicable-not attempted and the patient did not perform the activity before the current illness, exacerbation or injury. 10-Not Attempted due to Environmental Limitations-(lack of equipment, weather restraints, etc.). 88-Not Attempted due to Medical Conditions or Safety Concerns. Self Care: Independent Functional Cognition: Independent DME/Equipment: Bath Chair, Grab Bars, Tub/Shower DME/Equipment Comments Owns a shower chair but was not using. Drive Self: Yes OT Current Status Subjective Reports pain as 5/10 in L knee and back. She states pain meds were given prior to therapy arrival. Co-treat with PT due to requiring the skilled assist of 2 to progress mobility and ADLs Appearance Left sitting in recliner, all needs within reach. Mental Status/Objective Patient Orientation: Person, Place, Situation Attachments: IV, Knee Immobilizer Current Glasses/Contacts: Yes Hearing Aids: No Dentures/Partials: No Hand Dominance: Right Upper Extremity ROM WNL Upper Extremity Strength Not tested due to c/o back pain ADL-Treatment Eating (QC): 5 Oral Hygiene (QC): 3 Shower/Bathe Self (QC): 3 Upper Body Dressing (QC): 4 Lower Body Dressing (QC): 7 On/Off Footwear (QC): 2 Toileting Hygiene (QC): 7 Sponge bath performed at seated level secondary to full leg immobolizer. Clarification needed on bathing with/without immobolizer. Pt able to reach down to R ankle, declined removing sock to wash foot. Pt would likely need assist to complete. LLE not addressed due to brace. Pt declined changing shorts, thus Dalila area/buttocks not cleaned. Again pt would likely need balance assist if performed in standing to ensure adherence to TTWB. She may require a florist manager to assist with threading LLE and steadying assist will be needed for clothing management. Grooming tasks performed at w/c level with supervision for safety. Other Treatments Cues/education for w/c management. Post education, she propelled w/c throughout unit, rest breaks needed at times due to fatigue. With walker and Min A, She hopped ~15 feet and then multiple 5 feet increments throughout session. Min cues for TTWB maintenance. Education OT Patient Education: Correct positioning, Energy conservation, Modified ADL techniques, Progress toward Goal/Update tx plan, Purpose of tx/functional activities, Reviewed precautions, Rehab process, Safety issues, Transfer techniques, W/C management Teaching Recipient: Patient Teaching Methods: Demonstration, Discussion Response to Teaching: Verbalize Understanding, Reinforcement Needed OT Short Term Goals Short Term Goals Time Frame: Jun 05, 2021 Eatin Oral hygiene: 6 Toileting hygiene: 4 Shower/bathe self: 3 Upper body dressin Lower body dressin Putting on/taking off footwear: 3 OT Snf Goals Automobile Damage Appraiser Goals Time Frame: Jun 11, 2021 Eating (QC): 6 Oral Hygiene (QC): 6 Toileting Hygiene (QC): 5 Shower/Bathe Self (QC): 5 Upper Body Dressing (QC): 6 Lower Body Dressing (QC): 5 On/Off Footwear (QC): 5 1=Demonstrate adherence to instructed precautions during ADL tasks. 2=Patient will verbalize/demonstrate understanding of assistive devices/modifications for ADL. 3=Patient will improve strength/tolerance for activity to enable patient to perform ADL's. OT Education/Plan Problem List/Assessment Assessment: Decreased Activ Tolerance, Decreased UE Strength, Impaired Funct Balance, Impaired I ADL's, Impaired Self-Care Skills Discharge Recommendations Plan/Recommendations: Continue POC Equpiment Recommendations-D/C: Toilet Riser with Rails, Liquor Grinder Mill Operator Treatment Plan/Plan of Care Treatment,Training & Education: Yes Patient would benefit from OT for education, treatment and training to promote independence in ADL's, mobility, safety and/or upper extremity function for ADL's. Plan of Care: ADL Retraining, Functional Mobility, Group Exercise/Act as Ind, Orthotic Fitting/Training, UE Funct Exercise/Act, W/C Management Training Treatment Duration: Jun 11, 2021 Frequency: At least 5 of 7 days/Wk (IRF) Estimated Hrs Per Day: 1.5 hours per day Agreement: Yes Rehab Potential: Fair Time/GCodes Start Time: 10:45 Stop Time: 12:00 Total Time Billed (hr/min): 75 Billed Treatment Time 1 visit EVM (10 min) ADL x2 (35 min) FA x2 (30 min) Sophia Sánchez OT May 28, 2021 12:04
--- NOTE | 2021-05-28 12:56 | Physical Therapy Evaluation ---
PT Evaluation-General Medical Diagnosis Admission Date May 28, 2021 at 10:45 Medical Diagnosis: L distal femur fx Onset Date: May 24, 2021 Therapy Diagnosis Therapy Diagnosis: impaired mobility, strength, endurance Height/Weight Height (Feet): 6 Height (Inches): 0 Weight (Pounds): 190 Precautions Precautions/Isolations: Fall Prevention, Standard Precautions Weight Bear Status Left Lower Extremity: Left Touch Toe Bearing Referral Physician: Nabila Li DO Reason for Referral: Evaluation/Treatment Medical History Pertinent Medical History: Arthritis Current History s/p ORIF L femur Reviewed History: Yes Social History Home: Single Level Current Living Status: Spouse Entry Into Home: Ramp Prior Prior Level of Function SCALE: Activities may be completed with or without assistive devices. 5-Afwljmyzby-orzecbe completes the activity by him/herself with no assistance from a helper. 5-Set-up or Clean-up Assistance-helper sets up or cleans up; patient completes activity. Brandon assists only prior to or following the activity. 4-Supervision or Touching Assistance-helper provides verbal cues and/or touching/steadying and/or contact guard assistance as patient completes activity. Assistance may be provided throughout the activity or intermittently. 3-Partial/Moderate Assistance-helper does LESS THAN HALF the effort. Brandon lifts, holds or supports trunk or limbs, but provides less than half the effort. 2-Substantial/Maximal Assistance-helper does MORE THAN HALF the effort. Brandon lifts or holds trunk or limbs and provides more than half the effort. 9-Tezbdwczr-leduyc does ALL the effort. Patient does none of the effort to complete the activity. Or, the assistance of 2 or more helpers is required for the patient to complete the activity. If activity was not attempted, code reason: 7-Patient Refused. 9-Not Applicable-not attempted and the patient did not perform the activity before the current illness, exacerbation or injury. 10-Not Attempted due to Environmental Limitations-(lack of equipment, weather restraints, etc.). 88-Not Attempted due to Medical Conditions or Safety Concerns. Bed Mobility: 6 Transfers (B,C,W/C): 6 Gait: 6 Stairs: 6 Indoor Mobility (Ambulation): Independent Stairs: Independent PT Evaluation-Current Subjective Patient in bed pre tx, agrees to PT, has 5/10 pain in left leg. Will be co- treating with OT due to poor patient mobility, strength, endurance, severe pain with activity, coordinate UE and LE with activity, safety and reduce risk of falls. Pt/Family Goals to be independent at home Objective Patient Orientation: Person, Place, Situation left leg brace ROM/Strength ROM Lower Extremities LLE not tested, RLE WNL Sensory Hearing: Functional Hand Dominance: Right Sensation Right Lower Extremit: Intact Sensation Left Lower Extremity: Intact Transfers Roll Left & Right (QC): 4 Sit to Lying (QC): 3 Lying to Sitting/Side of Bed(Q: 3 Sit to Stand (QC): 4 Chair/Boi-qw-Akgbl Xfer(QC): 4 Toilet Transfer (QC): 4 Car Transfer (QC): 88 Patient performs rolling with SBA, supine <-> sit min assist, sit <-> stand and transfers CGA, cannot perform a car transfer at this time because she cannot bend her leg far enough. Patient needs cues for positioning and hand placement. Gait Does the Patient Walk?: Yes Mode of Locomotion: Walk Anticipated Mode of Locomotion: Walk Walk 10 feet (QC): 4 Walk 50 ft with 2 Turns(QC): 88 Walk 150 ft (QC): 88 Walking 10ft/uneven surface-QC: 4 Distance: 15', 10', 5'x2 Gait Assistive Device: FWW Comments/Gait Description Patient can ambulate 15' with a rolling walker with CGA (including 10' over an uneven surface). Patient ambulates slowly, but is compliant with her TTWB on the LLE, her arms tire quickly. Wheelchair Training Does the Pt Use a Wheelchair?: Yes Distance: 500'x2 Wheel 50 ft with 2 turns (QC): 4 Wheel 150 ft (QC): 4 Type of Wheelchair: Manual SBA Stairs #of Steps: 1 1 Step (curb) (QC): 4 4 Steps (QC): 88 12 Steps (QC): 88 Walking Assistive Device: Walker Patient can go up and down 1 step using a rolling walker with CGA and cues for positioning Balance Sitting Static: Normal Sitting Dynamic: Normal Standing Static: Fair Standing Dynamic: Fair Picking up an Object (QC): 4 Treatment PT performed bed mobility and transfers, ambulation, WC mobility, stairs, standing and positioning during bathing and dressing and ADL's, OT performed bathing and dressing and ADL's, and UE positioning and safety during activity. Assessment/Needs Patient in recliner post tx with nurse call, phone, tray, all needs met. Patient has impaired mobility, strength, endurance. She performs transfers and ambulation with CGA but needs min assist for supine <-> sit. Rehab Potential: Fair PT Short Term Goals Short Term Goals Time Frame: Jun 04, 2021 Roll Left & Right: 6 Sit to lyin Lying to sitting on side of be: 4 Sit to stand: 4 Chair/whc-ig-rlegm transfer: 4 Walk 10 feet: 4 Walk 50 feet with two turns: 4 PT Residential Goals Client Service Associate Goals PT Residential Goals Time Frame: Jun 18, 2021 Roll Left & Right (QC): 6 Sit to Lying (QC): 5 Lying-Sitting on Side/Bed(QC): 5 Sit to Stand (QC): 5 Chair/Fxy-vs-Fusow Xfer(QC): 5 Toilet Transfer (QC): 5 Car Transfer (QC): 4 Does the Patient Walk: Yes Walk 10 feet (QC): 5 Walk 50ft with 2 Turns (QC): 5 Walk 150 ft (QC): 88 Walking 10ft on Uneven Surface: 5 1 Step (curb) (QC): 4 4 Steps (QC): 4 12 Steps (QC): 88 Picking up an Object (QC): 5 Wheel 50 feet with 2 turns (QC: 6 Wheel 150 feet: 6 PT Plan Problem List Problem List: Activity Tolerance, Functional Strength, Safety, Balance, Gait, Transfer, Bed Mobility, ROM Treatment/Plan Treatment Plan: Continue Plan of Care Treatment Plan: Bed Mobility, Education, Functional Activity Amor, Functional Strength, Group Therapy, Gait, Safety, Therapeutic Exercise, Transfers Treatment Duration: Jun 18, 2021 Frequency: At least 5 of 7 days/Wk (IRF) Estimated Hrs Per Day: 1.5 hours per day Patient and/or Family Agrees t: Yes Safety Risks/Education Patient Education: Gait Training, Transfer Techniques, Steps, Reviewed Precautions, Reviewed Use of Ice, Correct Positioning, W/C Management, Safety Issues Teaching Recipient: Patient Teaching Methods: Demonstration, Discussion Response to Teaching: Reinforcement Needed Discharge Recommendations Plan Patient will perform bed mobility and transfer training, balance and endurance training ,functional strengthening, stair training, gait training, and educat ion, to improve functional mobility and independence at home. Therapy Discharge Recommendati: Home & Family, Post Acute PT Time/GCodes Time In: 1035 Time Out: 1200 Total Billed Treatment Time: 75 Total Billed Treatment 1visit EVM10' FA 65' PT eval from [id number], OT eval from [id number], co-treat from [id number] LUBA PAREKH PT May 28, 2021 12:56
--- NOTE | 2021-05-28 13:18 | ST Cognitive Linguistic Eval ---
Speech Evaluation-General Medical Diagnosis L distal femur fx Onset Date: May 24, 2021 Therapy Diagnosis Therapy Diagnosis: Cognitive-communication Referral Referring Physician: Dr. Li Medical History Pertinent Medical History: Arthritis Reviewed History: Yes Social History Current Living Status: Spouse Speech PLF-Current Status Prior Level of Function Patient lives in her own home with her . She was independent prior to the fall. Subjective Patient was cooperative and pleasant with the cognitive assessment. Language Eval: Auditory Comprehends Simple Yes/No Ques: Functional Indent/Objects Multiple West: Functional Ident/Pics in Multiple West: Functional Follows 1-Step Commands: Functional Follows Complex Directions: Functional Follows General Conversations: Functional Language Eval: Verbal Language Completes Spontaneous Greeting: Functional Produces Auto, Serial Info: Functional Imitates Simple Words/Phrases: Functional Word Finding: Functional Requests Basic Needs: Functional States Basic Personal Info: Functional Expresses Complex Ideas: Functional Objective Cognitive Domain Attention: WNL Memory: WNL Problem Solving: Functional Executive Functions: WNL Visuospatial Skills: WNL Composite Severity Rating: WNL Clock Drawing Severity Rating: WNL Objective Formal/Standardized Tests [facility] Mental Status ([facility]) Results 30/30, within normal range of function Oral Motor/Speech Production Within Normal Limits Impression Patient is a pleasant 66 y/o female who was admitted to the ARU s/p fall with fracture requiring surgery. The patient was given the [facility] cognitive assessment with a score of 30/30 obtained. This score is within normal range of function and does not indicate the need for further ST services at this time. Speech Patient Assess Expression of Ideas/Wants: Expression (4) Understanding Verbal Content: Understands (4) Brief Interview-Mental Status: Yes Repetition of Three Words: Three (3) Temporal Orientation: Year: Correct (3) Temporal Orientation: Month: Accurate within 5 days(2) Temporal Orientation: Day: Correct (1) Recall : Wear to say "Sock": Yes, no cue required (2) Recall : Color: Yes, no cue required (2) Recall : Bed: Yes, no cue required (2) Memory/Recall Ability: Current season, Location of own room, That he or she is in a hsp/hsp unit Speech-Plan Patient/Family Goals Patient/Family Goals: Patient plans on returning to her home where she lives with her . Treatment Plan Speech Therapy Treatment Plan: Discontinue ST Treatment Duration: May 28, 2021 Frequency: 1 time per week Estimated Hrs Per Day: .5 hour per day Rehab Potential: Fair Barriers to Learning: Cognitive function is within normal range of function Pt/Family Agrees to Plan: Yes Safety Risks/Education Teaching Recipient: Patient Teaching Methods: Discussion Response to Teaching: Verbalize Understanding Education Topics Provided: Safety within her room, communication of wants/needs Time Speech Therapy Time In: 12:30 Speech Therapy Time Out: 13:00 Total Billed Time: 30 Billed Treatment Time 1, MILENA GOODRICH [address] May 28, 2021 13:18
[2021-05-28] MEDS: oxyCODONE/APAP 5/325MG (PERCOCET 5) TABLET PO PRN ×3 (15:18→21:36)
[2021-05-28 19:46] VITALS: BP 122/80
[2021-05-28] MEDS: ENOXAPARIN 30 MG/0.3 ML (LOVENOX) SYR SC SCH (20:09)
[2021-05-28] MEDS: diphenhydrAMINE 25 MG TAB (BENADRYL) PO PRN (21:33)
[2021-05-28] MEDS: DOCUSATE SODIUM 100 MG (COLACE) CAP PO SCH (21:33)
[2021-05-28] MEDS: MUPIROCIN 2% OINT 22 GM (BACTROBAN) TUBE NSEACH SCH (21:51)
[2021-05-28] MEDS: SENNA W/DOCUSATE (SENOKOT S) TABLET PO SCH (21:53)
[2021-05-28] MEDS: polyethylene glycoL POWDER 17 GM (MIRALAX) PACK PO SCH (21:53)
[2021-05-29] MEDS: oxyCODONE/APAP 5/325MG (PERCOCET 5) TABLET PO PRN ×7 (00:47→21:37)
--- NOTE | 2021-05-29 05:57 | PM&R Progress Note ---
Subjective HPI/CC On Admission Date Seen by Provider: May 29, 2021 Time Seen by Provider: 11:00 Subjective/Events-last exam 05/29/2021: Pt doing well Denies any new issues Pain in her left leg is improved Checked meds and labs No falls Maintain on laxatives Review of Systems General: Fatigue, Malaise Musculoskeletal: leg pain Objective Exam Vital Signs Vital Signs Date Time Temp Pulse Resp B/P (MAP) Pulse Ox O2 Delivery O2 Flow Rate FiO2 05/29/21 21:00 95 Room Air 05/29/21 19:59 36.4 98 16 119/78 (92) Capillary Refill : General Appearance: No Apparent Distress, WD/WN, Chronically ill HEENT: PERRL/EOMI, Normal ENT Inspection, Pharynx Normal Neck: Full Range of Motion, Normal Inspection, Non Tender, Supple, Carotid Bruit Respiratory: Chest Non Tender, Lungs Clear, No Accessory Muscle Use, No Respiratory Distress, Decreased Breath Sounds Cardiovascular: Regular Rate, Rhythm, No Edema, No Gallop, No JVD, No Murmur, Normal Peripheral Pulses Gastrointestinal: Normal Bowel Sounds, No Organomegaly, No Pulsatile Mass, Non Tender, Soft Back: Normal Inspection, No CVA Tenderness, No Vertebral Tenderness Extremity: Normal Capillary Refill, Normal Inspection, Normal Range of Motion (Except left leg), Non Tender, No Calf Tenderness, No Pedal Edema Neurologic/Psychiatric: Alert, Oriented x3, No Motor/Sensory Deficits, Normal Mood/Affect Skin: Normal Color, Warm/Dry Lymphatic: No Adenopathy Results/Procedures Lab Patient resulted labs reviewed. FIM Transfers Therapy Code Descriptions/Definitions Functional [place] Measure: 0=Not Assessed/NA 4=Minimal Assistance 1=Total Assistance 5=Supervision or Setup 2=Maximal Assistance 6=Modified [place] 3=Moderate Assistance 7=Complete IndependenceSCALE: Activities may be completed with or without assistive devices. 2-Zfwqwvcqdi-gpcguna completes the activity by him/herself with no assistance from a helper. 5-Set-up or Clean-up Assistance-helper sets up or cleans up; patient completes activity. [place] assists only prior to or following the activity. 4-Supervision or Touching Assistance-helper provides verbal cues and/or touching/steadying and/or contact guard assistance as patient completes activity. Assistance may be provided throughout the activity or intermittently. 3-Partial/Moderate Assistance-helper does LESS THAN HALF the effort. [place] lifts, holds or supports trunk or limbs, but provides less than half the effort. 2-Substantial/Maximal Assistance-helper does MORE THAN HALF the effort. [place] lifts or holds trunk or limbs and provides more than half the effort. 3-Sdcuoaeom-dhjurf does ALL the effort. Patient does none of the effort to complete the activity. Or, the assistance of 2 or more helpers is required for the patient to complete the activity. If activity was not attempted, code reason: 7-Patient Refused. 9-Not Applicable-not attempted and the patient did not perform the activity before the current illness, exacerbation or injury. 10-Not Attempted due to Environmental Limitations-(lack of equipment, weather restraints, etc.). 88-Not Attempted due to Medical Conditions or Safety Concerns. Roll Left to Right (QC): 4 Sit to Lying (QC): 3 Sit to Stand (QC): 4 Chair/Ajh-lu-Mrkbo Xfer(QC): 4 Car Transfer (QC): 88 Gait Training Does the Patient Walk?: Yes Walk 10 feet (QC): 4 Walk 50 ft with 2 Turns(QC): 88 Walk 150 ft (QC): 88 Walking 10ft/uneven surface-QC: 4 Gait Assistive Device: FWW Wheelchair Training Does the Pt Use a Wheelchair?: Yes Distance: 500'x2 Wheel 50 ft with 2 turns (QC): 4 Wheel 150 ft (QC): 4 Type of Wheelchair: Manual Stair Training #of Steps: 1 1 Step (curb) (QC): 4 4 Steps (QC): 88 12 Steps (QC): 88 Balance Picking up an Object (QC): 4 ADL-Treatment Eating (QC): 5 Oral Hygiene (QC): 3 Shower/Bathe Self (QC): 3 Upper Body Dressing (QC): 4 Lower Body Dressing (QC): 7 On/Off Footwear (QC): 2 Toileting Hygiene (QC): 7 Assessment/Plan Assessment and Plan Assess & Plan/Chief Complaint Assessment: Left distal femur fracture status post repair Smoker Hypoxia Postop constipation Postop anemia Plan: Supportive care Pain control (1) Fracture of distal end of femur Status: Acute (2) Depression (3) Smoker KENIA DE LUNA DO May 29, 2021 05:57
--- NOTE | 2021-05-29 05:57 | Individualized Plan of Care ---
Individualized Plan of Care Rehab Nursing IPOC Order Admission Date May 28, 2021 at 10:45 Current Orders Orders Admission Order(Inpt,Obs,Sdc) (05/28/21 10:02) Vital Signs: Per Unit Policy ( 08,16,00 (05/28/21 10:02) Momo Álvarez (05/28/21 10:02) Sequential Compression Device (05/28/21 10:02) Optometry Assistant-Inpt Rehab Con (05/28/21 10:02) Rehab Nursing Orders-Ipoc (05/28/21 10:02) Physical Therapy Rehab Orders (05/28/21 10:02) Occupational Therapy Rehab Ord (05/28/21 10:02) Speech Therapy Rehab Orders (05/28/21 10:02) Cbc With Automated Diff (05/29/21 06:00) Comprehensive Metabolic Panel (05/29/21 06:00) Precautions (Aru) (05/28/21 10:02) Weekly Weight WEEK (05/28/21 10:02) Rehab-Intensity Of Therapy (05/28/21 10:02) Initiate Admission Nursing Pro .admission (05/28/21 10:02) Alprazolam Tablet (Xanax Tablet) (05/28/21 10:15) Calcium Carbonate Chew Tablet (Antacid C (05/28/21 10:15) Diphenhydramine Tablet (Benadryl Tablet) (05/28/21 10:15) Docusate Sodium Capsule (Colace Capsule) (05/28/21 21:00) Docusate Sodium Capsule (Colace Capsule) (05/28/21 10:15) Bisacodyl Suppository (Dulcolax Supposit (05/28/21 10:15) Lactulose Oral Solution (Enulose Oral So (05/28/21 10:15) Na Phos/Na Biphos Enema (Fleet Enema Jai (05/28/21 10:15) Guaifenesin/Codeine Syrup (Robitussin Ac (05/28/21 10:15) Loperamide Tablet (Imodium Tablet) (05/28/21 10:15) Enoxaparin Injection (Lovenox Injection) (05/28/21 10:15) Melatonin Tablet (Melatonin Tablet) (05/28/21 10:15) Polyethylene Glycol Powder Pkt (Miralax (05/28/21 21:00) Ondansetron Injection (Zofran Injectio (05/28/21 10:15) Ondansetron Oral Dissolve Tab (Zofran (05/28/21 10:15) Senna S Tablet (Senokot S Tablet) (05/28/21 21:00) Acetaminophen Tablet/Caplet (Tylenol T (05/28/21 10:15) Code/Resuscitation (05/28/21 10:02) Sequential Compression Device ONCE (05/28/21 10:02) Initiate Admission Nursing Pro .admission (05/28/21 10:02) Admission Arrival Bed Request (05/28/21 10:49) Code/Resuscitation (05/28/21 11:17) Catheter(Urinary) Discontinue (05/28/21 11:17) Dressing Order (Intervention) DAILY (05/28/21 11:17) Heating Pad (05/28/21 11:17) Ice: Apply To Affected Area (05/28/21 11:17) Incentive Spirometry (Nursing) Q2H (05/28/21 11:17) Oxygen-Administer 07,19 (05/28/21 11:17) General/Regular (05/28/21 Lunch) Cholecalciferol Capsule/Tablet (Vitamin (05/29/21 07:00) Enoxaparin Injection (Lovenox Injection) (05/28/21 20:00) Hydromorphone Injection (Dilaudid Inject (05/28/21 11:30) Hydrochlorothiazide Cap/Tablet (Hctz Cap (05/29/21 09:00) Mupirocin Ointment (Bactroban Ointment (05/28/21 21:00) Naloxone Injection (Narcan Injection) (05/28/21 11:30) Therapeutic Multivitamin Tab (Vitamins, (05/29/21 09:00) Zinc Sulfate Capsule (Zinc 50 Mg Capsule (05/29/21 08:00) Ondansetron Injection (Zofran Injectio (05/28/21 11:30) Zolpidem Tablet (Ambien Tablet) (05/28/21 11:30) Diphenhydramine Tablet (Benadryl Tablet) (05/28/21 11:30) Oxycodone/Apap 5/325mg Tablet (Percocet (05/28/21 11:30) Patient Visit (05/28/21 ) Speech Sound Lang Comp (05/28/21 ) Treat. Speech/Lang/Voice (05/28/21 ) Patient Visit (05/28/21 ) Pt Eval Moderate Complexity (05/28/21 ) Functional Activities, Ea 15 (05/28/21 ) Patient Visit (05/29/21 ) Exercise Therap, Ea 15 Min (05/29/21 ) Gait Training, Ea 15 Min (05/29/21 ) Wheelchair Mgmt/Propulsn 15min (05/29/21 ) Functional Activities, Ea 15 (05/29/21 ) Rehab Nursing Orders: Ongoing Assess. of Cognitive Status, Ongoing Assess. of Function Status, Bladder Management, Bladder Scan, Bladder Training, Bowel Management, Bowel Training, Disease Management & Educaiton, DVT Prophylaxis, Fall Prevention, Fluid/Electrolyte/Nutrition Mgmt, Infection Prevention, Medication Management & Education, Management of Risks & Complications, Management of Skin Intergrity, Nutrition Management, Pain Management, Patient/Family Support, Safety Management, Weight Bearing Precaution, Wound Management Intensity of Therapy to be met Patient to be seen: Min.3h per day/5 of 7d PT IPOC Problem List: Activity Tolerance, Functional Strength, Safety, Balance, Gait, Transfer, Bed Mobility, ROM Treatment Plan: Continue Plan of Care Bed Mobility, Education, Functional Activity Amor, Functional Strength, Group Therapy, Gait, Safety, Therapeutic Exercise, Transfers Treatment Duration: Jun 18, 2021 Frequency: At least 5 of 7 days/Wk (IRF) Estimated Hrs Per Day: 1.5 hours per day OT IPOC Problems: Decreased Activ Tolerance, Decreased UE Strength, Impaired Funct Balance, Impaired I ADL's, Impaired Self-Care Skills OT Treatment, Training and Edu: Yes Plan of Care: ADL Retraining, Functional Mobility, Group Exercise/Act as Ind, Orthotic Fitting/Training, UE Funct Exercise/Act, W/C Management Training Treatment Duration: Jun 11, 2021 Frequency: At least 5 of 7 days/Wk (IRF) Estimated Hrs Per Day: 1.[address] IPOC Speech Therapy Treatment Plan: Discontinue ST Treatment Duration: May 28, 2021 Frequency: 1 time per week Estimated Hrs Per Day: .5 hour per day Optometry Assistant/Case Mgmt Optometry Assistant/Case Managemen: Discharge Planning Dietitian/Gasket Winder Dietitian/Gasket Winder to monitor nutritional status and make changes and/or recommendations as needed and work with speech pathology on dietary upgrades as the occur. Physician IPOC Medical Issues being managed closely and that require the 24 hour availability of a physician: Recent distal femur fracture requiring surgery repair with a smoking history and hypoxia postoperatively will require close monitoring for decompensation Medical Issues: Bowel/Bladder Function, DVT Prophylaxis, Falls Precautions, F luid/Electrolyte/Nutrition Balance, Infection Protection, Pain Management, Weight Bearing Precautions, Wound Care Brief Synthesis of Preadmission Screen, Post-Admission Evaluation, and Therapy Evaluations: PT and OT will focus on regaining function with assistive device in order to maintain weightbearing precautions and increase independence in ADLs Medical Prognosis: Good Anticipated Length of Stay: 7 days KENIA DE LUNA DO May 29, 2021 05:57
[2021-05-29] MEDS: diphenhydrAMINE 25 MG TAB (BENADRYL) PO PRN (06:07)
[2021-05-29] MEDS: VITAMIN D3 10 MCG (400 UNITS) TABLET PO SCH (06:07)
[2021-05-29 06:15] LABS: BASOPHILS % (AUTO) 0 % (0-10); EOSINOPHILS # (AUTO) 0.3 10^3/uL (0.0-0.3); EOSINOPHILS % (AUTO) 5 % (0-10); HEMATOCRIT 39 % (35-52); HEMOGLOBIN 12.9 g/dL (11.5-16.0); LYMPHOCYTES # (AUTO) 1.8 10^3/uL (1.0-4.0); LYMPHOCYTES % (AUTO) 29 % (12-44); MEAN CORPUSCULAR HEMOGLOBIN 30 pg (25-34); MEAN CORPUSCULAR HGB CONC 33 g/dL (32-36); MEAN CORPUSCULAR VOLUME 89 fL (80-99); MEAN PLATELET VOLUME 9.4 fL (9.0-12.2); MONOCYTES # (AUTO) 0.6 10^3/uL (0.0-1.0); MONOCYTES % (AUTO) 10 % (0-12); NEUTROPHILS # (AUTO) 3.4 10^3/uL (1.8-7.8); NEUTROPHILS % (AUTO) 55 % (42-75); PLATELET COUNT 253 10^3/uL (130-400); WHITE BLOOD COUNT 6.3 10^3/uL (4.3-11.0)
[2021-05-29 06:22] LABS: ALBUMIN 3.4 GM/DL (3.2-4.5)
[2021-05-29 06:23] LABS: POTASSIUM 3.9 MMOL/L (3.6-5.0)
[2021-05-29 06:24] LABS: CALCIUM 8.9 MG/DL (8.5-10.1)
[2021-05-29 06:25] LABS: TOTAL PROTEIN 6.7 GM/DL (6.4-8.2)
[2021-05-29 06:27] LABS: BILIRUBIN,TOTAL 0.7 MG/DL (0.1-1.0)
[2021-05-29 06:29] LABS: CREATININE SERUM 0.66 MG/DL (0.60-1.30)
[2021-05-29 07:30] VITALS: BP 140/76
[2021-05-29] MEDS: SENNA W/DOCUSATE (SENOKOT S) TABLET PO SCH ×2 (08:31→20:26)
[2021-05-29] MEDS: DOCUSATE SODIUM 100 MG (COLACE) CAP PO SCH ×2 (08:31→20:26)
[2021-05-29] MEDS: MULTIVIT W/MINERALS TAB (THERAGRAN M) PO SCH (08:32)
[2021-05-29] MEDS: polyethylene glycoL POWDER 17 GM (MIRALAX) PACK PO SCH ×2 (08:32→20:26)
[2021-05-29] MEDS: ENOXAPARIN 30 MG/0.3 ML (LOVENOX) SYR SC SCH ×2 (08:32→18:34)
[2021-05-29] MEDS: ZINC SULFATE 220 MG CAPSULE PO SCH (08:32)
[2021-05-29] MEDS: MUPIROCIN 2% OINT 22 GM (BACTROBAN) TUBE NSEACH SCH ×2 (08:33→20:29)
--- NOTE | 2021-05-29 09:20 | Occupational Ther Daily Note ---
OT Current Status-Daily Note Subjective Pt adamant about taking shower. Appearance Left supine in bed, all needs within reach, RN informed. Mental Status/Objective Patient Orientation: Person, Place, Situation Attachments: IV, Knee Immobilizer Full leg immobolizer ADL-Treatment Therapy Code Descriptions/Definitions Functional [place] Measure: 0=Not Assessed/NA 4=Minimal Assistance 1=Total Assistance 5=Supervision or Setup 2=Maximal Assistance 6=Modified [place] 3=Moderate Assistance 7=Complete IndependenceSCALE: Activities may be completed with or without assistive devices. 6-Cythrkqhtn-cqhhnjr completes the activity by him/herself with no assistance from a helper. 5-Set-up or Clean-up Assistance-helper sets up or cleans up; patient completes activity. [place] assists only prior to or following the activity. 4-Supervision or Touching Assistance-helper provides verbal cues and/or touching/steadying and/or contact guard assistance as patient completes activity. Assistance may be provided throughout the activity or intermittently. 3-Partial/Moderate Assistance-helper does LESS THAN HALF the effort. [place] lifts, holds or supports trunk or limbs, but provides less than half the effort. 2-Substantial/Maximal Assistance-helper does MORE THAN HALF the effort. [place] lifts or holds trunk or limbs and provides more than half the effort. 4-Lcitofhfj-poxzwl does ALL the effort. Patient does none of the effort to complete the activity. Or, the assistance of 2 or more helpers is required for the patient to complete the activity. If activity was not attempted, code reason: 7-Patient Refused. 9-Not Applicable-not attempted and the patient did not perform the activity before the current illness, exacerbation or injury. 10-Not Attempted due to Environmental Limitations-(lack of equipment, weather restraints, etc.). 88-Not Attempted due to Medical Conditions or Safety Concerns. Eating (QC): 6 Oral Hygiene (QC): 5 Shower/Bathe Self (QC): 3 Upper Body Dressing (QC): 5 Lower Body Dressing (QC): 2 On/Off Footwear: 1 Toileting Hygiene (QC): 3 Toilet Transfer (QC): 4 Pt adamant about needing shower. OT in agreement but educates patient that the entire leg (with leg brace donned) will need to be wrapped. Pt arguing with therapist that the brace does not need to be on. Until clarification is made from doctor, OT reports that the brace will need to be left on. While wrapping leg, Pt making multiple statements including "they need to have cast bags made specifically for this," "I need to take a picture of this so that someone gets in trouble." "Someone needs to get sued for this, this is an accident waiting to happen." OT discussed with patient that if she did not feel safe about the way the therapist was doing it, she could do a sponge bath instead. Pt still adamant about showering and refused a sponge bath. OT wrapped entire leg in large blue linen bag and then placed non slip sock over foot/bag with top of sock taped to keep from sliding off the end of the bag. (sock remained on throughout shower). Very distal end of brace got wet when pt placed foot on floor during removal of bag, otherwise LLE brace/incision c/d/i post shower. During entire treatment, pt complaining about all education, cues, and suggestions from OT. She often refused help. OT allowed pt to complete as much her way to an extent but intercepted when needed. During shower, Pt washed all body parts without assist. She refused to wash R foot or buttocks and would likely require assist to complete. She remained seated for 100% of task (seated on bedside commode with LLE elevated on trash can). LB clothing donned at bed level. OT attempted to educate pt on use of roll up guider operator, yet after 1 attempt she reports inability to complete and thus was dependent to thread over bilateral feet. She stood with CGA, (bed elevated) and managed clothing over her hips with steadying assist. Min a to lift LLE back into bed. Hair combing completed at bed level with set up. Education OT Patient Education: Correct positioning, Disease process, Energy conservation, Modified ADL techniques, Progress toward Goal/Update tx plan, Purpose of tx/functional activities, Reviewed precautions, Rehab process, Safety issues, Transfer techniques, Use of adapted equipment Teaching Recipient: Patient Teaching Methods: Demonstration, Discussion Response to Teaching: Reinforcement Needed OT Short Term Goals Short Term Goals Time Frame: Jun 05, 2021 Eatin Oral hygiene: 6 Toileting hygiene: 4 Shower/bathe self: 3 Upper body dressin Lower body dressin Putting on/taking off footwear: 3 OT Shelter Goals Shelter Goals Time Frame: Jun 11, 2021 Eating (QC): 6 Oral Hygiene (QC): 6 Toileting Hygiene (QC): 5 Shower/Bathe Self (QC): 5 Upper Body Dressing (QC): 6 Lower Body Dressing (QC): 5 On/Off Footwear (QC): 5 1=Demonstrate adherence to instructed precautions during ADL tasks. 2=Patient will verbalize/demonstrate understanding of assistive devices/modifications for ADL. 3=Patient will improve strength/tolerance for activity to enable patient to perform ADL's. OT Education/Plan Problem List/Assessment Assessment: Decreased Activ Tolerance, Decreased Safety Aware, Decreased UE Strength, Impaired Funct Balance, Impaired I ADL's, Impaired Self-Care Skills Discharge Recommendations Plan/Recommendations: Continue POC Equpiment Recommendations-D/C: Toilet Riser with Rails, Mathematical Engineer Treatment Plan/Plan of Care Treatment,Training & Education: Yes Patient would benefit from OT for education, treatment and training to promote independence in ADL's, mobility, safety and/or upper extremity function for ADL's. Plan of Care: ADL Retraining, Functional Mobility, Group Exercise/Act as Ind, Orthotic Fitting/Training, UE Funct Exercise/Act, W/C Management Training Treatment Duration: Jun 11, 2021 Frequency: At least 5 of 7 days/Wk (IRF) Estimated Hrs Per Day: 1.5 hours per day Agreement: Yes Rehab Potential: Fair Time/GCodes Start Time: 07:40 Stop Time: 09:10 Total Time Billed (hr/min): 90 Billed Treatment Time 1 visit ADL x6 Sophia Sánchez OT May 29, 2021 09:20
--- NOTE | 2021-05-29 10:24 | Physical Therapy Daily Note ---
PT Daily Note-Current Subjective Pt. in bed, upset stating she doesnt get any rest . c/o she wants pain meds given every few hours and doesnt want to have to ask for them every 3 hrs. does not rate her pain at this time. Mental Status Patient Orientation: Person, Place, Time, Situation Attachments: Other-See Comments (SILVIA ABDI) Transfers SCALE: Activities may be completed with or without assistive devices. 4-Vbsrmpugbr-kyzigpe completes the activity by him/herself with no assistance from a helper. 5-Set-up or Clean-up Assistance-helper sets up or cleans up; patient completes activity. [place] assists only prior to or following the activity. 4-Supervision or Touching Assistance-helper provides verbal cues and/or touching/steadying and/or contact guard assistance as patient completes activity. Assistance may be provided throughout the activity or intermittently. 3-Partial/Moderate Assistance-helper does LESS THAN HALF the effort. [place] lifts, holds or supports trunk or limbs, but provides less than half the effort. 2-Substantial/Maximal Assistance-helper does MORE THAN HALF the effort. [place] lifts or holds trunk or limbs and provides more than half the effort. 9-Miybbuqvj-kmkogr does ALL the effort. Patient does none of the effort to complete the activity. Or, the assistance of 2 or more helpers is required for the patient to complete the activity. If activity was not attempted, code reason: 7-Patient Refused. 9-Not Applicable-not attempted and the patient did not perform the activity before the current illness, exacerbation or injury. 10-Not Attempted due to Environmental Limitations-(lack of equipment, weather restraints, etc.). 88-Not Attempted due to Medical Conditions or Safety Concerns. Roll Left & Right (QC): 5 Lying to Sitting/Side of Bed(Q: 5 Sit to Stand (QC): 4 Chair/Euy-wh-Kvyvk Xfer(QC): 4 pt. moves impulsively, unsafely at times , at times not following safety instructions of therapist Weight Bearing Left Lower Extremity: Left Touch Toe Bearing Gait Training Does the Patient Walk?: Yes Walk 10 feet (QC): 4 Walk 50 ft with 2 Turns(QC): 4 Gait Persons Needed: 1 Gait Assistive Device: FWW pt. c/o she doesnt like wheels on FWW, this DIRECTOR OF INSTRUCTION demonstrating needs and safe use explanation of FWW. Pt then seems to understand. shoe was donned on wt bearing foot with better clearance of NWB limb noted. pt. walking with unstable control at times today, needs w/c f/u Wheelchair Training Does the Pt Use a Wheelchair?: Yes Wheel 50 ft with 2 turns (QC): 4 Type of Wheelchair: Manual pt. needs education in safe use of w/c, ie brakes, leg rest etc Exercises Supine Ex: Ankle pumps, Quad Set, Glut sets, Heel Slides (right), Scooting (up in bed) Supine Reps: 12 Treatments much time of Rx spent discussing safety and pain meds , pt. resistive at times, emotional , needs much encouragement to participate Assessment Current Status: Good Progress this DIRECTOR OF INSTRUCTION feels pt. could make greater progress if she could concentrate on Rx , utilize her Rx time better PT Short Term Goals Short Term Goals Time Frame: Jun 04, 2021 Roll Left & Right: 6 Sit to lyin Lying to sitting on side of be: 4 Sit to stand: 4 Chair/wjt-hv-meskd transfer: 4 Walk 10 feet: 4 Walk 50 feet with two turns: 4 PT Regulatory Agency Director Goals Regulatory Agency Director Goals PT Retirement Goals Time Frame: Jun 18, 2021 Roll Left & Right (QC): 6 Sit to Lying (QC): 5 Lying-Sitting on Side/Bed(QC): 5 Sit to Stand (QC): 5 Chair/Gek-pp-Xnsyz Xfer(QC): 5 Toilet Transfer (QC): 5 Car Transfer (QC): 4 Does the Patient Walk: Yes Walk 10 feet (QC): 5 Walk 50ft with 2 Turns (QC): 5 Walk 150 ft (QC): 88 Walking 10ft on Uneven Surface: 5 1 Step (curb) (QC): 4 4 Steps (QC): 4 12 Steps (QC): 88 Picking up an Object (QC): 5 Wheel 50 feet with 2 turns (QC: 6 Wheel 150 feet: 6 PT Plan Treatment/Plan Treatment Plan: Continue Plan of Care Treatment Plan: Bed Mobility, Education, Functional Activity Amor, Functional Strength, Group Therapy, Gait, Safety, Therapeutic Exercise, Transfers Treatment Duration: Jun 18, 2021 Frequency: At least 5 of 7 days/Wk (IRF) Estimated Hrs Per Day: 1.5 hours per day Patient and/or Family Agrees t: Yes Safety Risks/Education Patient Education: Gait Training, Transfer Techniques, Correct Positioning, W/C Management, Disease Process, Safety Issues Teaching Recipient: Patient Teaching Methods: Demonstration, Discussion Response to Teaching: Verbalize Understanding, Reinforcement Needed Time/GCodes Time In: 930 Time Out: 1015 Total Billed Treatment Time: 45 Total Billed Treatment 1,EX10m,FA20m,GT15m BAM RIBEIRO PTA May 29, 2021 10:24
--- NOTE | 2021-05-29 14:49 | Physical Therapy Daily Note ---
PT Daily Note-Current Subjective Pt. in bed, agrees to Rx. Pt. was cautioned to stay seated at EOB while this therapist retrieved mask and gait belt, Pt. found standing at side of bed. Reviewed safety issues again. Pain Location: No Pain Reported Mental Status Patient Orientation: Person, Place, Time, Situation Attachments: Other-See Comments (IROM leg brace LLE) Transfers SCALE: Activities may be completed with or without assistive devices. 6-Jejkkbhrft-ykqrkmy completes the activity by him/herself with no assistance from a helper. 5-Set-up or Clean-up Assistance-helper sets up or cleans up; patient completes activity. [place] assists only prior to or following the activity. 4-Supervision or Touching Assistance-helper provides verbal cues and/or touching/steadying and/or contact guard assistance as patient completes activity. Assistance may be provided throughout the activity or intermittently. 3-Partial/Moderate Assistance-helper does LESS THAN HALF the effort. [place] lifts, holds or supports trunk or limbs, but provides less than half the effort. 2-Substantial/Maximal Assistance-helper does MORE THAN HALF the effort. [place] lifts or holds trunk or limbs and provides more than half the effort. 4-Fkpdjbjsn-jpvnqn does ALL the effort. Patient does none of the effort to complete the activity. Or, the assistance of 2 or more helpers is required for the patient to complete the activity. If activity was not attempted, code reason: 7-Patient Refused. 9-Not Applicable-not attempted and the patient did not perform the activity before the current illness, exacerbation or injury. 10-Not Attempted due to Environmental Limitations-(lack of equipment, weather restraints, etc.). 88-Not Attempted due to Medical Conditions or Safety Concerns. rolls indep, sup to sit inde, sit to sup min assist, sit to stand with CGA and instruction for stand to sit to bring LLE forward to eliminate too much left knee flexion Weight Bearing Left Lower Extremity: Left Touch Toe Bearing Gait Training Does the Patient Walk?: Yes Gait Assistive Device: FWW 50 ft x 2, 75 ft x 1 FWW, pt. needs reminded to keep FWW on the floor and push it vs lifting haphazardly. Pt. complies with reminders Wheelchair Training Does the Pt Use a Wheelchair?: Yes Type of Wheelchair: Manual needs instructed in use of brakes Exercises Supine Ex: Ankle pumps, Quad Set, Glut sets, Heel Slides (right), Short Arc Quads (right), Scooting, Straight leg raise (assisted left), Hip abd/add Supine Reps: 20 NuStep Minutes: 10 NuStep Workload: 2 Treatments LLE elevated on wedge during Nustep Assessment Current Status: Good Progress impulsive and needs cuing for safety and to slow down PT Short Term Goals Short Term Goals Time Frame: Jun 04, 2021 Roll Left & Right: 6 Sit to lyin Lying to sitting on side of be: 4 Sit to stand: 4 Chair/phq-vd-tcpdx transfer: 4 Walk 10 feet: 4 Walk 50 feet with two turns: 4 PT Product Development Actuary Goals [facility] Goals PT Product Development Actuary Goals Time Frame: Jun 18, 2021 Roll Left & Right (QC): 6 Sit to Lying (QC): 5 Lying-Sitting on Side/Bed(QC): 5 Sit to Stand (QC): 5 Chair/Lvf-pe-Igvyw Xfer(QC): 5 Toilet Transfer (QC): 5 Car Transfer (QC): 4 Does the Patient Walk: Yes Walk 10 feet (QC): 5 Walk 50ft with 2 Turns (QC): 5 Walk 150 ft (QC): 88 Walking 10ft on Uneven Surface: 5 1 Step (curb) (QC): 4 4 Steps (QC): 4 12 Steps (QC): 88 Picking up an Object (QC): 5 Wheel 50 feet with 2 turns (QC: 6 Wheel 150 feet: 6 PT Plan Treatment/Plan Treatment Plan: Continue Plan of Care Treatment Plan: Bed Mobility, Education, Functional Activity Amor, Functional Strength, Group Therapy, Gait, Safety, Therapeutic Exercise, Transfers Treatment Duration: Jun 18, 2021 Frequency: At least 5 of 7 days/Wk (IRF) Estimated Hrs Per Day: 1.5 hours per day Patient and/or Family Agrees t: Yes Safety Risks/Education Patient Education: Gait Training, Transfer Techniques, Correct Positioning, Disease Process, Safety Issues Teaching Recipient: Patient Teaching Methods: Demonstration, Discussion Response to Teaching: Verbalize Understanding, Return Demonstration, Reinforcement Needed Time/GCodes Time In: 1315 Time Out: 1400 Total Billed Treatment Time: 45 Total Billed Treatment 1,EX25m,GT15m,FA15m BAM RIBEIRO FINANCIAL CONSULTANT May 29, 2021 14:49
[2021-05-29 19:59] VITALS: BP 119/78
[2021-05-30] MEDS: oxyCODONE/APAP 5/325MG (PERCOCET 5) TABLET PO PRN ×3 (01:51→14:09)
[2021-05-30] MEDS: VITAMIN D3 10 MCG (400 UNITS) TABLET PO SCH (06:37)
--- NOTE | 2021-05-30 06:46 | PM&R Progress Note ---
Subjective HPI/CC On Admission Date Seen by Provider: May 30, 2021 Subjective/Events-last exam 05/29/2021: Pt doing well Denies any new issues Pain in her left leg is improved Checked meds and labs No falls Maintain on laxatives Objective Exam Vital Signs Vital Signs Date Time Temp Pulse Resp B/P (MAP) Pulse Ox O2 Delivery O2 Flow Rate FiO2 05/30/21 09:00 97 Room Air 05/30/21 08:20 36.6 85 16 130/60 (83) Capillary Refill : General Appearance: No Apparent Distress, WD/WN, Chronically ill HEENT: PERRL/EOMI, Normal ENT Inspection, Pharynx Normal Neck: Full Range of Motion, Normal Inspection, Non Tender, Supple, Carotid Bruit Respiratory: Chest Non Tender, Lungs Clear, No Accessory Muscle Use, No Respiratory Distress, Decreased Breath Sounds Cardiovascular: Regular Rate, Rhythm, No Edema, No Gallop, No JVD, No Murmur, Normal Peripheral Pulses Gastrointestinal: Normal Bowel Sounds, No Organomegaly, No Pulsatile Mass, Non Tender, Soft Back: Normal Inspection, No CVA Tenderness, No Vertebral Tenderness Extremity: Normal Capillary Refill, Normal Inspection, Normal Range of Motion (Except left leg), Non Tender, No Calf Tenderness, No Pedal Edema Neurologic/Psychiatric: Alert, Oriented x3, No Motor/Sensory Deficits, Normal Mood/Affect Skin: Normal Color, Warm/Dry Lymphatic: No Adenopathy Results/Procedures Lab Patient resulted labs reviewed. [facility]IM Transfers Therapy Code Descriptions/Definitions Functional [place] Measure: 0=Not Assessed/NA 4=Minimal Assistance 1=Total Assistance 5=Supervision or Setup 2=Maximal Assistance 6=Modified [place] 3=Moderate Assistance 7=Complete IndependenceSCALE: Activities may be completed with or without assistive devices. 6-Yldcgdeole-xubharf completes the activity by him/herself with no assistance f rom a helper. 5-Set-up or Clean-up Assistance-helper sets up or cleans up; patient completes activity. [place] assists only prior to or following the activity. 4-Supervision or Touching Assistance-helper provides verbal cues and/or touching/steadying and/or contact guard assistance as patient completes activity. Assistance may be provided throughout the activity or intermittently. 3-Partial/Moderate Assistance-helper does LESS THAN HALF the effort. [place] lifts, holds or supports trunk or limbs, but provides less than half the effort. 2-Substantial/Maximal Assistance-helper does MORE THAN HALF the effort. [place] lifts or holds trunk or limbs and provides more than half the effort. 4-Iegelmvhr-keutwu does ALL the effort. Patient does none of the effort to complete the activity. Or, the assistance of 2 or more helpers is required for the patient to complete the activity. If activity was not attempted, code reason: 7-Patient Refused. 9-Not Applicable-not attempted and the patient did not perform the activity before the current illness, exacerbation or injury. 10-Not Attempted due to Environmental Limitations-(lack of equipment, weather restraints, etc.). 88-Not Attempted due to Medical Conditions or Safety Concerns. Roll Left to Right (QC): 5 Sit to Lying (QC): 3 Sit to Stand (QC): 4 Chair/Vfh-lh-Vbeoh Xfer(QC): 4 Car Transfer (QC): 88 Gait Training Does the Patient Walk?: Yes Walk 10 feet (QC): 4 Walk 50 ft with 2 Turns(QC): 4 Walk 150 ft (QC): 88 Walking 10ft/uneven surface-QC: 4 Gait Persons Needed: 1 Gait Assistive Device: FWW Wheelchair Training Does the Pt Use a Wheelchair?: Yes Distance: 500'x2 Wheel 50 ft with 2 turns (QC): 4 Wheel 150 ft (QC): 4 Type of Wheelchair: Manual Stair Training #of Steps: 1 1 Step (curb) (QC): 4 4 Steps (QC): 88 12 Steps (QC): 88 Balance Picking up an Object (QC): 4 ADL-Treatment Eating (QC): 6 Oral Hygiene (QC): 5 Shower/Bathe Self (QC): 3 Upper Body Dressing (QC): 5 Lower Body Dressing (QC): 2 On/Off Footwear (QC): 1 Toileting Hygiene (QC): 3 Toilet Transfer (QC): 4 Assessment/Plan Assessment and Plan Assess & Plan/Chief Complaint Assessment: Left distal femur fracture status post repair Smoker Hypoxia Postop constipation Postop anemia Plan: Supportive care Pain control (1) Fracture of distal end of femur Status: Acute (2) Depression (3) Smoker KENIA DE LUNA DO May 30, 2021 06:46
--- NOTE | 2021-05-30 08:09 | Occupational Ther Daily Note ---
OT Current Status-Daily Note Subjective Pt rates 7/10 pain in LLE. RN notified Appearance Pt left sitting in w/c, physical therapy entering room. Mental Status/Objective Patient Orientation: Person, Place, Situation Attachments: IV, Knee Immobilizer ADL-Treatment Therapy Code Descriptions/Definitions Functional [place] Measure: 0=Not Assessed/NA 4=Minimal Assistance 1=Total Assistance 5=Supervision or Setup 2=Maximal Assistance 6=Modified [place] 3=Moderate Assistance 7=Complete IndependenceSCALE: Activities may be completed with or without assistive devices. 0-Mtqkpczlmx-axyuuey completes the activity by him/herself with no assistance from a helper. 5-Set-up or Clean-up Assistance-helper sets up or cleans up; patient completes activity. [place] assists only prior to or following the activity. 4-Supervision or Touching Assistance-helper provides verbal cues and/or touching/steadying and/or contact guard assistance as patient completes activity. Assistance may be provided throughout the activity or intermittently. 3-Partial/Moderate Assistance-helper does LESS THAN HALF the effort. [place] lifts, holds or supports trunk or limbs, but provides less than half the effort. 2-Substantial/Maximal Assistance-helper does MORE THAN HALF the effort. [place] lifts or holds trunk or limbs and provides more than half the effort. 3-Bvvkmrpfk-blysaf does ALL the effort. Patient does none of the effort to complete the activity. Or, the assistance of 2 or more helpers is required for the patient to complete the activity. If activity was not attempted, code reason: 7-Patient Refused. 9-Not Applicable-not attempted and the patient did not perform the activity bef ore the current illness, exacerbation or injury. 10-Not Attempted due to Environmental Limitations-(lack of equipment, weather r estraints, etc.). 88-Not Attempted due to Medical Conditions or Safety Concerns. Eating (QC): 6 Oral Hygiene (QC): 6 Upper Body Dressing (QC): 5 On/Off Footwear: 3 Toileting Hygiene (QC): 4 Toilet Transfer (QC): 4 Pt supine at OT arrival. Able to don LLE brace/immobolizer without assist. Min a to don L sock while long sitting in bed. Pt able to don R sock/shoe without assist. Supine>sit>stand: SBA. Impulsive with all transfers. Cues for safety. She hopped to/from bathroom with use of walker and CGA. Quick pace, cues to keep walker closer to body. Partial sponge bath completed seated in w/c. Pt washed upper body and sandra area only with set up. Grooming tasks completed seated at sink, no assist. Education OT Patient Education: Correct positioning, Energy conservation, Modified ADL techniques, Progress toward Goal/Update tx plan, Purpose of tx/functional activities, Reviewed precautions, Safety issues, Transfer techniques, Use of adapted equipment, W/C management Teaching Recipient: Patient Teaching Methods: Demonstration, Discussion Response to Teaching: Verbalize Understanding, Reinforcement Needed OT Short Term Goals Short Term Goals Time Frame: Jun 05, 2021 Eatin Oral hygiene: 6 Toileting hygiene: 4 Shower/bathe self: 3 Upper body dressin Lower body dressin Putting on/taking off footwear: 3 OT Retirement Goals Side Puller Goals Time Frame: Jun 11, 2021 Eating (QC): 6 Oral Hygiene (QC): 6 Toileting Hygiene (QC): 5 Shower/Bathe Self (QC): 5 Upper Body Dressing (QC): 6 Lower Body Dressing (QC): 5 On/Off Footwear (QC): 5 1=Demonstrate adherence to instructed precautions during ADL tasks. 2=Patient will verbalize/demonstrate understanding of assistive devices/modifications for ADL. 3=Patient will improve strength/tolerance for activity to enable patient to perform ADL's. OT Education/Plan Problem List/Assessment Assessment: Decreased Activ Tolerance, Decreased Safety Aware, Decreased UE Strength, Impaired Funct Balance, Impaired I ADL's, Impaired Self-Care Skills Discharge Recommendations Plan/Recommendations: Continue POC Therapy Discharge Recommendati: Bath Aide, Homemaker Support Treatment Plan/Plan of Care Treatment,Training & Education: Yes Patient would benefit from OT for education, treatment and training to promote independence in ADL's, mobility, safety and/or upper extremity function for ADL's. Plan of Care: ADL Retraining, Functional Mobility, Group Exercise/Act as Ind, Orthotic Fitting/Training, UE Funct Exercise/Act, W/C Management Training Treatment Duration: Jun 11, 2021 Frequency: At least 5 of 7 days/Wk (IRF) Estimated Hrs Per Day: 1.5 hours per day Agreement: Yes Rehab Potential: Fair Time/GCodes Start Time: 07:30 Stop Time: 08:00 Total Time Billed (hr/min): 30 Billed Treatment Time 1 visit ADL x2 Sophia Sánchez OT May 30, 2021 08:09
[2021-05-30] MEDS: SENNA W/DOCUSATE (SENOKOT S) TABLET PO SCH (08:14)
[2021-05-30] MEDS: DOCUSATE SODIUM 100 MG (COLACE) CAP PO SCH (08:14)
[2021-05-30] MEDS: ZINC SULFATE 220 MG CAPSULE PO SCH (08:14)
[2021-05-30] MEDS: MULTIVIT W/MINERALS TAB (THERAGRAN M) PO SCH (08:14)
[2021-05-30] MEDS: ENOXAPARIN 30 MG/0.3 ML (LOVENOX) SYR SC SCH (08:14)
[2021-05-30] MEDS: polyethylene glycoL POWDER 17 GM (MIRALAX) PACK PO SCH (08:14)
[2021-05-30] MEDS: MUPIROCIN 2% OINT 22 GM (BACTROBAN) TUBE NSEACH SCH (08:15)
[2021-05-30 08:20] VITALS: BP 130/60
--- NOTE | 2021-05-30 08:57 | Progress Note ---
Standard Progress Note Progress Notes/Assess & Plan Date Seen by a Provider: May 30, 2021 Time Seen by a Provider: 08:20 Progress/Assessment & Plan no complaints Vital Signs Date Time Temp Pulse Resp B/P (MAP) Pulse Ox O2 Delivery O2 Flow Rate FiO2 05/30/21 08:20 36.6 85 16 130/60 (83) 96 Room Air 05/29/21 21:00 95 Room Air 05/29/21 19:59 36.4 98 16 119/78 (92) 95 Room Air 05/29/21 09:00 97 Room Air LLE--incision clean and dry. no calf tenderness s/p ORIF L femur TTWB ok to shower ABELARDO DE LA TORRE MD May 30, 2021 08:57
--- NOTE | 2021-05-30 09:03 | Physical Therapy Daily Note ---
PT Daily Note-Current Subjective Pt. agreeable to Rx. Just finishing some OT. Pt. rates pain at 12/16, Dr Toscano visits and reiterates 0 to 90 deg available ROM for knee as well as TDWB L which pt. has questioned previously with PT Pain Numeric Pain Scale: 7 Location: Left Location Body Site: Knee Pain Description: Ache Mental Status Patient Orientation: Person, Place, Time, Situation Attachments: Other-See Comments (IROM brace left knee) Transfers SCALE: Activities may be completed with or without assistive devices. 3-Zrjwkghqbn-qfeoequ completes the activity by him/herself with no assistance from a helper. 5-Set-up or Clean-up Assistance-helper sets up or cleans up; patient completes activity. [place] assists only prior to or following the activity. 4-Supervision or Touching Assistance-helper provides verbal cues and/or touching/steadying and/or contact guard assistance as patient completes activity. Assistance may be provided throughout the activity or intermittently. 3-Partial/Moderate Assistance-helper does LESS THAN HALF the effort. [place] lifts, holds or supports trunk or limbs, but provides less than half the effort. 2-Substantial/Maximal Assistance-helper does MORE THAN HALF the effort. [place] lifts or holds trunk or limbs and provides more than half the effort. 7-Lzuhqkwcc-ilibpl does ALL the effort. Patient does none of the effort to complete the activity. Or, the assistance of 2 or more helpers is required for the patient to complete the activity. If activity was not attempted, code reason: 7-Patient Refused. 9-Not Applicable-not attempted and the patient did not perform the activity before the current illness, exacerbation or injury. 10-Not Attempted due to Environmental Limitations-(lack of equipment, weather restraints, etc.). 88-Not Attempted due to Medical Conditions or Safety Concerns. Roll Left & Right (QC): 6 Sit to Lying (QC): 6 Lying to Sitting/Side of Bed(Q: 6 Sit to Stand (QC): 5 Chair/Iqh-pw-Xdqlr Xfer(QC): 5 pt. instructed to step forward with LLE before sitting to prevent discomfort left knee Weight Bearing Left Lower Extremity: Left Touch Toe Bearing Gait Training Does the Patient Walk?: Yes Walk 10 feet (QC): 4 Walk 50 ft with 2 Turns(QC): 4 Gait Persons Needed: 1 Gait Assistive Device: FWW pt. instructed in keeping FWW on ground, only need to push it, also to practice, "wlker left right" so that gait pattern stays intact Wheelchair Training Does the Pt Use a Wheelchair?: Yes Wheel 50 ft with 2 turns (QC): 6 Wheel 150 ft (QC): 6 Type of Wheelchair: Manual w/c mobility on ramp up and down with pt demonstrating good control and strength to ascend ramp with UEs only, fig 8 in tight spaces simulating home with some challenge and instructed in safer turns to protect LLE foot Exercises Supine Ex: Ankle pumps, Quad Set, Heel Slides (asssited left), Short Arc Quads, Straight leg raise (assisted) Supine Reps: 15 NuStep Minutes: 8 NuStep Workload: 1 Treatments Rx as above to include donning and doffing brace to assure proper fit and skin protection Assessment Current Status: Good Progress PT Short Term Goals Short Term Goals Time Frame: Jun 04, 2021 Roll Left & Right: 6 Sit to lyin Lying to sitting on side of be: 4 Sit to stand: 4 Chair/kpg-sl-eehei transfer: 4 Walk 10 feet: 4 Walk 50 feet with two turns: 4 PT Correction Goals Correction Goals PT Correction Goals Time Frame: Jun 18, 2021 Roll Left & Right (QC): 6 Sit to Lying (QC): 5 Lying-Sitting on Side/Bed(QC): 5 Sit to Stand (QC): 5 Chair/Ave-hz-Guqbx Xfer(QC): 5 Toilet Transfer (QC): 5 Car Transfer (QC): 4 Does the Patient Walk: Yes Walk 10 feet (QC): 5 Walk 50ft with 2 Turns (QC): 5 Walk 150 ft (QC): 88 Walking 10ft on Uneven Surface: 5 1 Step (curb) (QC): 4 4 Steps (QC): 4 12 Steps (QC): 88 Picking up an Object (QC): 5 Wheel 50 feet with 2 turns (QC: 6 Wheel 150 feet: 6 PT Plan Treatment/Plan Treatment Plan: Continue Plan of Care Treatment Plan: Bed Mobility, Education, Functional Activity Amor, Functional Strength, Group Therapy, Gait, Safety, Therapeutic Exercise, Transfers Treatment Duration: Jun 18, 2021 Frequency: At least 5 of 7 days/Wk (IRF) Estimated Hrs Per Day: 1.5 hours per day Patient and/or Family Agrees t: Yes Safety Risks/Education Patient Education: Gait Training, Transfer Techniques, Correct Positioning, W/C Management, Reviewed Don/Doff Brace, Disease Process, Safety Issues Teaching Recipient: Patient Teaching Methods: Demonstration, Discussion Response to Teaching: Verbalize Understanding, Return Demonstration, Reinforcement Needed Time/GCodes Time In: 800 Time Out: 900 Total Billed Treatment Time: 60 Total Billed Treatment 1,EX35m,GT10m,FA15m BAM RIBEIRO SOFTWARE TEAM LEADER May 30, 2021 09:02
--- NOTE | 2021-05-30 10:38 | Occupational Ther Daily Note ---
OT Current Status-Daily Note Subjective Pt continues to report pain in LLE, 12/16. "you therapist all think you know more than I do. I probably could have got the same degree easy." Appearance Returned to supine in bed, all needs within reach. Mental Status/Objective Patient Orientation: Person, Place, Situation Attachments: IV, Knee Immobilizer ADL-Treatment Therapy Code Descriptions/Definitions Functional [place] Measure: 0=Not Assessed/NA 4=Minimal Assistance 1=Total Assistance 5=Supervision or Setup 2=Maximal Assistance 6=Modified [place] 3=Moderate Assistance 7=Complete IndependenceSCALE: Activities may be completed with or without assistive devices. 2-Herdzizebp-stesvjm completes the activity by him/herself with no assistance from a helper. 5-Set-up or Clean-up Assistance-helper sets up or cleans up; patient completes activity. [place] assists only prior to or following the activity. 4-Supervision or Touching Assistance-helper provides verbal cues and/or touching/steadying and/or contact guard assistance as patient completes activity. Assistance may be provided throughout the activity or intermittently. 3-Partial/Moderate Assistance-helper does LESS THAN HALF the effort. [place] lifts, holds or supports trunk or limbs, but provides less than half the effort. 2-Substantial/Maximal Assistance-helper does MORE THAN HALF the effort. [place] lifts or holds trunk or limbs and provides more than half the effort. 5-Ucvadjwst-wpysni does ALL the effort. Patient does none of the effort to complete the activity. Or, the assistance of 2 or more helpers is required for the patient to complete the activity. If activity was not attempted, code reason: 7-Patient Refused. 9-Not Applicable-not attempted and the patient did not perform the activity before the current illness, exacerbation or injury. 10-Not Attempted due to Environmental Limitations-(lack of equipment, weather restraints, etc.). 88-Not Attempted due to Medical Conditions or Safety Concerns. Toileting Hygiene (QC): 4 Toilet Transfer (QC): 4 Pt continues to be impulsive with all transfers needing cues for safety, no physical assist required. Pt performed tub transfer x4 with use of tub bench. Goal to promote increased safety, endurance, sequencing and problem solving through task. Post demonstration from therapist, pt initially min a but improves to SBA on last transfer. Pt often requires cues for safety and slowing pace. Discussed placement of LLE on side of tub to maintain leg extension with brace. Pt able to demonstrate without any concerns. Other Treatment Pt participated in UE exercises to promote increased strength and endurance needed for adls and transfers. 3# hand held weight utilized. Pt often requires cues for slow controlled movement as well as tactile cues for correct technique. Pt reports owning same size weights at home and will continue post d/c. 10x2 in all planes. Education OT Patient Education: Correct positioning, Energy conservation, Exercise program, Modified ADL techniques, Progress toward Goal/Update tx plan, Purpose of tx/functional activities, Reviewed precautions, Safety issues, Transfer techniques, W/C management Teaching Recipient: Patient Teaching Methods: Demonstration, Discussion Response to Teaching: Verbalize Understanding, Return Demonstration, Reinforc ement Needed OT Short Term Goals Short Term Goals Time Frame: Jun 05, 2021 Eatin Oral hygiene: 6 Toileting hygiene: 4 Shower/bathe self: 3 Upper body dressin Lower body dressin Putting on/taking off footwear: 3 OT Hazardous Material Specialist Goals Hazardous Material Specialist Goals Time Frame: Jun 11, 2021 Eating (QC): 6 Oral Hygiene (QC): 6 Toileting Hygiene (QC): 5 Shower/Bathe Self (QC): 5 Upper Body Dressing (QC): 6 Lower Body Dressing (QC): 5 On/Off Footwear (QC): 5 1=Demonstrate adherence to instructed precautions during ADL tasks. 2=Patient will verbalize/demonstrate understanding of assistive devices/modifications for ADL. 3=Patient will improve strength/tolerance for activity to enable patient to perform ADL's. OT Education/Plan Problem List/Assessment Assessment: Decreased Activ Tolerance, Decreased Safety Aware, Impaired Funct Balance, Impaired I ADL's, Impaired Self-Care Skills Discharge Recommendations Plan/Recommendations: Continue POC Treatment Plan/Plan of Care Treatment,Training & Education: Yes Patient would benefit from OT for education, treatment and training to promote independence in ADL's, mobility, safety and/or upper extremity function for ADL's. Plan of Care: ADL Retraining, Functional Mobility, Group Exercise/Act as Ind, Orthotic Fitting/Training, UE Funct Exercise/Act, W/C Management Training Treatment Duration: Jun 11, 2021 Frequency: At least 5 of 7 days/Wk (IRF) Estimated Hrs Per Day: 1.5 hours per day Agreement: Yes Rehab Potential: Fair Time/GCodes Start Time: 09:35 Stop Time: 10:35 Total Time Billed (hr/min): 60 Billed Treatment Time 1 visit ADL x2 (30 min) EX x2 (30 min) Sophia Sánchez OT May 30, 2021 10:38
[2021-05-30] MEDS ORDERED: DOCU100C37 PO (12:06)
[2021-05-30] MEDS ORDERED: NF-VITD400 PO (12:06)
[2021-05-30] MEDS ORDERED: ENOX40DI13 SQ (12:06)
[2021-05-30] MEDS ORDERED: OXYC1TAB87 PO (12:06)
--- NOTE | 2021-05-30 12:07 | Discharge Summary ---
Diagnosis/Chief Complaint Date of Admission May 28, 2021 at 10:45 Date of Discharge Discharge Date: May 30, 2021 Discharge Diagnosis Assessment: Left distal femur fracture status post repair Smoker Hypoxia Postop constipation Postop anemia Plan: Supportive care Pain control Discharge Summary Discharge Physical Examination Allergies: Coded Allergies: Sulfa (Sulfonamide Antibiotics) (Verified Allergy, Unknown, 07/21/19) celecoxib (Unverified Allergy, Unknown, 09/23/10) meloxicam (Verified Allergy, Unknown, stomach pain, 07/21/19) Vitals & I&Os Vital Signs Date Time Temp Pulse Resp B/P (MAP) Pulse Ox O2 Delivery O2 Flow Rate FiO2 05/30/21 16:36 36.6 85 16 130/60 97 Room Air General Appearance: Alert, Oriented X3, Cooperative Respiratory: Clear to Auscultation Cardiovascular: Regular Rate Hospital Course Was the Problem List Reviewed?: Yes Hospital course: Pt had a short hospital course, she was admitted for recovery from left distal femur fracture, she received pain medication and therapy but she decided that she would rather be at home and could take care of herself and overall felt like she did not require inpatient rehab so we sent her pain medication to [facility] and made a safe discharge to avoid AMA. Labs (last 24 hrs) Laboratory Tests 05/29/21 05:15: White Blood Count 6.3, Red Blood Count 4.38, Hemoglobin 12.9, Hematocrit 39, Mean Corpuscular Volume 89, Mean Corpuscular Hemoglobin 30, Mean Corpuscular Hemoglobin Concent 33, Red Cell Distribution Width 13.0, Platelet Count 253, Mean Platelet Volume 9.4, Immature Granulocyte % (Auto) 1, Neutrophils (%) (Auto) 55, Lymphocytes (%) (Auto) 29, Monocytes (%) (Auto) 10, Eosinophils (%) (Auto) 5, Basophils (%) (Auto) 0, Neutrophils # (Auto) 3.4, Lymphocytes # (Auto) 1.8, Monocytes # (Auto) 0.6, Eosinophils # (Auto) 0.3, Basophils # (Auto) 0.0, Immature Granulocyte # (Auto) 0.0, Sodium Level 137, Potassium Level 3.9, Chloride Level 99, Carbon Dioxide Level 27, Anion Gap 11, Blood Urea Nitrogen 18, Creatinine 0.66, Estimat Glomerular Filtration Rate 89, BUN/Creatinine Ratio 27, Glucose Level 103, Calcium Level 8.9, Corrected Calcium 9.4, Total Bilirubin 0.7, Aspartate Amino Transf (AST/SGOT) 45H, Alanine Aminotransferase (ALT/SGPT) 34, Alkaline Phosphatase 78, Total Protein 6.7, Albumin 3.4 Pending Labs Laboratory Tests 05/29/21 05:15: White Blood Count 6.3, Red Blood Count 4.38, Hemoglobin 12.9, Hematocrit 39, Mean Corpuscular Volume 89, Mean Corpuscular Hemoglobin 30, Mean Corpuscular Hemoglobin Concent 33, Red Cell Distribution Width 13.0, Platelet Count 253, Mean Platelet Volume 9.4, Immature Granulocyte % (Auto) 1, Neutrophils (%) (Auto) 55, Lymphocytes (%) (Auto) 29, Monocytes (%) (Auto) 10, Eosinophils (%) (Auto) 5, Basophils (%) (Auto) 0, Neutrophils # (Auto) 3.4, Lymphocytes # (Auto) 1.8, Monocytes # (Auto) 0.6, Eosinophils # (Auto) 0.3, Basophils # (Auto) 0.0, Immature Granulocyte # (Auto) 0.0, Sodium Level 137, Potassium Level 3.9, Chloride Level 99, Carbon Dioxide Level 27, Anion Gap 11, Blood Urea Nitrogen 18, Creatinine 0.66, Estimat Glomerular Filtration Rate 89, BUN/Creatinine Ratio 27, Glucose Level 103, Calcium Level 8.9, Corrected Calcium 9.4, Total Bilirubin 0.7, Aspartate Amino Transf (AST/SGOT) 45, Alanine Aminotransferase (ALT/SGPT) 34, Alkaline Phosphatase 78, Total Protein 6.7, Albumin 3.4 Discharge Home Medications: Active Scripts Active Lovenox (Enoxaparin Sodium) 40 Mg/0.4 Ml Syringe 40 Mg SQ DAILY Vitamin D3 (Vitamin D) 10 Mcg Tablet 10 Mcg PO DAILY@0700 Docusate Sodium 100 Mg Capsule 100 Mg PO BID Percocet 5-325 mg Tablet (Oxycodone HCl/Acetaminophen) 1 Each Tablet 1 Tab PO Q2HR PRN Reported [Arnicare] Tab 1-2 Ea PO Q6H PRN Zinc (Zinc Sulfate) 50 Mg Tablet 50 Mg PO DAILY Multivitamins (Multivitamin) 1 Each Tablet 1 Each PO DAILY Benadryl Allergy (Diphenhydramine HCl) 25 Mg Tablet 25 Mg PO Q4 -6H PRN Tylenol (Acetaminophen) 325 Mg Tablet 650 Mg PO Q8H PRN Instructions to patient/family Please see electronic discharge instructions given to patient. Diagnosis/Problems Diagnosis/Problems (1) Fracture of distal end of femur Status: Acute (2) Depression (3) Smoker KENIA DE LUNA DO May 30, 2021 12:07
--- NOTE | 2021-05-30 12:09 | D/C HH Face to Face Order ---
D/C Face to Face Orders Reconcile Patient Problems Problems Reviewed?: Yes Instructions for Patient [place] Patient Instructions/FollowUp: PCP 2 weeks Physician to follow Patient: [facility] Discharge Diet for Home: No Restrictions Patient Problems: Left distal femur fracture Patient Data-Allergies,Ht & Wt Patient Allergies: Coded Allergies: Sulfa (Sulfonamide Antibiotics) (Verified Allergy, Unknown, 07/21/19) celecoxib (Unverified Allergy, Unknown, 09/23/10) meloxicam (Verified Allergy, Unknown, stomach pain, 07/21/19) Height (Feet): 6 Height (Inches): 0 Weight (Pounds): 190 Home Health Need/Face to Face Date of Face to Face: May 30, 2021 Clinical Findings: Generalized weakness and fatigue, Instability, Muscle weakness, Non or partial weight bearing, Pain with ambulation I have seen Pt [id number]: Yes Discharged To: Home Diagnosis/Conditions: Left distal femur fracture Patient is Homebound due to: Muscle weakness, Non-weight bearing, Pain w/ambulation Homebound Status Due to the above stated illness, injury or surgical procedure (medical condition or diagnosis) and associated clinical findings, the patient is homebound because of his/her inability to leave home except with aid of a supportive device and/or person AND leaving the home requires a considerable and taxing effort or is medically contraindicated. Pt req the following assistanc: Walker Home Health Nursing Orders Home Health Services Order: Nursing Services, Materials Planning Analyst-Evaluate & Treat, Physical Therapy-Evaluate & Treat Certify Stmt I certify that this patient is under my care and that I, a nurse practitioner or a physician; a journeyman operator assistant working with me, had a face to face encounter that - meets the physician face to face encounter requirements with this patient as dated. KENIA DE LUNA DO May 30, 2021 12:09
--- NOTE | 2021-05-30 13:09 | Physical Therapy Daily Note ---
PT Daily Note-Current Subjective Pt. agrees to Rx. Pain Numeric Pain Scale: 7 Location: Left Location Body Site: Knee Pain Description: Stabbing Mental Status Patient Orientation: Person, Place, Situation Attachments: Other-See Comments (IRNAKIA bratammy left LE) Transfers SCALE: Activities may be completed with or without assistive devices. 9-Cufmyxkgkr-klmjfvx completes the activity by him/herself with no assistance from a helper. 5-Set-up or Clean-up Assistance-helper sets up or cleans up; patient completes activity. [place] assists only prior to or following the activity. 4-Supervision or Touching Assistance-helper provides verbal cues and/or touching/steadying and/or contact guard assistance as patient completes activity. Assistance may be provided throughout the activity or intermittently. 3-Partial/Moderate Assistance-helper does LESS THAN HALF the effort. [place] lifts, holds or supports trunk or limbs, but provides less than half the effort. 2-Substantial/Maximal Assistance-helper does MORE THAN HALF the effort. [place] lifts or holds trunk or limbs and provides more than half the effort. 7-Hgqequecb-cnjwcq does ALL the effort. Patient does none of the effort to complete the activity. Or, the assistance of 2 or more helpers is required for the patient to complete the activity. If activity was not attempted, code reason: 7-Patient Refused. 9-Not Applicable-not attempted and the patient did not perform the activity before the current illness, exacerbation or injury. 10-Not Attempted due to Environmental Limitations-(lack of equipment, weather restraints, etc.). 88-Not Attempted due to Medical Conditions or Safety Concerns. TRFs in out bed and w/c SBA to mod I, sup to sit SBA to mod I Weight Bearing Left Lower Extremity: Left Touch Toe Bearing Gait Training Does the Patient Walk?: Yes Gait Assistive Device: FWW 30ftx5 FWW CGA and reminders for pattern and WT bearing restrictions etc Exercises Supine Ex: Ankle pumps, Quad Set, Glut sets, Heel Slides (0-45), Scooting, Straight leg raise, Hip abd/add Supine Reps: 20 Treatments AAROM left knee 0 to 45 deg, pt. c/o increased pain at this point and stops. needs repeated instruction for w/c use, gait pattern etc as pt. apparently forgets. Pt. talks near non stop during Rx and it is necessary to interrupt her to instruct for safety. Assessment Current Status: Good Progress PT Short Term Goals Short Term Goals Time Frame: Jun 04, 2021 Roll Left & Right: 6 Sit to lyin Lying to sitting on side of be: 4 Sit to stand: 4 Chair/agz-mc-rhziu transfer: 4 Walk 10 feet: 4 Walk 50 feet with two turns: 4 PT Retirement Goals Other Sports Coach Or Instructor Goals PT Retirement Goals Time Frame: Jun 18, 2021 Roll Left & Right (QC): 6 Sit to Lying (QC): 5 Lying-Sitting on Side/Bed(QC): 5 Sit to Stand (QC): 5 Chair/Aqj-ny-Korth Xfer(QC): 5 Toilet Transfer (QC): 5 Car Transfer (QC): 4 Does the Patient Walk: Yes Walk 10 feet (QC): 5 Walk 50ft with 2 Turns (QC): 5 Walk 150 ft (QC): 88 Walking 10ft on Uneven Surface: 5 1 Step (curb) (QC): 4 4 Steps (QC): 4 12 Steps (QC): 88 Picking up an Object (QC): 5 Wheel 50 feet with 2 turns (QC: 6 Wheel 150 feet: 6 PT Plan Treatment/Plan Treatment Plan: Continue Plan of Care Treatment Plan: Bed Mobility, Education, Functional Activity Amor, Functional Strength, Group Therapy, Gait, Safety, Therapeutic Exercise, Transfers Treatment Duration: Jun 18, 2021 Frequency: At least 5 of 7 days/Wk (IRF) Estimated Hrs Per Day: 1.5 hours per day Patient and/or Family Agrees t: Yes Safety Risks/Education Patient Education: Gait Training, Transfer Techniques, Correct Positioning, W/C Management, Disease Process, Safety Issues Teaching Recipient: Patient Teaching Methods: Demonstration, Discussion Response to Teaching: Verbalize Understanding, Return Demonstration, Reinforcement Needed Time/GCodes Time In: 1230 Time Out: 1300 Total Billed Treatment Time: 30 Total Billed Treatment 1,EX15m,GT15m BAM RIBEIRO LUBRICATING SPECIALIST May 30, 2021 13:09
[2021-05-30 16:36] VITALS: BP 130/60
--- NOTE | 2021-05-31 10:47 | Therapy Team Discharge Summary ---
Therapy Discharge Summary Discharge Recommendations Date of Discharge May 30, 2021 at 18:17 Therapy D/C Recommendations: Bath Aide, Home w/ Family Support, Occupational Therapy Home Care, Homemaker Support Occupational Therapy Pt arrived to ARU post L distal femur fx. She was placed in a full leg immobolizer and was TTWB on LLE. At time of eval, pt was mod a for oral care, bathing, toileting, max a for footwear, and sba for upper body dressing. During rehab stay, OT focused on safety, pacing, endurance, balance, transfers, a daptive/compensatory strategies, and maintaining WB status during adls. Pt often argumentative and not willing to follow therapy suggestions, cues, or education. Pt did not meet all of her mcc goals secondary to poor compliance, effort, and reports that she will just have her do it for her. At time of discharge, pt was indep with eating, oral care, set up for upper body dressing, min a for footwear, LB dressing, and bathing, and sba for toileting and functional transfers. Pt is now discharged from this facility and will be discharged from OT. Decreased Activ Tolerance, Decreased Safety Aware, Impaired Funct Balance, I mpaired I ADL's, Impaired Self-Care Skills PT [place] Goals Residential Goals PT [place] Goals Time Frame: Jun 18, 2021 Roll Left to Right (QC): 6 Sit to Lying (QC): 5 Lying-Sitting on Side/Bed(QC): 5 Sit to Stand (QC): 5 Chair/Tgj-uv-Lfpwd Xfer(QC): 5 Car Transfer (QC): 4 Does the Patient Walk: Yes Walk 10 feet (QC): 5 Walk 10ft-Uneven Surface(QC): 5 Walk 50ft with 2 Turns (QC): 5 Walk 150 ft (QC): 88 Wheel 50 feet with 2 turns (QC: 6 1 Step (curb) (QC): 4 4 Steps (QC): 4 12 Steps (QC): 88 Picking up an Object (QC): 5 OT [place] Goals Residential Goals Time Frame: Jun 11, 2021 Eating (QC): 6 (met) Oral Hygiene (QC): 6 (met) Shower/Bathe Self (QC): 5 (not met) Upper Body Dressing (QC): 6 (not met) Lower Body Dressing (QC): 5 (not met) On/Off Footwear (QC): 5 (not met) Toileting Hygiene (QC): 5 (not met) Toilet/Commode Transfer (QC): 5 (not met) 1=Demonstrate adherence to instructed precautions during ADL tasks. 2=Patient will verbalize/demonstrate understanding of assistive devices/modifications for ADL. 3=Patient will improve strength/tolerance for activity to enable patient to perform ADL's. Sophia Sánchez OT May 31, 2021 10:47
== END 2021-05-30 18:17 | disposition home health service (06) | DRG 561 ==
PROVIDERS: ADMIT Internal Medicine; ATTEND Internal Medicine
DX: S72.402D Unspecified fracture of lower end of left femur, subsequent encounter for closed fracture with routine healing (principal); F17.210 Nicotine dependence, cigarettes, uncomplicated; J44.9 Chronic obstructive pulmonary disease, unspecified; F32.A Depression, unspecified; K59.00 Constipation, unspecified; Z96.651 Presence of right artificial knee joint; Z88.6 Allergy status to analgesic agent; Z88.2 Allergy status to sulfonamides
CPT/HCPCS: 36415; 80053; 85025

== ENCOUNTER → 2021-08-14 | Outpatient (CLI) | payer MEDICARE, OTHER ==
[~2021-08-14] MED LIST changes: +DOCU100C37 PO; +ENOX40DI13 SQ; +NF-VITD400 PO
--- NOTE | 2021-08-14 10:21 | Diagnostic Imaging Report ---
INDICATION: Postmenopausal screening COMPARISON: Baseline FINDINGS: AP Spine L1-L4: [BMD (g/cm2): 1.083] [T-Score: -1.0] [Z-Score: 0.0] [BMD Previous: na] [BMD % Change: na] LT Hip Neck: [BMD (g/cm2): 0.901] [T-Score: -1.0] [Z-Score: 0.1] LT Hip Total: [BMD (g/cm2):0.871] [T-Score:-1.1] [Z-Score: -0.2] [BMD Previous: na] [BMD % Change: na] RT Hip Neck: [BMD (g/cm2):0.911] [T-Score:-0.9] [Z-Score:0.2] RT Hip Total: [BMD (g/cm2):0.926] [T-score:-0.6] [Z-Score:0.2] [BMD Previous:na] [BMD % Change:na] *Indicates significant change from prior examination based on 95% confidence level. World Health Organization criteria for BMD interpretation classify patients as Normal (T-score at or above -1.0), Osteopenic (T-score between -1.0 and -2.5) or Osteoporotic (T-score at or below -2.5). LIMITATIONS AND MODIFICATION: None. FRACTURE RISK (FRAX SCORE): The ten year probability of (%): Major Osteoporotic Fracture: [13.9] Hip Fracture: [1.1] IMPRESSION: 1. Normal bone mineral density. 2. Baseline examination. 3. See below National Osteoporosis Foundation guidelines on when to potentially initiate pharmacologic therapy. Based on the National Osteoporosis Foundation Guidelines, pharmacologic treatment should be initiated in any of the following, unless clinical conditions suggest otherwise: * Any patient with prior fragility fracture of the hip or vertebrae. A spine fracture indicates 5X risk for subsequent spine fracture and 2X risk for subsequent hip fracture. * Osteoporosis (T-score <-2.5). * Postmenopausal women and men age 50 and older with low bone mass/osteopenia (T-score between -1.0 and -2.5) by DXA and 10-year major osteoporotic fracture greater than 20% or a 10-year probability of hip fracture greater than 3%. These fracture risks are supplied above in the FRAX score, if applicable. * Clinician judgement and/or patient preferences may indicate treatment for people with 10-year fracture probabilities above or below these levels. Dictated by: Dictated on workstation # [id number]
== END ==
LOC: RAD 09:25
PROVIDERS: ATTEND Family Medicine
DX: E55.9 Vitamin D deficiency, unspecified (principal); Z78.0 Asymptomatic menopausal state
CPT/HCPCS: 77080

== ENCOUNTER 2022-08-11 20:58 | Emergency (ER) | payer MEDICARE, OTHER ==
[~2022-08-11] VITALS: Ht 182.9 cm; Wt 88.9 kg
--- NOTE | 2022-08-11 21:45 | ED Fall/Injury ---
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 DENIES HITTING HEAD OR LOC. 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 History of Present Illness Date Seen by Provider: Aug 11, 2022 Time Seen by Provider: 21:15 Initial Comments 67-year-old female reports for fall that occurred earlier today causing an injury to her right wrist and a superficial abrasion to her left knee. She has a history of previous left patella fracture and femur fracture. She denies previous injuries to her right upper extremity. Occurred: this afternoon Severity: mild Injuries/Pain Location: upper extremity (Right wrist), lower extremity (Left knee, abrasion with dressing in place. ) Context: tripped Loss of Consciousness: no loss of consciousness Associated Symptoms (Fall): Denies Symptoms Allergies and Home Medications Allergies Coded Allergies: Sulfa (Sulfonamide Antibiotics) (Verified Allergy, Unknown, 07/21/19) celecoxib (Unverified Allergy, Unknown, 09/23/10) meloxicam (Verified Allergy, Unknown, stomach pain, 07/21/19) Patient Home Medication List Home Medication List Reviewed: Yes Acetaminophen (Tylenol) 325 Mg Tablet, 650 MG PO Q8H PRN for PAIN-MILD (1-4), (Reported) Entered as Reported by: HARRY PACK on 08/05/19 1100 Diphenhydramine HCl (Benadryl Allergy) 25 Mg Tablet, 25 MG PO Q4 -6H PRN for ALLERGY SYMPTOMS, (Reported) Entered as Reported by: HARRY PACK on 08/05/19 1100 Docusate Sodium (Docusate Sodium) 100 Mg Capsule, 100 MG PO BID Prescribed by: KENIA DE LUNA on 05/30/21 1206 Enoxaparin Sodium (Lovenox) 40 Mg/0.4 Ml Syringe, 40 MG SQ DAILY Prescribed by: KENIA DE LUNA on 05/30/21 1206 Multivitamin (Multivitamins) 1 Each Tablet, 1 EACH PO DAILY, (Reported) Entered as Reported by: HARRY PACK on 08/05/19 1111 Oxycodone HCl/Acetaminophen (Percocet 5-325 mg Tablet) 1 Each Tablet, 1 TAB PO Q2HR PRN for PAIN-MODERATE (5-7) Prescribed by: KENIA DE LUNA on 05/30/21 1207 Vitamin D (Vitamin D3) 10 Mcg Tablet, 10 MCG PO DAILY@0700 Prescribed by: KENIA DE LUNA on 05/30/21 1206 Zinc Sulfate (Zinc) 50 Mg Tablet, 50 MG PO DAILY, (Reported) Entered as Reported by: HARRY PACK on 05/25/21 110 [Arnicare] TAB, 1-2 EA PO Q6H PRN for PAIN-BREAKTHROUGH, (Reported) Entered as Reported by: HARRY PACK on 05/25/21 110 Review of Systems Review of Systems Constitutional: no symptoms reported, see HPI Musculoskeletal: see HPI, joint pain (Right wrist and left knee), joint swelling (Right wrist) Skin: see HPI, other (Abrasion left knee) All Other Systems Reviewed Negative Unless Noted: Yes Past Mlpywnp-Weqfcz-Xoeiaz Hx Patient Social History Tobacco Use?: Yes Tobacco type used: Cigarettes Smoking Status: Current Everyday Smoker Substance use?: No Alcohol Use?: No Immunizations Up To Date PED Vaccines UTD: Yes Influenza Vaccine Up-to-Date: Yes; Up-to-Date First/Initial COVID19 Vaccinat: 08-11-20 Second COVID19 Vaccination [place]: 09-08-20 Third COVID19 Vaccination Date: 05-18-21 Seasonal Allergies Seasonal Allergies: Yes Past Medical History Surgery/Hospitalization HX: SMOKER, ARTHRISTIS, HERNIATED DISC, RIGHT TOTAL KNEE, CHRONIC BACK PAIN, MRSA NARES, MACO Surgeries: Yes Orthopedic Respiratory: No Currently Using CPAP: No Currently Using BIPAP: No Cardiac: No Neurological: No Reproductive Disorders: No Genitourinary: No Gastrointestinal: No Musculoskeletal: No Arthritis Endocrine: No HEENT: No Cancer: No Psychosocial: No Integumentary: No Blood Disorders: No Family Medical History Reviewed Nursing Family Hx Alzheimer's disease 19 MOTHER FH: Crohn's disease G8 SISTER Physical Exam Vital Signs Vital Signs - First Documented 08/11/22 21:09 Temp 36.5 Pulse 83 Resp 16 B/P (MAP) 132/80 (97) Pulse Ox 97 O2 Delivery Room Air Capillary Refill : Less Than 3 Seconds Height, Weight, BMI Height: 6'0" Weight: 190lbs. oz. 86.871345hk; 26.00 BMI Method:Stated General Appearance: WD/WN, no apparent distress Cardiovascular: normal peripheral pulses, regular rate, rhythm Respiratory: chest non-tender, lungs clear, normal breath sounds Extremities: normal range of motion (Bilat LEs and left UE. LOM right wrist. ), normal capillary refill, swelling (Right wrist and hand.), other (Limitation of motion right wrist secondary to pain, neurovascular status intact right upper extremity. Tenderness to distal radius and ulnar styloid.) Neurologic/Psychiatric: no motor/sensory deficits, alert, normal mood/affect, oriented x 3 Skin: normal color, other (Abrasion anterior left knee) Progress/Results/Core Measures Results/Orders My Orders Orders - NATALIYA AVALOS Wrist, Right, 3 Views Or More (08/11/22 21:22) Knee, Left, 3 Views (08/11/22 21:22) Rx-Tramadol Hcl (Rx-Ultram) (08/11/22 21:49) Tramadol Tablet (Ultram Tablet) (08/11/22 21:49) Vital Signs/I&O 08/11/22 08/11/22 21:09 22:07 Temp 36.5 36.5 Pulse 83 83 Resp 16 16 B/P (MAP) 132/80 (97) 132/80 Pulse Ox 97 97 O2 Delivery Room Air Room Air Blood Pressure Mean: 97 Progress Progress Note : Time: 21:15 Progress Note Patient assessed, will give tramadol 50 mg orally and obtain x-rays of the right wrist and left knee. 2139 nondisplaced fracture of the right distal radius and ulnar styloid noted. Wrist splint applied. Ice pack in place. Diagnostic Imaging Diagonstic Imaging: Xray Plain Films/CT/US/NM/MRI: forearm Comments NAME: [facility] REC#: [id number] PT STATUS: REG ER : 1955 PHYSICIAN: NATALIYA AVALOS ADMIT DATE: 08/11/22/ER Draft Date of Exam:08/11/22 WRIST, RIGHT, 3 VIEWS OR MORE INDICATION: Fracture. EXAMINATION: Three view right wrist performed. FINDINGS: There is a mildly impacted and slightly dorsally angulated distal radial Colles' fracture with intra-articular extension. There is a faint avulsion of the ulnar styloid tip, nondisplaced. Vertically oriented intra-articular component through the dorsal aspect of the distal radius present. No significant articular offset. No carpal fracture or dislocation. IMPRESSION: Distal radial Colles' fracture with ulnar styloid tip avulsion. No significant articular offset. Dictated on workstation # [id number] Dict: 08/11/[id number] Trans: 08/11/222152 [facility] [id number] Interpreted by: SUKHWINDER MONTOYA Electronically signed by: Reviewed: Reviewed by Me Diagonstic Imaging: Xray Plain Films/CT/US/NM/MRI: knee Comments NAME: [facility] REC#: [id number] PT STATUS: REG ER : 1955 PHYSICIAN: NATALIYA AVALOS ADMIT DATE: 08/11/22/ER Draft Date of Exam:08/11/22 KNEE, LEFT, 3 VIEWS INDICATION: Fall with pain. FINDINGS: Plate and screws transfix the distal femur. Hardware appears intact. There are tricompartmental degenerative changes most severe at the patellofemoral compartment. Suprapatellar soft tissue irregularity anteriorly present. No appreciable joint effusion or loose body. IMPRESSION: Degenerative and postoperative findings. Soft tissue injury. No acute bony abnormality identified, however. Dictated on workstation # [id number] Dict: 08/11/222147 Trans: 08/11/222154 [facility] [id number] Interpreted by: SUKHWINDER MONTOYA Electronically signed by: Reviewed: Reviewed by Me Departure Impression Primary Impression: Fracture of radius Qualified Codes: S52.181A - Other fracture of upper end of right radius, initial encounter for closed fracture Additional Impressions: Contusion of left knee Qualified Codes: S80.02XA - Contusion of left knee, initial encounter Fall Qualified Codes: W19.XXXA - Unspecified fall, initial encounter Fracture of ulnar styloid Qualified Codes: S52.614A - Nondisplaced fracture of right ulna styloid process, initial encounter for closed fracture Disposition: 01 HOME, SELF-CARE Condition: Improved Departure-Patient Inst. Decision time for Depature: 21:40 Referrals: [facility] (PCP/Family) Primary Care Physician ABELARDO TOSCANO MD Patient Instructions: Common Wrist Injuries (DC) Add. Discharge Instructions: Ice and elevate right wrist. Use wrist splint at all times. Call Dr. Toscano's office for follow-up appointment. Ice to left knee, 20 min every 2 hours. Clean with soap and water, apply triple antibiotic as needed. Activity as tolerated for the left knee. You may alternate between Tylenol 650 mg and ibuprofen 600 mg every 4 hours. Use the tramadol for more severe pain. Return to the emergency department for new, urgent healthcare needs. All discharge instructions reviewed with patient and/or family. Voiced understanding. Copy Copies To 1: ABELARDO TOSCANO MD, AMY ARNP Aug 11, 2022 21:45
--- NOTE | 2022-08-11 21:55 | Diagnostic Imaging Report ---
INDICATION: Fracture. EXAMINATION: Three view right wrist performed. FINDINGS: There is a mildly impacted and slightly dorsally angulated distal radial Colles' fracture with intra-articular extension. There is a faint avulsion of the ulnar styloid tip, nondisplaced. Vertically oriented intra-articular component through the dorsal aspect of the distal radius present. No significant articular offset. No carpal fracture or dislocation. IMPRESSION: Distal radial Colles' fracture with ulnar styloid tip avulsion. No significant articular offset. Dictated by: Dictated on workstation # [id number]
--- NOTE | 2022-08-11 21:55 | Diagnostic Imaging Report ---
INDICATION: Fall with pain. FINDINGS: Plate and screws transfix the distal femur. Hardware appears intact. There are tricompartmental degenerative changes most severe at the patellofemoral compartment. Suprapatellar soft tissue irregularity anteriorly present. No appreciable joint effusion or loose body. IMPRESSION: Degenerative and postoperative findings. Soft tissue injury. No acute bony abnormality identified, however. Dictated by: Dictated on workstation # [id number]
[2022-08-11 22:07] VITALS: BP 132/80
== END 2022-08-11 22:07 | disposition home or self-care (01) ==
LOC: EDUNIT# 20:58 → ER 20:59
DX: S52.501A Unspecified fracture of the lower end of right radius, initial encounter for closed fracture (principal); S52.614A Nondisplaced fracture of right ulna styloid process, initial encounter for closed fracture; S80.02XA Contusion of left knee, initial encounter; F17.210 Nicotine dependence, cigarettes, uncomplicated; W01.0XXA Fall on same level from slipping, tripping and stumbling without subsequent striking against object, initial encounter
CPT/HCPCS: 73110; 73562